=== PATIENT | female | born 1945 | race African-American/Black ===

== ENCOUNTER 2017-08-10 16:39 | Inpatient (IN) | payer MEDICARE, MEDICAID ==
[~2017-08-10] VITALS: Ht 172.7 cm; Wt 90.7 kg
--- NOTE | 2017-08-10 16:56 | Emergency Room Report ---
History of Present Illness General Chief Complaint: Abdominal Pain Source: Patient, EMS Present Illness HPI Patient presents emergency department today complaining of abdominal pain. 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 This was operated on at [place]. Patient has a colostomy. Patient has bib in place in her abdomen. But she is complaining of pain at the incision site. There is evidence of discharge and drainage from incision site consistent with an abscess. Patient denies any fever chest pain shortness of breath. Denies any nausea or vomiting. Symptoms noted to be moderate to severe.No other modifying factors. No other associated signs and symptoms. No other complaints were noted. Allergies: Coded Allergies: PROCHLORPERAZINE (Verified Allergy, Unknown, 08/10/17) Patient History Past Medical History: HTN Past Surgical History: other - Bowel resection, colostomy, bowel obstruction Pertinent Family History: none Social History: Denies: smoking, alcohol use, drug use Reviewed Nursing Documentation: PMH: Agreed; PSxH: Agreed Nursing Documentation-PMH Past Medical History: No History, Except For Hx Hypertension: Yes Review of Systems All Other Systems: negative except mentioned in HPI Physical Exam Vital Signs Date Time Temp Pulse Resp B/P (MAP) Pulse Ox O2 Delivery O2 Flow Rate FiO2 08/10/17 16:31 88 18 150/70 Sp02 EP Interpretation: reviewed, normal General Appearance: alert, moderate distress Head: atraumatic Eyes: bilateral eye normal inspection ENT: normal ENT inspection, hearing grossly normal, normal voice Neck: normal inspection, full range of motion, supple, no bony tend Respiratory: normal inspection, lungs clear, normal breath sounds, no respiratory distress, no retraction, no wheezing Cardiovascular #1: regular rate, rhythm, no edema Gastrointestinal: soft, other - surgical scar healing, with abscess, and drainage, bib in tact Genitourinary: no CVA tenderness Musculoskeletal: normal inspection, back normal, normal range of motion Neurologic: normal inspection, alert, responsive, speech normal Psychiatric: normal inspection, judgement/insight normal, mood/affect normal Skin: other - abdominal wall surgical wound, draining, abscess, erythemia, induration, 4cm lenght Medical Decision Making Diagnostic Impression: Primary Impression: Wound infection Additional Impressions: Ileus Abdominal pain ER Course Patient presents to the emergency department today complaining of abdominal pain. Differential considerations include acute pancreatitis, cholecystitis, gastritis, hepatitis, appendicitis, bowel obstruction, wound infection just to name a few. There is evidence of discharge from the surgical wound. This was cultured. This is concerning for infection. Patient had a CT scan and pelvis which did not show any evidence abscess but does show evidence ileus. Given patient's presentation I felt the patient require admission. Case was discussed with Dr. Mateus Posada and Dr. Maza. Patient will be admitted to [facility] further treatment. Labs Test 08/10/17 17:00 08/10/17 19:30 White Blood Count 8.3 K/UL (4.8-10.8) Red Blood Count 3.76 M/UL (4.20-5.40) Hemoglobin 10.9 G/DL (12.0-16.0) Hematocrit 32.8 % (37.0-47.0) Mean Corpuscular Volume 87 FL (80-99) Mean Corpuscular Hemoglobin 28.9 PG (27.0-31.0) Mean Corpuscular Hemoglobin Concent 33.2 G/DL (32.0-36.0) Red Cell Distribution Width 11.9 % (11.6-14.8) Platelet Count 443 K/UL (150-450) Mean Platelet Volume 5.8 FL (6.5-10.1) Neutrophils (%) (Auto) 67.4 % (45.0-75.0) Lymphocytes (%) (Auto) 19.4 % (20.0-45.0) Monocytes (%) (Auto) 10.0 % (1.0-10.0) Eosinophils (%) (Auto) 1.9 % (0.0-3.0) Basophils (%) (Auto) 1.3 % (0.0-2.0) Prothrombin Time 10.6 SEC (9.30-11.50) Prothromb Time International Ratio 1.0 (0.9-1.1) Activated Partial Thromboplast Time 30 SEC (23-33) Sodium Level 138 MMOL/L (136-145) Potassium Level 4.0 MMOL/L (3.5-5.1) Chloride Level 100 MMOL/L (98-107) Carbon Dioxide Level 32 MMOL/L (21-32) Anion Gap 6 mmol/L (5-15) Blood Urea Nitrogen 9 mg/dL (7-18) Creatinine 0.8 MG/DL (0.55-1.30) Estimat Glomerular Filtration Rate mL/min (>60) Glucose Level 105 MG/DL (74-106) Calcium Level 8.8 MG/DL (8.5-10.1) Total Bilirubin 0.4 MG/DL (0.2-1.0) Aspartate Amino Transf (AST/SGOT) 34 U/L (15-37) Alanine Aminotransferase (ALT/SGPT) 14 U/L (12-78) Alkaline Phosphatase 77 U/L (46-116) Total Protein 7.3 G/DL (6.4-8.2) Albumin 2.3 G/DL (3.4-5.0) Globulin 5.0 g/dL Albumin/Globulin Ratio 0.5 (1.0-2.7) Lipase 233 U/L (73-393) CT/MRI/US Diagnostic Results CT/MRI/US Diagnostic Results : Imaging Test Ordered: CT abdomen and pelvis: Ileus Last Vital Signs Date Time Temp Pulse Resp B/P (MAP) Pulse Ox O2 Delivery O2 Flow Rate FiO2 08/10/17 16:31 88 18 150/70 Status: improved Disposition: ADMITTED INPATIENT Condition: Serious JOSTIN LAI M.D. Aug 10, 2017 16:56
[2017-08-10] MEDS ORDERED: Piperacillin/Tazobactam 3.375 GM in NS 110 ML IVPB ONE (17:00)
[2017-08-10] MEDS ORDERED: Morphine Sulfate 4mg/ml Inj IVP ONE (17:00)
[2017-08-10] MEDS ORDERED: Vancomycin 1.5gm/D5W 250ml 250 ML IVPB ONE (17:00)
[2017-08-10 17:25] VITALS: BP 111/78
[2017-08-10 17:26] LABS: BASOPHILS % (AUTO) 1.3 % (0.0-2.0); EOSINOPHILS % (AUTO) 1.9 % (0.0-3.0); HEMATOCRIT 32.8 % (37.0-47.0); HEMOGLOBIN 10.9 G/DL (12.0-16.0); LYMPHOCYTES % (AUTO) 19.4 % (20.0-45.0); MEAN CORPUSCULAR VOLUME 87 FL (80-99); NEUTROPHILS % (AUTO) 67.4 % (45.0-75.0); PLATELET COUNT 443 K/UL (150-450); RED BLOOD COUNT 3.76 M/UL (4.20-5.40); RED CELL DISTRIBUTION WIDTH 11.9 % (11.6-14.8); WHITE BLOOD COUNT 8.3 K/UL (4.8-10.8)
[2017-08-10 17:28] LABS: ANION GAP 6 mmol/L (5-15); BLOOD UREA NITROGEN 9 mg/dL (7-18); CALCIUM 8.8 MG/DL (8.5-10.1); CARBON DIOXIDE 32 MMOL/L (21-32); CHLORIDE 100 MMOL/L (98-107); CREATININE 0.8 MG/DL (0.55-1.30); SODIUM 138 MMOL/L (136-145)
[2017-08-10 17:32] LABS: ALANINE AMINOTRANSFERASE 14 U/L (12-78); ALBUMIN 2.3 G/DL (3.4-5.0); ALBUMIN/GLOBULIN RATIO 0.5 (1.0-2.7); ALKALINE PHOSPHATASE 77 U/L (46-116); ASPARTATE AMINO TRANSFERASE 34 U/L (15-37); BILIRUBIN,TOTAL 0.4 MG/DL (0.2-1.0)
[2017-08-10] MEDS ORDERED: IPRAT-ALBUT 0.5-3 ML IH (17:34)
[2017-08-10] MEDS ORDERED: NORCO 10/3251 EA ORAL (17:34)
[2017-08-10] MEDS ORDERED: MILK OF MA400 MG/51 ORAL (17:34)
[2017-08-10] MEDS ORDERED: CEPHALEXIN500 MG ORAL (17:34)
[2017-08-10] MEDS ORDERED: AMLODIPINE BESYL5 MG ORAL (17:34)
[2017-08-10] MEDS ORDERED: ZOFRAN ODT4 MG ORAL (17:34)
[2017-08-10] MEDS ORDERED: COLACE100 MG ORAL (17:34)
[2017-08-10 18:22] VITALS: BP 115/89
[2017-08-10] MEDS ORDERED: LORazepam Inj 2mg/ml 1ml IV ONE (18:45)
[2017-08-10 19:30] VITALS: BP 118/85
[2017-08-10] MEDS ORDERED: DiphenhydrAMINE 50mg/ml Inj IVP ONE (19:30)
[2017-08-10] MEDS ORDERED: Zosyn 3.375gm inj ONE (19:36)
[2017-08-10 20:23] LABS: APPEARANCE,URINE CLEAR; BILIRUBIN, URINE NEGATIVE (NEGATIVE); COLOR,URINE PALE YELLOW; GLUCOSE, URINE (UA) NEGATIVE (NEGATIVE); KETONES,URINE NEGATIVE (NEGATIVE); LEUKOCYTE ESTERASE ,URINE NEGATIVE (NEGATIVE); NITRITE,URINE NEGATIVE (NEGATIVE); PH,URINE 8 (4.5-8.0); PROTEIN,URINE NEGATIVE (NEGATIVE); UROBILINOGEN,URINE NORMAL MG/DL (0.0-1.0)
[2017-08-10 20:50] VITALS: BP 147/97
[2017-08-10] MEDS ORDERED: Milk of Magnesia 30ml Ud ORAL PRN (22:00)
[2017-08-10] MEDS ORDERED: DiphenhydrAMINE 50mg/ml Inj IVP PRN (22:00)
[2017-08-10] MEDS ORDERED: Albuterol/Ipratropium 3ml neb INH PRN (22:00)
[2017-08-10] MEDS: Heparin 5000 units/ml inj SUBQ SCH (22:36)
[2017-08-10 23:59] VITALS: BP 125/88
[2017-08-11] MEDS: Morphine Sulfate 4mg/ml Inj IVP PRN ×4 (02:00→13:16)
[2017-08-11] MEDS ORDERED: Zosyn 3.375gm inj ONE (03:44)
[2017-08-11 04:00] VITALS: BP 134/91
[2017-08-11] MEDS: Piperacillin/Tazobactam 3.375 GM in NS 110 ML IVPB SCH ×3 (04:00→20:28)
[2017-08-11] MEDS: Heparin 5000 units/ml inj SUBQ SCH ×3 (05:56→20:29)
[2017-08-11 08:00] VITALS: BP 126/76
[2017-08-11] MEDS: Docusate 100mg cap ORAL SCH ×2 (08:36→17:03)
--- NOTE | 2017-08-11 09:10 | Diagnostic Imaging Report ---
Indication: Abdominal pain Technique: CT of the abdomen and pelvis utilizing automated exposure control with intravenous contrast. Venous scanning performed. CT dose: Total DLP 1095 mGycm; CTDI vol 18.6 mGy Comparison: None Findings: There is atelectasis in the lung bases. A small area of consolidation is noted in the right lower lobe. The heart is enlarged. Liver, adrenal glands, spleen and pancreas are grossly unremarkable. No calcified gallstones are identified. There is mild cortical thinning of the bilateral kidneys. There is no hydronephrosis. There is a left lower quadrant colostomy. Colonic diverticulosis is noted. The appendix is normal. There are mildly dilated loops of small bowel within the right-sided abdomen and the central/left-sided pelvis. Abdominal aorta is tortuous. There is no gross free intraperitoneal air. Midline skin bib are seen. There is subcutaneous stranding. The uterus is slightly heterogeneous. Degenerative changes of the spine are noted. There is grade 1 anterolisthesis of L4 and L5. There is a tiny fat-containing right inguinal hernia. Impression: Evaluation limited without oral contrast. Postsurgical changes with left lower quadrant colostomy. Mild segmental dilated small bowel within the right abdomen and the left-sided pelvis without obvious transition point. Partial obstruction cannot be excluded. Clinical correlation recommended. Further evaluation/follow-up recommended as indicated. Colonic diverticulosis but no obvious diverticulitis. Bilateral lower lobe atelectasis. Consolidation in the right lower lobe and aspiration or pneumonia cannot be excluded. Clinical correlation recommended. Slightly heterogeneous appearance of the central uterus. Endometrial pathology not excluded and correlation with ultrasound recommended as indicated. Normal appendix. Other findings as above. The CT scanner at [facility] is accredited by the [employer] and the scans are performed using protocols designed to limit radiation exposure to as low as reasonably achievable to attain images of sufficient resolution adequate for diagnostic evaluation.
--- NOTE | 2017-08-11 09:28 | Diagnostic Imaging Report ---
Indication: Cough Technique: XRAY Chest 1v Comparison: None Findings: Cardiac silhouette is prominent. There is mild central pulmonary vascular congestion. Mild opacities are seen in the lung bases. Degenerative changes of the spine are seen. Impression: Cardiomegaly with pulmonary vascular congestion. Mild lung base opacities could represent atelectasis. Infiltrate in the right base not excluded. Clinical correlation/follow-up recommended.
--- NOTE | 2017-08-11 10:42 | Consultation ---
History of Present Illness General Date patient seen: Aug 11, 2017 Chief Complaint: Abdominal Pain Reason for Consultation: abdominal pain, midline wound infection Present Illness HPI 72F with multiple medical problems presented to ED complaining of worsening abdominal pain. As per patient, she had obstructive colon mass requiring exploratory laparotomy with bowel resection and ostomy creation (González's procedure?) a few weeks ago at [facility]. She was discharged after a week in good condition tolerating diet and with ostomy functional. She was doing well until recently when she began to note drainage from midline wound, wound tenderness, and abdominal tenderness. pain cramping generalized pain that is focal around wound on exam. drainage purulent. no n/v/f/c. labs okay. CT reviewed. patient seen and examined. Allergies: Coded Allergies: PROCHLORPERAZINE (Verified Allergy, Unknown, 08/10/17) Medication History Scheduled Amlodipine Besylate* (Amlodipine Besylate*), 5 MG ORAL DAILY, (Reported) Cephalexin* (Keflex*), 500 MG ORAL EVERY 6 HOURS, (Reported) Docusate Sodium* (Colace*), 100 MG ORAL TWICE A DAY, (Reported) Scheduled PRN Hydrocodone/Acetaminophen (Hydrocodon-Acetaminophn 10-325), 1 TAB ORAL Q4H PRN for For Pain, (Reported) Ipratropium/Albuterol Sulfate (Iprat-Albut 0.5-3(2.5) Mg/3 Ml), 3 ML IH EVERY 2 HOURS PRN for Shortness of Breath, (Reported) Magnesium Hydroxide* (Milk Of Magnesia*), 30 ML ORAL DAILY PRN for Constipation, (Reported) Ondansetron Odt* (Zofran Odt*), 4 MG ORAL Q4HR PRN for Nausea & Vomiting, ( Reported) Patient History History Provided By: Patient, Medical Record, PMD Healthcare decision maker BRITNEY OWEN, Resuscitation status Advanced Directive on File Past Medical/Surgical History Past Medical/Surgical History: (1) Ileus (2) Abdominal pain (3) Wound infection Review of Systems Constitutional: Denies: no symptoms, see HPI, chills, sweats, fever, malaise, weakness, other Eye: Denies: no symptoms, see HPI, eye pain, blurred vision, tearing, double vision, nose pain, nose congestion, acuity changes, discharge, other ENT: Denies: no symptoms, see HPI, ear pain, ear discharge, nose pain, nose congestion, throat pain, throat swelling, mouth pain, hearing loss, nasal discharge, other Respiratory: Denies: no symptoms, see HPI, cough, orthopnea, shortness of breath, stridor, wheezing, MONTANEZ, sputum, other Cardiovascular: Denies: no symptoms, see HPI, chest pain, edema, palpitations, syncope, PND, other Gastrointestinal: Reports: abdominal pain Genitourinary: Denies: no symptoms, see HPI, discharge, dysuria, frequency, hematuria, pain, retention, incontinence, urgency, vag bleed/dc, other Musculoskeletal: Denies: no symptoms, see HPI, back pain, gout, joint pain, joint swelling, muscle pain, muscle stiffness, other Skin: Denies: no symptoms, see HPI, rash, change in color, change in hair/nails , dryness, lesions, other Psychiatric: Denies: no symptoms, see HPI, prior hx, anxiety, depressed feelings, emotional problems, SI, HI, hallucinations, other Neurological: Denies: no symptoms, see HPI, headache, numbness, paresthesia, seizure, tingling, tremors, focal weakness, syncope, dizziness, other Endocrine: Denies: no symptoms, see HPI, excessive sweating, flushing, intolerance to temperature, increased thirst, increased urine, unexplained weight loss, other Hematologic/Lymphatic: Denies: no symptoms, see HPI, anemia, blood clots, easy bleeding, easy bruising, swollen glands, diathesis, other Physical Exam General Appearance: no apparent distress, alert Lines, tubes and drains: peripheral HEENT: normocephalic, mucous membranes moist Neck: normal inspection Respiratory/Chest: chest wall non-tender, lungs clear, normal breath sounds, no respiratory distress, no accessory muscle use Cardiovascular/Chest: normal peripheral pulses, normal rate, regular rhythm Abdomen: normal bowel sounds, soft, no organomegaly, no mass, other - tender wound midline wound that has erythema, edema, and purulent drainage from inbetween bib. ostomy viable and functional Extremities: normal range of motion, non-tender Skin Exam: normal pigmentation Neurologic: alert, oriented x 3 Last 24 Hour Vital Signs Date Time Temp Pulse Resp B/P (MAP) Pulse Ox O2 Delivery O2 Flow Rate FiO2 08/11/17 08:41 72 126/76 08/11/17 08:00 96.3 72 18 126/76 94 Room Air 96.3 08/11/17 07:50 85 16 Room Air 21 08/11/17 07:02 97.9 08/11/17 06:32 97.9 08/11/17 04:00 98.1 86 18 134/91 95 98.1 08/11/17 04:00 Room Air 08/11/17 02:00 97.9 08/11/17 00:45 Room Air 08/10/17 23:59 97.9 85 18 125/88 96 97.9 08/10/17 20:50 98.2 88 18 147/97 93 Room Air 98.2 08/10/17 20:00 98.9 92 16 118/85 96 Room Air 98.9 08/10/17 19:30 98.9 92 16 118/85 96 Room Air 98.9 08/10/17 18:22 94 17 115/89 94 Room Air 08/10/17 17:25 99 20 111/78 99 Room Air 08/10/17 16:31 88 18 150/70 Intake and Output 08/10/17 08/11/17 19:00 07:00 Intake Total 0 ml 382.5 ml Balance 0 ml 382.5 ml Intake Oral 0 ml IV Total 382.5 ml # Voids 3 Laboratory Tests Test 08/10/17 17:00 08/10/17 19:30 White Blood Count 8.3 K/UL (4.8-10.8) Red Blood Count 3.76 M/UL (4.20-5.40) L Hemoglobin 10.9 G/DL (12.0-16.0) L Hematocrit 32.8 % (37.0-47.0) L Mean Corpuscular Volume 87 FL (80-99) Mean Corpuscular Hemoglobin 28.9 PG (27.0-31.0) Mean Corpuscular Hemoglobin Concent 33.2 G/DL (32.0-36.0) Red Cell Distribution Width 11.9 % (11.6-14.8) Platelet Count 443 K/UL (150-450) Mean Platelet Volume 5.8 FL (6.5-10.1) L Neutrophils (%) (Auto) 67.4 % (45.0-75.0) Lymphocytes (%) (Auto) 19.4 % (20.0-45.0) L Monocytes (%) (Auto) 10.0 % (1.0-10.0) Eosinophils (%) (Auto) 1.9 % (0.0-3.0) Basophils (%) (Auto) 1.3 % (0.0-2.0) Prothrombin Time 10.6 SEC (9.30-11.50) Prothromb Time International Ratio 1.0 (0.9-1.1) Activated Partial Thromboplast Time 30 SEC (23-33) Sodium Level 138 MMOL/L (136-145) Potassium Level 4.0 MMOL/L (3.5-5.1) Chloride Level 100 MMOL/L (98-107) Carbon Dioxide Level 32 MMOL/L (21-32) Anion Gap 6 mmol/L (5-15) Blood Urea Nitrogen 9 mg/dL (7-18) Creatinine 0.8 MG/DL (0.55-1.30) Estimat Glomerular Filtration Rate mL/min (>60) Glucose Level 105 MG/DL (74-106) Calcium Level 8.8 MG/DL (8.5-10.1) Total Bilirubin 0.4 MG/DL (0.2-1.0) Aspartate Amino Transf (AST/SGOT) 34 U/L (15-37) Alanine Aminotransferase (ALT/SGPT) 14 U/L (12-78) Alkaline Phosphatase 77 U/L (46-116) Total Protein 7.3 G/DL (6.4-8.2) Albumin 2.3 G/DL (3.4-5.0) L Globulin 5.0 g/dL Albumin/Globulin Ratio 0.5 (1.0-2.7) L Lipase 233 U/L (73-393) Urine Color Pale yellow Urine Appearance Clear Urine pH 8 (4.5-8.0) Urine Specific [place] 1.010 (1.005-1.035) Urine Protein Negative (NEGATIVE) Urine Glucose (UA) Negative (NEGATIVE) Urine Ketones Negative (NEGATIVE) Urine Occult Blood Negative (NEGATIVE) Urine Nitrite Negative (NEGATIVE) Urine Bilirubin Negative (NEGATIVE) Urine Urobilinogen Normal MG/DL (0.0-1.0) Urine Leukocyte Esterase Negative (NEGATIVE) Height (Feet): 5 Height (Inches): 8.00 Weight (Pounds): 200 Medications Current Medications Medications (Trade) Dose Ordered Sig/Radha Route PRN Reason Start Time Stop Time Status Last Admin Dose Admin Albuterol/ Ipratropium (Albuterol/ Ipratropium) 3 ml EVERY 2 HOURS PRN INH Shortness of Breath 08/10/17 22:00 08/15/17 21:59 Amlodipine Besylate (Norvasc) 5 mg DAILY ORAL 08/11/17 09:00 09/10/17 08:59 08/11/17 08:41 Dextrose/ Electrolytes 1,000 ml @ 100 mls/hr Q10H IV 08/10/17 22:15 09/09/17 22:14 08/11/17 08:42 Diphenhydramine HCl (Benadryl) 25 mg Q6H PRN IVP Itching 08/10/17 22:00 09/09/17 21:59 Docusate Sodium (Colace) 100 mg TWICE A DAY ORAL 08/11/17 09:00 09/10/17 08:59 Heparin Sodium (Porcine) (Heparin 5000 units/ml) 5,000 units EVERY 8 HOURS SUBQ 08/10/17 22:00 09/09/17 21:59 08/11/17 05:56 Magnesium Hydroxide (Mom) 30 ml DAILY PRN ORAL Constipation 08/10/17 22:00 09/09/17 21:59 Morphine Sulfate (Morphine Sulfate) 2 mg Q4H PRN IVP pain 08/10/17 22:15 08/17/17 22:14 08/11/17 06:32 Ondansetron HCl (Zofran) 4 mg Q6H PRN IVP Nausea & Vomiting 08/10/17 22:00 09/09/17 21:59 Piperacillin Sod/ Tazobactam Sod 3.375 gm/Sodium Chloride 110 ml @ 27.5 mls/hr 0400,1200,2000 IVPB 08/11/17 04:00 08/18/17 03:59 08/11/17 04:00 Assessment/Plan Problem List: (1) Wound infection Assessment & Plan: midline wound infection after recent surgery. seems that she had a González's procedure for large bowel obstruction from exam and history. her ostomy is viable and functional. her abdominal exam is stable but midline wound does have purulent drainage/erythema/edema. labs okay. otherwise stable. midline wound bib removed and wound opened at bedside. drained 20+cc of purulent bloody fluid. -packing and dressing TID -okay for diet -ambulate and oob -abx will follow with recs. thank you for this consult. ICD Codes: T14.8XXA - Other injury of unspecified body region, initial encounter; L08.9 - Local infection of the skin and subcutaneous tissue, unspecified SNOMED: 32156846 Status: stable RoqueRoberto Carlos romero Aug 11, 2017 10:42
[2017-08-11 12:14] VITALS: BP 121/97
[2017-08-11 12:38] LABS: ANION GAP 6 mmol/L (5-15); BLOOD UREA NITROGEN 5 mg/dL (7-18); CALCIUM 9.1 MG/DL (8.5-10.1); CARBON DIOXIDE 31 MMOL/L (21-32); CHLORIDE 102 MMOL/L (98-107); CREATININE 0.8 MG/DL (0.55-1.30); POTASSIUM 4.2 MMOL/L (3.5-5.1); SODIUM 139 MMOL/L (136-145)
[2017-08-11 13:03] LABS: BASOPHILS % (AUTO) 0.8 % (0.0-2.0); EOSINOPHILS % (AUTO) 4.1 % (0.0-3.0); HEMATOCRIT 34.5 % (37.0-47.0); HEMOGLOBIN 11.2 G/DL (12.0-16.0); LYMPHOCYTES % (AUTO) 28.2 % (20.0-45.0); MEAN CORPUSCULAR VOLUME 88 FL (80-99); MONOCYTES % (AUTO) 9.2 % (1.0-10.0); NEUTROPHILS % (AUTO) 57.6 % (45.0-75.0); PLATELET COUNT 454 K/UL (150-450); RED BLOOD COUNT 3.91 M/UL (4.20-5.40); WHITE BLOOD COUNT 7.4 K/UL (4.8-10.8)
--- NOTE | 2017-08-11 14:20 | General Progress Note ---
Assessment/Plan Assessment/Plan GI CONSULT Dictated D/w surgery Thank you Alvarado Boone MD Subjective Allergies: Coded Allergies: PROCHLORPERAZINE (Verified Allergy, Unknown, 08/10/17) Objective Last 24 Hour Vital Signs Date Time Temp Pulse Resp B/P (MAP) Pulse Ox O2 Delivery O2 Flow Rate FiO2 08/11/17 13:46 97.9 08/11/17 13:16 97.9 08/11/17 12:14 97.9 87 18 121/97 93 Room Air 97.9 08/11/17 11:29 96.3 08/11/17 10:59 96.3 08/11/17 08:41 72 126/76 08/11/17 08:00 96.3 72 18 126/76 94 Room Air 96.3 08/11/17 07:50 85 16 Room Air 21 08/11/17 06:32 97.9 08/11/17 04:00 98.1 86 18 134/91 95 98.1 08/11/17 04:00 Room Air 08/11/17 02:00 97.9 08/11/17 00:45 Room Air 08/10/17 23:59 97.9 85 18 125/88 96 97.9 08/10/17 20:50 98.2 88 18 147/97 93 Room Air 98.2 08/10/17 20:00 98.9 92 16 118/85 96 Room Air 98.9 08/10/17 19:30 98.9 92 16 118/85 96 Room Air 98.9 08/10/17 18:22 94 17 115/89 94 Room Air 08/10/17 17:25 99 20 111/78 99 Room Air 08/10/17 16:31 88 18 150/70 Intake and Output 08/10/17 08/11/17 19:00 07:00 Intake Total 0 ml 382.5 ml Balance 0 ml 382.5 ml Intake Oral 0 ml IV Total 382.5 ml # Voids 3 Laboratory Tests 08/10/17 17:00: White Blood Count 8.3, Red Blood Count 3.76L, Hemoglobin 10.9L, Hematocrit 32.8L , Mean Corpuscular Volume 87, Mean Corpuscular Hemoglobin 28.9, Mean Corpuscular Hemoglobin Concent 33.2, Red Cell Distribution Width 11.9, Platelet Count 443, Mean Platelet Volume 5.8L, Neutrophils (%) (Auto) 67.4, Lymphocytes ( %) (Auto) 19.4L, Monocytes (%) (Auto) 10.0, Eosinophils (%) (Auto) 1.9, Basophils (%) (Auto) 1.3, Prothrombin Time 10.6, Prothromb Time International Ratio 1.0, Activated Partial Thromboplast Time 30, Sodium Level 138, Potassium Level 4.0, Chloride Level 100, Carbon Dioxide Level 32, Anion Gap 6, Blood Urea Nitrogen 9, Creatinine 0.8, Estimat Glomerular Filtration Rate , Glucose Level 105, Calcium Level 8.8, Total Bilirubin 0.4, Aspartate Amino Transf (AST/SGOT) 34, Alanine Aminotransferase (ALT/SGPT) 14, Alkaline Phosphatase 77, Total Protein 7.3, Albumin 2.3L, Globulin 5.0, Albumin/Globulin Ratio 0.5L, Lipase 233 08/10/17 19:30: Urine Color Pale yellow, Urine Appearance Clear, Urine pH 8, Urine Specific [place] 1.010, Urine Protein Negative, Urine Glucose (UA) Negative, Urine Ketones Negative, Urine Occult Blood Negative, Urine Nitrite Negative, Urine Bilirubin Negative, Urine Urobilinogen Normal, Urine Leukocyte Esterase Negative 08/11/17 11:50: White Blood Count 7.4, Red Blood Count 3.91L, Hemoglobin 11.2L, Hematocrit 34.5L , Mean Corpuscular Volume 88, Mean Corpuscular Hemoglobin 28.7, Mean Corpuscular Hemoglobin Concent 32.4, Red Cell Distribution Width 12.0, Platelet Count 454H, Mean Platelet Volume 5.9L, Neutrophils (%) (Auto) 57.6, Lymphocytes (%) (Auto) 28.2, Monocytes (%) (Auto) 9.2, Eosinophils (%) (Auto) 4.1H, Basophils (%) (Auto) 0.8, Sodium Level 139, Potassium Level 4.2, Chloride Level 102, Carbon Dioxide Level 31, Anion Gap 6, Blood Urea Nitrogen 5L, Creatinine 0.8, Estimat Glomerular Filtration Rate , Glucose Level 95, Calcium Level 9.1 Height (Feet): 5 Height (Inches): 8.00 Weight (Pounds): 200 IHSANMANISHASUZE Aug 11, 2017 14:20
[2017-08-11] MEDS ORDERED: Tubing IV Secondary IV ONE (14:28)
--- NOTE | 2017-08-11 14:30 | History and Physical Report ---
DATE OF ADMISSION: 08/10/2017 TIME: 8 a.m. ATTENDING PHYSICIAN: Mateus Posada D.O. CONSULTANTS: 1. Ember Boone M.D. 2. Roberto Carlos Maza M.D. 3. Jose Luis Vieyra M.D. CHIEF COMPLAINT: Abdominal pain, status post surgery, possible abdominal abscess, history of SBO. BRIEF HISTORY: This is a 72-year-old female from [facility] with history of recent SBO, status post colostomy, was complaining of two-day of increased abdominal pain, four bowel movements, in to [facility], diagnosed with possible abdominal abscess, admitted to medical floor for further treatment. Currently, calm in bed, NPO, slight general abdominal pain, 6/10. No complaint. REVIEW OF SYSTEMS: No chest pain. No shortness of breath. Slight nausea. No vomiting or diarrhea. PAST MEDICAL HISTORY: Includes hypertension and history SBO. PAST SURGICAL HISTORY: Colostomy. MEDICATIONS: Include Norvasc, Colace, Zosyn, morphine, albuterol, , Zofran, and heparin. ALLERGIES: Prochlorperazine. SOCIAL HISTORY: No smoking. No alcohol. No intravenous drug abuse. FAMILY HISTORY: Noncontributory. PHYSICAL EXAMINATION: GENERAL: Slightly anxious in bed, oriented x3, no acute distress. VITAL SIGNS: Temperature is 98, pulse 85, respirations 16, and blood pressure 131/91. CARDIOVASCULAR: No murmurs. LUNGS: Distant and clear. ABDOMEN: Bowel sounds distention, soft. No guarding. Slightly tender. No rebound. EXTREMITIES: No cyanosis, clubbing, or edema. NEUROLOGIC: The patient moves all extremities slightly weak. LABORATORY DATA: Hemoglobin 10.9, otherwise CBC is normal. BMP shows albumin 2.3, otherwise BMP is normal. INR is 1.0 and PTT is 30. Urinalysis is negative. ASSESSMENT: 1. Abdominal pain, status post surgery, possible abdominal abscess. 2. Anemia. 3. History SBO. 4. Hypertension. PLAN: 1. OT, PT, dietary evaluation. 2. CBC and BMP in the morning. 3. NPO. 4. IV fluids. 5. Blood pressure and pain control. 6. We will continue to follow the patient. Mateus Posada D.O. DR: HODAN JOB#: [id number] CC:
[2017-08-11 16:30] VITALS: BP 109/64
[2017-08-11 20:00] VITALS: BP 131/78
--- NOTE | 2017-08-11 22:00 | Consultation ---
DATE OF CONSULTATION: 08/11/2017 GASTROENTEROLOGY CONSULTATION CONSULTING PHYSICIAN: Ember Boone M.D. CHIEF COMPLAINT: I was asked to see this patient by Dr. Mateus Posada for evaluation of abdominal pain and wound drainage. HISTORY OF PRESENT ILLNESS: The patient is a pleasant 72-year-old woman, who was brought in from a alf due to above symptoms. The patient recently had presented to [facility] with acute obstruction for colon and underwent emergency surgery with colostomy. Her surgical findings were notable for cancer, which was removed. The patient states that she was sent to alf thereafter for rehabilitation. However, over the last day or two, the patient noted increasing abdominal pain, wound drainage, and chills. The patient, therefore, admitted through the emergency room to [facility]. PAST MEDICAL HISTORY: Remarkable for, 1. History of hypertension. 2. History of colon cancer. MEDICATIONS: See chart list for details. ALLERGIES: Compazine. SOCIAL HISTORY: The patient does not smoke or drink. FAMILY HISTORY: Noncontributory. REVIEW OF SYSTEMS: Otherwise negative. PHYSICAL EXAMINATION: GENERAL: The patient is an obese woman, who is seen in her room with family at bedside. HEENT: Normocephalic and atraumatic. Sclerae anicteric. Oropharynx is clear. NECK: Supple. CHEST: Clear to auscultation. CARDIOVASCULAR: Regular rate. ABDOMEN: Soft with left lower quadrant colostomy. There was also a midline wound with significant degree of induration in the bottom portion of it. Manipulation of this area revealed oozing of purulent material. EXTREMITIES: No edema. LABORATORY AND DIAGNOSTIC DATA: Laboratory data and imaging studies were noted. CT scan showed postsurgical changes with colostomy and some colonic diverticulosis. ASSESSMENT: This patient presents with midline abdominal pain, which appears to be due complication of her wound. The staple line showed some purulent material and there is induration around it. It is possible that this can be treated locally with opening at the wound with packing and this will defer to the surgical consult. In the meantime, I would give the patient broad-spectrum antibiotics to treat the infection initially including antibiotics that would cover for atypical in this area. The patient's laboratory parameters and exam should be followed closely. With respect to her cancer, the patient's staging should be followed up by her physicians at the outside hospital and the Oncology should be involved with respect to postoperative cancer staging and possible chemotherapy. RECOMMENDATIONS: Per above discussion and per orders written in the chart. Thank you for asking me to participate in the care of this patient. Ember Boone M.D. DR: Wilber JOB#: [id number] CC:
[2017-08-12] VITALS: BP 147/102
[2017-08-12] MEDS: Piperacillin/Tazobactam 3.375 GM in NS 110 ML IVPB SCH ×3 (03:07→20:02)
[2017-08-12 04:00] VITALS: BP 138/94
[2017-08-12] MEDS: Heparin 5000 units/ml inj SUBQ SCH ×3 (05:18→20:05)
[2017-08-12] MEDS: Morphine Sulfate 4mg/ml Inj IVP PRN ×4 (05:53→20:07)
[2017-08-12 08:00] VITALS: BP 105/72
[2017-08-12 08:37] LABS: EOSINOPHILS % (AUTO) 3.7 % (0.0-3.0); HEMATOCRIT 31.9 % (37.0-47.0); HEMOGLOBIN 10.7 G/DL (12.0-16.0); MEAN CORPUSCULAR VOLUME 89 FL (80-99); MONOCYTES % (AUTO) 9.9 % (1.0-10.0); NEUTROPHILS % (AUTO) 58.3 % (45.0-75.0); PLATELET COUNT 460 K/UL (150-450); RED BLOOD COUNT 3.61 M/UL (4.20-5.40); WHITE BLOOD COUNT 6.9 K/UL (4.8-10.8)
[2017-08-12] MEDS: Docusate 100mg cap ORAL SCH ×2 (09:08→17:22)
[2017-08-12 09:32] LABS: ANION GAP 5 mmol/L (5-15); BLOOD UREA NITROGEN 4 mg/dL (7-18); CALCIUM 8.8 MG/DL (8.5-10.1); CARBON DIOXIDE 31 MMOL/L (21-32); CHLORIDE 103 MMOL/L (98-107); CREATININE 0.9 MG/DL (0.55-1.30); POTASSIUM 3.9 MMOL/L (3.5-5.1); SODIUM 139 MMOL/L (136-145)
--- NOTE | 2017-08-12 11:00 | GI Progress Note ---
Assessment/Plan Problems: (1) Colostomy complication ICD Codes: K94.00 - Colostomy complication, unspecified SNOMED: 82135275 (2) Wound infection ICD Codes: T14.8XXA - Other injury of unspecified body region, initial encounter; L08.9 - Local infection of the skin and subcutaneous tissue, unspecified SNOMED: 45699753 (3) Abdominal pain ICD Codes: R10.9 - Unspecified abdominal pain SNOMED: 67606546 (4) Ileus ICD Codes: K56.7 - Ileus, unspecified SNOMED: 066543754 Status: stable Status Narrative Discussed with Dr. Peter. Assessment/Plan abdominal pain most likely complication with colostomy surgery follows pain mgmt tolerating diet abx ppi fu labs fu oncology recs The patient was seen and examined at bedside and all new and available data was reviewed in the patients chart. I agree with the above findings, impression and plan. (Patient seen earlier today. Signature stamp does not reflect patient encounter time.). - Constance Peter MD Subjective Subjective abdominal pain tolerating diet Objective Last 24 Hour Vital Signs Date Time Temp Pulse Resp B/P (MAP) Pulse Ox O2 Delivery O2 Flow Rate FiO2 08/12/17 10:20 98.4 08/12/17 09:09 94 105/72 08/12/17 08:00 97.8 94 20 105/72 96 97.8 08/12/17 07:51 76 18 Room Air 21 08/12/17 06:28 98.4 08/12/17 05:53 98.4 08/12/17 04:00 98.4 89 17 138/94 95 98.4 08/12/17 00:00 98.1 95 18 147/102 96 Room Air 98.1 08/11/17 20:00 100.6 94 20 131/78 93 Room Air 100.6 08/11/17 19:50 80 18 Room Air 21 08/11/17 16:30 97.8 79 18 109/64 96 Room Air 97.8 08/11/17 13:16 97.9 08/11/17 12:14 97.9 87 18 121/97 93 Room Air 97.9 08/11/17 11:29 96.3 08/11/17 10:59 96.3 Intake and Output 08/11/17 08/12/17 19:00 07:00 Intake Total 977.5 ml 592.5 ml Output Total 0 ml Balance 977.5 ml 592.5 ml Intake Oral 240 ml IV Total 737.5 ml 592.5 ml Output Stool Total 0 ml # Voids 4 Laboratory Tests Test 08/11/17 11:50 08/12/17 07:40 White Blood Count 7.4 K/UL (4.8-10.8) 6.9 K/UL (4.8-10.8) Red Blood Count 3.91 M/UL (4.20-5.40) L 3.61 M/UL (4.20-5.40) L Hemoglobin 11.2 G/DL (12.0-16.0) L 10.7 G/DL (12.0-16.0) L Hematocrit 34.5 % (37.0-47.0) L 31.9 % (37.0-47.0) L Mean Corpuscular Volume 88 FL (80-99) 89 FL (80-99) Mean Corpuscular Hemoglobin 28.7 PG (27.0-31.0) 29.7 PG (27.0-31.0) Mean Corpuscular Hemoglobin Concent 32.4 G/DL (32.0-36.0) 33.6 G/DL (32.0-36.0) Red Cell Distribution Width 12.0 % (11.6-14.8) 12.0 % (11.6-14.8) Platelet Count 454 K/UL (150-450) H 460 K/UL (150-450) H Mean Platelet Volume 5.9 FL (6.5-10.1) L 5.8 FL (6.5-10.1) L Neutrophils (%) (Auto) 57.6 % (45.0-75.0) 58.3 % (45.0-75.0) Lymphocytes (%) (Auto) 28.2 % (20.0-45.0) 27.0 % (20.0-45.0) Monocytes (%) (Auto) 9.2 % (1.0-10.0) 9.9 % (1.0-10.0) Eosinophils (%) (Auto) 4.1 % (0.0-3.0) H 3.7 % (0.0-3.0) H Basophils (%) (Auto) 0.8 % (0.0-2.0) 1.0 % (0.0-2.0) Sodium Level 139 MMOL/L (136-145) 139 MMOL/L (136-145) Potassium Level 4.2 MMOL/L (3.5-5.1) 3.9 MMOL/L (3.5-5.1) Chloride Level 102 MMOL/L (98-107) 103 MMOL/L (98-107) Carbon Dioxide Level 31 MMOL/L (21-32) 31 MMOL/L (21-32) Anion Gap 6 mmol/L (5-15) 5 mmol/L (5-15) Blood Urea Nitrogen 5 mg/dL (7-18) L 4 mg/dL (7-18) L Creatinine 0.8 MG/DL (0.55-1.30) 0.9 MG/DL (0.55-1.30) Estimat Glomerular Filtration Rate mL/min (>60) mL/min (>60) Glucose Level 95 MG/DL (74-106) 95 MG/DL (74-106) Calcium Level 9.1 MG/DL (8.5-10.1) 8.8 MG/DL (8.5-10.1) Height (Feet): 5 Height (Inches): 8.00 Weight (Pounds): 200 General Appearance: WD/WN, no apparent distress, alert Cardiovascular: normal rate Respiratory/Chest: normal breath sounds, no respiratory distress Abdominal Exam: normal bowel sounds, non tender, soft, other - colostomy Extremities: normal range of motion, non-tender Cristina Gaines N.P. Aug 12, 2017 11:00 BRENDON PETER Aug 12, 2017 13:03
[2017-08-12 12:00] VITALS: BP 140/77
--- NOTE | 2017-08-12 12:37 | General Progress Note ---
Assessment/Plan Problem List: (1) HTN (hypertension) ICD Codes: I10 - Essential (primary) hypertension SNOMED: 12304231 (2) Anemia ICD Codes: D64.9 - Anemia, unspecified SNOMED: 678464202 (3) Ileus ICD Codes: K56.7 - Ileus, unspecified SNOMED: 091728554 (4) Abdominal pain ICD Codes: R10.9 - Unspecified abdominal pain SNOMED: 01706974 Status: unchanged Assessment/Plan ot pt diet gi sx f/u pain control cbc bmp am Subjective Constitutional: Reports: weakness Gastrointestinal/Abdominal: Reports: abdominal pain, nausea Allergies: Coded Allergies: PROCHLORPERAZINE (Verified Allergy, Unknown, 08/10/17) All Systems: reviewed and negative except above Subjective sl gen pain Objective Last 24 Hour Vital Signs Date Time Temp Pulse Resp B/P (MAP) Pulse Ox O2 Delivery O2 Flow Rate FiO2 08/12/17 10:50 98.4 08/12/17 10:20 98.4 08/12/17 09:09 94 105/72 08/12/17 08:00 97.8 94 20 105/72 96 97.8 08/12/17 07:51 76 18 Room Air 21 08/12/17 05:53 98.4 08/12/17 04:00 98.4 89 17 138/94 95 98.4 08/12/17 00:00 98.1 95 18 147/102 96 Room Air 98.1 08/11/17 20:00 100.6 94 20 131/78 93 Room Air 100.6 08/11/17 19:50 80 18 Room Air 21 08/11/17 16:30 97.8 79 18 109/64 96 Room Air 97.8 08/11/17 13:16 97.9 Intake and Output 08/11/17 08/12/17 19:00 07:00 Intake Total 977.5 ml 592.5 ml Output Total 0 ml Balance 977.5 ml 592.5 ml Intake Oral 240 ml IV Total 737.5 ml 592.5 ml Output Stool Total 0 ml # Voids 4 Laboratory Tests 08/12/17 07:40: White Blood Count 6.9, Red Blood Count 3.61L, Hemoglobin 10.7L, Hematocrit 31.9L , Mean Corpuscular Volume 89, Mean Corpuscular Hemoglobin 29.7, Mean Corpuscular Hemoglobin Concent 33.6, Red Cell Distribution Width 12.0, Platelet Count 460H, Mean Platelet Volume 5.8L, Neutrophils (%) (Auto) 58.3, Lymphocytes (%) (Auto) 27.0, Monocytes (%) (Auto) 9.9, Eosinophils (%) (Auto) 3.7H, Basophils (%) (Auto) 1.0, Sodium Level 139, Potassium Level 3.9, Chloride Level 103, Carbon Dioxide Level 31, Anion Gap 5, Blood Urea Nitrogen 4L, Creatinine 0.9, Estimat Glomerular Filtration Rate , Glucose Level 95, Calcium Level 8.8 Height (Feet): 5 Height (Inches): 8.00 Weight (Pounds): 200 General Appearance: alert EENT: normal ENT inspection Neck: normal alignment Cardiovascular: normal peripheral pulses, normal rate, regular rhythm Respiratory/Chest: chest wall non-tender, lungs clear, normal breath sounds Abdomen: soft, hypoactive bowel sounds Extremities: normal inspection Edema: no edema noted Arm (L), no edema noted Arm (R), no edema noted Leg (L), no edema noted Leg (R), no edema noted Pedal (L), no edema noted Pedal (R), no edema noted Generalized Neurologic: responsive, motor weakness Skin: normal pigmentation, warm/dry YSABEL LUCERO Aug 12, 2017 12:37
--- NOTE | 2017-08-12 13:55 | General Surgery Progress Note ---
General Surgery-Progress Note Subjective Symptoms: improved Additional Comments pain improved. some nausea. no emesis. tolerating diet but not eating much. no fever or chills. Objective Last 24 Hour Vital Signs Date Time Temp Pulse Resp B/P (MAP) Pulse Ox O2 Delivery O2 Flow Rate FiO2 08/12/17 10:50 98.4 08/12/17 10:20 98.4 08/12/17 09:09 94 105/72 08/12/17 08:00 97.8 94 20 105/72 96 97.8 08/12/17 07:51 76 18 Room Air 21 08/12/17 05:53 98.4 08/12/17 04:00 98.4 89 17 138/94 95 98.4 08/12/17 00:00 98.1 95 18 147/102 96 Room Air 98.1 08/11/17 20:00 100.6 94 20 131/78 93 Room Air 100.6 08/11/17 19:50 80 18 Room Air 21 08/11/17 16:30 97.8 79 18 109/64 96 Room Air 97.8 I&O Intake and Output 08/11/17 08/12/17 19:00 07:00 Intake Total 977.5 ml 592.5 ml Output Total 0 ml Balance 977.5 ml 592.5 ml Intake Oral 240 ml IV Total 737.5 ml 592.5 ml Output Stool Total 0 ml # Voids 4 Dressing: saturated Wound: clean Drains: none Cardiovascular: RSR Respiratory: clear Abdomen: soft, flat, tenderness, present bowel sounds, other - ostomy with stool Extremities: no edema, no tenderness, no cyanosis Laboratory Tests Test 08/12/17 07:40 White Blood Count 6.9 K/UL (4.8-10.8) Red Blood Count 3.61 M/UL (4.20-5.40) L Hemoglobin 10.7 G/DL (12.0-16.0) L Hematocrit 31.9 % (37.0-47.0) L Mean Corpuscular Volume 89 FL (80-99) Mean Corpuscular Hemoglobin 29.7 PG (27.0-31.0) Mean Corpuscular Hemoglobin Concent 33.6 G/DL (32.0-36.0) Red Cell Distribution Width 12.0 % (11.6-14.8) Platelet Count 460 K/UL (150-450) H Mean Platelet Volume 5.8 FL (6.5-10.1) L Neutrophils (%) (Auto) 58.3 % (45.0-75.0) Lymphocytes (%) (Auto) 27.0 % (20.0-45.0) Monocytes (%) (Auto) 9.9 % (1.0-10.0) Eosinophils (%) (Auto) 3.7 % (0.0-3.0) H Basophils (%) (Auto) 1.0 % (0.0-2.0) Sodium Level 139 MMOL/L (136-145) Potassium Level 3.9 MMOL/L (3.5-5.1) Chloride Level 103 MMOL/L (98-107) Carbon Dioxide Level 31 MMOL/L (21-32) Anion Gap 5 mmol/L (5-15) Blood Urea Nitrogen 4 mg/dL (7-18) L Creatinine 0.9 MG/DL (0.55-1.30) Estimat Glomerular Filtration Rate mL/min (>60) Glucose Level 95 MG/DL (74-106) Calcium Level 8.8 MG/DL (8.5-10.1) Plan Problems: (1) Wound infection Assessment & Plan: midline wound infection after recent surgery. seems that she had a González's procedure for large bowel obstruction from exam and history. her ostomy is viable and functional. her abdominal exam is stable but midline wound does have purulent drainage/erythema/edema. labs okay. otherwise stable. midline wound bib removed and wound opened at bedside. drained 20+cc of purulent bloody fluid. improving. -packing and dressing TID -ambulate and oob -abx -can consider transitioning to oral abx and discharge soon will follow with recs. thank you for this consult. Roberto Carlos Maza Aug 12, 2017 13:55
[2017-08-12 16:00] VITALS: BP 127/62
[2017-08-12 19:30] VITALS: BP 143/94
[2017-08-13] VITALS (7 sets, daily range): BP systolic 115–139; BP diastolic 74–92
[2017-08-13] MEDS: Morphine Sulfate 4mg/ml Inj IVP PRN ×5 (00:03→21:35)
[2017-08-13] MEDS: Piperacillin/Tazobactam 3.375 GM in NS 110 ML IVPB SCH ×3 (04:30→21:14)
[2017-08-13 05:11] LABS: BASOPHILS % (AUTO) 0.8 % (0.0-2.0); EOSINOPHILS % (AUTO) 4.6 % (0.0-3.0); HEMATOCRIT 30.3 % (37.0-47.0); LYMPHOCYTES % (AUTO) 33.6 % (20.0-45.0); MEAN CORPUSCULAR VOLUME 89 FL (80-99); PLATELET COUNT 435 K/UL (150-450); RED BLOOD COUNT 3.42 M/UL (4.20-5.40); RED CELL DISTRIBUTION WIDTH 12.2 % (11.6-14.8); WHITE BLOOD COUNT 6.6 K/UL (4.8-10.8)
[2017-08-13 05:49] LABS: ANION GAP 5 mmol/L (5-15); BLOOD UREA NITROGEN 8 mg/dL (7-18); CALCIUM 8.7 MG/DL (8.5-10.1); CARBON DIOXIDE 29 MMOL/L (21-32); CHLORIDE 103 MMOL/L (98-107); CREATININE 0.9 MG/DL (0.55-1.30); POTASSIUM 4.1 MMOL/L (3.5-5.1); SODIUM 137 MMOL/L (136-145)
[2017-08-13] MEDS: Heparin 5000 units/ml inj SUBQ SCH ×3 (06:09→21:18)
[2017-08-13] MEDS: Docusate 100mg cap ORAL SCH ×2 (08:40→18:00)
--- NOTE | 2017-08-13 13:47 | General Progress Note ---
Assessment/Plan Problem List: (1) HTN (hypertension) ICD Codes: I10 - Essential (primary) hypertension SNOMED: 43131415 (2) Anemia ICD Codes: D64.9 - Anemia, unspecified SNOMED: 807371484 (3) Ileus ICD Codes: K56.7 - Ileus, unspecified SNOMED: 573811729 (4) Abdominal pain ICD Codes: R10.9 - Unspecified abdominal pain SNOMED: 26885608 Status: unchanged Assessment/Plan ot pt diet gi sx f/u pain control cbc bmp am ltach eval Subjective Constitutional: Reports: weakness Gastrointestinal/Abdominal: Reports: nausea Allergies: Coded Allergies: PROCHLORPERAZINE (Verified Allergy, Unknown, 08/10/17) All Systems: reviewed and negative except above Subjective sl gen pain Objective Last 24 Hour Vital Signs Date Time Temp Pulse Resp B/P (MAP) Pulse Ox O2 Delivery O2 Flow Rate FiO2 08/13/17 12:00 99.7 88 16 129/76 96 99.7 08/13/17 08:40 85 135/84 08/13/17 08:00 97.9 85 16 135/84 97.9 08/13/17 08:00 97.9 85 16 135/84 98 97.9 08/13/17 07:55 88 20 Room Air 21 08/13/17 04:00 98.2 79 16 122/84 98.2 08/13/17 00:33 98.4 08/13/17 00:03 98.4 08/13/17 00:00 98.4 88 15 115/74 94 98.4 08/12/17 21:29 78 18 Room Air 21 08/12/17 20:07 98.4 08/12/17 19:30 98.4 96 20 143/94 97 Room Air 98.4 08/12/17 16:00 98.0 96 20 127/62 96 98.0 08/12/17 14:24 98.4 Intake and Output 08/12/17 08/13/17 19:00 07:00 Intake Total 327.5 ml 100 ml Output Total 1 ml Balance 326.5 ml 100 ml Intake Oral 300 ml IV Total 27.5 ml 100 ml Output Stool Total 1 ml # Voids 3 2 Laboratory Tests 08/13/17 04:50: White Blood Count 6.6, Red Blood Count 3.42L, Hemoglobin 10.0L, Hematocrit 30.3L , Mean Corpuscular Volume 89, Mean Corpuscular Hemoglobin 29.2, Mean Corpuscular Hemoglobin Concent 33.0, Red Cell Distribution Width 12.2, Platelet Count 435, Mean Platelet Volume 5.7L, Neutrophils (%) (Auto) 49.0, Lymphocytes ( %) (Auto) 33.6, Monocytes (%) (Auto) 12.0H, Eosinophils (%) (Auto) 4.6H, Basophils (%) (Auto) 0.8, Sodium Level 137, Potassium Level 4.1, Chloride Level 103, Carbon Dioxide Level 29, Anion Gap 5, Blood Urea Nitrogen 8, Creatinine 0.9 , Estimat Glomerular Filtration Rate , Glucose Level 100, Calcium Level 8.7 Height (Feet): 5 Height (Inches): 8.00 Weight (Pounds): 200 General Appearance: lethargic EENT: normal ENT inspection Neck: normal alignment Cardiovascular: normal peripheral pulses, normal rate, regular rhythm Respiratory/Chest: chest wall non-tender, lungs clear, normal breath sounds Abdomen: soft, hypoactive bowel sounds Extremities: normal inspection Edema: no edema noted Arm (L), no edema noted Arm (R), no edema noted Leg (L), no edema noted Leg (R), no edema noted Pedal (L), no edema noted Pedal (R), no edema noted Generalized Neurologic: responsive, motor weakness Skin: normal pigmentation, warm/dry YSABEL LUCERO Aug 13, 2017 13:47
--- NOTE | 2017-08-13 14:51 | General Surgery Progress Note ---
General Surgery-Progress Note Subjective Additional Comments doing well. no acute events. tolerating diet. no ambulation with lack of initiative from her. Objective Last 24 Hour Vital Signs Date Time Temp Pulse Resp B/P (MAP) Pulse Ox O2 Delivery O2 Flow Rate FiO2 08/13/17 12:00 99.7 88 16 129/76 96 99.7 08/13/17 08:40 85 135/84 08/13/17 08:00 97.9 85 16 135/84 97.9 08/13/17 08:00 97.9 85 16 135/84 98 97.9 08/13/17 07:55 88 20 Room Air 21 08/13/17 04:00 98.2 79 16 122/84 98.2 08/13/17 00:33 98.4 08/13/17 00:03 98.4 08/13/17 00:00 98.4 88 15 115/74 94 98.4 08/12/17 21:29 78 18 Room Air 21 08/12/17 20:07 98.4 08/12/17 19:30 98.4 96 20 143/94 97 Room Air 98.4 08/12/17 16:00 98.0 96 20 127/62 96 98.0 I&O Intake and Output 08/12/17 08/13/17 19:00 07:00 Intake Total 327.5 ml 100 ml Output Total 1 ml Balance 326.5 ml 100 ml Intake Oral 300 ml IV Total 27.5 ml 100 ml Output Stool Total 1 ml # Voids 3 2 Dressing: saturated Wound: clean Drains: none Cardiovascular: RSR Respiratory: clear Abdomen: soft, non-tender, present bowel sounds Extremities: no tenderness, no cyanosis Laboratory Tests Test 08/13/17 04:50 White Blood Count 6.6 K/UL (4.8-10.8) Red Blood Count 3.42 M/UL (4.20-5.40) L Hemoglobin 10.0 G/DL (12.0-16.0) L Hematocrit 30.3 % (37.0-47.0) L Mean Corpuscular Volume 89 FL (80-99) Mean Corpuscular Hemoglobin 29.2 PG (27.0-31.0) Mean Corpuscular Hemoglobin Concent 33.0 G/DL (32.0-36.0) Red Cell Distribution Width 12.2 % (11.6-14.8) Platelet Count 435 K/UL (150-450) Mean Platelet Volume 5.7 FL (6.5-10.1) L Neutrophils (%) (Auto) 49.0 % (45.0-75.0) Lymphocytes (%) (Auto) 33.6 % (20.0-45.0) Monocytes (%) (Auto) 12.0 % (1.0-10.0) H Eosinophils (%) (Auto) 4.6 % (0.0-3.0) H Basophils (%) (Auto) 0.8 % (0.0-2.0) Sodium Level 137 MMOL/L (136-145) Potassium Level 4.1 MMOL/L (3.5-5.1) Chloride Level 103 MMOL/L (98-107) Carbon Dioxide Level 29 MMOL/L (21-32) Anion Gap 5 mmol/L (5-15) Blood Urea Nitrogen 8 mg/dL (7-18) Creatinine 0.9 MG/DL (0.55-1.30) Estimat Glomerular Filtration Rate mL/min (>60) Glucose Level 100 MG/DL (74-106) Calcium Level 8.7 MG/DL (8.5-10.1) Plan Problems: (1) Wound infection Assessment & Plan: midline wound infection after recent surgery. seems that she had a González's procedure for large bowel obstruction from exam and history. her ostomy is viable and functional. her abdominal exam is stable but midline wound does have purulent drainage/erythema/edema. labs okay. otherwise stable. midline wound bib removed and wound opened at bedside. drained 20+cc of purulent bloody fluid. improving. labs okay. exam benign. wound clean -packing and dressing TID -ambulate and oob -abx -transition to oral abx and discharge will follow with recs. thank you for this consult. Roberto Carlos Maza Aug 13, 2017 14:51
--- NOTE | 2017-08-13 15:52 | Consultation ---
History of Present Illness General Date patient seen: Aug 13, 2017 Time patient seen: 15:22 Chief Complaint: Abdominal Pain Reason for Consultation: abdominal pain, midline wound infection Present Illness HPI 72 y/o F with hx of HTN, Colon CA presents to ED on 08/10 with abd pain and wound drainage. Patient recently admitted in [facility] where she presented with acute colon obstruction and underwent emergent exploratory laparotomy w/ bowel resection and colostomy. She was found to have a colonic mass which was removed. [facility]hab. In the last 1- 2 days patient had increasing abd pain, midline wound purulent drainage and tenderness , and chills. Denies fever, n/v. SOB Allergies: Coded Allergies: PROCHLORPERAZINE (Verified Allergy, Unknown, 08/10/17) Medication History Scheduled Amlodipine Besylate* (Amlodipine Besylate*), 5 MG ORAL DAILY, (Reported) Cephalexin* (Keflex*), 500 MG ORAL EVERY 6 HOURS, (Reported) Docusate Sodium* (Colace*), 100 MG ORAL TWICE A DAY, (Reported) Scheduled PRN Hydrocodone/Acetaminophen (Hydrocodon-Acetaminophn 10-325), 1 TAB ORAL Q4H PRN for For Pain, (Reported) Ipratropium/Albuterol Sulfate (Iprat-Albut 0.5-3(2.5) Mg/3 Ml), 3 ML IH EVERY 2 HOURS PRN for Shortness of Breath, (Reported) Magnesium Hydroxide* (Milk Of Magnesia*), 30 ML ORAL DAILY PRN for Constipation, (Reported) Ondansetron Odt* (Zofran Odt*), 4 MG ORAL Q4HR PRN for Nausea & Vomiting, ( Reported) Patient History Healthcare decision maker BRITNEY OWEN, Resuscitation status Advanced Directive on File Patient History Narrative Pmhx; as above Shx: The patient does not smoke or drink. Fhx: non contributory Review of Systems All Other Systems: negative except mentioned in HPI Physical Exam Physical Exam Narrative GENERAL: The patient is an obese woman, who is seen in her room with family at bedside. HEENT: Normocephalic and atraumatic. Sclerae anicteric. Oropharynx is clear. NECK: Supple. CHEST: Clear to auscultation. CARDIOVASCULAR: Regular rate. ABDOMEN: Soft with left lower quadrant colostomy. midline wound which is open and packed; minimal surrounding erythema. EXTREMITIES: No edema. Last 24 Hour Vital Signs Date Time Temp Pulse Resp B/P (MAP) Pulse Ox O2 Delivery O2 Flow Rate FiO2 08/13/17 12:00 99.7 88 16 129/76 96 99.7 08/13/17 08:40 85 135/84 08/13/17 08:00 97.9 85 16 135/84 97.9 08/13/17 08:00 97.9 85 16 135/84 98 97.9 08/13/17 07:55 88 20 Room Air 21 08/13/17 04:00 98.2 79 16 122/84 98.2 08/13/17 00:33 98.4 08/13/17 00:03 98.4 08/13/17 00:00 98.4 88 15 115/74 94 98.4 08/12/17 21:29 78 18 Room Air 21 08/12/17 20:07 98.4 08/12/17 19:30 98.4 96 20 143/94 97 Room Air 98.4 08/12/17 16:00 98.0 96 20 127/62 96 98.0 Intake and Output 08/12/17 08/13/17 19:00 07:00 Intake Total 327.5 ml 100 ml Output Total 1 ml Balance 326.5 ml 100 ml Intake Oral 300 ml IV Total 27.5 ml 100 ml Output Stool Total 1 ml # Voids 3 2 Laboratory Tests Test 08/13/17 04:50 White Blood Count 6.6 K/UL (4.8-10.8) Red Blood Count 3.42 M/UL (4.20-5.40) L Hemoglobin 10.0 G/DL (12.0-16.0) L Hematocrit 30.3 % (37.0-47.0) L Mean Corpuscular Volume 89 FL (80-99) Mean Corpuscular Hemoglobin 29.2 PG (27.0-31.0) Mean Corpuscular Hemoglobin Concent 33.0 G/DL (32.0-36.0) Red Cell Distribution Width 12.2 % (11.6-14.8) Platelet Count 435 K/UL (150-450) Mean Platelet Volume 5.7 FL (6.5-10.1) L Neutrophils (%) (Auto) 49.0 % (45.0-75.0) Lymphocytes (%) (Auto) 33.6 % (20.0-45.0) Monocytes (%) (Auto) 12.0 % (1.0-10.0) H Eosinophils (%) (Auto) 4.6 % (0.0-3.0) H Basophils (%) (Auto) 0.8 % (0.0-2.0) Sodium Level 137 MMOL/L (136-145) Potassium Level 4.1 MMOL/L (3.5-5.1) Chloride Level 103 MMOL/L (98-107) Carbon Dioxide Level 29 MMOL/L (21-32) Anion Gap 5 mmol/L (5-15) Blood Urea Nitrogen 8 mg/dL (7-18) Creatinine 0.9 MG/DL (0.55-1.30) Estimat Glomerular Filtration Rate mL/min (>60) Glucose Level 100 MG/DL (74-106) Calcium Level 8.7 MG/DL (8.5-10.1) Height (Feet): 5 Height (Inches): 8.00 Weight (Pounds): 200 Medications Current Medications Medications (Trade) Dose Ordered Sig/Radha Route PRN Reason Start Time Stop Time Status Last Admin Dose Admin Albuterol/ Ipratropium (Albuterol/ Ipratropium) 3 ml EVERY 2 HOURS PRN INH Shortness of Breath 08/10/17 22:00 08/15/17 21:59 Amlodipine Besylate (Norvasc) 5 mg DAILY ORAL 08/11/17 09:00 09/10/17 08:59 08/13/17 08:40 Dextrose/ Electrolytes 1,000 ml @ 100 mls/hr Q10H IV 08/10/17 22:15 09/09/17 22:14 08/12/17 13:42 Diphenhydramine HCl (Benadryl) 25 mg Q6H PRN IVP Itching 08/10/17 22:00 09/09/17 21:59 Docusate Sodium (Colace) 100 mg TWICE A DAY ORAL 08/11/17 09:00 09/10/17 08:59 08/13/17 08:40 Heparin Sodium (Porcine) (Heparin 5000 units/ml) 5,000 units EVERY 8 HOURS SUBQ 08/10/17 22:00 09/09/17 21:59 08/13/17 13:43 Magnesium Hydroxide (Mom) 30 ml DAILY PRN ORAL Constipation 08/10/17 22:00 09/09/17 21:59 Morphine Sulfate (Morphine Sulfate) 4 mg Q4H PRN IVP For Pain 08/11/17 13:00 08/18/17 12:59 08/13/17 11:36 Ondansetron HCl (Zofran) 4 mg Q6H PRN IVP Nausea & Vomiting 08/10/17 22:00 09/09/17 21:59 08/13/17 13:42 Piperacillin Sod/ Tazobactam Sod 3.375 gm/Sodium Chloride 110 ml @ 27.5 mls/hr 0400,1200,2000 IVPB 08/11/17 04:00 08/18/17 03:59 08/13/17 11:35 Assessment/Plan Assessment/Plan Abx: Zosyn 08/10- IV Vanco x1 08/10 Assessment: Superficial Surgical site infection w/ small abscess (mid abdomen); improving -s/p removal of bib w/ drainage of 20cc purulent bloody fluid -drain cx 08/10 GNR #1, #2, #3 -CT abd/p: Evaluation limited without oral contrast. Postsurgical changes with left lower quadrant colostomy. Mild segmental dilated small bowel within the right abdomen and the left-sided pelvis without obvious transition point. Partial obstruction cannot be excluded. Colonic diverticulosis but no obvious diverticulitis. Bilateral lower lobe atelectasis. Consolidation in the right lower lobe and aspiration or pneumonia cannot be excluded. Slightly heterogeneous appearance of the central uterus. Endometrial pathology not excluded and correlation with ultrasound recommended as indicated. Normal appendix. Low grade fever, 2ry to above- improving -no leukocytosis -CXR: Cardiomegaly with pulmonary vascular congestion. Mild lung base opacities could represent atelectasis. Infiltrate in the right base not excluded. -u/a neg Urinary incontinence- >?2ry to surgery- r/o UTI (however has been on broad spectrum gram negative coverage) HTN Colon CA VRE colonized Plan: -Continue Zosyn #4/ pending wound cx; will switch to PO based on sensitivities -f/u cx -Monitor CBC/BMP, temperatures -woudn cx -repeat u/a Thank you for this consultation. Will continue to follow along with you. Discussed with CARLEY. Kimberly Millan M.D. Aug 13, 2017 15:52
--- NOTE | 2017-08-13 16:16 | GI Progress Note ---
Assessment/Plan Problems: (1) Colostomy complication ICD Codes: K94.00 - Colostomy complication, unspecified SNOMED: 92055153 (2) Wound infection ICD Codes: T14.8XXA - Other injury of unspecified body region, initial encounter; L08.9 - Local infection of the skin and subcutaneous tissue, unspecified SNOMED: 69210398 (3) Abdominal pain ICD Codes: R10.9 - Unspecified abdominal pain SNOMED: 12429877 (4) Ileus ICD Codes: K56.7 - Ileus, unspecified SNOMED: 343129519 Status: stable Status Narrative Discussed with Dr. Peter. Assessment/Plan abdominal pain most likely complication with colostomy surgery follows pain mgmt tolerating diet abx ppi fu labs fu oncology recs dc planning Subjective Subjective abdominal pain tolerating diet Objective Last 24 Hour Vital Signs Date Time Temp Pulse Resp B/P (MAP) Pulse Ox O2 Delivery O2 Flow Rate FiO2 08/13/17 12:00 99.7 88 16 129/76 96 99.7 08/13/17 08:40 85 135/84 08/13/17 08:00 97.9 85 16 135/84 97.9 08/13/17 08:00 97.9 85 16 135/84 98 97.9 08/13/17 07:55 88 20 Room Air 21 08/13/17 04:00 98.2 79 16 122/84 98.2 08/13/17 00:33 98.4 08/13/17 00:03 98.4 08/13/17 00:00 98.4 88 15 115/74 94 98.4 08/12/17 21:29 78 18 Room Air 21 08/12/17 20:07 98.4 08/12/17 19:30 98.4 96 20 143/94 97 Room Air 98.4 Intake and Output 08/12/17 08/13/17 19:00 07:00 Intake Total 327.5 ml 100 ml Output Total 1 ml Balance 326.5 ml 100 ml Intake Oral 300 ml IV Total 27.5 ml 100 ml Output Stool Total 1 ml # Voids 3 2 Laboratory Tests Test 08/13/17 04:50 White Blood Count 6.6 K/UL (4.8-10.8) Red Blood Count 3.42 M/UL (4.20-5.40) L Hemoglobin 10.0 G/DL (12.0-16.0) L Hematocrit 30.3 % (37.0-47.0) L Mean Corpuscular Volume 89 FL (80-99) Mean Corpuscular Hemoglobin 29.2 PG (27.0-31.0) Mean Corpuscular Hemoglobin Concent 33.0 G/DL (32.0-36.0) Red Cell Distribution Width 12.2 % (11.6-14.8) Platelet Count 435 K/UL (150-450) Mean Platelet Volume 5.7 FL (6.5-10.1) L Neutrophils (%) (Auto) 49.0 % (45.0-75.0) Lymphocytes (%) (Auto) 33.6 % (20.0-45.0) Monocytes (%) (Auto) 12.0 % (1.0-10.0) H Eosinophils (%) (Auto) 4.6 % (0.0-3.0) H Basophils (%) (Auto) 0.8 % (0.0-2.0) Sodium Level 137 MMOL/L (136-145) Potassium Level 4.1 MMOL/L (3.5-5.1) Chloride Level 103 MMOL/L (98-107) Carbon Dioxide Level 29 MMOL/L (21-32) Anion Gap 5 mmol/L (5-15) Blood Urea Nitrogen 8 mg/dL (7-18) Creatinine 0.9 MG/DL (0.55-1.30) Estimat Glomerular Filtration Rate mL/min (>60) Glucose Level 100 MG/DL (74-106) Calcium Level 8.7 MG/DL (8.5-10.1) Height (Feet): 5 Height (Inches): 8.00 Weight (Pounds): 200 General Appearance: alert Cardiovascular: normal rate Respiratory/Chest: normal breath sounds Abdominal Exam: other - colostomy Cristina Gaiens N.P. Aug 13, 2017 16:16
--- NOTE | 2017-08-13 17:10 | Diagnostic Imaging Report ---
Indication: Chest pain Technique: One view of the chest Comparison: 08/10/2017 Findings: The heart is mildly enlarged. Equivocal minimal interstitial congestion is stable. Lungs and pleural spaces are otherwise clear. Findings are unchanged Impression: Equivocal minimal interstitial congestion, unchanged over 3 days Cardiomegaly
[2017-08-13 22:21] LABS: APPEARANCE,URINE CLEAR; BILIRUBIN, URINE NEGATIVE (NEGATIVE); COLOR,URINE PALE YELLOW; GLUCOSE, URINE (UA) NEGATIVE (NEGATIVE); KETONES,URINE NEGATIVE (NEGATIVE); LEUKOCYTE ESTERASE ,URINE 2+ (NEGATIVE); NITRITE,URINE NEGATIVE (NEGATIVE); PH,URINE 8 (4.5-8.0); PROTEIN,URINE 2+ (NEGATIVE); UROBILINOGEN,URINE NORMAL MG/DL (0.0-1.0)
[2017-08-14 04:00] VITALS: BP 134/89
[2017-08-14] MEDS: Morphine Sulfate 4mg/ml Inj IVP PRN ×4 (05:46→23:04)
[2017-08-14] MEDS: Piperacillin/Tazobactam 3.375 GM in NS 110 ML IVPB SCH (05:47)
[2017-08-14] MEDS: Heparin 5000 units/ml inj SUBQ SCH ×3 (05:50→23:21)
[2017-08-14 08:00] VITALS: BP 113/77
[2017-08-14] MEDS: Docusate 100mg cap ORAL SCH ×2 (08:27→17:52)
[2017-08-14] MEDS ORDERED: Milk of Magnesia 30ml Ud ORAL PRN (10:45)
[2017-08-14] MEDS ORDERED: Milk of Magnesia 30ml Ud ORAL ONE (10:45)
--- NOTE | 2017-08-14 11:44 | Infectious Diseases Prog Note ---
Assessment/Plan Assessment/Plan Abx: Zosyn 08/10- IV Vanco x1 08/10 Assessment: Superficial Surgical site infection w/ small abscess (mid abdomen); improving -s/p removal of bib w/ drainage of 20cc purulent bloody fluid -drainage cx 08/10 PsA (R Ceftazidime, otherwise S), E.coli (de anda S) -CT abd/p: Evaluation limited without oral contrast. Postsurgical changes with left lower quadrant colostomy. Mild segmental dilated small bowel within the right abdomen and the left-sided pelvis without obvious transition point. Partial obstruction cannot be excluded. Colonic diverticulosis but no obvious diverticulitis. Bilateral lower lobe atelectasis. Consolidation in the right lower lobe and aspiration or pneumonia cannot be excluded. Slightly heterogeneous appearance of the central uterus. Endometrial pathology not excluded and correlation with ultrasound recommended as indicated. Normal appendix. Low grade fever, 2ry to above- improving -no leukocytosis -CXR: Cardiomegaly with pulmonary vascular congestion. Mild lung base opacities could represent atelectasis. Infiltrate in the right base not excluded. -u/a neg Urinary incontinence- >?2ry to surgery -u/a no pyuria HTN Colon CA VRE colonized Plan: -Switch Zosyn #5/ to PO levaquin 500mg daily; ok to discharge on this regimen -f/u cx -Monitor CBC/BMP, temperatures -wound care -Surgery f/u Thank you for this consultation. Will continue to follow along with you. Discussed with RN. Subjective Allergies: Coded Allergies: PROCHLORPERAZINE (Verified Allergy, Unknown, 08/10/17) Subjective afebrile >48hrs no leukocytosis u/a no pyuria Objective Vital Signs Last 24 Hour Vital Signs Date Time Temp Pulse Resp B/P (MAP) Pulse Ox O2 Delivery O2 Flow Rate FiO2 08/14/17 10:39 87 18 Room Air 21 08/14/17 09:49 98.1 08/14/17 08:27 95 115/77 08/14/17 08:00 98.1 90 18 113/77 94 98.1 08/14/17 06:16 98.2 08/14/17 05:46 98.2 08/14/17 04:00 97.7 89 18 134/89 94 97.7 08/13/17 23:55 98.2 95 18 130/81 93 98.2 08/13/17 21:35 99.7 08/13/17 19:55 99.7 88 20 126/85 97 99.7 08/13/17 19:05 82 20 Room Air 21 08/13/17 16:00 97.9 87 18 139/92 95 97.9 08/13/17 12:00 99.7 88 16 129/76 96 99.7 Height (Feet): 5 Height (Inches): 8.00 Weight (Pounds): 200 Objective GENERAL: The patient is an obese woman, who is seen in her room with family at bedside. HEENT: Normocephalic and atraumatic. Sclerae anicteric. Oropharynx is clear. NECK: Supple. CHEST: Clear to auscultation. CARDIOVASCULAR: Regular rate. ABDOMEN: Soft with left lower quadrant colostomy. midline wound which is open and packed; minimal surrounding erythema. EXTREMITIES: No edema. Laboratory Tests Test 08/13/17 17:50 08/13/17 22:00 Troponin I 0.006 ng/mL (0.000-0.056) Urine Color Pale yellow Urine Appearance Clear Urine pH 8 (4.5-8.0) Urine Specific [place] 1.010 (1.005-1.035) Urine Protein 2+ (NEGATIVE) H Urine Glucose (UA) Negative (NEGATIVE) Urine Ketones Negative (NEGATIVE) Urine Occult Blood 3+ (NEGATIVE) H Urine Nitrite Negative (NEGATIVE) Urine Bilirubin Negative (NEGATIVE) Urine Urobilinogen Normal MG/DL (0.0-1.0) Urine Leukocyte Esterase 2+ (NEGATIVE) H Urine RBC 5-10 /HPF (0 - 2) H Urine WBC 0-2 /HPF (0 - 2) Urine Squamous Epithelial Cells Few /LPF (NONE/OCC) Urine Bacteria Occasional /HPF (NONE) Current Medications Medications (Trade) Dose Ordered Sig/Radha Route PRN Reason Start Time Stop Time Status Last Admin Dose Admin Albuterol/ Ipratropium (Albuterol/ Ipratropium) 3 ml EVERY 2 HOURS PRN INH Shortness of Breath 08/10/17 22:00 08/15/17 21:59 Amlodipine Besylate (Norvasc) 5 mg DAILY ORAL 08/11/17 09:00 09/10/17 08:59 08/13/17 08:40 Diphenhydramine HCl (Benadryl) 25 mg Q6H PRN IVP Itching 08/10/17 22:00 09/09/17 21:59 Docusate Sodium (Colace) 100 mg TWICE A DAY ORAL 08/11/17 09:00 09/10/17 08:59 08/14/17 08:27 Heparin Sodium (Porcine) (Heparin 5000 units/ml) 5,000 units EVERY 8 HOURS SUBQ 08/10/17 22:00 09/09/17 21:59 08/14/17 05:50 Magnesium Hydroxide (Mom) 30 ml DAILY PRN ORAL Constipation 08/10/17 22:00 09/09/17 21:59 08/13/17 18:00 Magnesium Hydroxide (Mom) 30 ml ONCE PRN ORAL . 08/14/17 10:45 08/14/17 11:45 Morphine Sulfate (Morphine Sulfate) 4 mg Q4H PRN IVP For Pain 08/11/17 13:00 08/18/17 12:59 08/14/17 09:49 Ondansetron HCl (Zofran) 4 mg Q6H PRN IVP Nausea & Vomiting 08/10/17 22:00 09/09/17 21:59 08/14/17 05:46 Piperacillin Sod/ Tazobactam Sod 3.375 gm/Dextrose 110 ml @ 27.5 mls/hr 0400,1200,2000 IVPB 08/14/17 12:00 08/21/17 11:59 Kimberly Millan M.D. Aug 14, 2017 11:43
[2017-08-14 12:00] VITALS: BP 120/73
[2017-08-14] MEDS ORDERED: Piperacillin/Tazobactam 3.375 GM in D5W 110 ML IVPB SCH (12:00)
--- NOTE | 2017-08-14 12:06 | General Surgery Progress Note ---
General Surgery-Progress Note Subjective Symptoms: improved Additional Comments doing better. no acute events. Objective Last 24 Hour Vital Signs Date Time Temp Pulse Resp B/P (MAP) Pulse Ox O2 Delivery O2 Flow Rate FiO2 08/14/17 10:39 87 18 Room Air 21 08/14/17 09:49 98.1 08/14/17 08:27 95 115/77 08/14/17 08:00 98.1 90 18 113/77 94 98.1 08/14/17 06:16 98.2 08/14/17 05:46 98.2 08/14/17 04:00 97.7 89 18 134/89 94 97.7 08/13/17 23:55 98.2 95 18 130/81 93 98.2 08/13/17 21:35 99.7 08/13/17 19:55 99.7 88 20 126/85 97 99.7 08/13/17 19:05 82 20 Room Air 21 08/13/17 16:00 97.9 87 18 139/92 95 97.9 I&O Intake and Output 08/13/17 08/14/17 19:00 07:00 Intake Total 1170.0 ml 475 ml Balance 1170.0 ml 475 ml Intake Oral 360 ml 475 ml IV Total 810.0 ml # Voids 3 3 Dressing: saturated Wound: clean Cardiovascular: RSR Respiratory: clear Abdomen: soft, non-tender, present bowel sounds, other - wound improving Extremities: no edema, no tenderness, no cyanosis Laboratory Tests Test 08/13/17 17:50 08/13/17 22:00 Troponin I 0.006 ng/mL (0.000-0.056) Urine Color Pale yellow Urine Appearance Clear Urine pH 8 (4.5-8.0) Urine Specific [place] 1.010 (1.005-1.035) Urine Protein 2+ (NEGATIVE) H Urine Glucose (UA) Negative (NEGATIVE) Urine Ketones Negative (NEGATIVE) Urine Occult Blood 3+ (NEGATIVE) H Urine Nitrite Negative (NEGATIVE) Urine Bilirubin Negative (NEGATIVE) Urine Urobilinogen Normal MG/DL (0.0-1.0) Urine Leukocyte Esterase 2+ (NEGATIVE) H Urine RBC 5-10 /HPF (0 - 2) H Urine WBC 0-2 /HPF (0 - 2) Urine Squamous Epithelial Cells Few /LPF (NONE/OCC) Urine Bacteria Occasional /HPF (NONE) Plan Problems: (1) Wound infection Assessment & Plan: midline wound infection after recent surgery. seems that she had a González's procedure for large bowel obstruction from exam and history. her ostomy is viable and functional. her abdominal exam is stable but midline wound does have purulent drainage/erythema/edema. labs okay. otherwise stable. midline wound bib removed and wound opened at bedside. drained 20+cc of purulent bloody fluid. improving. labs okay. exam benign. wound clean. needs to be more active and participate in care more she is capable of moving yet lays in bed and is incontinent which she was not prior to her surgery she seems to be giving up and I gave her clear instructions as to improvement yesterday and somewhat better today -packing and dressing TID -ambulate and oob -abx -transition to oral abx and discharge will follow with recs. thank you for this consult. Roberto Carlos Maza Aug 14, 2017 12:06
--- NOTE | 2017-08-14 13:02 | General Progress Note ---
Assessment/Plan Problem List: (1) HTN (hypertension) ICD Codes: I10 - Essential (primary) hypertension SNOMED: 27386456 (2) Anemia ICD Codes: D64.9 - Anemia, unspecified SNOMED: 517854193 (3) Ileus ICD Codes: K56.7 - Ileus, unspecified SNOMED: 326077041 (4) Abdominal pain ICD Codes: R10.9 - Unspecified abdominal pain SNOMED: 31442786 Status: unchanged Assessment/Plan ot pt diet gi sx f/u pain control cbc bmp am ltach eval Subjective Constitutional: Reports: weakness Gastrointestinal/Abdominal: Reports: nausea Allergies: Coded Allergies: PROCHLORPERAZINE (Verified Allergy, Unknown, 08/10/17) All Systems: reviewed and negative except above Subjective sl gen pain not eating Objective Last 24 Hour Vital Signs Date Time Temp Pulse Resp B/P (MAP) Pulse Ox O2 Delivery O2 Flow Rate FiO2 08/14/17 12:00 98.1 87 18 120/73 95 98.1 08/14/17 10:39 87 18 Room Air 21 08/14/17 09:49 98.1 08/14/17 08:27 95 115/77 08/14/17 08:00 98.1 90 18 113/77 94 98.1 08/14/17 06:16 98.2 08/14/17 05:46 98.2 08/14/17 04:00 97.7 89 18 134/89 94 97.7 08/13/17 23:55 98.2 95 18 130/81 93 98.2 08/13/17 21:35 99.7 08/13/17 19:55 99.7 88 20 126/85 97 99.7 08/13/17 19:05 82 20 Room Air 21 08/13/17 16:00 97.9 87 18 139/92 95 97.9 Intake and Output 08/13/17 08/14/17 19:00 07:00 Intake Total 1170.0 ml 475 ml Balance 1170.0 ml 475 ml Intake Oral 360 ml 475 ml IV Total 810.0 ml # Voids 3 3 Laboratory Tests 08/13/17 17:50: Troponin I 0.006 08/13/17 22:00: Urine Color Pale yellow, Urine Appearance Clear, Urine pH 8, Urine Specific [place] 1.010, Urine Protein 2+H, Urine Glucose (UA) Negative, Urine Ketones Negative, Urine Occult Blood 3+H, Urine Nitrite Negative, Urine Bilirubin Negative, Urine Urobilinogen Normal, Urine Leukocyte Esterase 2+H, Urine RBC 5- 10H, Urine WBC 0-2, Urine Squamous Epithelial Cells Few, Urine Bacteria Occasional Height (Feet): 5 Height (Inches): 8.00 Weight (Pounds): 200 General Appearance: lethargic EENT: normal ENT inspection Neck: normal alignment Cardiovascular: normal peripheral pulses, normal rate, regular rhythm Respiratory/Chest: chest wall non-tender, lungs clear, normal breath sounds Abdomen: non tender, hypoactive bowel sounds Extremities: normal inspection Edema: no edema noted Arm (L), no edema noted Arm (R), no edema noted Leg (L), no edema noted Leg (R), no edema noted Pedal (L), no edema noted Pedal (R), no edema noted Generalized Neurologic: responsive, motor weakness Skin: normal pigmentation, warm/dry SYABEL LUCERO Aug 14, 2017 13:02
--- NOTE | 2017-08-14 13:09 | Cardiac Electrophysiology PN ---
Subjective Subjective [id number] Objective Last 24 Hour Vital Signs Date Time Temp Pulse Resp B/P (MAP) Pulse Ox O2 Delivery O2 Flow Rate FiO2 08/14/17 12:00 98.1 87 18 120/73 95 98.1 08/14/17 10:39 87 18 Room Air 21 08/14/17 09:49 98.1 08/14/17 08:27 95 115/77 08/14/17 08:00 98.1 90 18 113/77 94 98.1 08/14/17 06:16 98.2 08/14/17 05:46 98.2 08/14/17 04:00 97.7 89 18 134/89 94 97.7 08/13/17 23:55 98.2 95 18 130/81 93 98.2 08/13/17 21:35 99.7 08/13/17 19:55 99.7 88 20 126/85 97 99.7 08/13/17 19:05 82 20 Room Air 21 08/13/17 16:00 97.9 87 18 139/92 95 97.9 Intake and Output 08/13/17 08/14/17 19:00 07:00 Intake Total 1170.0 ml 475 ml Balance 1170.0 ml 475 ml Intake Oral 360 ml 475 ml IV Total 810.0 ml # Voids 3 3 Laboratory Tests Test 08/13/17 17:50 08/13/17 22:00 Troponin I 0.006 ng/mL (0.000-0.056) Urine Color Pale yellow Urine Appearance Clear Urine pH 8 (4.5-8.0) Urine Specific [place] 1.010 (1.005-1.035) Urine Protein 2+ (NEGATIVE) H Urine Glucose (UA) Negative (NEGATIVE) Urine Ketones Negative (NEGATIVE) Urine Occult Blood 3+ (NEGATIVE) H Urine Nitrite Negative (NEGATIVE) Urine Bilirubin Negative (NEGATIVE) Urine Urobilinogen Normal MG/DL (0.0-1.0) Urine Leukocyte Esterase 2+ (NEGATIVE) H Urine RBC 5-10 /HPF (0 - 2) H Urine WBC 0-2 /HPF (0 - 2) Urine Squamous Epithelial Cells Few /LPF (NONE/OCC) Urine Bacteria Occasional /HPF (NONE) Homar Capps MD Aug 14, 2017 13:09
[2017-08-14] MEDS ORDERED: Levofloxacin 500mg tab ORAL SCH (13:30)
--- NOTE | 2017-08-14 14:34 | GI Progress Note ---
Assessment/Plan Problems: (1) Colostomy complication ICD Codes: K94.00 - Colostomy complication, unspecified SNOMED: 57874640 (2) Wound infection ICD Codes: T14.8XXA - Other injury of unspecified body region, initial encounter; L08.9 - Local infection of the skin and subcutaneous tissue, unspecified SNOMED: 76633750 (3) Abdominal pain ICD Codes: R10.9 - Unspecified abdominal pain SNOMED: 32897663 (4) Ileus ICD Codes: K56.7 - Ileus, unspecified SNOMED: 063653678 Status: unchanged Status Narrative Discussed with Dr. Peter. Assessment/Plan patient still continues to have abdominal pain, will order SBFT to r/o SBO surgery follows pain mgmt tolerating diet abx ppi fu labs dc planning Subjective Subjective abdominal pain tolerating diet Objective Last 24 Hour Vital Signs Date Time Temp Pulse Resp B/P (MAP) Pulse Ox O2 Delivery O2 Flow Rate FiO2 08/14/17 12:00 98.1 87 18 120/73 95 98.1 08/14/17 10:39 87 18 Room Air 21 08/14/17 09:49 98.1 08/14/17 08:27 95 115/77 08/14/17 08:00 98.1 90 18 113/77 94 98.1 08/14/17 06:16 98.2 08/14/17 05:46 98.2 08/14/17 04:00 97.7 89 18 134/89 94 97.7 08/13/17 23:55 98.2 95 18 130/81 93 98.2 08/13/17 21:35 99.7 08/13/17 19:55 99.7 88 20 126/85 97 99.7 08/13/17 19:05 82 20 Room Air 21 08/13/17 16:00 97.9 87 18 139/92 95 97.9 Intake and Output 08/13/17 08/14/17 19:00 07:00 Intake Total 1170.0 ml 475 ml Balance 1170.0 ml 475 ml Intake Oral 360 ml 475 ml IV Total 810.0 ml # Voids 3 3 Laboratory Tests Test 08/13/17 17:50 08/13/17 22:00 Troponin I 0.006 ng/mL (0.000-0.056) Urine Color Pale yellow Urine Appearance Clear Urine pH 8 (4.5-8.0) Urine Specific [place] 1.010 (1.005-1.035) Urine Protein 2+ (NEGATIVE) H Urine Glucose (UA) Negative (NEGATIVE) Urine Ketones Negative (NEGATIVE) Urine Occult Blood 3+ (NEGATIVE) H Urine Nitrite Negative (NEGATIVE) Urine Bilirubin Negative (NEGATIVE) Urine Urobilinogen Normal MG/DL (0.0-1.0) Urine Leukocyte Esterase 2+ (NEGATIVE) H Urine RBC 5-10 /HPF (0 - 2) H Urine WBC 0-2 /HPF (0 - 2) Urine Squamous Epithelial Cells Few /LPF (NONE/OCC) Urine Bacteria Occasional /HPF (NONE) Height (Feet): 5 Height (Inches): 8.00 Weight (Pounds): 200 General Appearance: WD/WN, no apparent distress, alert Cardiovascular: normal rate Respiratory/Chest: normal breath sounds, no respiratory distress Abdominal Exam: normal bowel sounds, non tender, soft, other - colostomy Extremities: non-tender Cristina Gaines N.P. Aug 14, 2017 14:34
--- NOTE | 2017-08-14 14:40 | Cardiology Report ---
APPROVED REPORT EXAM: Two-dimensional and M-mode echocardiogram with Doppler and color Doppler. INDICATION Chest Pain M-Mode DIMENSIONS IVSd1.5 (0.7-1.1cm)Left Atrium (MM)3.7 (1.6-4.0cm) LVDd4.4 (3.5-5.6cm)Aortic Root2.9 (2.0-3.7cm) PWd1.6 (0.7-1.1cm)Aortic Cusp Exc.1.8 (1.5-2.0cm) LVDs3.1 (2.5-4.0cm) PWs1.8 cm Technically difficult study due to poor acoustical windows. Normal left ventricular chamber size, systolic function and wall motion to extent visualized. Left ventricular ejection fraction grossly estimated to be 65 %. Study quality precludes accurate assessment of regional wall motion. Moderate left ventricular hypertrophy by 2-D. No evidence of pericardial effusion. Mild left atrial enlargement. Right cardiac chamber sizes are within normal limits. Focal aortic valve sclerosis with adequate cusp excursion. Thickened mitral valve leaflets with normal excursion. Mitral annulus and aortic root calcification. Pulmonic valve not well visualized. Normal tricuspid valve structure. IVC at normal size with physiologic collapse. A color flow and spectral Doppler study was performed and revealed: Moderate aortic regurgitation. Mild mitral regurgitation. Mitral diastolic velocities suggest reduced left ventricular relaxation c/w mild LV diastolic dysfunction (Grade I). Mild tricuspid regurgitation. Tricuspid systolic velocities suggests peak right ventricular systolic pressure of 45 mmHg, consistent with borderline moderate pulmonary hypertension. Pulmonic regurgitation present.
--- NOTE | 2017-08-14 15:00 | Cardiology Report ---
APPROVED REPORT EKG Measurement Heart [id number] Sinus rhythm with premature atrial complexes Left anterior fascicular block T wave abnormality, consider anterior ischemia Abnormal ECG
--- NOTE | 2017-08-14 15:45 | Consultation ---
DATE OF CONSULTATION: 08/14/2017 CARDIOLOGY CONSULTATION CONSULTING PHYSICIAN: Homar Capps M.D. REFERRING PHYSICIAN: Mateus Posada M.D. REASON FOR CONSULTATION: Chest pain. HISTORY OF PRESENT ILLNESS: The patient is a 72-year-old lady with history of hypertension and colon cancer who presents to the emergency room on August 10, 2017 with abdominal pain and wound drainage. The patient was recently at [facility] when she had a colon obstruction, underwent emergency exploratory laparotomy with bowel resection and colostomy placement. The patient was found to have a colonic mass which was removed. The patient was admitted and was evaluated by GI and surgery and Infectious Disease. Last night, the patient developed sudden onset of severe left-sided chest pain. Cardiology consultation was obtained for further evaluation and management. At the time of my evaluation, the patient denies any chest pain, palpitation, or shortness of breath. REVIEW OF SYSTEMS: Review of systems was performed and was negative other than what was mentioned in the history of present illness. PAST MEDICAL HISTORY: As mentioned above. FAMILY HISTORY: Noncontributory. SOCIAL HISTORY: She currently lives in a [facility]. Does not smoke or drink alcohol. PHYSICAL EXAMINATION: VITAL SIGNS: Blood pressure is 120/73, pulse 87, respirations 18, and she is afebrile. HEAD AND NECK: Showed no JVD or carotid bruits. LUNGS: Clear. CARDIOVASCULAR: Regular S1 and S2 with no gallop or murmur. ABDOMEN: Soft. Status post surgery as well as colostomy. EXTREMITIES: A 1+ pitting edema. LABORATORY DATA: White count 6.6, hemoglobin of 10, hematocrit of 30, and platelet count is 435. Sodium is 137, potassium 4.1, BUN of 8, creatinine 0.9. Troponin is negative. ASSESSMENT AND PLAN: 1. Atypical chest pain. The first troponin is negative. EKG shows sinus rhythm with PACs and bifascicular block and nonspecific ST-T wave abnormalities. The patient also underwent an echocardiogram that showed ejection fraction of 65% with no wall motion abnormality. I would just get another set of cardiac enzymes, but otherwise the patient is pretty stable at this time. 2. Hypertension, on Norvasc 5 mg daily. 3. Midline wound infection after recent surgery for large bowel obstruction. Further evaluation by Dr. Maza. 4. Colostomy, I am switching IV antibiotics to p.o. antibiotic. Thank you very much, Dr. Posada, for allowing me to participate in the care of this patient. Please do not hesitate to contact me for any questions regarding my evaluation. Homar Capps M.D. DR: Gilmar JOB#: [id number] CC:
[2017-08-14 16:00] VITALS: BP 127/73
[2017-08-14] MEDS ORDERED: LEVAQUIN500 MG ORAL (17:05)
[2017-08-14] MEDS ORDERED: DIPHENHYDRAMINE25 M1 ORAL (17:31)
[2017-08-14] MEDS ORDERED: HEPARIN SO5000 UNIT2 SUBQ (17:31)
[2017-08-14] MEDS ORDERED: MORPHINE 22 MG/1 ML IV ×2 (17:31→17:33)
[2017-08-14 20:00] VITALS: BP 141/87
--- NOTE | 2017-08-15 16:08 | Discharge Summary ---
Discharge Summary Discharge Summary Discharge Summary DATE OF ADMISSION: 08/10/2017 DATE OF DISCHARGE: 08/14/2017 CONSULTANTS: Dr. Homar Millan BRIEF HOSPITAL COURSE: Patient is a 72-year-old female from [facility] with history of recent SBO, status post colostomy, was complaining of 2 day increased abdominal pain and 4 bowel movements per day. She had bib in the abdomen and was complaining of pain on the incision site. There was evidence of discharge and drainage from the incision site consistent with abscess. Denied fever, chest pain, shortness of breath, no nausea or vomiting. She has medical history significant for hypertension and bowel resection. On evaluation at ED, blood work did not show any leukocytosis. CT of the abdomen and pelvis showed post surgical changes with left lower quadrant colostomy. There was mild segmental dilated small bowel well within the right abdomen and left sided pelvis without obvious transition point. Partial obstruction cannot be excluded. She underwent surgical evaluation. Midline wound bib were removed and wound was opened at bedside. Drained 20 mL of purulent fluid. Packing and dressings were applied. She was given wound care. She was given IV Zosyn. She had low-grade fever. Wound culture with Pseudomonas, Escherichia coli, and gram-positive cocci. She had urinary incontinence however urine with no pyuria. She was encouraged ambulation and out of bed. She was counseled need to be more active and participate in care. She was seen by cardroom attendant. First troponin negative. EKG with sinus rhythm and PACs and bifascicular block with nonspecific ST-T wave abnormalities. She had an echocardiogram done that showed EF of 65% with no wall motion abnormality. She was continued on Norvasc for high blood pressure. She was tolerating diet, she was eventually transferred to [facility]. FINAL DIAGNOSES: Superficial surgical site infection with abscess Status post removal of bib with drainage of purulent bloody fluid Low-grade fever Urinary incontinence Hypertension Colon CA Atypical chest pain Colostomy status Anemia Ileus DISPOSITION: Patient was transferred to [facility]. DISCHARGE MEDICATIONS: Refer to Discharge Medication List. I have been assigned to dictate discharge summary on this account, and I was not involved in the patient's management. Wilda Collins NP Aug 15, 2017 16:08
== END 2017-08-14 23:50 | DRG 863 ==
LOC: EDBD 16:39 → EMR 16:45 → 4W 17:13 → EDBEDREQ 17:35
DX: T81.4XXA Infection following a procedure, initial encounter (principal); L02.211 Cutaneous abscess of abdominal wall; K56.7 Ileus, unspecified; D64.9 Anemia, unspecified; I10 Essential (primary) hypertension; R10.9 Unspecified abdominal pain; Z43.3 Encounter for attention to colostomy; R32 Unspecified urinary incontinence; B96.5 Pseudomonas (aeruginosa) (mallei) (pseudomallei) as the cause of diseases classified elsewhere; B96.20 Unspecified Escherichia coli [E. coli] as the cause of diseases classified elsewhere; Z88.8 Allergy status to other drugs, medicaments and biological substances; Y83.8 Other surgical procedures as the cause of abnormal reaction of the patient, or of later complication, without mention of misadventure at the time of the procedure; Z85.038 Personal history of other malignant neoplasm of large intestine; R07.89 Other chest pain
CPT/HCPCS: 36415; 71045; 74177; 80048; 80053; 81003; 83690; 84484; 85025; 85610; 85730; 87070; 87081; 87181; 87205; 93005; 93306; 94664; 97803; 99285; J2405

== ENCOUNTER 2019-09-22 11:17 | Inpatient (IN) | payer MEDICAID, MEDICARE ==
[2019-09-22] VITALS (16 sets, daily range): BP systolic 83–132; BP diastolic 47–87
[~2019-09-22] VITALS: Ht 172.7 cm; Wt 104.3 kg
[~2019-09-22 11:17] MED LIST: AMLODIPINE BESYL5 MG ORAL; CEPHALEXIN500 MG ORAL; COLACE100 MG ORAL; DIPHENHYDRAMINE25 M1 ORAL; HEPARIN SO5000 UNIT2 SUBQ; IPRAT-ALBUT 0.5-3 ML IH; LEVAQUIN500 MG ORAL; MILK OF MA400 MG/51 ORAL; MORPHINE 22 MG/1 ML IV; NORCO 10/3251 EA ORAL; ZOFRAN ODT4 MG ORAL
[2019-09-22] MEDS ORDERED: Sodium Chloride 3,100 ML IVLG ONE (11:45)
[2019-09-22 12:26] LABS: HEMATOCRIT 36.6 % (37.0-47.0); HEMOGLOBIN 11.6 G/DL (12.0-16.0); MEAN CORPUSCULAR VOLUME 82 FL (80-99); PLATELET COUNT 287 K/UL (150-450); RED BLOOD COUNT 4.46 M/UL (4.20-5.40); RED CELL DISTRIBUTION WIDTH 14.1 % (11.6-14.8); WHITE BLOOD COUNT 18.8 K/UL (4.8-10.8)
[2019-09-22 12:41] LABS: ANION GAP 13 mmol/L (5-15); BLOOD UREA NITROGEN 39 mg/dL (7-18); CALCIUM 9.8 MG/DL (8.5-10.1); CARBON DIOXIDE 25 MMOL/L (21-32); CHLORIDE 103 MMOL/L (98-107); CREATININE 1.6 MG/DL (0.55-1.30); INR 1.4 (0.9-1.1); POTASSIUM 4.4 MMOL/L (3.5-5.1); SODIUM 141 MMOL/L (136-145)
[2019-09-22 12:54] LABS: ALANINE AMINOTRANSFERASE 14 U/L (12-78); ALBUMIN 2.1 G/DL (3.4-5.0); ALBUMIN/GLOBULIN RATIO 0.3 (1.0-2.7); ALKALINE PHOSPHATASE 114 U/L (46-116); ASPARTATE AMINO TRANSFERASE 29 U/L (15-37); BILIRUBIN,TOTAL 0.8 MG/DL (0.2-1.0); CKMB 1.7 NG/ML (0.0-3.6); CREATINE KINASE 156 U/L (26-308)
[2019-09-22] MEDS ORDERED: cefTRIAXone 1 GM in NS 55 ML IVPB ONE (13:00)
[2019-09-22 13:12] LABS: APPEARANCE,URINE SLIGHTLY CLOUDY; BILIRUBIN, URINE 2+ (NEGATIVE); COLOR,URINE BROWN; GLUCOSE, URINE (UA) NEGATIVE (NEGATIVE); KETONES,URINE 2+ (NEGATIVE); LEUKOCYTE ESTERASE ,URINE 3+ (NEGATIVE); NITRITE,URINE POSITIVE (NEGATIVE); PH,URINE 5 (4.5-8.0); PROTEIN,URINE 2+ (NEGATIVE); UROBILINOGEN,URINE 4 MG/DL (0.0-1.0)
[2019-09-22] MEDS ORDERED: PROTONIX20 MG ORAL (13:15)
[2019-09-22] MEDS ORDERED: ATIVAN0.5 MG ORAL (13:15)
[2019-09-22] MEDS ORDERED: ZOLPIDEM TART6.25 MG ORAL (13:15)
[2019-09-22] MEDS ORDERED: VENTOLIN HFA18 GM INH (13:15)
[2019-09-22] MEDS ORDERED: NORCO 5-325 TA1 EAC1 ORAL (13:15)
[2019-09-22] MEDS ORDERED: VITAMIN B12-FO1 EAC1 PO (13:15)
[2019-09-22] MEDS ORDERED: TRAMADOL HCL100 M2 ORAL (13:15)
[2019-09-22] MEDS ORDERED: MS CONTIN100 MG ORAL (13:15)
[2019-09-22] MEDS ORDERED: MILK OF MA400 MG/51 ORAL (13:15)
[2019-09-22] MEDS ORDERED: MULTIVITAMINS1 EAC2 ORAL (13:15)
[2019-09-22] MEDS ORDERED: CELEBREX50 M1 ORAL (13:15)
--- NOTE | 2019-09-22 13:58 | Diagnostic Imaging Report ---
Indication: Shortness of breath Technique: One view of the chest Comparison: For 09/08/2017 Findings: Heart size is upper limits normal. Inspiration is suboptimal, resulting in some crowding of the bronchovascular markings at the lung bases. Pleural spaces are otherwise clear. There is evidence of prior right shoulder surgery Impression: Hypoventilatory exam. No definite acute process
--- NOTE | 2019-09-22 14:22 | Emergency Room Report ---
History of Present Illness General Chief Complaint: Altered Level of Consciousness Present Illness HPI 74-year-old female history of colon cancer presented for sinus. Per the son patient has been living at home, on hospice, was diagnosed with a UTI recently, started on oral antibiotics however she was unable to swallow. She was then switched to morphine only for comfort care however family and primary physician felt patient could recover from this UTI so primary care physician took patient off hospice and advised patient to be transferred to ER. On arrival patient was altered, unable to provide any history. Allergies: Coded Allergies: PROCHLORPERAZINE (Verified Allergy, Unknown, 08/10/17) COVID-19 Screening Contact w/high risk pt: No Recent Travel to affected area: No Experienced COVID-19 symptoms?: No COVID-19 Testing performed MEETING FACILITATOR: No Patient History Reviewed Nursing Documentation: PMH: Agreed; PSxH: Agreed Nursing Documentation-PMH Hx Cardiac Problems: Yes Hx Hypertension: Yes Hx Asthma: Yes Hx Cancer: No Hx Gastrointestinal Problems: No - S/P COLECTOMY/COLOSTOMY Hx Neurological Problems: No Review of Systems All Other Systems: negative except mentioned in HPI Physical Exam Vital Signs Date Time Temp Pulse Resp B/P (MAP) Pulse Ox O2 Delivery O2 Flow Rate FiO2 09/22/19 11:18 98.8 106 18 96 Room Air Sp02 EP Interpretation: reviewed, normal General Appearance: no apparent distress, Chronically Ill Head: normocephalic, atraumatic Eyes: bilateral eye PERRL, bilateral eye EOMI ENT: hearing grossly normal, moist mucus membranes Neck: full range of motion, supple Respiratory: lungs clear, normal breath sounds, no rhonchi, no respiratory distress, no retraction, no wheezing Cardiovascular #1: normal peripheral pulses, no murmur, tachycardia Gastrointestinal: non tender, soft, non-distended, no guarding Neurologic: alert, other - Patient drowsy but arousable, opens eyes to voice, localizes to pain, Skin: Decubitus/Ulcer, other - Chronic skin changes noted lower extremities Medical Decision Making Diagnostic Impression: Primary Impression: Altered level of consciousness Additional Impressions: UTI (urinary tract infection) Failure to thrive ER Course MDM: Differential included but not limited to UTI, dehydration, failure to thrive, to name a few Clinical course-IV inserted, laboratory studies sent urinalysis and chest x-ray ordered, blood culture sent. Urinalysis consistent with UTI, IV antibiotics given, she did appear dehydrated as well so fluid boluses given. I did speak with the son who wished patient to be admitted for further treatment. Patient will be admitted under her primary care doctor, Labs - Laboratory Tests Test 09/22/19 12:10 09/22/19 12:50 White Blood Count 18.8 K/UL (4.8-10.8) H Red Blood Count 4.46 M/UL (4.20-5.40) Hemoglobin 11.6 G/DL (12.0-16.0) L Hematocrit 36.6 % (37.0-47.0) L Mean Corpuscular Volume 82 FL (80-99) Mean Corpuscular Hemoglobin 26.1 PG (27.0-31.0) L Mean Corpuscular Hemoglobin Concent 31.8 G/DL (32.0-36.0) L Red Cell Distribution Width 14.1 % (11.6-14.8) Platelet Count 287 K/UL (150-450) Mean Platelet Volume 4.3 FL (6.5-10.1) L Neutrophils (%) (Auto) % (45.0-75.0) Lymphocytes (%) (Auto) % (20.0-45.0) Monocytes (%) (Auto) % (1.0-10.0) Eosinophils (%) (Auto) % (0.0-3.0) Basophils (%) (Auto) % (0.0-2.0) Differential Total Cells Counted 100 Neutrophils % (Manual) 88 % (45-75) H Lymphocytes % (Manual) 9 % (20-45) L Monocytes % (Manual) 3 % (1-10) Eosinophils % (Manual) 0 % (0-3) Basophils % (Manual) 0 % (0-2) Band Neutrophils 0 % (0-8) Platelet Estimate Adequate Platelet Morphology Normal Hypochromasia 1+ Anisocytosis 1+ Prothrombin Time 14.8 SEC (9.30-11.50) H Prothrombin Time INR 1.4 (0.9-1.1) H Activated Partial Thromboplast Time 26 SEC (23-33) Sodium Level 141 MMOL/L (136-145) Potassium Level 4.4 MMOL/L (3.5-5.1) Chloride Level 103 MMOL/L (98-107) Carbon Dioxide Level 25 MMOL/L (21-32) Anion Gap 13 mmol/L (5-15) Blood Urea Nitrogen 39 mg/dL (7-18) H Creatinine 1.6 MG/DL (0.55-1.30) H Estimated Glomerular Filtration Rate 38.3 mL/min (>60) Glucose Level 104 MG/DL (74-106) Lactic Acid Level 1.60 mmol/L (0.4-2.0) Calcium Level 9.8 MG/DL (8.5-10.1) Magnesium Level 2.2 MG/DL (1.8-2.4) Total Bilirubin 0.8 MG/DL (0.2-1.0) Aspartate Amino Transferase (AST) 29 U/L (15-37) Alanine Aminotransferase (ALT) 14 U/L (12-78) Alkaline Phosphatase 114 U/L (46-116) Total Creatine Kinase 156 U/L (26-308) Creatine Kinase MB 1.7 NG/ML (0.0-3.6) Creatine Kinase MB Relative Index 1.0 Troponin I 0.000 ng/mL (0.000-0.056) Total Protein 8.1 G/DL (6.4-8.2) Albumin 2.1 G/DL (3.4-5.0) L Globulin 6.0 g/dL Albumin/Globulin Ratio 0.3 (1.0-2.7) L Urine Color Brown Urine Appearance Slightly cloudy Urine pH 5 (4.5-8.0) Urine Specific [place] 1.025 (1.005-1.035) Urine Protein 2+ (NEGATIVE) H Urine Glucose (UA) Negative (NEGATIVE) Urine Ketones 2+ (NEGATIVE) H Urine Blood 5+ (NEGATIVE) H Urine Nitrite Positive (NEGATIVE) H Urine Bilirubin 2+ (NEGATIVE) H Urine Ictotest Negative (NEGATIVE) Urine Urobilinogen 4 MG/DL (0.0-1.0) H Urine Leukocyte Esterase 3+ (NEGATIVE) H Urine RBC 5-10 /HPF (0 - 2) H Urine WBC 60-80 /HPF (0 - 2) H Urine Squamous Epithelial Cells Few /LPF (NONE/OCC) Urine Bacteria Moderate /HPF (NONE) H Plan-patient will be admitted to the telemetry floor. EKG Diagnostic Results Rate: tachycardiac Rhythm: other - Sinus tachycardia ST Segments: no acute changes Other Impression Left axis deviation, incomplete right bundle branch block, abnormal EKG left axis deviation, incomplete right bundle branch block Rhythm Strip Diag. Results EP Interpretation: yes Rate: 108 Rhythm: no ectopy, other - Sinus tachycardia Last Vital Signs Date Time Temp Pulse Resp B/P (MAP) Pulse Ox O2 Delivery O2 Flow Rate FiO2 09/22/19 11:18 98.8 106 18 96 Room Air Status: improved Disposition: ADMITTED INPATIENT Condition: Serious Referrals: NOT CHOSEN IPA/,REFERRING (PCP) Rahul Garber M.D. Sep 22, 2019 14:22
[2019-09-22] MEDS ORDERED: NORCO 7.5-3251 EACH ORAL (18:53)
[2019-09-22] MEDS ORDERED: TRAMADOL HCL50 MG ORAL (18:53)
[2019-09-22] MEDS ORDERED: MORPHINE S10 MG/5 ML ORAL (18:53)
[2019-09-22] MEDS ORDERED: Zolpidem 5mg tab ORAL PRN (19:15)
[2019-09-22] MEDS ORDERED: Morphine Sulfate 10mg/5ml Oral Soln ud ORAL PRN (19:15)
[2019-09-22] MEDS ORDERED: Morphine Sulfate 2mg/ml Inj(IV/IM USE ONLY) IVP PRN (19:15)
[2019-09-22] MEDS ORDERED: traMADol 50mg tab ORAL PRN (19:15)
[2019-09-22] MEDS ORDERED: HYDROcodone/Acetamin 7.5/325 tab ORAL PRN ×2 (19:15→19:30)
[2019-09-22] MEDS: dilTIAZem Premix 125mg/125ml 125 ML IVPB SCH (20:47)
[2019-09-22] MEDS ORDERED: dilTIAZem HCl 25mg/5ml Inj IV SCH (21:00)
[2019-09-23] VITALS (51 sets, daily range): BP systolic 53–105; BP diastolic 20–71
[2019-09-23] MEDS ORDERED: Albuterol 90mcg Inhaler 8gm INH SCH
[2019-09-23] MEDS: Albuterol ud Inhalation HHN SCH ×5 (01:00→21:13)
[2019-09-23 05:29] LABS: ANION GAP 14 mmol/L (5-15); BLOOD UREA NITROGEN 32 mg/dL (7-18); CALCIUM 8.6 MG/DL (8.5-10.1); CARBON DIOXIDE 21 MMOL/L (21-32); CHLORIDE 111 MMOL/L (98-107); POTASSIUM 3.3 MMOL/L (3.5-5.1); SODIUM 146 MMOL/L (136-145)
[2019-09-23] MEDS: dilTIAZem Premix 125mg/125ml 125 ML IVPB SCH ×2 (08:40→21:06)
[2019-09-23] MEDS: Milk of Magnesia 30ml Ud ORAL SCH (08:41)
[2019-09-23] MEDS: Enoxaparin 40mg Inj SUBQ SCH (08:42)
[2019-09-23] MEDS ORDERED: Vitamin B-12 100mcg tab ORAL SCH (09:00)
[2019-09-23] MEDS: LORazepam 0.5mg tab ORAL SCH ×3 (09:00→17:38)
[2019-09-23] MEDS ORDERED: celeBREX 200mg Cap **SURGERY PATIENTS ONLY ORAL SCH (09:00)
--- NOTE | 2019-09-23 12:32 | Consultation ---
Consult Note Consult Note I am asked to evaluate the patient at the request of Dr. Mateus Posada for fluid and electrolyte management. Patient was seen in intensive care unit. Discussed with RN. Patient evaluated, examined, data reviewed. Patient appears dysphasic and cannot give any history. Patient was on hospice prior to this hospitalization but currently her status is full code. Emergency room note: 74-year-old female history of colon cancer presented for ALOC. Per the son patient has been living at home, on hospice, was diagnosed with a UTI recently, started on oral antibiotics however she was unable to swallow. She was then switched to morphine only for comfort care however family and primary physician felt patient could recover from this UTI so primary care physician took patient off hospice and advised patient to be transferred to ER. On arrival patient was altered, unable to provide any history. Allergies: PROCHLORPERAZINE (Verified Allergy, Unknown, 08/10/17) COVID-19 Screening Contact w/high risk pt: No Recent Travel to affected area: No Experienced COVID-19 symptoms?: No COVID-19 Testing performed ETIQUETTE TEACHER: No Hx Cardiac Problems: Yes Hx Hypertension: Yes Hx Asthma: Yes Hx Gastrointestinal Problems: No - S/P COLECTOMY/COLOSTOMY Assessment/Plan Dehydration, azotemia Electrolyte imbalance, hypokalemia, Hypotension, tachycardia Mild anemia Colon cancer, was taken off hospice prior to transfer to the hospital Toxic metabolic encephalopathy UTI Failure to thrive Status post colectomy and colostomy Keep n.p.o. as patient's ability to swallow is in question. Waiting for speech therapy evaluation. IV fluid D5 and half-normal saline with potassium chloride Monitor electrolytes Anemia work-up Patient currently on Cardizem drip for SVT by [employer] Fluid challenge with albumin 5% 500 cc 1 time Antibiotics for UTI Continue per consultants Discussed with RN I spent an additional 36 minutes on review of medical records including prior hospital records,consult notes, progress notes, procedures ,imaging labs, hemodynamics, and other clinical documentation. Over 35 min Chaparro Pemberton MD Sep 23, 2019 12:32
[2019-09-23 12:58] LABS: HEMATOCRIT 29.6 % (37.0-47.0); HEMOGLOBIN 9.5 G/DL (12.0-16.0); MEAN CORPUSCULAR VOLUME 82 FL (80-99); PLATELET COUNT 390 K/UL (150-450); RED BLOOD COUNT 3.62 M/UL (4.20-5.40); WHITE BLOOD COUNT 20.4 K/UL (4.8-10.8)
[2019-09-23] MEDS: Piperacillin/Tazobactam 3.375 GM in NS 110 ML IVPB SCH ×2 (13:16→21:39)
--- NOTE | 2019-09-23 13:20 | Consultation ---
History of Present Illness General Chief Complaint: Altered Level of Consciousness Present Illness Allergies: Coded Allergies: PROCHLORPERAZINE (Verified Allergy, Unknown, 08/10/17) Medication History Scheduled Albuterol Sulfate (Ventolin Hfa), 2 PUFFS INH EVERY 6 HOURS, (Reported) Celecoxib (Celebrex), 20 MG ORAL TWICE A DAY, (Reported) Lorazepam* (Ativan*), 0.5 MG ORAL THREE TIMES A DAY, (Reported) Magnesium Hydroxide* (Milk Of Magnesia*), 30 ML ORAL DAILY, (Reported) Multivitamins* (Multivitamins*), 1 TAB ORAL DAILY, (Reported) Pantoprazole Sodium (Protonix), 40 MG ORAL DAILY, (Reported) Scheduled PRN Hydrocodone Bit/Acetaminophen 7.5-325* ([place] 7.5-325*), 1 TAB ORAL Q6H PRN for For Pain, (Reported) Morphine 10mg/5ml Oral Soln* (Morphine 10mg/5ml Oral Soln*), 0.5 ML ORAL EVERY 2 HOURS PRN for For Pain, (Reported) Tramadol Hcl* (Ultram*), 50 MG ORAL Q6H PRN for For Pain, (Reported) Zolpidem Tartrate (Zolpidem Tartrate Er), 10 MG ORAL BEDTIME PRN for Insomnia, ( Reported) Miscellaneous Medications Cyanocobalamin/Folic Acid (Vitamin O23-Vlyja Acid Tablet), 1 EACH PO, (Reported) Discontinued Medications Amlodipine Besylate* (Amlodipine Besylate*), 5 MG ORAL DAILY, (Reported) Discontinued Reason: Therapy completed Cephalexin* (Keflex*), 500 MG ORAL EVERY 6 HOURS, (Reported) Discontinued Reason: Therapy completed Diphenhydramine Hcl* (Diphenhydramine Hcl*), 25 MG ORAL Q6H PRN for Itching, ( Reported) Discontinued Reason: Therapy completed Docusate Sodium* (Colace*), 100 MG ORAL TWICE A DAY, (Reported) Discontinued Reason: Therapy completed Heparin Sod (Porcine) (Heparin Sodium*), 5,000 UNITS SUBQ EVERY 8 HOURS, ( Reported) Discontinued Reason: Therapy completed Hydrocodone Bit/Acetaminophen 5-325* ([place] 5-325 Tablet*), 1 TAB ORAL Q6H PRN for FOR PAIN, (Reported) Discontinued Reason: Medication dose changed Hydrocodone/Acetaminophen (Hydrocodon-Acetaminophn 10-325), 1 TAB ORAL Q4H PRN for For Pain, (Reported) Discontinued Reason: Therapy completed Ipratropium/Albuterol Sulfate (Iprat-Albut 0.5-3(2.5) Mg/3 Ml), 3 ML IH EVERY 2 HOURS PRN for Shortness of Breath, (Reported) Discontinued Reason: Therapy completed Levofloxacin* (Levaquin*), 500 MG ORAL DAILY, (Reported) Discontinued Reason: Therapy completed Magnesium Hydroxide* (Milk Of Magnesia*), 30 ML ORAL DAILY PRN for Constipation, (Reported) Discontinued Reason: Therapy completed Morphine Sulfate (Morphine Sulfate ER), Unknown Dose ORAL EVERY 12 HOURS, ( Reported) Discontinued Reason: Medication dose changed Morphine Sulfate* (Morphine Sulfate*), 2 MG IV, (Reported) Discontinued Reason: Therapy completed Morphine Sulfate* (Morphine Sulfate*), 4 MG IV EVERY 6 HOURS, (Reported) Discontinued Reason: Therapy completed Ondansetron Odt* (Zofran Odt*), 4 MG ORAL Q4HR PRN for Nausea & Vomiting, ( Reported) Discontinued Reason: Therapy completed Tramadol Hcl (Tramadol Hcl), 50 MG ORAL DAILY, (Reported) Discontinued Reason: Therapy completed Patient History Healthcare decision maker N Resuscitation status Advanced Directive on File Physical Exam Last 24 Hour Vital Signs Date Time Temp Pulse Resp B/P (MAP) Pulse Ox O2 Delivery O2 Flow Rate FiO2 09/23/19 13:03 120 25 100 Nasal Cannula 3.0 32 100 23 100 09/23/19 12:00 114 14 91/56 (68) 100 09/23/19 12:00 Nasal Cannula 1.0 09/23/19 11:30 107 26 89/56 (67) 99 09/23/19 11:00 114 18 92/49 (63) 100 09/23/19 10:30 111 18 96/48 (64) 100 09/23/19 10:00 127 18 88/56 (67) 100 09/23/19 09:30 110 17 98/54 (69) 100 09/23/19 09:30 111 19 105/56 (72) 100 09/23/19 09:00 110 17 98/54 (69) 100 09/23/19 08:30 112 17 82/54 (63) 100 6/3/20 08:00 98.9 112 19 90/50 (63) 100 09/23/19 08:00 Nasal Cannula 1.0 09/23/19 07:52 106 09/23/19 07:30 111 22 91/58 (69) 99 09/23/19 07:00 106 15 86/58 (67) 99 09/23/19 07:00 89 19 99 Nasal Cannula 2.0 28 09/23/19 06:30 111 17 92/61 (71) 99 09/23/19 06:00 114 14 92/55 (67) 100 09/23/19 05:30 111 13 89/55 (66) 100 09/23/19 05:00 115 14 96/61 (73) 100 09/23/19 04:30 112 12 91/54 (66) 100 09/23/19 04:00 Nasal Cannula 1.0 09/23/19 04:00 98.0 105 14 85/65 (72) 100 09/23/19 03:30 104 17 94/57 (69) 100 09/23/19 03:00 101 23 101/65 (77) 100 09/23/19 02:30 104 22 85/47 (60) 100 09/23/19 02:00 100 19 87/51 (63) 100 09/23/19 01:30 105 16 91/59 (70) 100 09/23/19 01:00 100 18 93/54 (67) 100 09/23/19 00:30 99 22 97/71 (80) 100 09/23/19 00:00 Nasal Cannula 1.0 09/23/19 00:00 98.0 101 19 84/46 (59) 99 09/22/19 23:30 102 18 83/47 (59) 100 09/22/19 23:15 103 16 86/51 (63) 100 09/22/19 23:00 104 17 89/50 (63) 100 09/22/19 22:45 103 18 91/49 (63) 100 09/22/19 22:30 107 17 85/54 (64) 100 09/22/19 22:00 107 16 95/60 (72) 100 09/22/19 21:45 111 15 92/56 (68) 100 09/22/19 21:30 111 16 87/57 (67) 100 09/22/19 21:15 112 17 96/58 (71) 100 09/22/19 21:00 115 15 98/65 (76) 100 09/22/19 20:59 114 14 99/63 (75) 100 09/22/19 20:30 128 15 110/74 (86) 99 09/22/19 20:23 98.8 124 19 106/71 (83) 100 09/22/19 20:00 Nasal Cannula 1.0 09/22/19 18:06 Nasal Cannula 2.0 09/22/19 16:32 98.8 100 19 129/74 97 Room Air 4.0 09/22/19 16:31 98.8 103 19 120/72 95 Room Air 4.0 09/22/19 14:30 98.8 105 20 122/76 96 Room Air 4.0 Intake and Output 09/22/19 09/23/19 19:00 07:00 Intake Total 660 ml Output Total 600 ml 410 ml Balance -600 ml 250 ml Intake Oral 0 ml IV Total 660 ml Output Urine Total 600 ml 410 ml Laboratory Tests Test 09/22/19 20:00 09/23/19 04:00 09/23/19 11:55 Troponin I 0.000 ng/mL (0.000-0.056) 0.000 ng/mL (0.000-0.056) 0.000 ng/mL (0.000-0.056) Sodium Level 146 MMOL/L (136-145) H Potassium Level 3.3 MMOL/L (3.5-5.1) L Chloride Level 111 MMOL/L (98-107) H Carbon Dioxide Level 21 MMOL/L (21-32) Anion Gap 14 mmol/L (5-15) Blood Urea Nitrogen 32 mg/dL (7-18) H Creatinine 1.0 MG/DL (0.55-1.30) Estimat Glomerular Filtration Rate > 60 mL/min (>60) Glucose Level 112 MG/DL (74-106) H Calcium Level 8.6 MG/DL (8.5-10.1) White Blood Count 20.4 K/UL (4.8-10.8) H Red Blood Count 3.62 M/UL (4.20-5.40) L Hemoglobin 9.5 G/DL (12.0-16.0) L Hematocrit 29.6 % (37.0-47.0) L Mean Corpuscular Volume 82 FL (80-99) Mean Corpuscular Hemoglobin 26.3 PG (27.0-31.0) L Mean Corpuscular Hemoglobin Concent 32.2 G/DL (32.0-36.0) Red Cell Distribution Width 14.0 % (11.6-14.8) Platelet Count 390 K/UL (150-450) Mean Platelet Volume 5.1 FL (6.5-10.1) L Neutrophils (%) (Auto) % (45.0-75.0) Lymphocytes (%) (Auto) % (20.0-45.0) Monocytes (%) (Auto) % (1.0-10.0) Eosinophils (%) (Auto) % (0.0-3.0) Basophils (%) (Auto) % (0.0-2.0) Neutrophils % (Manual) Pending Lymphocytes % (Manual) Pending Platelet Estimate Pending Platelet Morphology Pending Microbiology Date/Time Source Procedure Growth Status 09/22/19 15:18 Rectum Received Height (Feet): 5 Height (Inches): 8.00 Weight (Pounds): 218 Medications Current Medications Medications (Trade) Dose Ordered Sig/Radha Route PRN Reason Start Time Stop Time Status Last Admin Dose Admin Acetaminophen/ Hydrocodone Bitart ([place] 7.5/325) 1 tab Q6H PRN ORAL severe pain 09/22/19 19:30 09/29/19 19:14 Albumin Human 500 ml @ 0 mls/hr Q0M ONCE IV 09/23/19 14:00 09/23/19 14:01 Albuterol Sulfate (Proventil) 2.5 mg Q6HRT HHN 09/23/19 01:00 09/28/19 00:59 09/23/19 13:03 Dextrose/ Electrolytes 1,000 ml @ 75 mls/hr [id number] IV 09/23/19 14:00 10/23/19 13:59 Diltiazem HCl 125 ml @ 10 mls/hr Q12H IVPB 09/22/19 20:36 09/23/19 20:36 09/23/19 08:40 Enoxaparin Sodium (Lovenox) 40 mg DAILY SUBQ 09/23/19 09:00 12/22/19 08:59 09/23/19 08:42 Lorazepam (Ativan) 0.5 mg THREE TIMES A DAY ORAL 09/23/19 09:00 09/30/19 08:59 Magnesium Hydroxide (Mom) 30 ml DAILY ORAL 09/23/19 09:00 10/23/19 08:59 09/23/19 08:41 Morphine Sulfate (Morphine Sulfate) 2 mg Q4H PRN IVP For Pain 09/22/19 19:15 09/29/19 19:14 Multivitamins (Multivitamins) 1 tab DAILY ORAL 09/23/19 09:00 10/23/19 08:59 09/23/19 08:41 Pantoprazole (Protonix) 40 mg DAILY ORAL 09/23/19 09:00 10/23/19 08:59 09/23/19 08:41 Piperacillin Sod/ Tazobactam Sod 3.375 gm/Sodium Chloride 110 ml @ 27.5 mls/hr EVERY 8 HOURS IVPB 09/23/19 14:00 09/28/19 13:59 Tramadol HCl (Ultram) 50 mg Q6H PRN ORAL moderate pain 09/22/19 19:15 09/29/19 19:14 Zolpidem Tartrate (Ambien) 5 mg HSPRN PRN ORAL Insomnia 09/22/19 19:15 09/29/19 19:14 Assessment/Plan Assessment/Plan: Hematology Consultation RFC: Anemia evaluation, colon cancer REQ MD: Mateus Posada DOS 09/23/[address] Posada to eval 74-year-old female history of colon cancer presented for sinus. Per the son patient has been living at home, on hospice, was diagnosed with a UTI recently, started on oral antibiotics however she was unable to swallow. She was then switched to morphine only for comfort care however family and primary physician felt patient could recover from this UTI so primary care physician took patient off hospice and advised patient to be transferred to ER. On arrival patient was altered, unable to provide any history. Currently is in the icu, crticailly ill, elev wbc and anemic as well, has been seen by Dr. Pemberton Allergies: PROCHLORPERAZINE (Verified Allergy, Unknown, 08/10/17) COVID-19 Screening Contact w/high risk pt: No Recent Travel to affected area: No Experienced COVID-19 symptoms?: No COVID-19 Testing performed HR BUSINESS PARTNER CONSULTANT: No Patient History Reviewed Nursing Documentation: PMH: Agreed; PSxH: Agreed Nursing Documentation-PMH Hx Cardiac Problems: Yes Hx Hypertension: Yes Hx Asthma: Yes Hx Cancer: No Hx Gastrointestinal Problems: No - S/P COLECTOMY/COLOSTOMY Hx Neurological Problems: No ROS (review of systems): altered at this time Physical Exam: Vitals: reviewed General: NAD HEENT: nc, at Neck: supple Chest: clear breath sounds bilaterally Cardiovascular: RRR, no s3, s4 Abdomen: soft, nontender, nd ++colostomy Extremities: no cce, normal range of motion Neuro: alert and oriented Wounds: ++ on exam as per Rn Labs noted Imaging reviewed Assessment and Recs # Colon cancer s/p colectomy with colostomy++ --> on hospice before dc --> hold off on further treatment # Anemia of chronic disease due to underlying chronic medical issues, multifactorial v Gi bleed --> Anemia workup has been ordered, rule out gi bleed --> No evidence of hemolysis is noted, peripheral smear has been reviewed. --> Hgb goal >7. Transfuse prn. --> Epogen or iron at this time is not particularly indicated --> Medications have been reviewed --> low threshold for gi evaluation in case has occult + # Leukocytosis/elevated white blood cell count, unspecified likely related to underlying stress reaction, smoking v more likely infection --> have reviewed peripheral smear and bandemia/neutrophilia noted --> continue antibiotics if they have been started by ID team --> monitor for resolution --> wbc 18-->20 --> absa needed # Altered level of consciousness --> r/o underlying infection, ?metabolic # UTI (urinary tract infection) -> abx # Failure to thrive --> on fluids # Hypotension, tachycardia # Toxic metabolic encephalopathy The timing of this note does not necessarily reflect the time of the patient was seen. Greatly appreciate consultation. Sandor Hobson MD Sep 23, 2019 13:19
--- NOTE | 2019-09-23 14:10 | Cardiac Electrophysiology PN ---
Subjective Subjective [id number] Objective Last 24 Hour Vital Signs Date Time Temp Pulse Resp B/P (MAP) Pulse Ox O2 Delivery O2 Flow Rate FiO2 09/23/19 13:30 105 27 82/51 (61) 100 09/23/19 13:03 120 25 100 Nasal Cannula 3.0 32 100 23 100 09/23/19 13:00 111 13 97/59 (72) 100 09/23/19 12:30 108 18 99/52 (68) 100 09/23/19 12:00 114 14 91/56 (68) 100 09/23/19 12:00 Nasal Cannula 1.0 09/23/19 11:30 107 26 89/56 (67) 99 09/23/19 11:00 114 18 92/49 (63) 100 09/23/19 10:30 111 18 96/48 (64) 100 09/23/19 10:00 127 18 88/56 (67) 100 09/23/19 09:30 110 17 98/54 (69) 100 09/23/19 09:30 111 19 105/56 (72) 100 09/23/19 09:00 110 17 98/54 (69) 100 09/23/19 08:30 112 17 82/54 (63) 100 09/23/19 08:00 98.9 112 19 90/50 (63) 100 09/23/19 08:00 Nasal Cannula 1.0 09/23/19 07:52 106 09/23/19 07:30 111 22 91/58 (69) 99 09/23/19 07:00 106 15 86/58 (67) 99 09/23/19 07:00 89 19 99 Nasal Cannula 2.0 28 09/23/19 06:30 111 17 92/61 (71) 99 09/23/19 06:00 114 14 92/55 (67) 100 09/23/19 05:30 111 13 89/55 (66) 100 09/23/19 05:00 115 14 96/61 (73) 100 09/23/19 04:30 112 12 91/54 (66) 100 09/23/19 04:00 Nasal Cannula 1.0 09/23/19 04:00 98.0 105 14 85/65 (72) 100 09/23/19 03:30 104 17 94/57 (69) 100 09/23/19 03:00 101 23 101/65 (77) 100 09/23/19 02:30 104 22 85/47 (60) 100 09/23/19 02:00 100 19 87/51 (63) 100 09/23/19 01:30 105 16 91/59 (70) 100 09/23/19 01:00 100 18 93/54 (67) 100 09/23/19 00:30 99 22 97/71 (80) 100 09/23/19 00:00 Nasal Cannula 1.0 09/23/19 00:00 98.0 101 19 84/46 (59) 99 09/22/19 23:30 102 18 83/47 (59) 100 09/22/19 23:15 103 16 86/51 (63) 100 09/22/19 23:00 104 17 89/50 (63) 100 09/22/19 22:45 103 18 91/49 (63) 100 09/22/19 22:30 107 17 85/54 (64) 100 09/22/19 22:00 107 16 95/60 (72) 100 09/22/19 21:45 111 15 92/56 (68) 100 09/22/19 21:30 111 16 87/57 (67) 100 09/22/19 21:15 112 17 96/58 (71) 100 09/22/19 21:00 115 15 98/65 (76) 100 09/22/19 20:59 114 14 99/63 (75) 100 09/22/19 20:30 128 15 110/74 (86) 99 09/22/19 20:23 98.8 124 19 106/71 (83) 100 09/22/19 20:00 Nasal Cannula 1.0 09/22/19 18:06 Nasal Cannula 2.0 09/22/19 16:32 98.8 100 19 129/74 97 Room Air 4.0 09/22/19 16:31 98.8 103 19 120/72 95 Room Air 4.0 09/22/19 14:30 98.8 105 20 122/76 96 Room Air 4.0 Intake and Output 09/22/19 09/23/19 19:00 07:00 Intake Total 660 ml Output Total 600 ml 410 ml Balance -600 ml 250 ml Intake Oral 0 ml IV Total 660 ml Output Urine Total 600 ml 410 ml Laboratory Tests Test 09/22/19 20:00 6/3/20 04:00 09/23/19 11:55 Troponin I 0.000 ng/mL (0.000-0.056) 0.000 ng/mL (0.000-0.056) 0.000 ng/mL (0.000-0.056) Sodium Level 146 MMOL/L (136-145) H Potassium Level 3.3 MMOL/L (3.5-5.1) L Chloride Level 111 MMOL/L (98-107) H Carbon Dioxide Level 21 MMOL/L (21-32) Anion Gap 14 mmol/L (5-15) Blood Urea Nitrogen 32 mg/dL (7-18) H Creatinine 1.0 MG/DL (0.55-1.30) Estimat Glomerular Filtration Rate > 60 mL/min (>60) Glucose Level 112 MG/DL (74-106) H Calcium Level 8.6 MG/DL (8.5-10.1) White Blood Count 20.4 K/UL (4.8-10.8) H Red Blood Count 3.62 M/UL (4.20-5.40) L Hemoglobin 9.5 G/DL (12.0-16.0) L Hematocrit 29.6 % (37.0-47.0) L Mean Corpuscular Volume 82 FL (80-99) Mean Corpuscular Hemoglobin 26.3 PG (27.0-31.0) L Mean Corpuscular Hemoglobin Concent 32.2 G/DL (32.0-36.0) Red Cell Distribution Width 14.0 % (11.6-14.8) Platelet Count 390 K/UL (150-450) Mean Platelet Volume 5.1 FL (6.5-10.1) L Neutrophils (%) (Auto) % (45.0-75.0) Lymphocytes (%) (Auto) % (20.0-45.0) Monocytes (%) (Auto) % (1.0-10.0) Eosinophils (%) (Auto) % (0.0-3.0) Basophils (%) (Auto) % (0.0-2.0) Differential Total Cells Counted 100 Neutrophils % (Manual) 88 % (45-75) H Lymphocytes % (Manual) 9 % (20-45) L Monocytes % (Manual) 3 % (1-10) Eosinophils % (Manual) 0 % (0-3) Basophils % (Manual) 0 % (0-2) Band Neutrophils 0 % (0-8) Platelet Estimate Adequate Platelet Morphology Normal Anisocytosis 1+ Reticulocyte Count Pending Microbiology Date/Time Source Procedure Growth Status 09/22/19 12:50 Urine,Clean Catch Urine Culture - Preliminary NO GROWTH Resulted 09/22/19 15:18 Rectum Received Homar Capps MD Sep 23, 2019 14:10
[2019-09-23] MEDS: D5 1/2NS w/KCl 40meq 1000ml 1,000 ML IV SCH (14:17)
--- NOTE | 2019-09-23 18:30 | Consultation ---
DATE OF CONSULTATION: 09/23/2019 INFECTIOUS DISEASES CONSULTATION CONSULTING PHYSICIAN: Concepcion Muro MD. REFERRING PHYSICIAN: Mateus Posada DO. REASON FOR CONSULTATION: Urinary tract infection. HISTORY OF PRESENTING ILLNESS: This is a 74-year-old lady with history of hypertension asthma, colon cancer, status post colectomy and colostomy, who was recently found to have urinary tract infection and an Infectious Diseases consultation has been obtained for antibiotics. PAST MEDICAL HISTORY: 1. History of colon cancer. 2. Hypertension. 3. Asthma. 4. History of colectomy. SOCIAL HISTORY: Unknown. FAMILY HISTORY: Unknown. REVIEW OF SYSTEMS: Unable to obtain currently. MEDICATIONS: As an inpatient, she is on lorazepam, milk of magnesia, multivitamin, Protonix, folic acid, cyanocobalamin, Lovenox, albuterol, diltiazem, hydrocodone, tramadol, Ambien, and morphine. She has received ceftriaxone. ALLERGIES: To prochlorperazine noted. PHYSICAL EXAMINATION: VITAL SIGNS: Temperature of 98.9, T-max of 98.9, pulse of 111, respiratory rate of 17, blood pressure 98/54, O2 saturation of 100% on 1 L of oxygen. HEENT: Pupils equally reactive to light and accommodation. Mouth appears clean without thrush. NECK: Supple. No adenopathy. No JVD. CARDIOVASCULAR: Regular rate and rhythm. No murmurs. LUNGS: Clear to auscultation bilaterally. No crackles. No wheezes. ABDOMEN: Soft, nontender. No organomegaly. EXTREMITIES: No cyanosis. No clubbing. No edema. LABORATORY AND DIAGNOSTIC DATA: White count 18.8, hemoglobin 11.6, hematocrit 36.6, MCV 82, platelet count 287,000, with neutrophils of 88%. Sodium 146, potassium 3.3, chloride 111, bicarb 21, BUN 32, creatinine 1, glucose 112, calcium 8.6. Troponin of zero. Total bilirubin 0.8, AST 29, ALT 14, alkaline phosphatase 114. CK 156, CK-MB 1.7. Total protein 8.1, albumin 2.1. UA is showing 60-80 white cells. Urine cultures are negative so far. Chest x-ray is showing no acute process. ASSESSMENT: This is a 74-year-old lady with history of hypertension, asthma, colon cancer, status post colectomy, who comes in with: 1. Urinary tract infection. Cultures are negative so far. 2. Hypertension. 3. Asthma. PLAN: 1. We will start the patient on Zosyn. 2. We will follow up cultures and adjust antibiotics accordingly. I would like to thank, Dr. Mateus Posada, for this consultation. Concepcion Muro M.D. DR: Angelica JOB#: [id number] CC: Mateus Posada DO
--- NOTE | 2019-09-23 20:00 | History and Physical Report ---
DATE OF ADMISSION: 09/22/2019 DATE AND TIME SEEN: 09/23/2019, approximate time is 10 a.m. CONSULTANTS: 1. Rg Montero MD. 2. Homar Capps MD. 3. Concepcion Muro MD. 4. Roberto Carlos Maza MD. 5. Alex Hobson MD. 6. Jose Peter MD. CHIEF COMPLAINT: Altered mental status, decubitus ulcer, colon cancer, tachycardia. BRIEF HISTORY: This is a 74-year-old female who lives at home, was previous under hospice care. Son unhappy with the wounds patient developing, requests to send to hospital. Sent to [facility], diagnosed as above. Admitted to ICU. Currently O2 NC, sleeping in bed, not responding to questions. REVIEW OF SYSTEMS: Unavailable. PAST MEDICAL HISTORY: Failure to thrive, colon cancer, hypertension, wound infection, decubitus ulcer. PAST SURGICAL HISTORY: Colostomy. MEDICATIONS: Include Zosyn, lorazepam, magnesium, pantoprazole, enoxaparin, IV fluids, hydrocodone, tramadol. ALLERGIES: Prochlorperazine. SOCIAL HISTORY: Unable to obtain lethargy. PHYSICAL EXAMINATION: GENERAL: O2 NC, lethargic in bed, sleepy. VITAL SIGNS: Temperature is 98 degrees, pulse 111, respirations 19, blood pressure 105/56. HEENT: Normocephalic, atraumatic. NECK: Trachea midline. CARDIOVASCULAR: No peripheral edema. LUNGS: Slight short of breath. On O2 NC. ABDOMEN: No apparent wound. EXTREMITIES: Show no cyanosis or clubbing. LABORATORY AND DIAGNOSTIC DATA: Labs at this time show white count 18, hemoglobin and hematocrit 11/36, platelets 287. BMP shows sodium 146, potassium 3.3, chloride 111, creatinine 32, glucose 112. INR is 1.4. Urinalysis is 3+ leukocyte esterase. ASSESSMENT: 1. Altered mental status. 2. Tachycardia. 3. Colon cancer. 4. UTI. 5. Decubitus ulcer. 6. Anemia. 7. Renal failure. 8. Failure to thrive. 9. Hypertension. PLAN: 1. O2, pulmonary treatment. 2. Antibiotics per Infectious Disease. 3. Wound care. 4. Blood pressure, pain control. 5. Dietary followup. 6. Cardiology evaluation. 7. Nephrology evaluation. 8. CBC, BMP in the morning. Mateus Posada D.O. DR: NAJMA JOB#: [id number] CC:
--- NOTE | 2019-09-23 21:00 | Consultation ---
DATE OF CONSULTATION: 09/23/2019 PULMONARY CONSULTATION CONSULTING PHYSICIAN: Rg Montero MD. HISTORY OF PRESENT ILLNESS: This is a 74-year-old female with a history of colon carcinoma. Patient has been on hospice, but then was diagnosed as having a UTI and was started on antibiotics. She has been on comfort care; however, her family felt patient would benefit from treatment of UTI, an order from hospice, and advised hospital admission. Currently patient is unable to provide any further history. PAST HISTORY: Colon carcinoma, previous DNR status now Full Code, recent UTI. She also history of asthma/COPD as well as hypertension. SURGERIES: Include previous colectomy and colostomy. REVIEW OF SYSTEMS: Not obtainable. PHYSICAL EXAMINATION: GENERAL: Reveals elderly female. HEENT: Unremarkable. CHEST: Clear breath sounds bilaterally. ABDOMEN: Soft. Colostomy is noted. EXTREMITIES: There is no edema. VITAL SIGNS: Blood pressure is 90/60, heart rate is 110, respirations are 20, she is afebrile, O2 saturation 100% on 2 L of oxygen. LABORATORY DATA: Lab testing shows white count 8000, hemoglobin 11.6, platelet count is low. Urinalysis shows multiple pus cells. Coags are normal except for INR 1.4. Chemistries notable for potassium 3.3, sodium 146, glucose 112, BUN 32, creatinine 1. Troponin negative. IMAGING STUDIES: X-ray chest obtained, which shows atelectasis. IMPRESSION: 1. UTI 2. Colon CA. 3. Previous DNR status, now Full Code. 4. Previous hospice patient, now off hospice. 5. Altered mental status. 6. Hypokalemia. 7. Hypernatremia. 8. Marked leukocytosis. 9. UTI. DISCUSSION: Admit to the hospital. Patient needs broad-spectrum antibiotics and fluids. We will follow carefully. Patient is seen and discussed with nursing staff. Rg Montero M.D. DR: ROGERIO JOB#: [id number] CC:
--- NOTE | 2019-09-23 21:29 | Consultation ---
History of Present Illness General Date patient seen: Sep 23, 2019 Reason for Hospitalization: Altered Level of Consciousness Present Illness HPI This is a very pleasant 74-year-old female with multiple medical comorbidities history of colon cancer left lower quadrant colostomy diversion who presents [facility] with pain discomfort abnormal labs and noted to have arrhythmia tachycardic transfer to intensive care unit and surgery called to evaluate and assist with care. Patient seen, patient evaluated, chart reviewed. Imaging reviewed. Patient is awake alert responsive but somewhat altered and unable to provide full history.Per report patient has been living at home, on hospice, was diagnosed with a UTI recently, started on oral antibiotics however she was unable to swallow. She was then switched to morphine only for comfort care however family and primary physician felt patient could recover from this UTI so primary care physician took patient off hospice and advised patient to be transferred to ER. Allergies: Coded Allergies: PROCHLORPERAZINE (Verified Allergy, Unknown, 08/10/17) COVID-19 Screening Contact w/high risk pt: No Recent Travel to affected area: No Experienced COVID-19 symptoms?: No Medication History Scheduled Albuterol Sulfate (Ventolin Hfa), 2 PUFFS INH EVERY 6 HOURS, (Reported) Celecoxib (Celebrex), 20 MG ORAL TWICE A DAY, (Reported) Lorazepam* (Ativan*), 0.5 MG ORAL THREE TIMES A DAY, (Reported) Magnesium Hydroxide* (Milk Of Magnesia*), 30 ML ORAL DAILY, (Reported) Multivitamins* (Multivitamins*), 1 TAB ORAL DAILY, (Reported) Pantoprazole Sodium (Protonix), 40 MG ORAL DAILY, (Reported) Scheduled PRN Hydrocodone Bit/Acetaminophen 7.5-325* (Knox 7.5-325*), 1 TAB ORAL Q6H PRN for For Pain, (Reported) Morphine 10mg/5ml Oral Soln* (Morphine 10mg/5ml Oral Soln*), 0.5 ML ORAL EVERY 2 HOURS PRN for For Pain, (Reported) Tramadol Hcl* (Ultram*), 50 MG ORAL Q6H PRN for For Pain, (Reported) Zolpidem Tartrate (Zolpidem Tartrate Er), 10 MG ORAL BEDTIME PRN for Insomnia, ( Reported) Miscellaneous Medications Cyanocobalamin/Folic Acid (Vitamin T34-Jrhbh Acid Tablet), 1 EACH PO, (Reported) Discontinued Medications Amlodipine Besylate* (Amlodipine Besylate*), 5 MG ORAL DAILY, (Reported) Discontinued Reason: Therapy completed Cephalexin* (Keflex*), 500 MG ORAL EVERY 6 HOURS, (Reported) Discontinued Reason: Therapy completed Diphenhydramine Hcl* (Diphenhydramine Hcl*), 25 MG ORAL Q6H PRN for Itching, ( Reported) Discontinued Reason: Therapy completed Docusate Sodium* (Colace*), 100 MG ORAL TWICE A DAY, (Reported) Discontinued Reason: Therapy completed Heparin Sod (Porcine) (Heparin Sodium*), 5,000 UNITS SUBQ EVERY 8 HOURS, ( Reported) Discontinued Reason: Therapy completed Hydrocodone Bit/Acetaminophen 5-325* (Knox 5-325 Tablet*), 1 TAB ORAL Q6H PRN for FOR PAIN, (Reported) Discontinued Reason: Medication dose changed Hydrocodone/Acetaminophen (Hydrocodon-Acetaminophn 10-325), 1 TAB ORAL Q4H PRN for For Pain, (Reported) Discontinued Reason: Therapy completed Ipratropium/Albuterol Sulfate (Iprat-Albut 0.5-3(2.5) Mg/3 Ml), 3 ML IH EVERY 2 HOURS PRN for Shortness of Breath, (Reported) Discontinued Reason: Therapy completed Levofloxacin* (Levaquin*), 500 MG ORAL DAILY, (Reported) Discontinued Reason: Therapy completed Magnesium Hydroxide* (Milk Of Magnesia*), 30 ML ORAL DAILY PRN for Constipation, (Reported) Discontinued Reason: Therapy completed Morphine Sulfate (Morphine Sulfate ER), Unknown Dose ORAL EVERY 12 HOURS, ( Reported) Discontinued Reason: Medication dose changed Morphine Sulfate* (Morphine Sulfate*), 2 MG IV, (Reported) Discontinued Reason: Therapy completed Morphine Sulfate* (Morphine Sulfate*), 4 MG IV EVERY 6 HOURS, (Reported) Discontinued Reason: Therapy completed Ondansetron Odt* (Zofran Odt*), 4 MG ORAL Q4HR PRN for Nausea & Vomiting, ( Reported) Discontinued Reason: Therapy completed Tramadol Hcl (Tramadol Hcl), 50 MG ORAL DAILY, (Reported) Discontinued Reason: Therapy completed Patient History Limited by: medical condition History Provided By: Medical Record, PMD Healthcare decision maker N Resuscitation status Advanced Directive on File Past Medical/Surgical History Past Medical/Surgical History: (1) Wound infection (2) Colostomy complication (3) Anemia (4) HTN (hypertension) (5) Failure to thrive (6) UTI (urinary tract infection) (7) Altered level of consciousness Review of Systems Review of Symptoms General ROS: no weight loss or fever Psychological ROS: no depression or mood changes, no memory loss Ophthalmic ROS: no visual changes or eye irritation ENT ROS: no nasal congestion, hearing loss, dizziness Allergy and Immunology ROS: no allergic symptoms or urticaria Hematological and Lymphatic ROS: no swollen glands, unusual bleeding or bruising Endocrine ROS: no polyuria, polydipsia, weight changes, temperature intolerance Respiratory ROS: no cough, shortness of breath, or wheezing Cardiovascular ROS: no chest pain or dyspnea on exertion Gastrointestinal ROS: denies abdominal pain, bright red blood in stool. Musculoskeletal ROS: no myalgias or arthralgias Neurological ROS: no TIA or stroke symptoms Dermatological ROS: no new or changing skin lesions, rashes or pruritis Physical Exam Physical Exam General appearance: alert, cooperative, no distress, appears stated age Head: Normocephalic, without obvious abnormality, atraumatic Eyes: conjunctivae/corneas clear. PERRL, EOM's intact. Fundi benign Throat: Lips, mucosa, and tongue normal. Teeth and gums normal Neck: supple, symmetrical, trachea midline, no adenopathy, thyroid: not enlarged, symmetric, no tenderness/mass/nodules, no carotid bruit and no JVD Lungs: clear to auscultation bilaterally Heart: regular rate and rhythm, S1, S2 normal, no murmur, click, rub or gallop Abdomen: soft, discomfort-tender left lower quadrant left lower quadrant ostomy identified no prolapse stable stool in bag. Bowel sounds normal. No masses, no organomegaly Extremities: extremities normal, atraumatic, no cyanosis or edema Pulses: 2+ and symmetric Skin: Skin color, texture, turgor normal. No rashes or lesions Neurologic: Grossly normal Last 24 Hour Vital Signs Date Time Temp Pulse Resp B/P (MAP) Pulse Ox O2 Delivery O2 Flow Rate FiO2 09/23/19 20:00 100 Nasal Cannula 2.0 28 09/23/19 19:30 102 20 100 Nasal Cannula 2.0 28 100 20 98 09/23/19 18:30 99 15 87/48 (61) 100 09/23/19 18:00 97 16 92/48 (63) 100 09/23/19 17:30 100 19 90/47 (61) 100 09/23/19 17:00 96 18 90/47 (61) 100 09/23/19 16:30 99 17 88/51 (63) 100 09/23/19 16:00 Nasal Cannula 1.0 09/23/19 16:00 98.8 102 16 90/55 (67) 100 09/23/19 15:30 114 17 90/20 (43) 100 09/23/19 15:00 97 19 84/56 (65) 100 09/23/19 14:30 104 17 89/56 (67) 100 09/23/19 14:00 103 25 87/49 (62) 99 09/23/19 13:30 105 27 82/51 (61) 100 09/23/19 13:03 120 25 100 Nasal Cannula 3.0 32 100 23 100 09/23/19 13:00 111 13 97/59 (72) 100 09/23/19 12:30 108 18 99/52 (68) 100 09/23/19 12:00 114 14 91/56 (68) 100 09/23/19 12:00 Nasal Cannula 1.0 09/23/19 11:30 107 26 89/56 (67) 99 09/23/19 11:00 114 18 92/49 (63) 100 09/23/19 10:30 111 18 96/48 (64) 100 09/23/19 10:00 127 18 88/56 (67) 100 09/23/19 09:30 110 17 98/54 (69) 100 09/23/19 09:30 111 19 105/56 (72) 100 09/23/19 09:00 110 17 98/54 (69) 100 09/23/19 08:30 112 17 82/54 (63) 100 09/23/19 08:00 98.9 112 19 90/50 (63) 100 09/23/19 08:00 Nasal Cannula 1.0 09/23/19 07:52 106 09/23/19 07:30 111 22 91/58 (69) 99 09/23/19 07:00 106 15 86/58 (67) 99 09/23/19 07:00 89 19 99 Nasal Cannula 2.0 28 09/23/19 06:30 111 17 92/61 (71) 99 09/23/19 06:00 114 14 92/55 (67) 100 09/23/19 05:30 111 13 89/55 (66) 100 09/23/19 05:00 115 14 96/61 (73) 100 09/23/19 04:30 112 12 91/54 (66) 100 09/23/19 04:00 Nasal Cannula 1.0 09/23/19 04:00 98.0 105 14 85/65 (72) 100 09/23/19 03:30 104 17 94/57 (69) 100 09/23/19 03:00 101 23 101/65 (77) 100 09/23/19 02:30 104 22 85/47 (60) 100 09/23/19 02:00 100 19 87/51 (63) 100 09/23/19 01:30 105 16 91/59 (70) 100 09/23/19 01:00 100 18 93/54 (67) 100 09/23/19 00:30 99 22 97/71 (80) 100 09/23/19 00:00 Nasal Cannula 1.0 09/23/19 00:00 98.0 101 19 84/46 (59) 99 09/22/19 23:30 102 18 83/47 (59) 100 09/22/19 23:15 103 16 86/51 (63) 100 09/22/19 23:00 104 17 89/50 (63) 100 09/22/19 22:45 103 18 91/49 (63) 100 09/22/19 22:30 107 17 85/54 (64) 100 09/22/19 22:00 107 16 95/60 (72) 100 09/22/19 21:45 111 15 92/56 (68) 100 09/22/19 21:30 111 16 87/57 (67) 100 Intake and Output 09/22/19 09/23/19 19:00 07:00 Intake Total 660 ml Output Total 600 ml 410 ml Balance -600 ml 250 ml Intake Oral 0 ml IV Total 660 ml Output Urine Total 600 ml 410 ml Laboratory Tests Test 09/23/19 04:00 09/23/19 11:55 Sodium Level 146 MMOL/L (136-145) H Potassium Level 3.3 MMOL/L (3.5-5.1) L Chloride Level 111 MMOL/L (98-107) H Carbon Dioxide Level 21 MMOL/L (21-32) Anion Gap 14 mmol/L (5-15) Blood Urea Nitrogen 32 mg/dL (7-18) H Creatinine 1.0 MG/DL (0.55-1.30) Estimat Glomerular Filtration Rate > 60 mL/min (>60) Glucose Level 112 MG/DL (74-106) H Calcium Level 8.6 MG/DL (8.5-10.1) Troponin I 0.000 ng/mL (0.000-0.056) 0.000 ng/mL (0.000-0.056) White Blood Count 20.4 K/UL (4.8-10.8) H Red Blood Count 3.62 M/UL (4.20-5.40) L Hemoglobin 9.5 G/DL (12.0-16.0) L Hematocrit 29.6 % (37.0-47.0) L Mean Corpuscular Volume 82 FL (80-99) Mean Corpuscular Hemoglobin 26.3 PG (27.0-31.0) L Mean Corpuscular Hemoglobin Concent 32.2 G/DL (32.0-36.0) Red Cell Distribution Width 14.0 % (11.6-14.8) Platelet Count 390 K/UL (150-450) Mean Platelet Volume 5.1 FL (6.5-10.1) L Neutrophils (%) (Auto) % (45.0-75.0) Lymphocytes (%) (Auto) % (20.0-45.0) Monocytes (%) (Auto) % (1.0-10.0) Eosinophils (%) (Auto) % (0.0-3.0) Basophils (%) (Auto) % (0.0-2.0) Differential Total Cells Counted 100 Neutrophils % (Manual) 88 % (45-75) H Lymphocytes % (Manual) 9 % (20-45) L Monocytes % (Manual) 3 % (1-10) Eosinophils % (Manual) 0 % (0-3) Basophils % (Manual) 0 % (0-2) Band Neutrophils 0 % (0-8) Platelet Estimate Adequate Platelet Morphology Normal Anisocytosis 1+ Reticulocyte Count 0.9 % (0.5-2.0) Height (Feet): 5 Height (Inches): 8.00 Weight (Pounds): 218 Medications Current Medications Medications (Trade) Dose Ordered Sig/Radha Route PRN Reason Start Time Stop Time Status Last Admin Dose Admin Acetaminophen/ Hydrocodone Bitart (Knox 7.5/325) 1 tab Q6H PRN ORAL severe pain 09/22/19 19:30 09/29/19 19:14 Albuterol Sulfate (Proventil) 2.5 mg Q6HRT HHN 09/23/19 01:00 09/28/19 00:59 09/23/19 21:13 Dextrose/ Electrolytes 1,000 ml @ 75 mls/hr [id number] IV 09/23/19 14:00 10/23/19 13:59 09/23/19 14:17 Diltiazem HCl 125 ml @ 0 mls/hr Q24H IVPB 09/23/19 19:45 09/24/19 19:44 09/23/19 21:06 Enoxaparin Sodium (Lovenox) 40 mg DAILY SUBQ 09/23/19 09:00 12/22/19 08:59 09/23/19 08:42 Lorazepam (Ativan) 0.5 mg THREE TIMES A DAY ORAL 09/23/19 09:00 09/30/19 08:59 Magnesium Hydroxide (Mom) 30 ml DAILY ORAL 09/23/19 09:00 10/23/19 08:59 09/23/19 08:41 Morphine Sulfate (Morphine Sulfate) 2 mg Q4H PRN IVP For Pain 09/22/19 19:15 09/29/19 19:14 Multivitamins (Multivitamins) 1 tab DAILY ORAL 09/23/19 09:00 10/23/19 08:59 09/23/19 08:41 Pantoprazole (Protonix) 40 mg DAILY ORAL 09/23/19 09:00 10/23/19 08:59 09/23/19 08:41 Piperacillin Sod/ Tazobactam Sod 3.375 gm/Sodium Chloride 110 ml @ 27.5 mls/hr EVERY 8 HOURS IVPB 09/23/19 14:00 09/28/19 13:59 09/23/19 13:16 Tramadol HCl (Ultram) 50 mg Q6H PRN ORAL moderate pain 09/22/19 19:15 09/29/19 19:14 Zolpidem Tartrate (Ambien) 5 mg HSPRN PRN ORAL Insomnia 09/22/19 19:15 09/29/19 19:14 Assessment/Plan Problem List: (1) Failure to thrive Assessment & Plan: DAILY ESTIMATED NEEDS: Needs based on wound, obese 73.8kg abw 25-30 kcals/kg 5754-2924 total kcals 1.25-1.5 g protein/kg 92-111 g total protein 25-30 mL/kg 4469-2263 total fluid mLs NUTRITION DIAGNOSIS: Increased kcal/pro intake needs R/T wound healing as evidenced by pt admitted sacral unstageable and L foot DTI wounds. PO DIET RECOMMENDATIONS: SOFT diet/ texture per LEGISLATIVE DIRECTOR ENTERAL NUTRITION RECOMMENDATIONS: CONSULT RD IF NON ORAL FEEDS ARE PART OF POC ----- ADDITIONAL RECOMMENDATIONS: * Maintain calibrated bed scale weights * Wound care: with diet order add Berry 1pkt BID Add Vit C 250mg BID + MVI w/ min qdaily F/up w/ WC eval * Colostomy status, rec IVF for hydration, monitor BG for hypoglycemia SNOMED: 72064019 (2) UTI (urinary tract infection) ICD Codes: N39.0 - Urinary tract infection, site not specified SNOMED: 76798800 (3) Anemia ICD Codes: D64.9 - Anemia, unspecified SNOMED: 584471378 (4) HTN (hypertension) ICD Codes: I10 - Essential (primary) hypertension SNOMED: 73736171 (5) Altered level of consciousness ICD Codes: R40.4 - Transient alteration of awareness SNOMED: 7735110 (6) Wound infection Assessment & Plan: Patient presents [facility] for medical care management and on admission identified to have significant leukocytosis, abnormal labs, with wound infection. She is identified to have a large unstageable sacral decubitus ulcer as well as left heel deep tissue injury and blood blister. Complete physical examination performed and likely infectious etiology is her UTI and not the wounds. The sacral decubitus ulcer is unstageable but no purulent drainage no active drainage with periwound stable. The left heel is a deep tissue injury with a blood blister no active drainage. On the left ankle there is a small superficial decubitus skin ulcer identified stage II. Her ostomy is intact and functional. No acute surgical intervention at this time will provide local care for above findings. Wash sacral wound daily with normal saline. Apply Thera honey and foam dressing. Offload pressure from heels with pillow. Foam dressing to heels. Turn every 2 hours Air soft mattress We will follow with recommendations thank you for let me participate in patient' s care ICD Codes: T14.8XXA - Other injury of unspecified body region, initial encounter; L08.9 - Local infection of the skin and subcutaneous tissue, unspecified SNOMED: 18375312 (7) Colostomy complication Assessment & Plan: Colostomy evaluated functional history of colon cancer ostomy site with some discomfort currently stable No prolapse no incarcerated hernia identified We will monitor with local examination and serial exams thank you ICD Codes: K94.00 - Colostomy complication, unspecified SNOMED: 26162212 Roberto Carlos Maza Sep 23, 2019 21:29
--- NOTE | 2019-09-23 23:15 | Consultation ---
DATE OF CONSULTATION: 09/23/2019 CARDIOLOGY CONSULTATION CONSULTING PHYSICIAN: Homar Capps MD. REFERRING PHYSICIAN: Mateus Posada DO. REASON FOR CONSULTATION: Atrial fibrillation with rapid ventricular response. HISTORY OF PRESENT ILLNESS: Patient is a 74-year-old lady with history of colon cancer, status post colectomy and colostomy, was brought in for altered level of consciousness. Patient apparently was living at home on hospice. She was recently diagnosed with UTI. Started on oral antibiotics, but she is not able to swallow. Patient has been switched to morphine for comfort care. However, family and her primary physician decided to recover the patient from UTI and took the patient off the hospice patient transferred to ER. When the patient was hospitalized, patient had atrial fibrillation with rapid ventricular response with heart rate of 170s and patient was then transferred to intensive care unit and started on Cardizem drip. At the time of my evaluation, patient is not able to provide any information, but heart rate is better controlled. REVIEW OF SYSTEMS: Cannot be obtained. PAST MEDICAL HISTORY: As mentioned above. FAMILY HISTORY: Noncontributory. SOCIAL HISTORY: Does not smoke or drink alcohol. PHYSICAL EXAMINATION: VITAL SIGNS: Show blood pressure of 82/51, pulse is 105, respirations 20. HEAD AND NECK: Shows no JVD. LUNGS: Coarse rhonchi. CARDIOVASCULAR: Shows regular. Tachycardic. S1 and S2 with no gallop or murmur. ABDOMEN: Soft, obese. Has colostomy. EXTREMITIES: 1+ pitting edema. LABORATORY AND DIAGNOSTIC DATA: Her labs show white count of 20,000, hemoglobin 9.5, hematocrit of 29, and platelet count of 390. Sodium 142, potassium 3.3, BUN of 32, creatinine of 1, and glucose of 112. Troponin negative x3. ASSESSMENT AND PLAN: 1. Recurrent SVT/atrial fibrillation with rapid ventricular response. The patient already ruled out for myocardial infarction by serial cardiac enzymes. Patient already on Cardizem drip at 10 mg/hour. We switched Cardizem to p.o., but she is not able to swallow. If patient gets an NG tube, we will switch Cardizem to NG tube. 2. Sepsis. White count of 20,000. Patient is already on IV antibiotic. 3. Stage IV colon cancer. Further evaluation by Dr. Hobson. Patient is status post colectomy and colostomy, was on hospice care before, and currently hold off any further chemo per Dr. Hobson. 4. Failure to thrive. 5. Hypotension. May need to switch the Cardizem to digoxin for regimen. 6. Urine tract infection, on ceftriaxone. Thank you very much for allowing me to participate in the care of this patient. Please do not hesitate to contact me for any questions regarding my evaluation. Homar Capps M.D. DR: KESHA JOB#: [id number] CC:
--- NOTE | 2019-09-23 23:15 | Consultation ---
DATE OF CONSULTATION: 09/23/2019 CONSULTING PHYSICIAN: Jose Peter MD. CHIEF COMPLAINT: Colon cancer, colostomy, dysphagia. HISTORY OF PRESENT ILLNESS: Most of history per chart. The patient is currently in the ICU with altered mental status. The patient was found to be in rapid AFib. As a result, the patient was transferred to ICU, now on Cardizem drip. GI consultation was requested for further evaluation of dysphagia and history of colon cancer. PAST MEDICAL HISTORY: 1. History of colon cancer, status post surgery and with colostomy in place. 2. Hypertension. 3. Asthma. ALLERGIES: To prochlorperazine. MEDICATIONS: Please see medication reconciliation list. SOCIAL HISTORY: There is no recent history of tobacco, alcohol, or IV drug abuse. FAMILY HISTORY: Noncontributory. PAST SURGICAL HISTORY: Partial colectomy and colostomy placement. REVIEW OF SYSTEMS: Limited. PHYSICAL EXAMINATION: VITAL SIGNS: Temperature is 98.9, pulse is irregularly irregular at 120, respirations 23, blood pressure 91/56. HEENT: Normocephalic and atraumatic. Sclerae anicteric. NECK: Supple. No evidence of obvious lymphadenopathy. CARDIOVASCULAR: Irregularly irregular. Tachycardic. Plus S1, S2. LUNGS: Decreased breath sounds bilaterally diffusely based on supine exam. ABDOMEN: Soft, nontender. No rebound. No guarding. No peritoneal sign. EXTREMITIES: No cyanosis. No clubbing. No edema. LABORATORY DATA: White count is 20,000, hemoglobin 9.5, hematocrit 29, platelets are 390,000. ASSESSMENT AND PLAN: This is a 74-year-old female with numerous medical problems, currently in ICU with AFib and heart rate of 120. The patient also has dysphagia. Plan will be to get speech evaluation on this patient. If this fails, we will plan to put an NG tube for now. We are going to also discuss with the family regarding the code status. The patient was hospice, but now readmitted to the hospital and apparently family changed the hospice status. We will follow. Jose Peter M.D. DR: An JOB#: [id number] CC:
[2019-09-24] VITALS (46 sets, daily range): BP systolic 80–109; BP diastolic 43–70
[2019-09-24] MEDS: Albuterol ud Inhalation HHN SCH ×4 (01:00→19:00)
[2019-09-24 05:19] LABS: BASOPHILS % (AUTO) 0.2 % (0.0-2.0); HEMATOCRIT 27.3 % (37.0-47.0); HEMOGLOBIN 9.1 G/DL (12.0-16.0); LYMPHOCYTES % (AUTO) 9.9 % (20.0-45.0); MEAN CORPUSCULAR VOLUME 81 FL (80-99); MONOCYTES % (AUTO) 7.7 % (1.0-10.0); NEUTROPHILS % (AUTO) 81.2 % (45.0-75.0); PLATELET COUNT 274 K/UL (150-450); RED BLOOD COUNT 3.36 M/UL (4.20-5.40); RED CELL DISTRIBUTION WIDTH 14.1 % (11.6-14.8); WHITE BLOOD COUNT 15.6 K/UL (4.8-10.8)
[2019-09-24] MEDS: D5 1/2NS w/KCl 40meq 1000ml 1,000 ML IV SCH ×2 (06:06→17:34)
[2019-09-24] MEDS: Piperacillin/Tazobactam 3.375 GM in NS 110 ML IVPB SCH ×3 (06:07→21:44)
[2019-09-24 06:10] LABS: ALANINE AMINOTRANSFERASE 6 U/L (12-78); ALBUMIN 2.1 G/DL (3.4-5.0); ALBUMIN/GLOBULIN RATIO 0.5 (1.0-2.7); ALKALINE PHOSPHATASE 84 U/L (46-116); ANION GAP 12 mmol/L (5-15); ASPARTATE AMINO TRANSFERASE 19 U/L (15-37); BILIRUBIN,TOTAL 0.6 MG/DL (0.2-1.0); BLOOD UREA NITROGEN 23 mg/dL (7-18); CALCIUM 8.8 MG/DL (8.5-10.1); CARBON DIOXIDE 23 MMOL/L (21-32); CHLORIDE 112 MMOL/L (98-107); CHOLESTEROL 87 MG/DL (< 200); CREATININE 0.9 MG/DL (0.55-1.30); FERRITIN 787 NG/ML (8-388); GAMMA GLUTAMYL TRANSPEPTIDASE 24 U/L (5-85); HDL CHOLESTEROL 26 MG/DL (40-60); PHOSPHORUS 2.2 MG/DL (2.5-4.9); POTASSIUM 3.3 MMOL/L (3.5-5.1); SODIUM 147 MMOL/L (136-145); TRIGLYCERIDES 69 MG/DL (30-150)
[2019-09-24 07:17] LABS: % IRON SATURATION 56 % (15-50); IRON 28 ug/dL (50-175); TOTAL IRON BINDING CAPACITY 50 ug/dL (250-450)
[2019-09-24] MEDS: Milk of Magnesia 30ml Ud ORAL SCH (08:23)
[2019-09-24] MEDS: Enoxaparin 40mg Inj SUBQ SCH (08:24)
[2019-09-24] MEDS ORDERED: Potassium Phosphate 20 MM in NS 275 ML IV ONE (09:00)
[2019-09-24] MEDS: LORazepam 0.5mg tab ORAL SCH ×3 (09:00→17:27)
[2019-09-24] MEDS: dilTIAZem Premix 125mg/125ml 125 ML IVPB SCH (09:41)
--- NOTE | 2019-09-24 09:41 | Nephrology Progress Note ---
Assessment/Plan Problem List: (1) Dehydration (2) Electrolyte imbalance (3) UTI (urinary tract infection) (4) Anemia (5) Colostomy in place (6) Atrial fibrillation with RVR Assessment Dehydration, azotemia Electrolyte imbalance, hypokalemia, Hypotension, tachycardia Mild anemia Colon cancer, was taken off hospice prior to transfer to the hospital Toxic metabolic encephalopathy UTI Failure to thrive Status post colectomy and colostomy Plan September 23: Patient remains in ICU on Cardizem drip. Magnesium, phosphorus, potassium chloride, given a supplement. Continue hydration. Continue to monitor renal parameters and electrolytes. Continue per consultants. Keep n.p.o. as patient's ability to swallow is in question. Waiting for speech therapy evaluation. IV fluid D5 and half-normal saline with potassium chloride Monitor electrolytes Anemia work-up Patient currently on Cardizem drip for SVT by financial representative Fluid challenge with albumin 5% 500 cc 1 time Antibiotics for UTI Continue per consultants Discussed with RN Subjective ROS Limited/Unobtainable: No Constitutional: Reports: malaise Objective Objective Last 24 Hour Vital Signs Date Time Temp Pulse Resp B/P (MAP) Pulse Ox O2 Delivery O2 Flow Rate FiO2 09/24/19 08:01 100 Nasal Cannula 2.0 28 09/24/19 08:00 100 20 100 Nasal Cannula 2.0 28 94 20 100 09/24/19 07:30 97 28 94/66 (75) 100 09/24/19 07:00 91 23 94/66 (75) 100 09/24/19 06:30 91 20 96/54 (68) 100 09/24/19 06:00 96 20 99/52 (68) 100 09/24/19 05:30 95 18 89/53 (65) 100 09/24/19 05:00 98 19 91/50 (64) 09/24/19 04:30 99 22 94/53 (67) 100 09/24/19 04:00 Nasal Cannula 1.0 09/24/19 04:00 98.4 97 8 87/53 (64) 100 09/24/19 03:30 94 20 84/48 (60) 100 09/24/19 03:00 88 23 86/46 (59) 100 09/24/19 02:30 103 7 85/57 (66) 100 09/24/19 02:00 98 17 86/54 (65) 100 09/24/19 01:30 92 23 82/55 (64) 100 09/24/19 01:00 94 14 84/47 (59) 100 09/24/19 00:30 99 16 81/47 (58) 100 09/24/19 00:00 98.8 98 19 80/43 (55) 100 09/24/19 00:00 Nasal Cannula 1.0 09/23/19 23:30 102 18 90/48 (62) 100 09/23/19 23:00 102 23 81/46 (58) 100 09/23/19 22:30 104 16 89/46 (60) 100 09/23/19 22:00 101 18 89/49 (62) 100 09/23/19 21:31 103 18 87/45 (59) 100 09/23/19 21:30 101 15 94/60 (71) 100 09/23/19 21:00 96 16 86/50 (62) 100 09/23/19 20:30 95 19 90/50 (63) 100 09/23/19 20:00 Nasal Cannula 1.0 09/23/19 20:00 98.6 94 19 88/45 (59) 100 09/23/19 20:00 100 Nasal Cannula 2.0 28 09/23/19 19:30 95 19 82/44 (57) 100 09/23/19 19:30 102 20 100 Nasal Cannula 2.0 28 100 20 98 09/23/19 19:22 97 16 89/48 (62) 100 09/23/19 19:06 99 19 84/47 (59) 100 09/23/19 19:00 99 15 86/49 (61) 100 09/23/19 18:30 99 15 87/48 (61) 100 09/23/19 18:00 97 16 92/48 (63) 100 09/23/19 17:30 100 19 90/47 (61) 100 09/23/19 17:00 96 18 90/47 (61) 100 09/23/19 16:30 99 17 88/51 (63) 100 09/23/19 16:00 Nasal Cannula 1.0 09/23/19 16:00 98.8 102 16 90/55 (67) 100 09/23/19 15:30 114 17 90/20 (43) 100 09/23/19 15:00 97 19 84/56 (65) 100 09/23/19 14:30 104 17 89/56 (67) 100 09/23/19 14:00 103 25 87/49 (62) 99 09/23/19 13:30 105 27 82/51 (61) 100 09/23/19 13:03 120 25 100 Nasal Cannula 3.0 32 100 23 100 09/23/19 13:00 111 13 97/59 (72) 100 09/23/19 12:30 108 18 99/52 (68) 100 09/23/19 12:00 114 14 91/56 (68) 100 09/23/19 12:00 Nasal Cannula 1.0 09/23/19 11:30 107 26 89/56 (67) 99 09/23/19 11:00 114 18 92/49 (63) 100 09/23/19 10:30 111 18 96/48 (64) 100 09/23/19 10:00 127 18 88/56 (67) 100 Intake and Output 09/23/19 09/24/19 19:00 07:00 Intake Total 1475.666 ml 1020 ml Output Total 370 ml 590 ml Balance 1105.666 ml 430 ml IV Total 1475.666 ml 1020 ml Output Urine Total 370 ml 590 ml Other 0 ml 0 ml # Bowel Movements 4 Laboratory Tests 09/23/19 11:55: White Blood Count 20.4H, Red Blood Count 3.62L, Hemoglobin 9.5L, Hematocrit 29.6L, Mean Corpuscular Volume 82, Mean Corpuscular Hemoglobin 26.3L, Mean Corpuscular Hemoglobin Concent 32.2, Red Cell Distribution Width 14.0, Platelet Count 390, Mean Platelet Volume 5.1L, Neutrophils (%) (Auto) , Lymphocytes (%) ( Auto) , Monocytes (%) (Auto) , Eosinophils (%) (Auto) , Basophils (%) (Auto) , Differential Total Cells Counted 100, Neutrophils % (Manual) 88H, Lymphocytes % (Manual) 9L, Monocytes % (Manual) 3, Eosinophils % (Manual) 0, Basophils % ( Manual) 0, Band Neutrophils 0, Platelet Estimate Adequate, Platelet Morphology Normal, Anisocytosis 1+, Reticulocyte Count 0.9, Troponin I 0.000 09/24/19 04:20: White Blood Count 15.6H, Red Blood Count 3.36L, Hemoglobin 9.1L, Hematocrit 27.3L, Mean Corpuscular Volume 81, Mean Corpuscular Hemoglobin 27.0, Mean Corpuscular Hemoglobin Concent 33.2, Red Cell Distribution Width 14.1, Platelet Count 274, Mean Platelet Volume 4.9L, Neutrophils (%) (Auto) 81.2H, Lymphocytes (%) (Auto) 9.9L, Monocytes (%) (Auto) 7.7, Eosinophils (%) (Auto) 1.0, Basophils (%) (Auto) 0.2, Troponin I 0.000, Sodium Level 147H, Potassium Level 3.3L, Chloride Level 112H, Carbon Dioxide Level 23, Anion Gap 12, Blood Urea Nitrogen 23H, Creatinine 0.9, Estimat Glomerular Filtration Rate > 60, Glucose Level 125H, Hemoglobin A1c 6.3H, Uric Acid 8.3H, Calcium Level 8.8, Phosphorus Level 2.2L, Magnesium Level 1.7L, Iron Level 28L, Total Iron Binding Capacity 50L, Percent Iron Saturation 56H, Unsaturated Iron Binding 22L, Ferritin 787H, Total Bilirubin 0.6, Gamma Glutamyl Transpeptidase 24, Aspartate Amino Transf ( AST/SGOT) 19, Alanine Aminotransferase (ALT/SGPT) 6L, Alkaline Phosphatase 84, C -Reactive Protein, Quantitative 40.1H, Pro-B-Type Natriuretic Peptide 852H, Total Protein 6.6, Albumin 2.1L, Globulin 4.5, Albumin/Globulin Ratio 0.5L, Triglycerides Level 69, Cholesterol Level 87, LDL Cholesterol 52, HDL Cholesterol 26L, Cholesterol/HDL Ratio 3.3, Vitamin B12 Level > 2000H, Folate 19.8, Thyroid Stimulating Hormone (TSH) 1.797, Cortisol AM Sample [Pending] Height (Feet): 5 Height (Inches): 8.00 Weight (Pounds): 223 General Appearance: no apparent distress, lethargic EENT: other - On nasal cannula Cardiovascular: tachycardia, arrhythmia Respiratory/Chest: decreased breath sounds Abdomen: soft, other - Colostomy in place hCaparro Pemberton MD Sep 24, 2019 09:41
--- NOTE | 2019-09-24 10:29 | Infectious Diseases Prog Note ---
Assessment/Plan Assessment/Plan A: 1. Urinary tract infection. 2. Hypertension. 3. Asthma. 4. Anemia 5. Atrial fibrillation 6. Hypokalemia PLAN: 1. Continue Zosyn. 2. We will follow up cultures and adjust antibiotics accordingly. Subjective ROS Limited/Unobtainable: Yes Constitutional: Reports: no symptoms Respiratory: Reports: no symptoms Cardiovascular: Reports: no symptoms Gastrointestinal/Abdominal: Reports: no symptoms Musculoskeletal: Reports: pain Allergies: Coded Allergies: PROCHLORPERAZINE (Verified Allergy, Unknown, 08/10/17) Objective Vital Signs Last 24 Hour Vital Signs Date Time Temp Pulse Resp B/P (MAP) Pulse Ox O2 Delivery O2 Flow Rate FiO2 09/24/19 10:00 94 27 93/51 (65) 100 09/24/19 09:30 96 21 93/58 (70) 100 09/24/19 09:00 106 14 94/64 (74) 99 09/24/19 08:30 92 22 92/55 (67) 100 09/24/19 08:09 98 09/24/19 08:01 100 Nasal Cannula 2.0 28 09/24/19 08:00 94 25 94/66 (75) 100 09/24/19 08:00 100 20 100 Nasal Cannula 2.0 28 94 20 100 09/24/19 07:30 97 28 94/66 (75) 100 09/24/19 07:00 91 23 94/66 (75) 100 09/24/19 06:30 91 20 96/54 (68) 100 09/24/19 06:00 96 20 99/52 (68) 100 09/24/19 05:30 95 18 89/53 (65) 100 09/24/19 05:00 98 19 91/50 (64) 09/24/19 04:30 99 22 94/53 (67) 100 09/24/19 04:00 Nasal Cannula 1.0 09/24/19 04:00 98.4 97 8 87/53 (64) 100 09/24/19 03:30 94 20 84/48 (60) 100 09/24/19 03:00 88 23 86/46 (59) 100 09/24/19 02:30 103 7 85/57 (66) 100 09/24/19 02:00 98 17 86/54 (65) 100 09/24/19 01:30 92 23 82/55 (64) 100 09/24/19 01:00 94 14 84/47 (59) 100 09/24/19 00:30 99 16 81/47 (58) 100 09/24/19 00:00 98.8 98 19 80/43 (55) 100 09/24/19 00:00 Nasal Cannula 1.0 09/23/19 23:30 102 18 90/48 (62) 100 09/23/19 23:00 102 23 81/46 (58) 100 09/23/19 22:30 104 16 89/46 (60) 100 09/23/19 22:00 101 18 89/49 (62) 100 09/23/19 21:31 103 18 87/45 (59) 100 09/23/19 21:30 101 15 94/60 (71) 100 09/23/19 21:00 96 16 86/50 (62) 100 09/23/19 20:30 95 19 90/50 (63) 100 09/23/19 20:00 Nasal Cannula 1.0 09/23/19 20:00 98.6 94 19 88/45 (59) 100 09/23/19 20:00 100 Nasal Cannula 2.0 28 09/23/19 19:30 95 19 82/44 (57) 100 09/23/19 19:30 102 20 100 Nasal Cannula 2.0 28 100 20 98 09/23/19 19:22 97 16 89/48 (62) 100 09/23/19 19:06 99 19 84/47 (59) 100 09/23/19 19:00 99 15 86/49 (61) 100 09/23/19 18:30 99 15 87/48 (61) 100 09/23/19 18:00 97 16 92/48 (63) 100 09/23/19 17:30 100 19 90/47 (61) 100 09/23/19 17:00 96 18 90/47 (61) 100 09/23/19 16:30 99 17 88/51 (63) 100 09/23/19 16:00 Nasal Cannula 1.0 09/23/19 16:00 98.8 102 16 90/55 (67) 100 09/23/19 15:30 114 17 90/20 (43) 100 09/23/19 15:18 92 09/23/19 15:00 97 19 84/56 (65) 100 09/23/19 14:30 104 17 89/56 (67) 100 09/23/19 14:00 103 25 87/49 (62) 99 09/23/19 13:30 105 27 82/51 (61) 100 09/23/19 13:03 120 25 100 Nasal Cannula 3.0 32 100 23 100 09/23/19 13:00 111 13 97/59 (72) 100 09/23/19 12:30 108 18 99/52 (68) 100 09/23/19 12:00 114 14 91/56 (68) 100 09/23/19 12:00 Nasal Cannula 1.0 09/23/19 11:51 110 09/23/19 11:30 107 26 89/56 (67) 99 09/23/19 11:00 114 18 92/49 (63) 100 09/23/19 10:30 111 18 96/48 (64) 100 Height (Feet): 5 Height (Inches): 8.00 Weight (Pounds): 223 General Appearance: no acute distress HEENT: mucous membranes moist Respiratory/Chest: crackles/rales Cardiovascular: normal rate Abdomen: soft, non tender, other - LLQ colostomy Extremities: other - edema Skin: ulcers Neurologic/Psychiatric: alert, responsive Microbiology Date/Time Source Procedure Growth Status 09/22/19 12:10 Blood Blood Culture - Preliminary NO GROWTH AFTER 24 HOURS Resulted 09/22/19 12:10 Blood Blood Culture - Preliminary NO GROWTH AFTER 24 HOURS Resulted 09/22/19 12:50 Urine,Clean Catch Urine Culture - Preliminary Mixed Urogenital Contaminants Resulted 09/22/19 15:18 Rectum VRE Culture - Final NO VANCOMYCIN RESISTANT ENTEROCOCCUS ... Complete Laboratory Tests Test 09/23/19 11:55 09/24/19 04:20 White Blood Count 20.4 K/UL (4.8-10.8) H 15.6 K/UL (4.8-10.8) H Red Blood Count 3.62 M/UL (4.20-5.40) L 3.36 M/UL (4.20-5.40) L Hemoglobin 9.5 G/DL (12.0-16.0) L 9.1 G/DL (12.0-16.0) L Hematocrit 29.6 % (37.0-47.0) L 27.3 % (37.0-47.0) L Mean Corpuscular Volume 82 FL (80-99) 81 FL (80-99) Mean Corpuscular Hemoglobin 26.3 PG (27.0-31.0) L 27.0 PG (27.0-31.0) Mean Corpuscular Hemoglobin Concent 32.2 G/DL (32.0-36.0) 33.2 G/DL (32.0-36.0) Red Cell Distribution Width 14.0 % (11.6-14.8) 14.1 % (11.6-14.8) Platelet Count 390 K/UL (150-450) 274 K/UL (150-450) Mean Platelet Volume 5.1 FL (6.5-10.1) L 4.9 FL (6.5-10.1) L Neutrophils (%) (Auto) % (45.0-75.0) 81.2 % (45.0-75.0) H Lymphocytes (%) (Auto) % (20.0-45.0) 9.9 % (20.0-45.0) L Monocytes (%) (Auto) % (1.0-10.0) 7.7 % (1.0-10.0) Eosinophils (%) (Auto) % (0.0-3.0) 1.0 % (0.0-3.0) Basophils (%) (Auto) % (0.0-2.0) 0.2 % (0.0-2.0) Differential Total Cells Counted 100 Neutrophils % (Manual) 88 % (45-75) H Lymphocytes % (Manual) 9 % (20-45) L Monocytes % (Manual) 3 % (1-10) Eosinophils % (Manual) 0 % (0-3) Basophils % (Manual) 0 % (0-2) Band Neutrophils 0 % (0-8) Platelet Estimate Adequate Platelet Morphology Normal Anisocytosis 1+ Reticulocyte Count 0.9 % (0.5-2.0) Troponin I 0.000 ng/mL (0.000-0.056) 0.000 ng/mL (0.000-0.056) Sodium Level 147 MMOL/L (136-145) H Potassium Level 3.3 MMOL/L (3.5-5.1) L Chloride Level 112 MMOL/L (98-107) H Carbon Dioxide Level 23 MMOL/L (21-32) Anion Gap 12 mmol/L (5-15) Blood Urea Nitrogen 23 mg/dL (7-18) H Creatinine 0.9 MG/DL (0.55-1.30) Estimat Glomerular Filtration Rate > 60 mL/min (>60) Glucose Level 125 MG/DL (74-106) H Hemoglobin A1c 6.3 % (4.3-6.0) H Uric Acid 8.3 MG/DL (2.6-7.2) H Calcium Level 8.8 MG/DL (8.5-10.1) Phosphorus Level 2.2 MG/DL (2.5-4.9) L Magnesium Level 1.7 MG/DL (1.8-2.4) L Iron Level 28 ug/dL (50-175) L Total Iron Binding Capacity 50 ug/dL (250-450) L Percent Iron Saturation 56 % (15-50) H Unsaturated Iron Binding 22 ug/dL (112-346) L Ferritin 787 NG/ML (8-388) H Total Bilirubin 0.6 MG/DL (0.2-1.0) Gamma Glutamyl Transpeptidase 24 U/L (5-85) Aspartate Amino Transf (AST/SGOT) 19 U/L (15-37) Alanine Aminotransferase (ALT/SGPT) 6 U/L (12-78) L Alkaline Phosphatase 84 U/L (46-116) C-Reactive Protein, Quantitative 40.1 mg/dL (0.00-0.90) H Pro-B-Type Natriuretic Peptide 852 pg/mL (0-125) H Total Protein 6.6 G/DL (6.4-8.2) Albumin 2.1 G/DL (3.4-5.0) L Globulin 4.5 g/dL Albumin/Globulin Ratio 0.5 (1.0-2.7) L Triglycerides Level 69 MG/DL (30-150) Cholesterol Level 87 MG/DL (< 200) LDL Cholesterol 52 mg/dL (<100) HDL Cholesterol 26 MG/DL (40-60) L Cholesterol/HDL Ratio 3.3 (3.3-4.4) Vitamin B12 Level > 2000 PG/ML (193-986) H Folate 19.8 NG/ML (8.6-58.9) Thyroid Stimulating Hormone (TSH) 1.797 uiU/mL (0.358-3.740) Cortisol AM Sample Pending Current Medications Medications (Trade) Dose Ordered Sig/Radha Route PRN Reason Start Time Stop Time Status Last Admin Dose Admin Acetaminophen/ Hydrocodone Bitart ([place] 7.5/325) 1 tab Q6H PRN ORAL severe pain 09/22/19 19:30 09/29/19 19:14 Albumin Human 100 ml @ 100 mls/hr ONCE ONCE IV 09/24/19 09:45 09/24/19 10:44 09/24/19 10:19 Albuterol Sulfate (Proventil) 2.5 mg Q6HRT HHN 09/23/19 01:00 09/28/19 00:59 09/24/19 08:00 Dextrose/ Electrolytes 1,000 ml @ 75 mls/hr [id number] IV 09/23/19 14:00 10/23/19 13:59 09/24/19 06:06 Diltiazem HCl 125 ml @ 0 mls/hr Q24H IVPB 09/23/19 19:45 09/24/19 19:44 09/24/19 09:41 Enoxaparin Sodium (Lovenox) 40 mg DAILY SUBQ 09/23/19 09:00 12/22/19 08:59 09/24/19 08:24 Lorazepam (Ativan) 0.5 mg THREE TIMES A DAY ORAL 09/23/19 09:00 09/30/19 08:59 Magnesium Hydroxide (Mom) 30 ml DAILY ORAL 09/25/19 09:00 10/23/19 08:59 Morphine Sulfate (Morphine Sulfate) 2 mg Q4H PRN IVP For Pain 09/22/19 19:15 09/29/19 19:14 Multivitamins (Multivitamins) 1 tab DAILY ORAL 09/23/19 09:00 10/23/19 08:59 09/24/19 08:23 Pantoprazole (Protonix) 40 mg EVERY 12 HOURS ORAL 09/24/19 21:00 10/24/19 20:59 Piperacillin Sod/ Tazobactam Sod 3.375 gm/Sodium Chloride 110 ml @ 27.5 mls/hr EVERY 8 HOURS IVPB 09/23/19 14:00 09/28/19 13:59 09/24/19 06:07 Potassium Phosphate 20 mm/ Sodium Chloride 281.6667 ml @ 46.944 m... ONCE ONCE IV 09/24/19 09:00 09/24/19 14:59 09/24/19 09:40 Tramadol HCl (Ultram) 50 mg Q6H PRN ORAL moderate pain 09/22/19 19:15 09/29/19 19:14 Zolpidem Tartrate (Ambien) 5 mg HSPRN PRN ORAL Insomnia 09/22/19 19:15 09/29/19 19:14 Reji Bonds MD Sep 24, 2019 10:29
--- NOTE | 2019-09-24 10:58 | Pulmonology Progress Note ---
Subjective ROS Limited/Unobtainable: Yes Interval Events: None new; on Cardizem ghkristian Constitutional: Reports: no symptoms HEENT: Repors: no symptoms Respiratory: Reports: no symptoms Cardiovascular: Reports: no symptoms Gastrointestinal/Abdominal: Reports: no symptoms Musculoskeletal: Reports: pain Allergies: Coded Allergies: PROCHLORPERAZINE (Verified Allergy, Unknown, 08/10/17) Objective Last 24 Hour Vital Signs Date Time Temp Pulse Resp B/P (MAP) Pulse Ox O2 Delivery O2 Flow Rate FiO2 09/24/19 10:30 94 20 90/55 (67) 100 09/24/19 10:00 94 27 93/51 (65) 100 09/24/19 09:30 96 21 93/58 (70) 100 09/24/19 09:00 106 14 94/64 (74) 99 09/24/19 08:30 92 22 92/55 (67) 100 09/24/19 08:09 98 09/24/19 08:01 100 Nasal Cannula 2.0 28 09/24/19 08:00 Nasal Cannula 1.0 09/24/19 08:00 98.8 94 25 94/66 (75) 100 09/24/19 08:00 100 20 100 Nasal Cannula 2.0 28 94 20 100 09/24/19 07:30 97 28 94/66 (75) 100 09/24/19 07:00 91 23 94/66 (75) 100 09/24/19 06:30 91 20 96/54 (68) 100 09/24/19 06:00 96 20 99/52 (68) 100 09/24/19 05:30 95 18 89/53 (65) 100 09/24/19 05:00 98 19 91/50 (64) 09/24/19 04:30 99 22 94/53 (67) 100 09/24/19 04:00 Nasal Cannula 1.0 09/24/19 04:00 98.4 97 8 87/53 (64) 100 09/24/19 03:30 94 20 84/48 (60) 100 09/24/19 03:00 88 23 86/46 (59) 100 09/24/19 02:30 103 7 85/57 (66) 100 09/24/19 02:00 98 17 86/54 (65) 100 09/24/19 01:30 92 23 82/55 (64) 100 09/24/19 01:00 94 14 84/47 (59) 100 09/24/19 00:30 99 16 81/47 (58) 100 09/24/19 00:00 98.8 98 19 80/43 (55) 100 09/24/19 00:00 Nasal Cannula 1.0 09/23/19 23:30 102 18 90/48 (62) 100 09/23/19 23:00 102 23 81/46 (58) 100 09/23/19 22:30 104 16 89/46 (60) 100 09/23/19 22:00 101 18 89/49 (62) 100 09/23/19 21:31 103 18 87/45 (59) 100 09/23/19 21:30 101 15 94/60 (71) 100 09/23/19 21:00 96 16 86/50 (62) 100 09/23/19 20:30 95 19 90/50 (63) 100 09/23/19 20:00 Nasal Cannula 1.0 09/23/19 20:00 98.6 94 19 88/45 (59) 100 09/23/19 20:00 100 Nasal Cannula 2.0 28 09/23/19 19:30 95 19 82/44 (57) 100 09/23/19 19:30 102 20 100 Nasal Cannula 2.0 28 100 20 98 09/23/19 19:22 97 16 89/48 (62) 100 09/23/19 19:06 99 19 84/47 (59) 100 09/23/19 19:00 99 15 86/49 (61) 100 09/23/19 18:30 99 15 87/48 (61) 100 09/23/19 18:00 97 16 92/48 (63) 100 09/23/19 17:30 100 19 90/47 (61) 100 09/23/19 17:00 96 18 90/47 (61) 100 09/23/19 16:30 99 17 88/51 (63) 100 09/23/19 16:00 Nasal Cannula 1.0 09/23/19 16:00 98.8 102 16 90/55 (67) 100 09/23/19 15:30 114 17 90/20 (43) 100 09/23/19 15:18 92 09/23/19 15:00 97 19 84/56 (65) 100 09/23/19 14:30 104 17 89/56 (67) 100 09/23/19 14:00 103 25 87/49 (62) 99 09/23/19 13:30 105 27 82/51 (61) 100 09/23/19 13:03 120 25 100 Nasal Cannula 3.0 32 100 23 100 09/23/19 13:00 111 13 97/59 (72) 100 09/23/19 12:30 108 18 99/52 (68) 100 09/23/19 12:00 114 14 91/56 (68) 100 09/23/19 12:00 Nasal Cannula 1.0 09/23/19 11:51 110 09/23/19 11:30 107 26 89/56 (67) 99 09/23/19 11:00 114 18 92/49 (63) 100 Intake and Output 09/23/19 09/24/19 18:59 06:59 Intake Total 1470.666 ml 1020 ml Output Total 420 ml 550 ml Balance 1050.666 ml 470 ml IV Total 1470.666 ml 1020 ml Output Urine Total 420 ml 550 ml Other 0 ml # Bowel Movements 4 General Appearance: no acute distress HEENT: normocephalic Respiratory: chest wall non-tender, lungs clear Cardiovascular: normal peripheral pulses, normal rate Abdomen: normal bowel sounds Microbiology Date/Time Source Procedure Growth Status 09/22/19 12:10 Blood Blood Culture - Preliminary NO GROWTH AFTER 24 HOURS Resulted 09/22/19 12:10 Blood Blood Culture - Preliminary NO GROWTH AFTER 24 HOURS Resulted 09/22/19 12:50 Urine,Clean Catch Urine Culture - Preliminary Mixed Urogenital Contaminants Resulted 09/22/19 15:18 Rectum VRE Culture - Final NO VANCOMYCIN RESISTANT ENTEROCOCCUS ... Complete Laboratory Tests 09/23/19 11:55: White Blood Count 20.4H, Red Blood Count 3.62L, Hemoglobin 9.5L, Hematocrit 29.6L, Mean Corpuscular Volume 82, Mean Corpuscular Hemoglobin 26.3L, Mean Corpuscular Hemoglobin Concent 32.2, Red Cell Distribution Width 14.0, Platelet Count 390, Mean Platelet Volume 5.1L, Neutrophils (%) (Auto) , Lymphocytes (%) ( Auto) , Monocytes (%) (Auto) , Eosinophils (%) (Auto) , Basophils (%) (Auto) , Differential Total Cells Counted 100, Neutrophils % (Manual) 88H, Lymphocytes % (Manual) 9L, Monocytes % (Manual) 3, Eosinophils % (Manual) 0, Basophils % ( Manual) 0, Band Neutrophils 0, Platelet Estimate Adequate, Platelet Morphology Normal, Anisocytosis 1+, Reticulocyte Count 0.9, Troponin I 0.000 09/24/19 04:20: White Blood Count 15.6H, Red Blood Count 3.36L, Hemoglobin 9.1L, Hematocrit 27.3L, Mean Corpuscular Volume 81, Mean Corpuscular Hemoglobin 27.0, Mean Corpuscular Hemoglobin Concent 33.2, Red Cell Distribution Width 14.1, Platelet Count 274, Mean Platelet Volume 4.9L, Neutrophils (%) (Auto) 81.2H, Lymphocytes (%) (Auto) 9.9L, Monocytes (%) (Auto) 7.7, Eosinophils (%) (Auto) 1.0, Basophils (%) (Auto) 0.2, Troponin I 0.000, Sodium Level 147H, Potassium Level 3.3L, Chloride Level 112H, Carbon Dioxide Level 23, Anion Gap 12, Blood Urea Nitrogen 23H, Creatinine 0.9, Estimat Glomerular Filtration Rate > 60, Glucose Level 125H, Hemoglobin A1c 6.3H, Uric Acid 8.3H, Calcium Level 8.8, Phosphorus Level 2.2L, Magnesium Level 1.7L, Iron Level 28L, Total Iron Binding Capacity 50L, Percent Iron Saturation 56H, Unsaturated Iron Binding 22L, Ferritin 787H, Total Bilirubin 0.6, Gamma Glutamyl Transpeptidase 24, Aspartate Amino Transf ( AST/SGOT) 19, Alanine Aminotransferase (ALT/SGPT) 6L, Alkaline Phosphatase 84, C -Reactive Protein, Quantitative 40.1H, Pro-B-Type Natriuretic Peptide 852H, Total Protein 6.6, Albumin 2.1L, Globulin 4.5, Albumin/Globulin Ratio 0.5L, Triglycerides Level 69, Cholesterol Level 87, LDL Cholesterol 52, HDL Cholesterol 26L, Cholesterol/HDL Ratio 3.3, Vitamin B12 Level > 2000H, Folate 19.8, Thyroid Stimulating Hormone (TSH) 1.797, Cortisol AM Sample [Pending] Current Medications Medications (Trade) Dose Ordered Sig/Radha Route PRN Reason Start Time Stop Time Status Last Admin Dose Admin Acetaminophen/ Hydrocodone Bitart ([place] 7.5/325) 1 tab Q6H PRN ORAL severe pain 09/22/19 19:30 09/29/19 19:14 Albuterol Sulfate (Proventil) 2.5 mg Q6HRT HHN 09/23/19 01:00 09/28/19 00:59 09/24/19 08:00 Dextrose/ Electrolytes 1,000 ml @ 75 mls/hr [id number] IV 09/23/19 14:00 10/23/19 13:59 09/24/19 06:06 Diltiazem HCl 125 ml @ 0 mls/hr Q24H IVPB 09/23/19 19:45 09/24/19 19:44 09/24/19 09:41 Enoxaparin Sodium (Lovenox) 40 mg DAILY SUBQ 09/23/19 09:00 12/22/19 08:59 09/24/19 08:24 Lorazepam (Ativan) 0.5 mg THREE TIMES A DAY ORAL 09/23/19 09:00 09/30/19 08:59 Magnesium Hydroxide (Mom) 30 ml DAILY ORAL 09/25/19 09:00 10/23/19 08:59 Morphine Sulfate (Morphine Sulfate) 2 mg Q4H PRN IVP For Pain 09/22/19 19:15 09/29/19 19:14 Multivitamins (Multivitamins) 1 tab DAILY ORAL 09/23/19 09:00 10/23/19 08:59 09/24/19 08:23 Pantoprazole (Protonix) 40 mg EVERY 12 HOURS ORAL 09/24/19 21:00 10/24/19 20:59 Piperacillin Sod/ Tazobactam Sod 3.375 gm/Sodium Chloride 110 ml @ 27.5 mls/hr EVERY 8 HOURS IVPB 09/23/19 14:00 09/28/19 13:59 09/24/19 06:07 Potassium Phosphate 20 mm/ Sodium Chloride 281.6667 ml @ 46.944 m... ONCE ONCE IV 09/24/19 09:00 09/24/19 14:59 09/24/19 09:40 Tramadol HCl (Ultram) 50 mg Q6H PRN ORAL moderate pain 09/22/19 19:15 09/29/19 19:14 Zolpidem Tartrate (Ambien) 5 mg HSPRN PRN ORAL Insomnia 09/22/19 19:15 09/29/19 19:14 Assessment/Plan Assessment/Plan IMPRESSION: 1. UTI 2. Colon CA. 3. Previous DNR status, now Full Code. 4. Previous hospice patient, now off hospice. 5. Altered mental status. 6. Hypokalemia. 7. Hypernatremia. 8. Marked leukocytosis. 9. UTI. 10. cardiac arrhythmias DISCUSSION: Continue needs broad-spectrum antibiotics and fluids. I will follow carefully. Cardiac rate control. Patient is seen and discussed with nursing staff. Rg Montero M.D. Rg Montero MD Sep 24, 2019 10:58
--- NOTE | 2019-09-24 12:34 | General Progress Note ---
Assessment/Plan Problem List: (1) Anemia ICD Codes: D64.9 - Anemia, unspecified SNOMED: 853295918 (2) Colon cancer ICD Codes: C18.9 - Malignant neoplasm of colon, unspecified SNOMED: 783438977 (3) Decubital ulcer ICD Codes: L89.90 - Pressure ulcer of unspecified site, unspecified stage SNOMED: 597528465 (4) Failure to thrive SNOMED: 78411583 (5) UTI (urinary tract infection) ICD Codes: N39.0 - Urinary tract infection, site not specified SNOMED: 53770692 (6) Anemia ICD Codes: D64.9 - Anemia, unspecified SNOMED: 904385736 (7) HTN (hypertension) ICD Codes: I10 - Essential (primary) hypertension SNOMED: 16847930 (8) Altered level of consciousness ICD Codes: R40.4 - Transient alteration of awareness SNOMED: 7387823 (9) Wound infection ICD Codes: T14.8XXA - Other injury of unspecified body region, initial encounter; L08.9 - Local infection of the skin and subcutaneous tissue, unspecified SNOMED: 67155318 (10) Colostomy complication ICD Codes: K94.00 - Colostomy complication, unspecified SNOMED: 20742177 (11) Dehydration ICD Codes: E86.0 - Dehydration SNOMED: 18010512 Status: unchanged Assessment/Plan: pt wound care abx ltach eval cbc bmp am Subjective Allergies: Coded Allergies: PROCHLORPERAZINE (Verified Allergy, Unknown, 08/10/17) All Systems: reviewed and negative except above Subjective o2nc in icu Objective Last 24 Hour Vital Signs Date Time Temp Pulse Resp B/P (MAP) Pulse Ox O2 Delivery O2 Flow Rate FiO2 09/24/19 12:00 Nasal Cannula 1.0 09/24/19 12:00 96 21 98/57 (71) 100 09/24/19 11:30 95 24 99/61 (74) 100 09/24/19 11:00 103 18 101/58 (72) 100 09/24/19 10:30 94 20 90/55 (67) 100 09/24/19 10:00 94 27 93/51 (65) 100 09/24/19 09:30 96 21 93/58 (70) 100 09/24/19 09:00 106 14 94/64 (74) 99 09/24/19 08:30 92 22 92/55 (67) 100 09/24/19 08:09 98 09/24/19 08:01 100 Nasal Cannula 2.0 28 09/24/19 08:00 Nasal Cannula 1.0 09/24/19 08:00 98.8 94 25 94/66 (75) 100 09/24/19 08:00 100 20 100 Nasal Cannula 2.0 28 94 20 100 09/24/19 07:30 97 28 94/66 (75) 100 09/24/19 07:00 91 23 94/66 (75) 100 09/24/19 06:30 91 20 96/54 (68) 100 09/24/19 06:00 96 20 99/52 (68) 100 09/24/19 05:30 95 18 89/53 (65) 100 09/24/19 05:00 98 19 91/50 (64) 09/24/19 04:30 99 22 94/53 (67) 100 09/24/19 04:00 Nasal Cannula 1.0 09/24/19 04:00 98.4 97 8 87/53 (64) 100 09/24/19 03:30 94 20 84/48 (60) 100 09/24/19 03:00 88 23 86/46 (59) 100 09/24/19 02:30 103 7 85/57 (66) 100 09/24/19 02:00 98 17 86/54 (65) 100 09/24/19 01:30 92 23 82/55 (64) 100 09/24/19 01:00 94 14 84/47 (59) 100 09/24/19 00:30 99 16 81/47 (58) 100 09/24/19 00:00 98.8 98 19 80/43 (55) 100 09/24/19 00:00 Nasal Cannula 1.0 09/23/19 23:30 102 18 90/48 (62) 100 09/23/19 23:00 102 23 81/46 (58) 100 09/23/19 22:30 104 16 89/46 (60) 100 09/23/19 22:00 101 18 89/49 (62) 100 09/23/19 21:31 103 18 87/45 (59) 100 09/23/19 21:30 101 15 94/60 (71) 100 09/23/19 21:00 96 16 86/50 (62) 100 09/23/19 20:30 95 19 90/50 (63) 100 09/23/19 20:00 Nasal Cannula 1.0 09/23/19 20:00 98.6 94 19 88/45 (59) 100 09/23/19 20:00 100 Nasal Cannula 2.0 28 09/23/19 19:30 95 19 82/44 (57) 100 09/23/19 19:30 102 20 100 Nasal Cannula 2.0 28 100 20 98 09/23/19 19:22 97 16 89/48 (62) 100 09/23/19 19:06 99 19 84/47 (59) 100 09/23/19 19:00 99 15 86/49 (61) 100 09/23/19 18:30 99 15 87/48 (61) 100 09/23/19 18:00 97 16 92/48 (63) 100 09/23/19 17:30 100 19 90/47 (61) 100 09/23/19 17:00 96 18 90/47 (61) 100 09/23/19 16:30 99 17 88/51 (63) 100 09/23/19 16:00 Nasal Cannula 1.0 09/23/19 16:00 98.8 102 16 90/55 (67) 100 09/23/19 15:30 114 17 90/20 (43) 100 09/23/19 15:18 92 09/23/19 15:00 97 19 84/56 (65) 100 09/23/19 14:30 104 17 89/56 (67) 100 09/23/19 14:00 103 25 87/49 (62) 99 09/23/19 13:30 105 27 82/51 (61) 100 09/23/19 13:03 120 25 100 Nasal Cannula 3.0 32 100 23 100 09/23/19 13:00 111 13 97/59 (72) 100 Intake and Output 09/23/19 09/24/19 19:00 07:00 Intake Total 1475.666 ml 1020 ml Output Total 370 ml 590 ml Balance 1105.666 ml 430 ml IV Total 1475.666 ml 1020 ml Output Urine Total 370 ml 590 ml Other 0 ml 0 ml # Bowel Movements 4 Laboratory Tests 09/24/19 04:20: White Blood Count 15.6H, Red Blood Count 3.36L, Hemoglobin 9.1L, Hematocrit 27.3L, Mean Corpuscular Volume 81, Mean Corpuscular Hemoglobin 27.0, Mean Corpuscular Hemoglobin Concent 33.2, Red Cell Distribution Width 14.1, Platelet Count 274, Mean Platelet Volume 4.9L, Neutrophils (%) (Auto) 81.2H, Lymphocytes (%) (Auto) 9.9L, Monocytes (%) (Auto) 7.7, Eosinophils (%) (Auto) 1.0, Basophils (%) (Auto) 0.2, Sodium Level 147H, Potassium Level 3.3L, Chloride Level 112H, Carbon Dioxide Level 23, Anion Gap 12, Blood Urea Nitrogen 23H, Creatinine 0.9, Estimat Glomerular Filtration Rate > 60, Glucose Level 125H, Hemoglobin A1c 6.3H, Uric Acid 8.3H, Calcium Level 8.8, Phosphorus Level 2.2L, Magnesium Level 1.7L, Iron Level 28L, Total Iron Binding Capacity 50L, Percent Iron Saturation 56H, Unsaturated Iron Binding 22L, Ferritin 787H, Total Bilirubin 0.6, Gamma Glutamyl Transpeptidase 24, Aspartate Amino Transf (AST/ SGOT) 19, Alanine Aminotransferase (ALT/SGPT) 6L, Alkaline Phosphatase 84, Troponin I 0.000, C-Reactive Protein, Quantitative 40.1H, Pro-B-Type Natriuretic Peptide 852H, Total Protein 6.6, Albumin 2.1L, Globulin 4.5, Albumin /Globulin Ratio 0.5L, Triglycerides Level 69, Cholesterol Level 87, LDL Cholesterol 52, HDL Cholesterol 26L, Cholesterol/HDL Ratio 3.3, Vitamin B12 Level > 2000H, Folate 19.8, Thyroid Stimulating Hormone (TSH) 1.797, Cortisol AM Sample [Pending] Height (Feet): 5 Height (Inches): 8.00 Weight (Pounds): 223 General Appearance: lethargic EENT: PERRL/EOMI Neck: normal alignment Cardiovascular: normal peripheral pulses, normal rate, regular rhythm Respiratory/Chest: chest wall non-tender, lungs clear, normal breath sounds Abdomen: normal bowel sounds, non tender, soft Extremities: normal inspection Edema: no edema noted Arm (L), no edema noted Arm (R), no edema noted Leg (L), no edema noted Leg (R), no edema noted Pedal (L), no edema noted Pedal (R), no edema noted Generalized Neurologic: motor weakness Skin: normal pigmentation Mateus Posada DO Sep 24, 2019 12:34
[2019-09-24] MEDS ORDERED: NS 275ml ONE (14:27)
--- NOTE | 2019-09-24 14:49 | General Progress Note ---
Assessment/Plan Problem List: (1) Decubital ulcer ICD Codes: L89.90 - Pressure ulcer of unspecified site, unspecified stage SNOMED: 729270839 (2) Atrial fibrillation with RVR ICD Codes: I48.91 - Unspecified atrial fibrillation SNOMED: 012471311621273 (3) Colostomy in place ICD Codes: Z93.3 - Colostomy status SNOMED: 106569334, 797806339 (4) Electrolyte imbalance ICD Codes: E87.8 - Other disorders of electrolyte and fluid balance, not elsewhere classified SNOMED: 904991363 (5) Dehydration ICD Codes: E86.0 - Dehydration SNOMED: 87821250 (6) HTN (hypertension) ICD Codes: I10 - Essential (primary) hypertension SNOMED: 28031478 (7) Anemia ICD Codes: D64.9 - Anemia, unspecified SNOMED: 858375190 Status: unchanged Assessment/Plan: passed swallow eval start diet fu labs will monitor Subjective ROS Limited/Unobtainable: No Allergies: Coded Allergies: PROCHLORPERAZINE (Verified Allergy, Unknown, 08/10/17) Objective Last 24 Hour Vital Signs Date Time Temp Pulse Resp B/P (MAP) Pulse Ox O2 Delivery O2 Flow Rate FiO2 09/24/19 14:00 105 21 102/69 (80) 99 09/24/19 13:30 102 20 102/62 (75) 100 09/24/19 13:00 95 20 101/60 (74) 100 09/24/19 12:53 102 20 100 Nasal Cannula 2.0 28 96 20 100 09/24/19 12:30 99.0 97 21 96/68 (77) 100 09/24/19 12:00 Nasal Cannula 1.0 09/24/19 12:00 96 21 98/57 (71) 100 09/24/19 11:30 95 24 99/61 (74) 100 09/24/19 11:00 103 18 101/58 (72) 100 09/24/19 10:30 94 20 90/55 (67) 100 09/24/19 10:00 94 27 93/51 (65) 100 09/24/19 09:30 96 21 93/58 (70) 100 09/24/19 09:00 106 14 94/64 (74) 99 09/24/19 08:30 92 22 92/55 (67) 100 09/24/19 08:09 98 09/24/19 08:01 100 Nasal Cannula 2.0 28 09/24/19 08:00 Nasal Cannula 1.0 09/24/19 08:00 98.8 94 25 94/66 (75) 100 09/24/19 08:00 100 20 100 Nasal Cannula 2.0 28 94 20 100 09/24/19 07:30 97 28 94/66 (75) 100 09/24/19 07:00 91 23 94/66 (75) 100 09/24/19 06:30 91 20 96/54 (68) 100 09/24/19 06:00 96 20 99/52 (68) 100 09/24/19 05:30 95 18 89/53 (65) 100 09/24/19 05:00 98 19 91/50 (64) 09/24/19 04:30 99 22 94/53 (67) 100 09/24/19 04:00 Nasal Cannula 1.0 09/24/19 04:00 98.4 97 8 87/53 (64) 100 09/24/19 03:30 94 20 84/48 (60) 100 09/24/19 03:00 88 23 86/46 (59) 100 09/24/19 02:30 103 7 85/57 (66) 100 09/24/19 02:00 98 17 86/54 (65) 100 09/24/19 01:30 92 23 82/55 (64) 100 09/24/19 01:00 94 14 84/47 (59) 100 09/24/19 00:30 99 16 81/47 (58) 100 09/24/19 00:00 98.8 98 19 80/43 (55) 100 09/24/19 00:00 Nasal Cannula 1.0 09/23/19 23:30 102 18 90/48 (62) 100 09/23/19 23:00 102 23 81/46 (58) 100 09/23/19 22:30 104 16 89/46 (60) 100 09/23/19 22:00 101 18 89/49 (62) 100 09/23/19 21:31 103 18 87/45 (59) 100 09/23/19 21:30 101 15 94/60 (71) 100 09/23/19 21:00 96 16 86/50 (62) 100 09/23/19 20:30 95 19 90/50 (63) 100 09/23/19 20:00 Nasal Cannula 1.0 09/23/19 20:00 98.6 94 19 88/45 (59) 100 09/23/19 20:00 100 Nasal Cannula 2.0 28 09/23/19 19:30 95 19 82/44 (57) 100 09/23/19 19:30 102 20 100 Nasal Cannula 2.0 28 100 20 98 09/23/19 19:22 97 16 89/48 (62) 100 09/23/19 19:06 99 19 84/47 (59) 100 09/23/19 19:00 99 15 86/49 (61) 100 09/23/19 18:30 99 15 87/48 (61) 100 09/23/19 18:00 97 16 92/48 (63) 100 09/23/19 17:30 100 19 90/47 (61) 100 09/23/19 17:00 96 18 90/47 (61) 100 09/23/19 16:30 99 17 88/51 (63) 100 09/23/19 16:00 Nasal Cannula 1.0 09/23/19 16:00 98.8 102 16 90/55 (67) 100 09/23/19 15:30 114 17 90/20 (43) 100 09/23/19 15:18 92 09/23/19 15:00 97 19 84/56 (65) 100 Intake and Output 09/23/19 09/24/19 18:59 06:59 Intake Total 1470.666 ml 1020 ml Output Total 420 ml 550 ml Balance 1050.666 ml 470 ml IV Total 1470.666 ml 1020 ml Output Urine Total 420 ml 550 ml Other 0 ml # Bowel Movements 4 Laboratory Tests 09/24/19 04:20: White Blood Count 15.6H, Red Blood Count 3.36L, Hemoglobin 9.1L, Hematocrit 27.3L, Mean Corpuscular Volume 81, Mean Corpuscular Hemoglobin 27.0, Mean Corpuscular Hemoglobin Concent 33.2, Red Cell Distribution Width 14.1, Platelet Count 274, Mean Platelet Volume 4.9L, Neutrophils (%) (Auto) 81.2H, Lymphocytes (%) (Auto) 9.9L, Monocytes (%) (Auto) 7.7, Eosinophils (%) (Auto) 1.0, Basophils (%) (Auto) 0.2, Sodium Level 147H, Potassium Level 3.3L, Chloride Level 112H, Carbon Dioxide Level 23, Anion Gap 12, Blood Urea Nitrogen 23H, Creatinine 0.9, Estimat Glomerular Filtration Rate > 60, Glucose Level 125H, Hemoglobin A1c 6.3H, Uric Acid 8.3H, Calcium Level 8.8, Phosphorus Level 2.2L, Magnesium Level 1.7L, Iron Level 28L, Total Iron Binding Capacity 50L, Percent Iron Saturation 56H, Unsaturated Iron Binding 22L, Ferritin 787H, Total Bilirubin 0.6, Gamma Glutamyl Transpeptidase 24, Aspartate Amino Transf (AST/ SGOT) 19, Alanine Aminotransferase (ALT/SGPT) 6L, Alkaline Phosphatase 84, Troponin I 0.000, C-Reactive Protein, Quantitative 40.1H, Pro-B-Type Natriuretic Peptide 852H, Total Protein 6.6, Albumin 2.1L, Globulin 4.5, Albumin /Globulin Ratio 0.5L, Triglycerides Level 69, Cholesterol Level 87, LDL Cholesterol 52, HDL Cholesterol 26L, Cholesterol/HDL Ratio 3.3, Vitamin B12 Level > 2000H, Folate 19.8, Thyroid Stimulating Hormone (TSH) 1.797, Cortisol AM Sample [Pending] Height (Feet): 5 Height (Inches): 8.00 Weight (Pounds): 223 General Appearance: no apparent distress EENT: normal ENT inspection Neck: normal alignment Cardiovascular: normal rate Respiratory/Chest: decreased breath sounds Abdomen: normal bowel sounds, non tender, soft Extremities: non-tender Jose Peter MD Sep 24, 2019 14:49
--- NOTE | 2019-09-24 15:11 | Hematology/Onc Progress Note ---
Assessment/Plan Assessment/Plan Assessment and Recs # Colon cancer s/p colectomy with colostomy++ --> on hospice before dc --> hold off on further treatment # Anemia of chronic disease due to underlying chronic medical issues, multifactorial v Gi bleed --> Anemia workup has been ordered, rule out gi bleed --> No evidence of hemolysis is noted, peripheral smear has been reviewed. --> Hgb goal >7. Transfuse prn. --> Epogen or iron at this time is not particularly indicated --> Medications have been reviewed --> low threshold for gi evaluation in case has occult + --> hgb trend 9.1 # Leukocytosis/elevated white blood cell count, unspecified likely related to underlying stress reaction, smoking v more likely infection --> have reviewed peripheral smear and bandemia/neutrophilia noted --> continue antibiotics if they have been started by ID team --> monitor for resolution --> wbc 18-->20->16 --> absa needed # Altered level of consciousness --> r/o underlying infection, ?metabolic # UTI (urinary tract infection) -> abx # Failure to thrive --> on fluids # Hypotension, tachycardia # Toxic metabolic encephalopathy The timing of this note does not necessarily reflect the time of the patient was seen. Greatly appreciate consultation. Subjective Allergies: Coded Allergies: PROCHLORPERAZINE (Verified Allergy, Unknown, 08/10/17) All Systems: reviewed and negative except above Subjective 09/23 remains confused, hgb 9.1, no hemolysis is seen, no bleeding, meds noted Objective Objective Current Medications Medications (Trade) Dose Ordered Sig/Radha Route PRN Reason Start Time Stop Time Status Last Admin Dose Admin Acetaminophen/ Hydrocodone Bitart ([place] 7.5/325) 1 tab Q6H PRN ORAL severe pain 09/22/19 19:30 09/29/19 19:14 Albuterol Sulfate (Proventil) 2.5 mg Q6HRT HHN 09/23/19 01:00 09/28/19 00:59 09/24/19 12:52 Dextrose/ Electrolytes 1,000 ml @ 75 mls/hr [id number] IV 09/23/19 14:00 10/23/19 13:59 09/24/19 06:06 Diltiazem HCl 125 ml @ 0 mls/hr Q24H IVPB 09/23/19 19:45 09/24/19 19:44 09/24/19 09:41 Diltiazem HCl (Cardizem) 60 mg EVERY 6 HOURS ORAL 09/24/19 18:00 10/24/19 17:59 Enoxaparin Sodium (Lovenox) 40 mg DAILY SUBQ 09/23/19 09:00 12/22/19 08:59 09/24/19 08:24 Lorazepam (Ativan) 0.5 mg THREE TIMES A DAY ORAL 09/23/19 09:00 09/30/19 08:59 Magnesium Hydroxide (Mom) 30 ml DAILY ORAL 09/25/19 09:00 10/23/19 08:59 Morphine Sulfate (Morphine Sulfate) 2 mg Q4H PRN IVP For Pain 09/22/19 19:15 09/29/19 19:14 Multivitamins (Multivitamins) 1 tab DAILY ORAL 09/23/19 09:00 10/23/19 08:59 09/24/19 08:23 Pantoprazole (Protonix) 40 mg EVERY 12 HOURS ORAL 09/24/19 21:00 10/24/19 20:59 Piperacillin Sod/ Tazobactam Sod 3.375 gm/Sodium Chloride 110 ml @ 27.5 mls/hr EVERY 8 HOURS IVPB 09/23/19 14:00 09/28/19 13:59 09/24/19 13:38 Tramadol HCl (Ultram) 50 mg Q6H PRN ORAL moderate pain 09/22/19 19:15 09/29/19 19:14 Zolpidem Tartrate (Ambien) 5 mg HSPRN PRN ORAL Insomnia 09/22/19 19:15 09/29/19 19:14 Last 24 Hour Vital Signs Date Time Temp Pulse Resp B/P (MAP) Pulse Ox O2 Delivery O2 Flow Rate FiO2 09/24/19 14:00 105 21 102/69 (80) 99 09/24/19 13:30 102 20 102/62 (75) 100 09/24/19 13:00 95 20 101/60 (74) 100 09/24/19 12:53 102 20 100 Nasal Cannula 2.0 28 96 20 100 09/24/19 12:30 99.0 97 21 96/68 (77) 100 09/24/19 12:00 Nasal Cannula 1.0 09/24/19 12:00 96 21 98/57 (71) 100 09/24/19 11:30 95 24 99/61 (74) 100 09/24/19 11:00 103 18 101/58 (72) 100 09/24/19 10:30 94 20 90/55 (67) 100 09/24/19 10:00 94 27 93/51 (65) 100 09/24/19 09:30 96 21 93/58 (70) 100 09/24/19 09:00 106 14 94/64 (74) 99 09/24/19 08:30 92 22 92/55 (67) 100 09/24/19 08:09 98 09/24/19 08:01 100 Nasal Cannula 2.0 28 09/24/19 08:00 Nasal Cannula 1.0 09/24/19 08:00 98.8 94 25 94/66 (75) 100 09/24/19 08:00 100 20 100 Nasal Cannula 2.0 28 94 20 100 09/24/19 07:30 97 28 94/66 (75) 100 09/24/19 07:00 91 23 94/66 (75) 100 09/24/19 06:30 91 20 96/54 (68) 100 09/24/19 06:00 96 20 99/52 (68) 100 09/24/19 05:30 95 18 89/53 (65) 100 09/24/19 05:00 98 19 91/50 (64) 09/24/19 04:30 99 22 94/53 (67) 100 09/24/19 04:00 Nasal Cannula 1.0 09/24/19 04:00 98.4 97 8 87/53 (64) 100 09/24/19 03:30 94 20 84/48 (60) 100 09/24/19 03:00 88 23 86/46 (59) 100 09/24/19 02:30 103 7 85/57 (66) 100 09/24/19 02:00 98 17 86/54 (65) 100 09/24/19 01:30 92 23 82/55 (64) 100 09/24/19 01:00 94 14 84/47 (59) 100 09/24/19 00:30 99 16 81/47 (58) 100 09/24/19 00:00 98.8 98 19 80/43 (55) 100 09/24/19 00:00 Nasal Cannula 1.0 09/23/19 23:30 102 18 90/48 (62) 100 09/23/19 23:00 102 23 81/46 (58) 100 09/23/19 22:30 104 16 89/46 (60) 100 09/23/19 22:00 101 18 89/49 (62) 100 09/23/19 21:31 103 18 87/45 (59) 100 09/23/19 21:30 101 15 94/60 (71) 100 09/23/19 21:00 96 16 86/50 (62) 100 09/23/19 20:30 95 19 90/50 (63) 100 09/23/19 20:00 Nasal Cannula 1.0 09/23/19 20:00 98.6 94 19 88/45 (59) 100 09/23/19 20:00 100 Nasal Cannula 2.0 28 09/23/19 19:30 95 19 82/44 (57) 100 09/23/19 19:30 102 20 100 Nasal Cannula 2.0 28 100 20 98 09/23/19 19:22 97 16 89/48 (62) 100 09/23/19 19:06 99 19 84/47 (59) 100 09/23/19 19:00 99 15 86/49 (61) 100 09/23/19 18:30 99 15 87/48 (61) 100 09/23/19 18:00 97 16 92/48 (63) 100 09/23/19 17:30 100 19 90/47 (61) 100 09/23/19 17:00 96 18 90/47 (61) 100 09/23/19 16:30 99 17 88/51 (63) 100 09/23/19 16:00 Nasal Cannula 1.0 09/23/19 16:00 98.8 102 16 90/55 (67) 100 09/23/19 15:30 114 17 90/20 (43) 100 09/23/19 15:18 92 09/23/19 15:00 97 19 84/56 (65) 100 09/23/19 14:30 104 17 89/56 (67) 100 09/23/19 14:00 103 25 87/49 (62) 99 09/23/19 13:30 105 27 82/51 (61) 100 09/23/19 13:03 120 25 100 Nasal Cannula 3.0 32 100 23 100 09/23/19 13:00 111 13 97/59 (72) 100 09/23/19 12:30 108 18 99/52 (68) 100 09/23/19 12:00 114 14 91/56 (68) 100 09/23/19 12:00 Nasal Cannula 1.0 09/23/19 11:51 110 09/23/19 11:30 107 26 89/56 (67) 99 09/23/19 11:00 114 18 92/49 (63) 100 09/23/19 10:30 111 18 96/48 (64) 100 09/23/19 10:00 127 18 88/56 (67) 100 09/23/19 09:30 110 17 98/54 (69) 100 09/23/19 09:30 111 19 105/56 (72) 100 09/23/19 09:00 110 17 98/54 (69) 100 09/23/19 08:30 112 17 82/54 (63) 100 09/23/19 08:00 98.9 112 19 90/50 (63) 100 09/23/19 08:00 Nasal Cannula 1.0 09/23/19 07:52 106 09/23/19 07:30 111 22 91/58 (69) 99 09/23/19 07:00 106 15 86/58 (67) 99 09/23/19 07:00 89 19 99 Nasal Cannula 2.0 28 09/23/19 06:30 111 17 92/61 (71) 99 09/23/19 06:00 114 14 92/55 (67) 100 09/23/19 05:30 111 13 89/55 (66) 100 09/23/19 05:00 115 14 96/61 (73) 100 09/23/19 04:30 112 12 91/54 (66) 100 09/23/19 04:00 Nasal Cannula 1.0 09/23/19 04:00 98.0 105 14 85/65 (72) 100 09/23/19 03:30 104 17 94/57 (69) 100 09/23/19 03:00 101 23 101/65 (77) 100 09/23/19 02:30 104 22 85/47 (60) 100 09/23/19 02:00 100 19 87/51 (63) 100 09/23/19 01:30 105 16 91/59 (70) 100 09/23/19 01:00 100 18 93/54 (67) 100 09/23/19 00:30 99 22 97/71 (80) 100 09/23/19 00:00 Nasal Cannula 1.0 09/23/19 00:00 98.0 101 19 84/46 (59) 99 09/22/19 23:30 102 18 83/47 (59) 100 09/22/19 23:15 103 16 86/51 (63) 100 09/22/19 23:00 104 17 89/50 (63) 100 09/22/19 22:45 103 18 91/49 (63) 100 09/22/19 22:30 107 17 85/54 (64) 100 09/22/19 22:00 107 16 95/60 (72) 100 09/22/19 21:45 111 15 92/56 (68) 100 09/22/19 21:30 111 16 87/57 (67) 100 09/22/19 21:15 112 17 96/58 (71) 100 09/22/19 21:00 115 15 98/65 (76) 100 09/22/19 20:59 114 14 99/63 (75) 100 09/22/19 20:30 128 15 110/74 (86) 99 09/22/19 20:23 98.8 124 19 106/71 (83) 100 09/22/19 20:00 Nasal Cannula 1.0 09/22/19 18:06 Nasal Cannula 2.0 09/22/19 16:32 98.8 100 19 129/74 97 Room Air 4.0 09/22/19 16:31 98.8 103 19 120/72 95 Room Air 4.0 Intake and Output 09/23/19 09/24/19 18:59 06:59 Intake Total 1470.666 ml 1020 ml Output Total 420 ml 550 ml Balance 1050.666 ml 470 ml IV Total 1470.666 ml 1020 ml Output Urine Total 420 ml 550 ml Other 0 ml # Bowel Movements 4 Labs Test 09/22/19 12:10 09/22/19 12:50 09/22/19 20:00 09/23/19 04:00 White Blood Count 18.8 K/UL (4.8-10.8) Red Blood Count 4.46 M/UL (4.20-5.40) Hemoglobin 11.6 G/DL (12.0-16.0) Hematocrit 36.6 % (37.0-47.0) Mean Corpuscular Volume 82 FL (80-99) Mean Corpuscular Hemoglobin 26.1 PG (27.0-31.0) Mean Corpuscular Hemoglobin Concent 31.8 G/DL (32.0-36.0) Red Cell Distribution Width 14.1 % (11.6-14.8) Platelet Count 287 K/UL (150-450) Mean Platelet Volume 4.3 FL (6.5-10.1) Neutrophils (%) (Auto) % (45.0-75.0) Lymphocytes (%) (Auto) % (20.0-45.0) Monocytes (%) (Auto) % (1.0-10.0) Eosinophils (%) (Auto) % (0.0-3.0) Basophils (%) (Auto) % (0.0-2.0) Differential Total Cells Counted 100 Neutrophils % (Manual) 88 % (45-75) Lymphocytes % (Manual) 9 % (20-45) Monocytes % (Manual) 3 % (1-10) Eosinophils % (Manual) 0 % (0-3) Basophils % (Manual) 0 % (0-2) Band Neutrophils 0 % (0-8) Platelet Estimate Adequate Platelet Morphology Normal Hypochromasia 1+ Anisocytosis 1+ Prothrombin Time 14.8 SEC (9.30-11.50) Prothromb Time International Ratio 1.4 (0.9-1.1) Activated Partial Thromboplast Time 26 SEC (23-33) Sodium Level 141 MMOL/L (136-145) 146 MMOL/L (136-145) Potassium Level 4.4 MMOL/L (3.5-5.1) 3.3 MMOL/L (3.5-5.1) Chloride Level 103 MMOL/L (98-107) 111 MMOL/L (98-107) Carbon Dioxide Level 25 MMOL/L (21-32) 21 MMOL/L (21-32) Anion Gap 13 mmol/L (5-15) 14 mmol/L (5-15) Blood Urea Nitrogen 39 mg/dL (7-18) 32 mg/dL (7-18) Creatinine 1.6 MG/DL (0.55-1.30) 1.0 MG/DL (0.55-1.30) Estimat Glomerular Filtration Rate 38.3 mL/min (>60) > 60 mL/min (>60) Glucose Level 104 MG/DL (74-106) 112 MG/DL (74-106) Lactic Acid Level 1.60 mmol/L (0.4-2.0) Calcium Level 9.8 MG/DL (8.5-10.1) 8.6 MG/DL (8.5-10.1) Magnesium Level 2.2 MG/DL (1.8-2.4) Total Bilirubin 0.8 MG/DL (0.2-1.0) Aspartate Amino Transf (AST/SGOT) 29 U/L (15-37) Alanine Aminotransferase (ALT/SGPT) 14 U/L (12-78) Alkaline Phosphatase 114 U/L (46-116) Total Creatine Kinase 156 U/L (26-308) Creatine Kinase MB 1.7 NG/ML (0.0-3.6) Creatine Kinase MB Relative Index 1.0 Troponin I 0.000 ng/mL (0.000-0.056) 0.000 ng/mL (0.000-0.056) 0.000 ng/mL (0.000-0.056) Total Protein 8.1 G/DL (6.4-8.2) Albumin 2.1 G/DL (3.4-5.0) Globulin 6.0 g/dL Albumin/Globulin Ratio 0.3 (1.0-2.7) Urine Color Brown Urine Appearance Slightly cloudy Urine pH 5 (4.5-8.0) Urine Specific [place] 1.025 (1.005-1.035) Urine Protein 2+ (NEGATIVE) Urine Glucose (UA) Negative (NEGATIVE) Urine Ketones 2+ (NEGATIVE) Urine Blood 5+ (NEGATIVE) Urine Nitrite Positive (NEGATIVE) Urine Bilirubin 2+ (NEGATIVE) Urine Ictotest Negative (NEGATIVE) Urine Urobilinogen 4 MG/DL (0.0-1.0) Urine Leukocyte Esterase 3+ (NEGATIVE) Urine RBC 5-10 /HPF (0 - 2) Urine WBC 60-80 /HPF (0 - 2) Urine Squamous Epithelial Cells Few /LPF (NONE/OCC) Urine Bacteria Moderate /HPF (NONE) Test 09/23/19 11:55 09/24/19 04:20 White Blood Count 20.4 K/UL (4.8-10.8) 15.6 K/UL (4.8-10.8) Red Blood Count 3.62 M/UL (4.20-5.40) 3.36 M/UL (4.20-5.40) Hemoglobin 9.5 G/DL (12.0-16.0) 9.1 G/DL (12.0-16.0) Hematocrit 29.6 % (37.0-47.0) 27.3 % (37.0-47.0) Mean Corpuscular Volume 82 FL (80-99) 81 FL (80-99) Mean Corpuscular Hemoglobin 26.3 PG (27.0-31.0) 27.0 PG (27.0-31.0) Mean Corpuscular Hemoglobin Concent 32.2 G/DL (32.0-36.0) 33.2 G/DL (32.0-36.0) Red Cell Distribution Width 14.0 % (11.6-14.8) 14.1 % (11.6-14.8) Platelet Count 390 K/UL (150-450) 274 K/UL (150-450) Mean Platelet Volume 5.1 FL (6.5-10.1) 4.9 FL (6.5-10.1) Neutrophils (%) (Auto) % (45.0-75.0) 81.2 % (45.0-75.0) Lymphocytes (%) (Auto) % (20.0-45.0) 9.9 % (20.0-45.0) Monocytes (%) (Auto) % (1.0-10.0) 7.7 % (1.0-10.0) Eosinophils (%) (Auto) % (0.0-3.0) 1.0 % (0.0-3.0) Basophils (%) (Auto) % (0.0-2.0) 0.2 % (0.0-2.0) Differential Total Cells Counted 100 Neutrophils % (Manual) 88 % (45-75) Lymphocytes % (Manual) 9 % (20-45) Monocytes % (Manual) 3 % (1-10) Eosinophils % (Manual) 0 % (0-3) Basophils % (Manual) 0 % (0-2) Band Neutrophils 0 % (0-8) Platelet Estimate Adequate Platelet Morphology Normal Anisocytosis 1+ Reticulocyte Count 0.9 % (0.5-2.0) Troponin I 0.000 ng/mL (0.000-0.056) 0.000 ng/mL (0.000-0.056) Sodium Level 147 MMOL/L (136-145) Potassium Level 3.3 MMOL/L (3.5-5.1) Chloride Level 112 MMOL/L (98-107) Carbon Dioxide Level 23 MMOL/L (21-32) Anion Gap 12 mmol/L (5-15) Blood Urea Nitrogen 23 mg/dL (7-18) Creatinine 0.9 MG/DL (0.55-1.30) Estimat Glomerular Filtration Rate > 60 mL/min (>60) Glucose Level 125 MG/DL (74-106) Hemoglobin A1c 6.3 % (4.3-6.0) Uric Acid 8.3 MG/DL (2.6-7.2) Calcium Level 8.8 MG/DL (8.5-10.1) Phosphorus Level 2.2 MG/DL (2.5-4.9) Magnesium Level 1.7 MG/DL (1.8-2.4) Iron Level 28 ug/dL (50-175) Total Iron Binding Capacity 50 ug/dL (250-450) Percent Iron Saturation 56 % (15-50) Unsaturated Iron Binding 22 ug/dL (112-346) Ferritin 787 NG/ML (8-388) Total Bilirubin 0.6 MG/DL (0.2-1.0) Gamma Glutamyl Transpeptidase 24 U/L (5-85) Aspartate Amino Transf (AST/SGOT) 19 U/L (15-37) Alanine Aminotransferase (ALT/SGPT) 6 U/L (12-78) Alkaline Phosphatase 84 U/L (46-116) C-Reactive Protein, Quantitative 40.1 mg/dL (0.00-0.90) Pro-B-Type Natriuretic Peptide 852 pg/mL (0-125) Total Protein 6.6 G/DL (6.4-8.2) Albumin 2.1 G/DL (3.4-5.0) Globulin 4.5 g/dL Albumin/Globulin Ratio 0.5 (1.0-2.7) Triglycerides Level 69 MG/DL (30-150) Cholesterol Level 87 MG/DL (< 200) LDL Cholesterol 52 mg/dL (<100) HDL Cholesterol 26 MG/DL (40-60) Cholesterol/HDL Ratio 3.3 (3.3-4.4) Vitamin B12 Level > 2000 PG/ML (193-986) Folate 19.8 NG/ML (8.6-58.9) Thyroid Stimulating Hormone (TSH) 1.797 uiU/mL (0.358-3.740) Height (Feet): 5 Height (Inches): 8.00 Weight (Pounds): 223 Objective Vitals: reviewed General: NAD HEENT: nc, at Neck: supple Chest: clear breath sounds bilaterally Cardiovascular: RRR, no s3, s4 Abdomen: soft, nontender, nd ++colostomy Extremities: no cce, normal range of motion Neuro: alert and oriented Wounds: ++ on exam as per Rn Sandor Hobson MD Sep 24, 2019 15:11
--- NOTE | 2019-09-24 15:33 | Cardiac Electrophysiology PN ---
Assessment/Plan Assessment/Plan 1. Recurrent SVT/atrial fibrillation with rapid ventricular response. Already ruled out for myocardial infarction. Change Cardizem drip to Cardizem 60 po q 6hr 2. Sepsis. White count of 20,000. on IV antibiotic. 3. Stage IV colon cancer. Further evaluation by Dr. Hobson. Patient is status post colectomy and colostomy, was on hospice care before, and currently hold off any further chemo per Dr. Hobson. 4. Failure to thrive. 5. Hypotension. Resolved 6. Urine tract infection, on ceftriaxone. Subjective Subjective Passed swallow eval on Cardizem drip in SR Objective Last 24 Hour Vital Signs Date Time Temp Pulse Resp B/P (MAP) Pulse Ox O2 Delivery O2 Flow Rate FiO2 09/24/19 15:00 96 23 98/64 (75) 100 09/24/19 14:30 98 21 104/61 (75) 100 09/24/19 14:00 105 21 102/69 (80) 99 09/24/19 13:30 102 20 102/62 (75) 100 09/24/19 13:00 95 20 101/60 (74) 100 09/24/19 12:53 102 20 100 Nasal Cannula 2.0 28 96 20 100 09/24/19 12:30 99.0 97 21 96/68 (77) 100 09/24/19 12:00 Nasal Cannula 1.0 09/24/19 12:00 96 21 98/57 (71) 100 09/24/19 11:30 95 24 99/61 (74) 100 09/24/19 11:00 103 18 101/58 (72) 100 09/24/19 10:30 94 20 90/55 (67) 100 09/24/19 10:00 94 27 93/51 (65) 100 09/24/19 09:30 96 21 93/58 (70) 100 09/24/19 09:00 106 14 94/64 (74) 99 09/24/19 08:30 92 22 92/55 (67) 100 09/24/19 08:09 98 09/24/19 08:01 100 Nasal Cannula 2.0 28 09/24/19 08:00 Nasal Cannula 1.0 09/24/19 08:00 98.8 94 25 94/66 (75) 100 09/24/19 08:00 100 20 100 Nasal Cannula 2.0 28 94 20 100 09/24/19 07:30 97 28 94/66 (75) 100 09/24/19 07:00 91 23 94/66 (75) 100 09/24/19 06:30 91 20 96/54 (68) 100 09/24/19 06:00 96 20 99/52 (68) 100 09/24/19 05:30 95 18 89/53 (65) 100 09/24/19 05:00 98 19 91/50 (64) 09/24/19 04:30 99 22 94/53 (67) 100 09/24/19 04:00 Nasal Cannula 1.0 09/24/19 04:00 98.4 97 8 87/53 (64) 100 09/24/19 03:30 94 20 84/48 (60) 100 09/24/19 03:00 88 23 86/46 (59) 100 09/24/19 02:30 103 7 85/57 (66) 100 09/24/19 02:00 98 17 86/54 (65) 100 09/24/19 01:30 92 23 82/55 (64) 100 09/24/19 01:00 94 14 84/47 (59) 100 09/24/19 00:30 99 16 81/47 (58) 100 09/24/19 00:00 98.8 98 19 80/43 (55) 100 09/24/19 00:00 Nasal Cannula 1.0 09/23/19 23:30 102 18 90/48 (62) 100 09/23/19 23:00 102 23 81/46 (58) 100 09/23/19 22:30 104 16 89/46 (60) 100 09/23/19 22:00 101 18 89/49 (62) 100 09/23/19 21:31 103 18 87/45 (59) 100 09/23/19 21:30 101 15 94/60 (71) 100 09/23/19 21:00 96 16 86/50 (62) 100 09/23/19 20:30 95 19 90/50 (63) 100 09/23/19 20:00 Nasal Cannula 1.0 09/23/19 20:00 98.6 94 19 88/45 (59) 100 09/23/19 20:00 100 Nasal Cannula 2.0 28 09/23/19 19:30 95 19 82/44 (57) 100 09/23/19 19:30 102 20 100 Nasal Cannula 2.0 28 100 20 98 09/23/19 19:22 97 16 89/48 (62) 100 09/23/19 19:06 99 19 84/47 (59) 100 09/23/19 19:00 99 15 86/49 (61) 100 09/23/19 18:30 99 15 87/48 (61) 100 09/23/19 18:00 97 16 92/48 (63) 100 09/23/19 17:30 100 19 90/47 (61) 100 09/23/19 17:00 96 18 90/47 (61) 100 09/23/19 16:30 99 17 88/51 (63) 100 09/23/19 16:00 Nasal Cannula 1.0 09/23/19 16:00 98.8 102 16 90/55 (67) 100 Intake and Output 09/23/19 09/24/19 19:00 07:00 Intake Total 1475.666 ml 1020 ml Output Total 370 ml 590 ml Balance 1105.666 ml 430 ml IV Total 1475.666 ml 1020 ml Output Urine Total 370 ml 590 ml Other 0 ml 0 ml # Bowel Movements 4 Laboratory Tests Test 09/24/19 04:20 White Blood Count 15.6 K/UL (4.8-10.8) H Red Blood Count 3.36 M/UL (4.20-5.40) L Hemoglobin 9.1 G/DL (12.0-16.0) L Hematocrit 27.3 % (37.0-47.0) L Mean Corpuscular Volume 81 FL (80-99) Mean Corpuscular Hemoglobin 27.0 PG (27.0-31.0) Mean Corpuscular Hemoglobin Concent 33.2 G/DL (32.0-36.0) Red Cell Distribution Width 14.1 % (11.6-14.8) Platelet Count 274 K/UL (150-450) Mean Platelet Volume 4.9 FL (6.5-10.1) L Neutrophils (%) (Auto) 81.2 % (45.0-75.0) H Lymphocytes (%) (Auto) 9.9 % (20.0-45.0) L Monocytes (%) (Auto) 7.7 % (1.0-10.0) Eosinophils (%) (Auto) 1.0 % (0.0-3.0) Basophils (%) (Auto) 0.2 % (0.0-2.0) Sodium Level 147 MMOL/L (136-145) H Potassium Level 3.3 MMOL/L (3.5-5.1) L Chloride Level 112 MMOL/L (98-107) H Carbon Dioxide Level 23 MMOL/L (21-32) Anion Gap 12 mmol/L (5-15) Blood Urea Nitrogen 23 mg/dL (7-18) H Creatinine 0.9 MG/DL (0.55-1.30) Estimat Glomerular Filtration Rate > 60 mL/min (>60) Glucose Level 125 MG/DL (74-106) H Hemoglobin A1c 6.3 % (4.3-6.0) H Uric Acid 8.3 MG/DL (2.6-7.2) H Calcium Level 8.8 MG/DL (8.5-10.1) Phosphorus Level 2.2 MG/DL (2.5-4.9) L Magnesium Level 1.7 MG/DL (1.8-2.4) L Iron Level 28 ug/dL (50-175) L Total Iron Binding Capacity 50 ug/dL (250-450) L Percent Iron Saturation 56 % (15-50) H Unsaturated Iron Binding 22 ug/dL (112-346) L Ferritin 787 NG/ML (8-388) H Total Bilirubin 0.6 MG/DL (0.2-1.0) Gamma Glutamyl Transpeptidase 24 U/L (5-85) Aspartate Amino Transf (AST/SGOT) 19 U/L (15-37) Alanine Aminotransferase (ALT/SGPT) 6 U/L (12-78) L Alkaline Phosphatase 84 U/L (46-116) Troponin I 0.000 ng/mL (0.000-0.056) C-Reactive Protein, Quantitative 40.1 mg/dL (0.00-0.90) H Pro-B-Type Natriuretic Peptide 852 pg/mL (0-125) H Total Protein 6.6 G/DL (6.4-8.2) Albumin 2.1 G/DL (3.4-5.0) L Globulin 4.5 g/dL Albumin/Globulin Ratio 0.5 (1.0-2.7) L Triglycerides Level 69 MG/DL (30-150) Cholesterol Level 87 MG/DL (< 200) LDL Cholesterol 52 mg/dL (<100) HDL Cholesterol 26 MG/DL (40-60) L Cholesterol/HDL Ratio 3.3 (3.3-4.4) Vitamin B12 Level > 2000 PG/ML (193-986) H Folate 19.8 NG/ML (8.6-58.9) Thyroid Stimulating Hormone (TSH) 1.797 uiU/mL (0.358-3.740) Cortisol AM Sample Pending Microbiology Date/Time Source Procedure Growth Status 09/22/19 12:10 Blood Blood Culture - Preliminary NO GROWTH AFTER 24 HOURS Resulted 09/22/19 12:10 Blood Blood Culture - Preliminary NO GROWTH AFTER 24 HOURS Resulted 09/22/19 15:18 Nasal Nares MRSA Culture - Final NO METHICILLIN RESISTANT STAPH AUREUS... Complete 09/22/19 12:50 Urine,Clean Catch Urine Culture - Preliminary Mixed Urogenital Contaminants Resulted 09/22/19 15:18 Rectum VRE Culture - Final NO VANCOMYCIN RESISTANT ENTEROCOCCUS ... Complete Objective HEAD AND NECK: Shows no JVD. LUNGS: Coarse rhonchi. CARDIOVASCULAR: Shows regular. Tachycardic. S1 and S2 with no gallop or murmur. ABDOMEN: Soft, obese. Has colostomy. EXTREMITIES: 1+ pitting edema. Homar Capps MD Sep 24, 2019 15:33
--- NOTE | 2019-09-24 17:11 | Surgery Progress Note ---
Surgery Progress Note Subjective Additional Comments confused anemia exam poor ill appearing Objective Last 24 Hour Vital Signs Date Time Temp Pulse Resp B/P (MAP) Pulse Ox O2 Delivery O2 Flow Rate FiO2 09/24/19 17:00 99 16 95/58 (70) 100 09/24/19 16:30 107 19 94/58 (70) 100 09/24/19 16:00 99 17 104/68 (80) 100 09/24/19 15:30 96 21 104/64 (77) 100 09/24/19 15:00 96 23 98/64 (75) 100 09/24/19 14:30 98 21 104/61 (75) 100 09/24/19 14:00 105 21 102/69 (80) 99 09/24/19 13:30 102 20 102/62 (75) 100 09/24/19 13:00 95 20 101/60 (74) 100 09/24/19 12:53 102 20 100 Nasal Cannula 2.0 28 96 20 100 09/24/19 12:30 99.0 97 21 96/68 (77) 100 09/24/19 12:00 Nasal Cannula 1.0 09/24/19 12:00 96 21 98/57 (71) 100 09/24/19 11:30 95 24 99/61 (74) 100 09/24/19 11:00 103 18 101/58 (72) 100 09/24/19 10:30 94 20 90/55 (67) 100 09/24/19 10:00 94 27 93/51 (65) 100 09/24/19 09:30 96 21 93/58 (70) 100 09/24/19 09:00 106 14 94/64 (74) 99 09/24/19 08:30 92 22 92/55 (67) 100 09/24/19 08:09 98 09/24/19 08:01 100 Nasal Cannula 2.0 28 09/24/19 08:00 Nasal Cannula 1.0 09/24/19 08:00 98.8 94 25 94/66 (75) 100 09/24/19 08:00 100 20 100 Nasal Cannula 2.0 28 94 20 100 09/24/19 07:30 97 28 94/66 (75) 100 09/24/19 07:00 91 23 94/66 (75) 100 09/24/19 06:30 91 20 96/54 (68) 100 09/24/19 06:00 96 20 99/52 (68) 100 09/24/19 05:30 95 18 89/53 (65) 100 09/24/19 05:00 98 19 91/50 (64) 09/24/19 04:30 99 22 94/53 (67) 100 09/24/19 04:00 Nasal Cannula 1.0 09/24/19 04:00 98.4 97 8 87/53 (64) 100 09/24/19 03:30 94 20 84/48 (60) 100 09/24/19 03:00 88 23 86/46 (59) 100 09/24/19 02:30 103 7 85/57 (66) 100 09/24/19 02:00 98 17 86/54 (65) 100 09/24/19 01:30 92 23 82/55 (64) 100 09/24/19 01:00 94 14 84/47 (59) 100 09/24/19 00:30 99 16 81/47 (58) 100 09/24/19 00:00 98.8 98 19 80/43 (55) 100 09/24/19 00:00 Nasal Cannula 1.0 09/23/19 23:30 102 18 90/48 (62) 100 09/23/19 23:00 102 23 81/46 (58) 100 09/23/19 22:30 104 16 89/46 (60) 100 09/23/19 22:00 101 18 89/49 (62) 100 09/23/19 21:31 103 18 87/45 (59) 100 09/23/19 21:30 101 15 94/60 (71) 100 09/23/19 21:00 96 16 86/50 (62) 100 09/23/19 20:30 95 19 90/50 (63) 100 09/23/19 20:00 Nasal Cannula 1.0 09/23/19 20:00 98.6 94 19 88/45 (59) 100 09/23/19 20:00 100 Nasal Cannula 2.0 28 09/23/19 19:30 95 19 82/44 (57) 100 09/23/19 19:30 102 20 100 Nasal Cannula 2.0 28 100 20 98 09/23/19 19:22 97 16 89/48 (62) 100 09/23/19 19:06 99 19 84/47 (59) 100 09/23/19 19:00 99 15 86/49 (61) 100 09/23/19 18:30 99 15 87/48 (61) 100 09/23/19 18:00 97 16 92/48 (63) 100 09/23/19 17:30 100 19 90/47 (61) 100 I&O Intake and Output 09/23/19 09/24/19 19:00 07:00 Intake Total 1475.666 ml 1020 ml Output Total 370 ml 590 ml Balance 1105.666 ml 430 ml IV Total 1475.666 ml 1020 ml Output Urine Total 370 ml 590 ml Other 0 ml 0 ml # Bowel Movements 4 Dressing: other Wound: other Drains: other Cardiovascular: RSR Respiratory: decreased breath sounds Abdomen: soft, non-tender, present bowel sounds Extremities: no cyanosis Laboratory Tests Test 09/24/19 04:20 White Blood Count 15.6 K/UL (4.8-10.8) H Red Blood Count 3.36 M/UL (4.20-5.40) L Hemoglobin 9.1 G/DL (12.0-16.0) L Hematocrit 27.3 % (37.0-47.0) L Mean Corpuscular Volume 81 FL (80-99) Mean Corpuscular Hemoglobin 27.0 PG (27.0-31.0) Mean Corpuscular Hemoglobin Concent 33.2 G/DL (32.0-36.0) Red Cell Distribution Width 14.1 % (11.6-14.8) Platelet Count 274 K/UL (150-450) Mean Platelet Volume 4.9 FL (6.5-10.1) L Neutrophils (%) (Auto) 81.2 % (45.0-75.0) H Lymphocytes (%) (Auto) 9.9 % (20.0-45.0) L Monocytes (%) (Auto) 7.7 % (1.0-10.0) Eosinophils (%) (Auto) 1.0 % (0.0-3.0) Basophils (%) (Auto) 0.2 % (0.0-2.0) Sodium Level 147 MMOL/L (136-145) H Potassium Level 3.3 MMOL/L (3.5-5.1) L Chloride Level 112 MMOL/L (98-107) H Carbon Dioxide Level 23 MMOL/L (21-32) Anion Gap 12 mmol/L (5-15) Blood Urea Nitrogen 23 mg/dL (7-18) H Creatinine 0.9 MG/DL (0.55-1.30) Estimat Glomerular Filtration Rate > 60 mL/min (>60) Glucose Level 125 MG/DL (74-106) H Hemoglobin A1c 6.3 % (4.3-6.0) H Uric Acid 8.3 MG/DL (2.6-7.2) H Calcium Level 8.8 MG/DL (8.5-10.1) Phosphorus Level 2.2 MG/DL (2.5-4.9) L Magnesium Level 1.7 MG/DL (1.8-2.4) L Iron Level 28 ug/dL (50-175) L Total Iron Binding Capacity 50 ug/dL (250-450) L Percent Iron Saturation 56 % (15-50) H Unsaturated Iron Binding 22 ug/dL (112-346) L Ferritin 787 NG/ML (8-388) H Total Bilirubin 0.6 MG/DL (0.2-1.0) Gamma Glutamyl Transpeptidase 24 U/L (5-85) Aspartate Amino Transf (AST/SGOT) 19 U/L (15-37) Alanine Aminotransferase (ALT/SGPT) 6 U/L (12-78) L Alkaline Phosphatase 84 U/L (46-116) Troponin I 0.000 ng/mL (0.000-0.056) C-Reactive Protein, Quantitative 40.1 mg/dL (0.00-0.90) H Pro-B-Type Natriuretic Peptide 852 pg/mL (0-125) H Total Protein 6.6 G/DL (6.4-8.2) Albumin 2.1 G/DL (3.4-5.0) L Globulin 4.5 g/dL Albumin/Globulin Ratio 0.5 (1.0-2.7) L Triglycerides Level 69 MG/DL (30-150) Cholesterol Level 87 MG/DL (< 200) LDL Cholesterol 52 mg/dL (<100) HDL Cholesterol 26 MG/DL (40-60) L Cholesterol/HDL Ratio 3.3 (3.3-4.4) Vitamin B12 Level > 2000 PG/ML (193-986) H Folate 19.8 NG/ML (8.6-58.9) Thyroid Stimulating Hormone (TSH) 1.797 uiU/mL (0.358-3.740) Cortisol AM Sample 17.8 UG/DL Plan Problems: (1) Failure to thrive Assessment & Plan: DAILY ESTIMATED NEEDS: Needs based on wound, obese 73.8kg abw 25-30 kcals/kg 8462-3298 total kcals 1.25-1.5 g protein/kg 92-111 g total protein 25-30 mL/kg 5077-1478 total fluid mLs NUTRITION DIAGNOSIS: Increased kcal/pro intake needs R/T wound healing as evidenced by pt admitted sacral unstageable and L foot DTI wounds. PO DIET RECOMMENDATIONS: SOFT diet/ texture per [employer] ENTERAL NUTRITION RECOMMENDATIONS: CONSULT RD IF NON ORAL FEEDS ARE PART OF POC ----- ADDITIONAL RECOMMENDATIONS: * Maintain calibrated bed scale weights * Wound care: with diet order add Berry 1pkt BID Add Vit C 250mg BID + MVI w/ min qdaily F/up w/ WC eval * Colostomy status, rec IVF for hydration, monitor BG for hypoglycemia (2) UTI (urinary tract infection) (3) Anemia (4) HTN (hypertension) (5) Altered level of consciousness (6) Wound infection Assessment & Plan: Patient presents [facility] for medical care management and on admission identified to have significant leukocytosis, abnormal labs, with wound infection. She is identified to have a large unstageable sacral decubitus ulcer as well as left heel deep tissue injury and blood blister. Complete physical examination performed and likely infectious etiology is her UTI and not the wounds. The sacral decubitus ulcer is unstageable but no purulent drainage no active drainage with periwound stable. The left heel is a deep tissue injury with a blood blister no active drainage. On the left ankle there is a small superficial decubitus skin ulcer identified stage II. Her ostomy is intact and functional. No acute surgical intervention at this time will provide local care for above findings. Wash sacral wound daily with normal saline. Apply Thera honey and foam dressing. Offload pressure from heels with pillow. Foam dressing to heels. Turn every 2 hours Air soft mattress We will follow with recommendations thank you for let me participate in patient' s care (7) Colostomy complication Assessment & Plan: Colostomy evaluated functional history of colon cancer ostomy site with some discomfort currently stable No prolapse no incarcerated hernia identified We will monitor with local examination and serial exams thank you Roberto Carlos Maza Sep 24, 2019 17:11
[2019-09-24] MEDS: dilTIAZem HCl 60mg tab ORAL SCH ×2 (18:08→23:49)
[2019-09-25] VITALS (25 sets, daily range): BP systolic 93–127; BP diastolic 55–73
[2019-09-25] MEDS: Piperacillin/Tazobactam 3.375 GM in NS 110 ML IVPB SCH ×4 (00:21→13:35)
[2019-09-25] MEDS: Albuterol ud Inhalation HHN SCH ×2 (01:00→07:40)
[2019-09-25] MEDS: D5 1/2NS w/KCl 40meq 1000ml 1,000 ML IV SCH ×2 (05:28→11:29)
[2019-09-25] MEDS: dilTIAZem HCl 60mg tab ORAL SCH (05:29)
[2019-09-25 07:08] LABS: HEMATOCRIT 28.9 % (37.0-47.0); HEMOGLOBIN 9.5 G/DL (12.0-16.0); MEAN CORPUSCULAR VOLUME 81 FL (80-99); PLATELET COUNT 287 K/UL (150-450); RED BLOOD COUNT 3.57 M/UL (4.20-5.40); WHITE BLOOD COUNT 18.6 K/UL (4.8-10.8)
[2019-09-25] MEDS ORDERED: LORazepam 0.5mg tab ORAL PRN (07:45)
--- NOTE | 2019-09-25 08:00 | General Progress Note ---
Assessment/Plan Problem List: (1) Anemia ICD Codes: D64.9 - Anemia, unspecified SNOMED: 156372349 (2) Colon cancer ICD Codes: C18.9 - Malignant neoplasm of colon, unspecified SNOMED: 665376986 (3) Decubital ulcer ICD Codes: L89.90 - Pressure ulcer of unspecified site, unspecified stage SNOMED: 074453056 (4) Failure to thrive SNOMED: 67164272 (5) UTI (urinary tract infection) ICD Codes: N39.0 - Urinary tract infection, site not specified SNOMED: 21725873 (6) Anemia ICD Codes: D64.9 - Anemia, unspecified SNOMED: 526037712 (7) HTN (hypertension) ICD Codes: I10 - Essential (primary) hypertension SNOMED: 96377655 (8) Altered level of consciousness ICD Codes: R40.4 - Transient alteration of awareness SNOMED: 4155229 (9) Wound infection ICD Codes: T14.8XXA - Other injury of unspecified body region, initial encounter; L08.9 - Local infection of the skin and subcutaneous tissue, unspecified SNOMED: 96805334 (10) Colostomy complication ICD Codes: K94.00 - Colostomy complication, unspecified SNOMED: 61402230 (11) Dehydration ICD Codes: E86.0 - Dehydration SNOMED: 40436009 Status: stable, progressing Assessment/Plan: pt wound care abx cbc bmp am dc to [facility]ach if ok w family Subjective Constitutional: Reports: weakness Allergies: Coded Allergies: PROCHLORPERAZINE (Verified Allergy, Unknown, 08/10/17) All Systems: reviewed and negative except above Subjective o2nc calm Objective Last 24 Hour Vital Signs Date Time Temp Pulse Resp B/P (MAP) Pulse Ox O2 Delivery O2 Flow Rate FiO2 09/25/19 07:45 Nasal Cannula 2.0 28 09/25/19 07:45 100 Nasal Cannula 2.0 28 09/25/19 07:00 104 19 107/66 (80) 100 09/25/19 06:30 104 18 103/68 (80) 100 09/25/19 06:00 98 26 104/67 (79) 98 09/25/19 05:30 98 26 105/69 (81) 98 09/25/19 05:29 99 104/67 09/25/19 05:00 98 26 104/69 (81) 98 09/25/19 04:30 98.6 98 26 109/69 (82) 98 09/25/19 04:00 98 26 104/67 (79) 98 09/25/19 04:00 100 09/25/19 04:00 Nasal Cannula 1.0 09/25/19 03:30 101 26 104/65 (78) 98 09/25/19 03:00 103 28 106/66 (79) 98 09/25/19 02:30 105 26 103/64 (77) 98 09/25/19 02:00 97 26 99/58 (72) 100 09/25/19 01:30 98 26 93/58 (70) 100 09/25/19 01:00 95 27 97/56 (70) 100 09/25/19 00:30 97 25 94/64 (74) 100 09/25/19 00:15 97 27 94/56 (69) 100 09/25/19 00:00 98.4 99 26 95/58 (70) 99 09/25/19 00:00 Nasal Cannula 1.0 09/24/19 23:49 94 100/64 09/24/19 23:30 99 24 98/59 (72) 100 09/24/19 22:00 104 16 104/70 (81) 99 09/24/19 21:30 103 15 106/67 (80) 99 09/24/19 21:00 109 15 107/69 (82) 99 09/24/19 20:35 100 Nasal Cannula 2.0 28 09/24/19 20:30 103 19 105/65 (78) 99 09/24/19 20:00 Nasal Cannula 1.0 09/24/19 20:00 98.6 103 18 106/60 (75) 99 09/24/19 19:30 98 23 105/64 (78) 100 09/24/19 19:00 94 24 102/64 (77) 100 09/24/19 19:00 97 16 98/67 (77) 100 09/24/19 18:30 98.8 99 21 109/58 (75) 99 09/24/19 18:08 94 98/67 09/24/19 18:00 97 16 98/67 (77) 100 09/24/19 17:30 93 20 99/62 (74) 100 09/24/19 17:00 99 16 95/58 (70) 100 09/24/19 16:30 107 19 94/58 (70) 100 09/24/19 16:00 99 17 104/68 (80) 100 09/24/19 16:00 Nasal Cannula 1.0 09/24/19 15:30 96 21 104/64 (77) 100 09/24/19 15:00 96 23 98/64 (75) 100 09/24/19 14:30 98 21 104/61 (75) 100 09/24/19 14:00 105 21 102/69 (80) 99 09/24/19 13:30 102 20 102/62 (75) 100 09/24/19 13:00 95 20 101/60 (74) 100 09/24/19 12:53 102 20 100 Nasal Cannula 2.0 28 96 20 100 09/24/19 12:30 99.0 97 21 96/68 (77) 100 09/24/19 12:00 Nasal Cannula 1.0 09/24/19 12:00 96 21 98/57 (71) 100 09/24/19 11:30 95 24 99/61 (74) 100 09/24/19 11:00 103 18 101/58 (72) 100 09/24/19 10:30 94 20 90/55 (67) 100 09/24/19 10:00 94 27 93/51 (65) 100 09/24/19 09:30 96 21 93/58 (70) 100 09/24/19 09:00 106 14 94/64 (74) 99 09/24/19 08:30 92 22 92/55 (67) 100 09/24/19 08:09 98 09/24/19 08:01 100 Nasal Cannula 2.0 28 09/24/19 08:00 Nasal Cannula 1.0 09/24/19 08:00 98.8 94 25 94/66 (75) 100 09/24/19 08:00 100 20 100 Nasal Cannula 2.0 28 94 20 100 Intake and Output 09/24/19 09/25/19 19:00 07:00 Intake Total 1694.720 ml 1152.5 ml Output Total 445 ml 430 ml Balance 1249.720 ml 722.5 ml Intake Oral 20 ml 190 ml IV Total 1674.720 ml 962.5 ml Output Urine Total 445 ml 430 ml Other 0 ml 0 ml Laboratory Tests 09/25/19 03:55: White Blood Count 18.6H, Red Blood Count 3.57L, Hemoglobin 9.5L, Hematocrit 28.9L, Mean Corpuscular Volume 81, Mean Corpuscular Hemoglobin 26.7L, Mean Corpuscular Hemoglobin Concent 32.9, Red Cell Distribution Width 14.0, Platelet Count 287, Mean Platelet Volume 4.9L, Neutrophils (%) (Auto) , Lymphocytes (%) ( Auto) , Monocytes (%) (Auto) , Eosinophils (%) (Auto) , Basophils (%) (Auto) , Neutrophils % (Manual) [Pending], Lymphocytes % (Manual) [Pending], Platelet Estimate [Pending], Platelet Morphology [Pending], Sodium Level [Pending], Potassium Level [Pending], Chloride Level [Pending], Carbon Dioxide Level [ Pending], Blood Urea Nitrogen [Pending], Creatinine [Pending], Estimat Glomerular Filtration Rate [Pending], Glucose Level [Pending], Calcium Level [ Pending], Phosphorus Level [Pending], Magnesium Level [Pending], Total Bilirubin [Pending], Aspartate Amino Transf (AST/SGOT) [Pending], Alanine Aminotransferase (ALT/SGPT) [Pending], Alkaline Phosphatase [Pending], C- Reactive Protein, Quantitative [Pending], Pro-B-Type Natriuretic Peptide [ Pending], Total Protein [Pending], Albumin [Pending], Globulin [Pending] Height (Feet): 5 Height (Inches): 8.00 Weight (Pounds): 220 General Appearance: lethargic EENT: normal ENT inspection Neck: normal alignment Cardiovascular: normal peripheral pulses, normal rate, regular rhythm Respiratory/Chest: chest wall non-tender, lungs clear, normal breath sounds Abdomen: soft, hypoactive bowel sounds Extremities: normal inspection Edema: no edema noted Arm (L), no edema noted Arm (R), no edema noted Leg (L), no edema noted Leg (R), no edema noted Pedal (L), no edema noted Pedal (R), no edema noted Generalized Neurologic: motor weakness Skin: normal pigmentation, warm/dry Mateus Posada DO Sep 25, 2019 08:00
[2019-09-25] MEDS: Enoxaparin 40mg Inj SUBQ SCH (08:11)
[2019-09-25 08:22] LABS: ALANINE AMINOTRANSFERASE 14 U/L (12-78); ALBUMIN 2.4 G/DL (3.4-5.0); ALBUMIN/GLOBULIN RATIO 0.5 (1.0-2.7); ALKALINE PHOSPHATASE 87 U/L (46-116); ANION GAP 10 mmol/L (5-15); ASPARTATE AMINO TRANSFERASE 16 U/L (15-37); BILIRUBIN,TOTAL 0.7 MG/DL (0.2-1.0); BLOOD UREA NITROGEN 12 mg/dL (7-18); CALCIUM 9.2 MG/DL (8.5-10.1); CARBON DIOXIDE 22 MMOL/L (21-32); CHLORIDE 113 MMOL/L (98-107); CREATININE 0.9 MG/DL (0.55-1.30); PHOSPHORUS 2.2 MG/DL (2.5-4.9); POTASSIUM 3.8 MMOL/L (3.5-5.1); SODIUM 145 MMOL/L (136-145)
[2019-09-25] MEDS ORDERED: Milk of Magnesia 30ml Ud ORAL SCH (09:00)
--- NOTE | 2019-09-25 10:06 | General Progress Note ---
Assessment/Plan Problem List: (1) Decubital ulcer ICD Codes: L89.90 - Pressure ulcer of unspecified site, unspecified stage SNOMED: 762102523 (2) Atrial fibrillation with RVR ICD Codes: I48.91 - Unspecified atrial fibrillation SNOMED: 251330572042931 (3) Colostomy in place ICD Codes: Z93.3 - Colostomy status SNOMED: 262454895, 882749053 (4) Electrolyte imbalance ICD Codes: E87.8 - Other disorders of electrolyte and fluid balance, not elsewhere classified SNOMED: 885194886 (5) Dehydration ICD Codes: E86.0 - Dehydration SNOMED: 08646562 (6) HTN (hypertension) ICD Codes: I10 - Essential (primary) hypertension SNOMED: 16354977 (7) Anemia ICD Codes: D64.9 - Anemia, unspecified SNOMED: 157173480 Status: stable, progressing Assessment/Plan: passed swallow eval on diet, but poor po intake fu labs will monitor Subjective ROS Limited/Unobtainable: No Allergies: Coded Allergies: PROCHLORPERAZINE (Verified Allergy, Unknown, 08/10/17) Objective Last 24 Hour Vital Signs Date Time Temp Pulse Resp B/P (MAP) Pulse Ox O2 Delivery O2 Flow Rate FiO2 09/25/19 09:30 98 18 108/67 (81) 98 09/25/19 09:00 105 18 109/70 (83) 97 09/25/19 08:30 98 20 106/68 (81) 99 09/25/19 08:00 98.5 99 20 109/68 (82) 98 09/25/19 08:00 106 09/25/19 08:00 Nasal Cannula 1.0 09/25/19 07:45 Nasal Cannula 2.0 28 09/25/19 07:45 100 Nasal Cannula 2.0 28 09/25/19 07:30 99 18 102/65 (77) 99 09/25/19 07:00 104 19 107/66 (80) 100 09/25/19 06:30 104 18 103/68 (80) 100 09/25/19 06:00 98 26 104/67 (79) 98 09/25/19 05:30 98 26 105/69 (81) 98 09/25/19 05:29 99 104/67 09/25/19 05:00 98 26 104/69 (81) 98 620 04:30 98.6 98 26 109/69 (82) 98 6 04:00 98 26 104/67 (79) 98 620 04:00 100 09/25/19 04:00 Nasal Cannula 1.0 09/25/19 03:30 101 26 104/65 (78) 98 620 03:00 103 28 106/66 (79) 98 09/25/19 02:30 105 26 103/64 (77) 98 09/25/19 02:00 97 26 99/58 (72) 100 09/25/19 01:30 98 26 93/58 (70) 100 09/25/19 01:00 95 27 97/56 (70) 100 09/25/19 00:30 97 25 94/64 (74) 100 09/25/19 00:15 97 27 94/56 (69) 100 09/25/19 00:00 98.4 99 26 95/58 (70) 99 09/25/19 00:00 Nasal Cannula 1.0 09/24/19 23:49 94 100/64 09/24/19 23:30 99 24 98/59 (72) 100 09/24/19 22:00 104 16 104/70 (81) 99 09/24/19 21:30 103 15 106/67 (80) 99 09/24/19 21:00 109 15 107/69 (82) 99 09/24/19 20:35 100 Nasal Cannula 2.0 28 09/24/19 20:30 103 19 105/65 (78) 99 20 20:00 Nasal Cannula 1.0 09/24/19 20:00 98.6 103 18 106/60 (75) 99 20 19:30 98 23 105/64 (78) 100 20 19:00 94 24 102/64 (77) 100 20 19:00 97 16 98/67 (77) 100 09/24/19 18:30 98.8 99 21 109/58 (75) 99 09/24/19 18:08 94 98/67 620 18:00 97 16 98/67 (77) 100 20 17:30 93 20 99/62 (74) 100 09/24/19 17:00 99 16 95/58 (70) 100 09/24/19 16:30 107 19 94/58 (70) 100 09/24/19 16:00 99 17 104/68 (80) 100 09/24/19 16:00 Nasal Cannula 1.0 09/24/19 15:30 96 21 104/64 (77) 100 09/24/19 15:00 96 23 98/64 (75) 100 09/24/19 14:30 98 21 104/61 (75) 100 09/24/19 14:00 105 21 102/69 (80) 99 09/24/19 13:30 102 20 102/62 (75) 100 09/24/19 13:00 95 20 101/60 (74) 100 09/24/19 12:53 102 20 100 Nasal Cannula 2.0 28 96 20 100 09/24/19 12:30 99.0 97 21 96/68 (77) 100 09/24/19 12:00 Nasal Cannula 1.0 09/24/19 12:00 96 21 98/57 (71) 100 09/24/19 11:30 95 24 99/61 (74) 100 09/24/19 11:00 103 18 101/58 (72) 100 09/24/19 10:30 94 20 90/55 (67) 100 Intake and Output 09/24/19 09/25/19 19:00 07:00 Intake Total 1694.720 ml 1172.5 ml Output Total 445 ml 490 ml Balance 1249.720 ml 682.5 ml Intake Oral 20 ml 210 ml IV Total 1674.720 ml 962.5 ml Output Urine Total 445 ml 490 ml Other 0 ml 0 ml Laboratory Tests 09/25/19 03:55: White Blood Count 18.6H, Red Blood Count 3.57L, Hemoglobin 9.5L, Hematocrit 28.9L, Mean Corpuscular Volume 81, Mean Corpuscular Hemoglobin 26.7L, Mean Corpuscular Hemoglobin Concent 32.9, Red Cell Distribution Width 14.0, Platelet Count 287, Mean Platelet Volume 4.9L, Neutrophils (%) (Auto) , Lymphocytes (%) ( Auto) , Monocytes (%) (Auto) , Eosinophils (%) (Auto) , Basophils (%) (Auto) , Differential Total Cells Counted 100, Neutrophils % (Manual) 83H, Lymphocytes % (Manual) 14L, Monocytes % (Manual) 2, Eosinophils % (Manual) 1, Basophils % ( Manual) 0, Band Neutrophils 0, Platelet Estimate Adequate, Platelet Morphology Normal, Hypochromasia 1+, Anisocytosis 1+, Michelle Cells Occasional, Sodium Level 145, Potassium Level 3.8, Chloride Level 113H, Carbon Dioxide Level 22, Anion Gap 10, Blood Urea Nitrogen 12, Creatinine 0.9, Estimat Glomerular Filtration Rate > 60, Glucose Level 127H, Calcium Level 9.2, Phosphorus Level 2.2L, Magnesium Level 2.0, Total Bilirubin 0.7, Aspartate Amino Transf (AST/SGOT) 16, Alanine Aminotransferase (ALT/SGPT) 14, Alkaline Phosphatase 87, C-Reactive Protein, Quantitative 17.6H, Pro-B-Type Natriuretic Peptide 1921H, Total Protein 6.9, Albumin 2.4L, Globulin 4.5, Albumin/Globulin Ratio 0.5L Height (Feet): 5 Height (Inches): 8.00 Weight (Pounds): 220 General Appearance: no apparent distress EENT: PERRL/EOMI Neck: normal alignment Cardiovascular: normal rate Respiratory/Chest: decreased breath sounds Abdomen: normal bowel sounds, non tender, soft Extremities: non-tender Jose Peter MD Sep 25, 2019 10:06
--- NOTE | 2019-09-25 10:59 | Cardiac Electrophysiology PN ---
Assessment/Plan Assessment/Plan 1. Recurrent SVT/atrial fibrillation with rapid ventricular response. Already ruled out for myocardial infarction. On Cardizem 60 po q 6hr Change to 90 q 8 2. Sepsis. White count of 20,000. on IV antibiotic. 3. Stage IV colon cancer. Further evaluation by Dr. Hobson. Patient is status post colectomy and colostomy, was on hospice care before, and currently hold off any further chemo per Dr. Hobson. 4. Failure to thrive. 5. Hypotension. Resolved 6. Urine tract infection, on ceftriaxone. Subjective Subjective Passed swallow eval on Cardizem po in SR in SDU Objective Last 24 Hour Vital Signs Date Time Temp Pulse Resp B/P (MAP) Pulse Ox O2 Delivery O2 Flow Rate FiO2 09/25/19 09:30 98 18 108/67 (81) 98 09/25/19 09:00 105 18 109/70 (83) 97 09/25/19 08:30 98 20 106/68 (81) 99 09/25/19 08:00 98.5 99 20 109/68 (82) 98 09/25/19 08:00 106 09/25/19 08:00 Nasal Cannula 1.0 09/25/19 07:45 Nasal Cannula 2.0 28 09/25/19 07:45 100 Nasal Cannula 2.0 28 09/25/19 07:30 99 18 102/65 (77) 99 09/25/19 07:00 104 19 107/66 (80) 100 09/25/19 06:30 104 18 103/68 (80) 100 09/25/19 06:00 98 26 104/67 (79) 98 09/25/19 05:30 98 26 105/69 (81) 98 09/25/19 05:29 99 104/67 09/25/19 05:00 98 26 104/69 (81) 98 09/25/19 04:30 98.6 98 26 109/69 (82) 98 09/25/19 04:00 98 26 104/67 (79) 98 09/25/19 04:00 100 09/25/19 04:00 Nasal Cannula 1.0 09/25/19 03:30 101 26 104/65 (78) 98 09/25/19 03:00 103 28 106/66 (79) 98 09/25/19 02:30 105 26 103/64 (77) 98 09/25/19 02:00 97 26 99/58 (72) 100 09/25/19 01:30 98 26 93/58 (70) 100 09/25/19 01:00 95 27 97/56 (70) 100 09/25/19 00:30 97 25 94/64 (74) 100 09/25/19 00:15 97 27 94/56 (69) 100 09/25/19 00:00 98.4 99 26 95/58 (70) 99 09/25/19 00:00 Nasal Cannula 1.0 09/24/19 23:49 94 100/64 09/24/19 23:30 99 24 98/59 (72) 100 09/24/19 22:00 104 16 104/70 (81) 99 09/24/19 21:30 103 15 106/67 (80) 99 09/24/19 21:00 109 15 107/69 (82) 99 09/24/19 20:35 100 Nasal Cannula 2.0 28 09/24/19 20:30 103 19 105/65 (78) 99 09/24/19 20:00 Nasal Cannula 1.0 09/24/19 20:00 98.6 103 18 106/60 (75) 99 09/24/19 19:30 98 23 105/64 (78) 100 09/24/19 19:00 94 24 102/64 (77) 100 09/24/19 19:00 97 16 98/67 (77) 100 09/24/19 18:30 98.8 99 21 109/58 (75) 99 09/24/19 18:08 94 98/67 09/24/19 18:00 97 16 98/67 (77) 100 09/24/19 17:30 93 20 99/62 (74) 100 09/24/19 17:00 99 16 95/58 (70) 100 09/24/19 16:30 107 19 94/58 (70) 100 09/24/19 16:00 99 17 104/68 (80) 100 09/24/19 16:00 Nasal Cannula 1.0 09/24/19 15:30 96 21 104/64 (77) 100 09/24/19 15:00 96 23 98/64 (75) 100 09/24/19 14:30 98 21 104/61 (75) 100 09/24/19 14:00 105 21 102/69 (80) 99 09/24/19 13:30 102 20 102/62 (75) 100 09/24/19 13:00 95 20 101/60 (74) 100 09/24/19 12:53 102 20 100 Nasal Cannula 2.0 28 96 20 100 09/24/19 12:30 99.0 97 21 96/68 (77) 100 09/24/19 12:00 Nasal Cannula 1.0 09/24/19 12:00 96 21 98/57 (71) 100 09/24/19 11:30 95 24 99/61 (74) 100 09/24/19 11:00 103 18 101/58 (72) 100 Intake and Output 09/24/19 09/25/19 19:00 07:00 Intake Total 1694.720 ml 1172.5 ml Output Total 445 ml 490 ml Balance 1249.720 ml 682.5 ml Intake Oral 20 ml 210 ml IV Total 1674.720 ml 962.5 ml Output Urine Total 445 ml 490 ml Other 0 ml 0 ml Laboratory Tests Test 09/25/19 03:55 White Blood Count 18.6 K/UL (4.8-10.8) H Red Blood Count 3.57 M/UL (4.20-5.40) L Hemoglobin 9.5 G/DL (12.0-16.0) L Hematocrit 28.9 % (37.0-47.0) L Mean Corpuscular Volume 81 FL (80-99) Mean Corpuscular Hemoglobin 26.7 PG (27.0-31.0) L Mean Corpuscular Hemoglobin Concent 32.9 G/DL (32.0-36.0) Red Cell Distribution Width 14.0 % (11.6-14.8) Platelet Count 287 K/UL (150-450) Mean Platelet Volume 4.9 FL (6.5-10.1) L Neutrophils (%) (Auto) % (45.0-75.0) Lymphocytes (%) (Auto) % (20.0-45.0) Monocytes (%) (Auto) % (1.0-10.0) Eosinophils (%) (Auto) % (0.0-3.0) Basophils (%) (Auto) % (0.0-2.0) Differential Total Cells Counted 100 Neutrophils % (Manual) 83 % (45-75) H Lymphocytes % (Manual) 14 % (20-45) L Monocytes % (Manual) 2 % (1-10) Eosinophils % (Manual) 1 % (0-3) Basophils % (Manual) 0 % (0-2) Band Neutrophils 0 % (0-8) Platelet Estimate Adequate Platelet Morphology Normal Hypochromasia 1+ Anisocytosis 1+ [place] Cells Occasional Sodium Level 145 MMOL/L (136-145) Potassium Level 3.8 MMOL/L (3.5-5.1) Chloride Level 113 MMOL/L (98-107) H Carbon Dioxide Level 22 MMOL/L (21-32) Anion Gap 10 mmol/L (5-15) Blood Urea Nitrogen 12 mg/dL (7-18) Creatinine 0.9 MG/DL (0.55-1.30) Estimat Glomerular Filtration Rate > 60 mL/min (>60) Glucose Level 127 MG/DL (74-106) H Calcium Level 9.2 MG/DL (8.5-10.1) Phosphorus Level 2.2 MG/DL (2.5-4.9) L Magnesium Level 2.0 MG/DL (1.8-2.4) Total Bilirubin 0.7 MG/DL (0.2-1.0) Aspartate Amino Transf (AST/SGOT) 16 U/L (15-37) Alanine Aminotransferase (ALT/SGPT) 14 U/L (12-78) Alkaline Phosphatase 87 U/L (46-116) C-Reactive Protein, Quantitative 17.6 mg/dL (0.00-0.90) H Pro-B-Type Natriuretic Peptide 1921 pg/mL (0-125) H Total Protein 6.9 G/DL (6.4-8.2) Albumin 2.4 G/DL (3.4-5.0) L Globulin 4.5 g/dL Albumin/Globulin Ratio 0.5 (1.0-2.7) L Microbiology Date/Time Source Procedure Growth Status 09/22/19 12:10 Blood Blood Culture - Preliminary NO GROWTH AFTER 48 HOURS Resulted 09/22/19 12:10 Blood Blood Culture - Preliminary NO GROWTH AFTER 48 HOURS Resulted 09/24/19 14:15 Nasopharynx Coronavirus COVID-19 PCR ([facility]) - Final Complete 09/22/19 15:18 Nasal Nares MRSA Culture - Final NO METHICILLIN RESISTANT STAPH AUREUS... Complete 09/22/19 12:50 Urine,Clean Catch Urine Culture - Final Mixed Urogenital Contaminants Complete 09/22/19 15:18 Rectum VRE Culture - Final NO VANCOMYCIN RESISTANT ENTEROCOCCUS ... Complete Objective HEAD AND NECK: Shows no JVD. LUNGS: Coarse rhonchi. CARDIOVASCULAR: Shows regular. Tachycardic. S1 and S2 with no gallop or murmur. ABDOMEN: Soft, obese. Has colostomy. EXTREMITIES: 1+ pitting edema. Hmoar Capps MD Sep 25, 2019 10:59
--- NOTE | 2019-09-25 11:08 | Infectious Diseases Prog Note ---
Assessment/Plan Assessment/Plan antibiotics : zosyn A 1. UTI 2. r/o COVID 19 pneumonia test negative x 1 3. hypertension 4. asthma P 1. continue zosyn 2. will follow up cultures 3. continue isolation 4. repeat COVID 19 test Subjective ROS Limited/Unobtainable: Yes Allergies: Coded Allergies: PROCHLORPERAZINE (Verified Allergy, Unknown, 08/10/17) Objective Vital Signs Last 24 Hour Vital Signs Date Time Temp Pulse Resp B/P (MAP) Pulse Ox O2 Delivery O2 Flow Rate FiO2 09/25/19 10:56 97.9 89 20 103/73 (83) 100 09/25/19 09:30 98 18 108/67 (81) 98 09/25/19 09:00 105 18 109/70 (83) 97 09/25/19 08:30 98 20 106/68 (81) 99 09/25/19 08:00 98.5 99 20 109/68 (82) 98 09/25/19 08:00 106 09/25/19 08:00 Nasal Cannula 1.0 09/25/19 07:45 Nasal Cannula 2.0 28 09/25/19 07:45 100 Nasal Cannula 2.0 28 09/25/19 07:30 99 18 102/65 (77) 99 09/25/19 07:00 104 19 107/66 (80) 100 09/25/19 06:30 104 18 103/68 (80) 100 09/25/19 06:00 98 26 104/67 (79) 98 09/25/19 05:30 98 26 105/69 (81) 98 09/25/19 05:29 99 104/67 09/25/19 05:00 98 26 104/69 (81) 98 09/25/19 04:30 98.6 98 26 109/69 (82) 98 09/25/19 04:00 98 26 104/67 (79) 98 09/25/19 04:00 100 09/25/19 04:00 Nasal Cannula 1.0 09/25/19 03:30 101 26 104/65 (78) 98 09/25/19 03:00 103 28 106/66 (79) 98 09/25/19 02:30 105 26 103/64 (77) 98 09/25/19 02:00 97 26 99/58 (72) 100 09/25/19 01:30 98 26 93/58 (70) 100 09/25/19 01:00 95 27 97/56 (70) 100 09/25/19 00:30 97 25 94/64 (74) 100 09/25/19 00:15 97 27 94/56 (69) 100 09/25/19 00:00 98.4 99 26 95/58 (70) 99 09/25/19 00:00 Nasal Cannula 1.0 09/24/19 23:49 94 100/64 09/24/19 23:30 99 24 98/59 (72) 100 09/24/19 22:00 104 16 104/70 (81) 99 09/24/19 21:30 103 15 106/67 (80) 99 09/24/19 21:00 109 15 107/69 (82) 99 09/24/19 20:35 100 Nasal Cannula 2.0 28 09/24/19 20:30 103 19 105/65 (78) 99 09/24/19 20:00 Nasal Cannula 1.0 09/24/19 20:00 98.6 103 18 106/60 (75) 99 09/24/19 19:30 98 23 105/64 (78) 100 09/24/19 19:00 94 24 102/64 (77) 100 09/24/19 19:00 97 16 98/67 (77) 100 09/24/19 18:30 98.8 99 21 109/58 (75) 99 09/24/19 18:08 94 98/67 09/24/19 18:00 97 16 98/67 (77) 100 09/24/19 17:30 93 20 99/62 (74) 100 09/24/19 17:00 99 16 95/58 (70) 100 09/24/19 16:30 107 19 94/58 (70) 100 09/24/19 16:00 99 17 104/68 (80) 100 09/24/19 16:00 Nasal Cannula 1.0 09/24/19 15:30 96 21 104/64 (77) 100 09/24/19 15:00 96 23 98/64 (75) 100 09/24/19 14:30 98 21 104/61 (75) 100 09/24/19 14:00 105 21 102/69 (80) 99 09/24/19 13:30 102 20 102/62 (75) 100 09/24/19 13:00 95 20 101/60 (74) 100 09/24/19 12:53 102 20 100 Nasal Cannula 2.0 28 96 20 100 09/24/19 12:30 99.0 97 21 96/68 (77) 100 09/24/19 12:00 Nasal Cannula 1.0 09/24/19 12:00 96 21 98/57 (71) 100 09/24/19 11:30 95 24 99/61 (74) 100 Height (Feet): 5 Height (Inches): 8.00 Weight (Pounds): 220 Microbiology Date/Time Source Procedure Growth Status 09/22/19 12:10 Blood Blood Culture - Preliminary NO GROWTH AFTER 48 HOURS Resulted 09/22/19 12:10 Blood Blood Culture - Preliminary NO GROWTH AFTER 48 HOURS Resulted 09/24/19 14:15 Nasopharynx Coronavirus COVID-19 PCR ([facility]) - Final Complete 09/22/19 15:18 Nasal Nares MRSA Culture - Final NO METHICILLIN RESISTANT STAPH AUREUS... Complete 09/22/19 12:50 Urine,Clean Catch Urine Culture - Final Mixed Urogenital Contaminants Complete 09/22/19 15:18 Rectum VRE Culture - Final NO VANCOMYCIN RESISTANT ENTEROCOCCUS ... Complete Laboratory Tests Test 09/25/19 03:55 White Blood Count 18.6 K/UL (4.8-10.8) H Red Blood Count 3.57 M/UL (4.20-5.40) L Hemoglobin 9.5 G/DL (12.0-16.0) L Hematocrit 28.9 % (37.0-47.0) L Mean Corpuscular Volume 81 FL (80-99) Mean Corpuscular Hemoglobin 26.7 PG (27.0-31.0) L Mean Corpuscular Hemoglobin Concent 32.9 G/DL (32.0-36.0) Red Cell Distribution Width 14.0 % (11.6-14.8) Platelet Count 287 K/UL (150-450) Mean Platelet Volume 4.9 FL (6.5-10.1) L Neutrophils (%) (Auto) % (45.0-75.0) Lymphocytes (%) (Auto) % (20.0-45.0) Monocytes (%) (Auto) % (1.0-10.0) Eosinophils (%) (Auto) % (0.0-3.0) Basophils (%) (Auto) % (0.0-2.0) Differential Total Cells Counted 100 Neutrophils % (Manual) 83 % (45-75) H Lymphocytes % (Manual) 14 % (20-45) L Monocytes % (Manual) 2 % (1-10) Eosinophils % (Manual) 1 % (0-3) Basophils % (Manual) 0 % (0-2) Band Neutrophils 0 % (0-8) Platelet Estimate Adequate Platelet Morphology Normal Hypochromasia 1+ Anisocytosis 1+ [place] Cells Occasional Sodium Level 145 MMOL/L (136-145) Potassium Level 3.8 MMOL/L (3.5-5.1) Chloride Level 113 MMOL/L (98-107) H Carbon Dioxide Level 22 MMOL/L (21-32) Anion Gap 10 mmol/L (5-15) Blood Urea Nitrogen 12 mg/dL (7-18) Creatinine 0.9 MG/DL (0.55-1.30) Estimat Glomerular Filtration Rate > 60 mL/min (>60) Glucose Level 127 MG/DL (74-106) H Calcium Level 9.2 MG/DL (8.5-10.1) Phosphorus Level 2.2 MG/DL (2.5-4.9) L Magnesium Level 2.0 MG/DL (1.8-2.4) Total Bilirubin 0.7 MG/DL (0.2-1.0) Aspartate Amino Transf (AST/SGOT) 16 U/L (15-37) Alanine Aminotransferase (ALT/SGPT) 14 U/L (12-78) Alkaline Phosphatase 87 U/L (46-116) C-Reactive Protein, Quantitative 17.6 mg/dL (0.00-0.90) H Pro-B-Type Natriuretic Peptide 1921 pg/mL (0-125) H Total Protein 6.9 G/DL (6.4-8.2) Albumin 2.4 G/DL (3.4-5.0) L Globulin 4.5 g/dL Albumin/Globulin Ratio 0.5 (1.0-2.7) L Current Medications Medications (Trade) Dose Ordered Sig/Radha Route PRN Reason Start Time Stop Time Status Last Admin Dose Admin Acetaminophen/ Hydrocodone Bitart ([place] 7.5/325) 1 tab Q6H PRN ORAL severe pain 09/22/19 19:30 09/29/19 19:14 Dextrose/ Electrolytes 1,000 ml @ 75 mls/hr [id number] IV 09/23/19 14:00 10/23/19 13:59 09/25/19 05:28 Diltiazem HCl (Cardizem) 90 mg EVERY 8 HOURS ORAL 09/25/19 14:00 10/24/19 17:59 Enoxaparin Sodium (Lovenox) 40 mg DAILY SUBQ 09/23/19 09:00 12/22/19 08:59 09/25/19 08:11 Lorazepam (Ativan) 0.5 mg TIDPRN PRN ORAL For Anxiety 09/25/19 07:45 10/02/19 07:44 Magnesium Hydroxide (Mom) 30 ml DAILY ORAL 09/25/19 09:00 10/23/19 08:59 09/25/19 08:10 Morphine Sulfate (Morphine Sulfate) 2 mg Q4H PRN IVP For Pain 09/22/19 19:15 09/29/19 19:14 Multivitamins (Multivitamins) 1 tab DAILY ORAL 09/23/19 09:00 10/23/19 08:59 09/25/19 08:10 Pantoprazole (Protonix) 40 mg EVERY 12 HOURS ORAL 09/24/19 21:00 10/24/19 20:59 09/25/19 08:10 Piperacillin Sod/ Tazobactam Sod 3.375 gm/Sodium Chloride 110 ml @ 27.5 mls/hr EVERY 8 HOURS IVPB 09/23/19 14:00 09/28/19 13:59 09/25/19 05:28 Tramadol HCl (Ultram) 50 mg Q6H PRN ORAL moderate pain 09/22/19 19:15 09/29/19 19:14 Zolpidem Tartrate (Ambien) 5 mg HSPRN PRN ORAL Insomnia 09/22/19 19:15 09/29/19 19:14 Concepcion Muro MD Sep 25, 2019 11:08
[2019-09-25] MEDS ORDERED: traMADol 50mg tab ORAL PRN (11:15)
--- NOTE | 2019-09-25 11:23 | Hematology/Onc Progress Note ---
Assessment/Plan Assessment/Plan Assessment and Recs # Colon cancer s/p colectomy with colostomy++ --> on hospice before dc --> hold off on further treatment # Anemia of chronic disease due to underlying chronic medical issues, multifactorial v Gi bleed --> Anemia workup has been ordered, rule out gi bleed --> No evidence of hemolysis is noted, peripheral smear has been reviewed. --> Hgb goal >7. Transfuse prn. --> Epogen or iron at this time is not particularly indicated --> Medications have been reviewed --> low threshold for gi evaluation in case has occult + --> hgb trend 9.1-->9.5 # Leukocytosis/elevated white blood cell count, unspecified likely related to underlying stress reaction, smoking v more likely infection --> have reviewed peripheral smear and bandemia/neutrophilia noted --> continue antibiotics if they have been started by ID team --> monitor for resolution --> wbc 18-->20->16-->17 --> abx sa needed # Altered level of consciousness --> r/o underlying infection, ?metabolic # UTI (urinary tract infection) -> abx # Failure to thrive --> on fluids # Hypotension, tachycardia # Toxic metabolic encephalopathy The timing of this note does not necessarily reflect the time of the patient was seen. Greatly appreciate consultation. Subjective HEENT: Denies: no symptoms, eye pain, blurred vision, tearing, double vision, ear pain, ear discharge, nose pain, nose congestion, throat pain, throat swelling, mouth pain, mouth swelling, other Cardiovascular: Denies: no symptoms, chest pain, edema, irregular heart rate, lightheadedness, palpitations, syncope, other Respiratory: Denies: no symptoms, cough, shortness of breath, SOB with excertion, SOB at rest, sputum, wheezing, other Gastrointestinal/Abdominal: Denies: no symptoms, abdomen distended, abdominal pain, black stools, tarry stools, blood in stool, constipated, diarrhea, difficulty swallowing, nausea, poor appetite, poor fluid intake, rectal bleeding , vomiting, other Neurologic/Psychiatric: Denies: no symptoms, anxiety, depressed, emotional problems, headache, numbness, paresthesia, pre-existing deficit, seizure, tingling, tremors, weakness, other Endocrine: Denies: no symptoms, excessive sweating, flushing, intolerance to cold, intolerance to heat, increased hunger, increased thirst, increased urine, unexplained weight gain, unexplained weight loss, other Hematologic/Lymphatic: Denies: no symptoms, anemia, easy bleeding, easy bruising, adenopathy, other Allergies: Coded Allergies: PROCHLORPERAZINE (Verified Allergy, Unknown, 08/10/17) Subjective 09/23 remains confused, hgb 9.1, no hemolysis is seen, no bleeding, meds noted 09/24 labre noted, no bleeding, meds reviewed, no night sweats Objective Objective Current Medications Medications (Trade) Dose Ordered Sig/Radha Route PRN Reason Start Time Stop Time Status Last Admin Dose Admin Acetaminophen/ Hydrocodone Bitart (Adrian 7.5/325) 1 tab Q6H PRN ORAL severe pain 09/25/19 13:30 09/29/19 19:14 Dextrose/ Electrolytes 1,000 ml @ 75 mls/hr [id number] IV 09/25/19 11:15 10/23/19 13:59 Diltiazem HCl (Cardizem) 90 mg EVERY 8 HOURS ORAL 09/25/19 14:00 10/24/19 17:59 Enoxaparin Sodium (Lovenox) 40 mg DAILY SUBQ 09/26/19 09:00 12/22/19 08:59 Lorazepam (Ativan) 0.5 mg TIDPRN PRN ORAL For Anxiety 09/26/19 07:45 10/02/19 07:44 Magnesium Hydroxide (Mom) 30 ml DAILY ORAL 09/26/19 09:00 10/23/19 08:59 Morphine Sulfate (Morphine Sulfate) 2 mg Q4H PRN IVP For Pain 09/25/19 11:15 09/29/19 19:14 Multivitamins (Multivitamins) 1 tab DAILY ORAL 09/26/19 09:00 10/23/19 08:59 Pantoprazole (Protonix) 40 mg EVERY 12 HOURS ORAL 09/25/19 21:00 10/24/19 20:59 Piperacillin Sod/ Tazobactam Sod 3.375 gm/Sodium Chloride 110 ml @ 27.5 mls/hr EVERY 8 HOURS IVPB 09/25/19 14:00 09/28/19 13:59 Tramadol HCl (Ultram) 50 mg Q6H PRN ORAL moderate pain 09/25/19 11:15 09/29/19 11:14 Zolpidem Tartrate (Ambien) 5 mg HSPRN PRN ORAL Insomnia 09/25/19 19:15 09/29/19 19:14 Last 24 Hour Vital Signs Date Time Temp Pulse Resp B/P (MAP) Pulse Ox O2 Delivery O2 Flow Rate FiO2 09/25/19 10:56 97.9 89 20 103/73 (83) 100 09/25/19 09:30 98 18 108/67 (81) 98 09/25/19 09:00 105 18 109/70 (83) 97 09/25/19 08:30 98 20 106/68 (81) 99 09/25/19 08:00 98.5 99 20 109/68 (82) 98 09/25/19 08:00 106 09/25/19 08:00 Nasal Cannula 1.0 09/25/19 07:45 Nasal Cannula 2.0 28 09/25/19 07:45 100 Nasal Cannula 2.0 28 09/25/19 07:30 99 18 102/65 (77) 99 09/25/19 07:00 104 19 107/66 (80) 100 09/25/19 06:30 104 18 103/68 (80) 100 09/25/19 06:00 98 26 104/67 (79) 98 09/25/19 05:30 98 26 105/69 (81) 98 09/25/19 05:29 99 104/67 09/25/19 05:00 98 26 104/69 (81) 98 09/25/19 04:30 98.6 98 26 109/69 (82) 98 09/25/19 04:00 98 26 104/67 (79) 98 09/25/19 04:00 100 09/25/19 04:00 Nasal Cannula 1.0 09/25/19 03:30 101 26 104/65 (78) 98 09/25/19 03:00 103 28 106/66 (79) 98 09/25/19 02:30 105 26 103/64 (77) 98 09/25/19 02:00 97 26 99/58 (72) 100 09/25/19 01:30 98 26 93/58 (70) 100 09/25/19 01:00 95 27 97/56 (70) 100 09/25/19 00:30 97 25 94/64 (74) 100 09/25/19 00:15 97 27 94/56 (69) 100 09/25/19 00:00 98.4 99 26 95/58 (70) 99 09/25/19 00:00 Nasal Cannula 1.0 09/24/19 23:49 94 100/64 09/24/19 23:30 99 24 98/59 (72) 100 09/24/19 22:00 104 16 104/70 (81) 99 09/24/19 21:30 103 15 106/67 (80) 99 09/24/19 21:00 109 15 107/69 (82) 99 09/24/19 20:35 100 Nasal Cannula 2.0 28 09/24/19 20:30 103 19 105/65 (78) 99 09/24/19 20:00 Nasal Cannula 1.0 09/24/19 20:00 98.6 103 18 106/60 (75) 99 09/24/19 19:30 98 23 105/64 (78) 100 09/24/19 19:00 94 24 102/64 (77) 100 09/24/19 19:00 97 16 98/67 (77) 100 09/24/19 18:30 98.8 99 21 109/58 (75) 99 09/24/19 18:08 94 98/67 09/24/19 18:00 97 16 98/67 (77) 100 09/24/19 17:30 93 20 99/62 (74) 100 09/24/19 17:00 99 16 95/58 (70) 100 09/24/19 16:30 107 19 94/58 (70) 100 09/24/19 16:00 99 17 104/68 (80) 100 09/24/19 16:00 Nasal Cannula 1.0 09/24/19 15:30 96 21 104/64 (77) 100 09/24/19 15:00 96 23 98/64 (75) 100 09/24/19 14:30 98 21 104/61 (75) 100 09/24/19 14:00 105 21 102/69 (80) 99 09/24/19 13:30 102 20 102/62 (75) 100 09/24/19 13:00 95 20 101/60 (74) 100 09/24/19 12:53 102 20 100 Nasal Cannula 2.0 28 96 20 100 09/24/19 12:30 99.0 97 21 96/68 (77) 100 09/24/19 12:00 Nasal Cannula 1.0 09/24/19 12:00 96 21 98/57 (71) 100 09/24/19 11:30 95 24 99/61 (74) 100 09/24/19 11:00 103 18 101/58 (72) 100 09/24/19 10:30 94 20 90/55 (67) 100 09/24/19 10:00 94 27 93/51 (65) 100 09/24/19 09:30 96 21 93/58 (70) 100 09/24/19 09:00 106 14 94/64 (74) 99 09/24/19 08:30 92 22 92/55 (67) 100 09/24/19 08:09 98 09/24/19 08:01 100 Nasal Cannula 2.0 28 09/24/19 08:00 Nasal Cannula 1.0 09/24/19 08:00 98.8 94 25 94/66 (75) 100 09/24/19 08:00 100 20 100 Nasal Cannula 2.0 28 94 20 100 09/24/19 07:30 97 28 94/66 (75) 100 09/24/19 07:00 91 23 94/66 (75) 100 09/24/19 06:30 91 20 96/54 (68) 100 09/24/19 06:00 96 20 99/52 (68) 100 09/24/19 05:30 95 18 89/53 (65) 100 09/24/19 05:00 98 19 91/50 (64) 09/24/19 04:30 99 22 94/53 (67) 100 09/24/19 04:00 Nasal Cannula 1.0 09/24/19 04:00 98.4 97 8 87/53 (64) 100 09/24/19 03:30 94 20 84/48 (60) 100 09/24/19 03:00 88 23 86/46 (59) 100 09/24/19 02:30 103 7 85/57 (66) 100 09/24/19 02:00 98 17 86/54 (65) 100 09/24/19 01:30 92 23 82/55 (64) 100 09/24/19 01:00 94 14 84/47 (59) 100 09/24/19 00:30 99 16 81/47 (58) 100 09/24/19 00:00 98.8 98 19 80/43 (55) 100 09/24/19 00:00 Nasal Cannula 1.0 09/23/19 23:30 102 18 90/48 (62) 100 09/23/19 23:00 102 23 81/46 (58) 100 09/23/19 22:30 104 16 89/46 (60) 100 09/23/19 22:00 101 18 89/49 (62) 100 09/23/19 21:31 103 18 87/45 (59) 100 09/23/19 21:30 101 15 94/60 (71) 100 09/23/19 21:00 96 16 86/50 (62) 100 09/23/19 20:30 95 19 90/50 (63) 100 09/23/19 20:00 Nasal Cannula 1.0 09/23/19 20:00 98.6 94 19 88/45 (59) 100 09/23/19 20:00 100 Nasal Cannula 2.0 28 09/23/19 19:30 95 19 82/44 (57) 100 09/23/19 19:30 102 20 100 Nasal Cannula 2.0 28 100 20 98 09/23/19 19:22 97 16 89/48 (62) 100 09/23/19 19:06 99 19 84/47 (59) 100 09/23/19 19:00 99 15 86/49 (61) 100 09/23/19 18:30 99 15 87/48 (61) 100 09/23/19 18:00 97 16 92/48 (63) 100 09/23/19 17:30 100 19 90/47 (61) 100 09/23/19 17:00 96 18 90/47 (61) 100 09/23/19 16:30 99 17 88/51 (63) 100 09/23/19 16:00 Nasal Cannula 1.0 09/23/19 16:00 98.8 102 16 90/55 (67) 100 09/23/19 15:30 114 17 90/20 (43) 100 09/23/19 15:18 92 09/23/19 15:00 97 19 84/56 (65) 100 09/23/19 14:30 104 17 89/56 (67) 100 09/23/19 14:00 103 25 87/49 (62) 99 09/23/19 13:30 105 27 82/51 (61) 100 09/23/19 13:03 120 25 100 Nasal Cannula 3.0 32 100 23 100 09/23/19 13:00 111 13 97/59 (72) 100 09/23/19 12:30 108 18 99/52 (68) 100 09/23/19 12:00 114 14 91/56 (68) 100 09/23/19 12:00 Nasal Cannula 1.0 09/23/19 11:51 110 09/23/19 11:30 107 26 89/56 (67) 99 Intake and Output 09/24/19 09/25/19 19:00 07:00 Intake Total 1694.720 ml 1172.5 ml Output Total 445 ml 490 ml Balance 1249.720 ml 682.5 ml Intake Oral 20 ml 210 ml IV Total 1674.720 ml 962.5 ml Output Urine Total 445 ml 490 ml Other 0 ml 0 ml Labs Test 09/22/19 12:10 09/22/19 12:50 09/22/19 20:00 09/23/19 04:00 White Blood Count 18.8 K/UL (4.8-10.8) Red Blood Count 4.46 M/UL (4.20-5.40) Hemoglobin 11.6 G/DL (12.0-16.0) Hematocrit 36.6 % (37.0-47.0) Mean Corpuscular Volume 82 FL (80-99) Mean Corpuscular Hemoglobin 26.1 PG (27.0-31.0) Mean Corpuscular Hemoglobin Concent 31.8 G/DL (32.0-36.0) Red Cell Distribution Width 14.1 % (11.6-14.8) Platelet Count 287 K/UL (150-450) Mean Platelet Volume 4.3 FL (6.5-10.1) Neutrophils (%) (Auto) % (45.0-75.0) Lymphocytes (%) (Auto) % (20.0-45.0) Monocytes (%) (Auto) % (1.0-10.0) Eosinophils (%) (Auto) % (0.0-3.0) Basophils (%) (Auto) % (0.0-2.0) Differential Total Cells Counted 100 Neutrophils % (Manual) 88 % (45-75) Lymphocytes % (Manual) 9 % (20-45) Monocytes % (Manual) 3 % (1-10) Eosinophils % (Manual) 0 % (0-3) Basophils % (Manual) 0 % (0-2) Band Neutrophils 0 % (0-8) Platelet Estimate Adequate Platelet Morphology Normal Hypochromasia 1+ Anisocytosis 1+ Prothrombin Time 14.8 SEC (9.30-11.50) Prothromb Time International Ratio 1.4 (0.9-1.1) Activated Partial Thromboplast Time 26 SEC (23-33) Sodium Level 141 MMOL/L (136-145) 146 MMOL/L (136-145) Potassium Level 4.4 MMOL/L (3.5-5.1) 3.3 MMOL/L (3.5-5.1) Chloride Level 103 MMOL/L (98-107) 111 MMOL/L (98-107) Carbon Dioxide Level 25 MMOL/L (21-32) 21 MMOL/L (21-32) Anion Gap 13 mmol/L (5-15) 14 mmol/L (5-15) Blood Urea Nitrogen 39 mg/dL (7-18) 32 mg/dL (7-18) Creatinine 1.6 MG/DL (0.55-1.30) 1.0 MG/DL (0.55-1.30) Estimat Glomerular Filtration Rate 38.3 mL/min (>60) > 60 mL/min (>60) Glucose Level 104 MG/DL (74-106) 112 MG/DL (74-106) Lactic Acid Level 1.60 mmol/L (0.4-2.0) Calcium Level 9.8 MG/DL (8.5-10.1) 8.6 MG/DL (8.5-10.1) Magnesium Level 2.2 MG/DL (1.8-2.4) Total Bilirubin 0.8 MG/DL (0.2-1.0) Aspartate Amino Transf (AST/SGOT) 29 U/L (15-37) Alanine Aminotransferase (ALT/SGPT) 14 U/L (12-78) Alkaline Phosphatase 114 U/L (46-116) Total Creatine Kinase 156 U/L (26-308) Creatine Kinase MB 1.7 NG/ML (0.0-3.6) Creatine Kinase MB Relative Index 1.0 Troponin I 0.000 ng/mL (0.000-0.056) 0.000 ng/mL (0.000-0.056) 0.000 ng/mL (0.000-0.056) Total Protein 8.1 G/DL (6.4-8.2) Albumin 2.1 G/DL (3.4-5.0) Globulin 6.0 g/dL Albumin/Globulin Ratio 0.3 (1.0-2.7) Urine Color Brown Urine Appearance Slightly cloudy Urine pH 5 (4.5-8.0) Urine Specific [place] 1.025 (1.005-1.035) Urine Protein 2+ (NEGATIVE) Urine Glucose (UA) Negative (NEGATIVE) Urine Ketones 2+ (NEGATIVE) Urine Blood 5+ (NEGATIVE) Urine Nitrite Positive (NEGATIVE) Urine Bilirubin 2+ (NEGATIVE) Urine Ictotest Negative (NEGATIVE) Urine Urobilinogen 4 MG/DL (0.0-1.0) Urine Leukocyte Esterase 3+ (NEGATIVE) Urine RBC 5-10 /HPF (0 - 2) Urine WBC 60-80 /HPF (0 - 2) Urine Squamous Epithelial Cells Few /LPF (NONE/OCC) Urine Bacteria Moderate /HPF (NONE) Test 09/23/19 11:55 09/24/19 04:20 09/25/19 03:55 White Blood Count 20.4 K/UL (4.8-10.8) 15.6 K/UL (4.8-10.8) 18.6 K/UL (4.8-10.8) Red Blood Count 3.62 M/UL (4.20-5.40) 3.36 M/UL (4.20-5.40) 3.57 M/UL (4.20-5.40) Hemoglobin 9.5 G/DL (12.0-16.0) 9.1 G/DL (12.0-16.0) 9.5 G/DL (12.0-16.0) Hematocrit 29.6 % (37.0-47.0) 27.3 % (37.0-47.0) 28.9 % (37.0-47.0) Mean Corpuscular Volume 82 FL (80-99) 81 FL (80-99) 81 FL (80-99) Mean Corpuscular Hemoglobin 26.3 PG (27.0-31.0) 27.0 PG (27.0-31.0) 26.7 PG (27.0-31.0) Mean Corpuscular Hemoglobin Concent 32.2 G/DL (32.0-36.0) 33.2 G/DL (32.0-36.0) 32.9 G/DL (32.0-36.0) Red Cell Distribution Width 14.0 % (11.6-14.8) 14.1 % (11.6-14.8) 14.0 % (11.6-14.8) Platelet Count 390 K/UL (150-450) 274 K/UL (150-450) 287 K/UL (150-450) Mean Platelet Volume 5.1 FL (6.5-10.1) 4.9 FL (6.5-10.1) 4.9 FL (6.5-10.1) Neutrophils (%) (Auto) % (45.0-75.0) 81.2 % (45.0-75.0) % (45.0-75.0) Lymphocytes (%) (Auto) % (20.0-45.0) 9.9 % (20.0-45.0) % (20.0-45.0) Monocytes (%) (Auto) % (1.0-10.0) 7.7 % (1.0-10.0) % (1.0-10.0) Eosinophils (%) (Auto) % (0.0-3.0) 1.0 % (0.0-3.0) % (0.0-3.0) Basophils (%) (Auto) % (0.0-2.0) 0.2 % (0.0-2.0) % (0.0-2.0) Differential Total Cells Counted 100 100 Neutrophils % (Manual) 88 % (45-75) 83 % (45-75) Lymphocytes % (Manual) 9 % (20-45) 14 % (20-45) Monocytes % (Manual) 3 % (1-10) 2 % (1-10) Eosinophils % (Manual) 0 % (0-3) 1 % (0-3) Basophils % (Manual) 0 % (0-2) 0 % (0-2) Band Neutrophils 0 % (0-8) 0 % (0-8) Platelet Estimate Adequate Adequate Platelet Morphology Normal Normal Anisocytosis 1+ 1+ Reticulocyte Count 0.9 % (0.5-2.0) Troponin I 0.000 ng/mL (0.000-0.056) 0.000 ng/mL (0.000-0.056) Sodium Level 147 MMOL/L (136-145) 145 MMOL/L (136-145) Potassium Level 3.3 MMOL/L (3.5-5.1) 3.8 MMOL/L (3.5-5.1) Chloride Level 112 MMOL/L (98-107) 113 MMOL/L (98-107) Carbon Dioxide Level 23 MMOL/L (21-32) 22 MMOL/L (21-32) Anion Gap 12 mmol/L (5-15) 10 mmol/L (5-15) Blood Urea Nitrogen 23 mg/dL (7-18) 12 mg/dL (7-18) Creatinine 0.9 MG/DL (0.55-1.30) 0.9 MG/DL (0.55-1.30) Estimat Glomerular Filtration Rate > 60 mL/min (>60) > 60 mL/min (>60) Glucose Level 125 MG/DL (74-106) 127 MG/DL (74-106) Hemoglobin A1c 6.3 % (4.3-6.0) Uric Acid 8.3 MG/DL (2.6-7.2) Calcium Level 8.8 MG/DL (8.5-10.1) 9.2 MG/DL (8.5-10.1) Phosphorus Level 2.2 MG/DL (2.5-4.9) 2.2 MG/DL (2.5-4.9) Magnesium Level 1.7 MG/DL (1.8-2.4) 2.0 MG/DL (1.8-2.4) Iron Level 28 ug/dL (50-175) Total Iron Binding Capacity 50 ug/dL (250-450) Percent Iron Saturation 56 % (15-50) Unsaturated Iron Binding 22 ug/dL (112-346) Ferritin 787 NG/ML (8-388) Total Bilirubin 0.6 MG/DL (0.2-1.0) 0.7 MG/DL (0.2-1.0) Gamma Glutamyl Transpeptidase 24 U/L (5-85) Aspartate Amino Transf (AST/SGOT) 19 U/L (15-37) 16 U/L (15-37) Alanine Aminotransferase (ALT/SGPT) 6 U/L (12-78) 14 U/L (12-78) Alkaline Phosphatase 84 U/L (46-116) 87 U/L (46-116) C-Reactive Protein, Quantitative 40.1 mg/dL (0.00-0.90) 17.6 mg/dL (0.00-0.90) Pro-B-Type Natriuretic Peptide 852 pg/mL (0-125) 1921 pg/mL (0-125) Total Protein 6.6 G/DL (6.4-8.2) 6.9 G/DL (6.4-8.2) Albumin 2.1 G/DL (3.4-5.0) 2.4 G/DL (3.4-5.0) Globulin 4.5 g/dL 4.5 g/dL Albumin/Globulin Ratio 0.5 (1.0-2.7) 0.5 (1.0-2.7) Triglycerides Level 69 MG/DL (30-150) Cholesterol Level 87 MG/DL (< 200) LDL Cholesterol 52 mg/dL (<100) HDL Cholesterol 26 MG/DL (40-60) Cholesterol/HDL Ratio 3.3 (3.3-4.4) Vitamin B12 Level > 2000 PG/ML (193-986) Folate 19.8 NG/ML (8.6-58.9) Thyroid Stimulating Hormone (TSH) 1.797 uiU/mL (0.358-3.740) Cortisol AM Sample 17.8 UG/DL Hypochromasia 1+ Michelle Cells Occasional Micro Microbiology Date/Time Source Procedure Growth Status 09/24/19 14:15 Nasopharynx Coronavirus COVID-19 PCR ([facility]) - Final Complete Height (Feet): 5 Height (Inches): 8.00 Weight (Pounds): 220 Objective Vitals: reviewed General: NAD HEENT: nc, at Neck: supple Chest: clear breath sounds bilaterally Cardiovascular: RRR, no s3, s4 Abdomen: soft, nontender, nd ++colostomy Extremities: no cce, normal range of motion Neuro: alert and oriented Wounds: ++ on exam as per Sandor Parrish MD Sep 25, 2019 11:23
[2019-09-25] MEDS: Morphine Sulfate 2mg/ml Inj(IV/IM USE ONLY) IVP PRN (11:32)
--- NOTE | 2019-09-25 12:13 | Nephrology Progress Note ---
Assessment/Plan Problem List: (1) Dehydration (2) Electrolyte imbalance (3) UTI (urinary tract infection) (4) Anemia (5) Colostomy in place (6) Atrial fibrillation with RVR Assessment Dehydration, azotemia Electrolyte imbalance, hypokalemia, Hypotension, tachycardia Mild anemia Colon cancer, was taken off hospice prior to transfer to the hospital Toxic metabolic encephalopathy UTI Failure to thrive Status post colectomy and colostomy Plan September 24: On telemetry unit now. Potassium phosphate IV ordered. Stable renal parameters. Continue per consultants. September 23: Patient remains in ICU on Cardizem drip. Magnesium, phosphorus, potassium chloride, given a supplement. Continue hydration. Continue to monitor renal parameters and electrolytes. Continue per consultants. Keep n.p.o. as patient's ability to swallow is in question. Waiting for speech therapy evaluation. 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 Fluid challenge with albumin 5% 500 cc 1 time Antibiotics for UTI Continue per consultants Discussed with RN Subjective ROS Limited/Unobtainable: No Constitutional: Reports: malaise Objective Objective Last 24 Hour Vital Signs Date Time Temp Pulse Resp B/P (MAP) Pulse Ox O2 Delivery O2 Flow Rate FiO2 09/25/19 10:56 97.9 89 20 103/73 (83) 100 09/25/19 09:30 98 18 108/67 (81) 98 09/25/19 09:00 105 18 109/70 (83) 97 09/25/19 08:30 98 20 106/68 (81) 99 09/25/19 08:00 98.5 99 20 109/68 (82) 98 09/25/19 08:00 106 09/25/19 08:00 Nasal Cannula 1.0 09/25/19 07:45 Nasal Cannula 2.0 28 09/25/19 07:45 100 Nasal Cannula 2.0 28 09/25/19 07:30 99 18 102/65 (77) 99 09/25/19 07:00 104 19 107/66 (80) 100 09/25/19 06:30 104 18 103/68 (80) 100 09/25/19 06:00 98 26 104/67 (79) 98 09/25/19 05:30 98 26 105/69 (81) 98 09/25/19 05:29 99 104/67 09/25/19 05:00 98 26 104/69 (81) 98 09/25/19 04:30 98.6 98 26 109/69 (82) 98 09/25/19 04:00 98 26 104/67 (79) 98 09/25/19 04:00 100 09/25/19 04:00 Nasal Cannula 1.0 09/25/19 03:30 101 26 104/65 (78) 98 09/25/19 03:00 103 28 106/66 (79) 98 09/25/19 02:30 105 26 103/64 (77) 98 09/25/19 02:00 97 26 99/58 (72) 100 09/25/19 01:30 98 26 93/58 (70) 100 09/25/19 01:00 95 27 97/56 (70) 100 09/25/19 00:30 97 25 94/64 (74) 100 09/25/19 00:15 97 27 94/56 (69) 100 09/25/19 00:00 98.4 99 26 95/58 (70) 99 09/25/19 00:00 Nasal Cannula 1.0 09/24/19 23:49 94 100/64 09/24/19 23:30 99 24 98/59 (72) 100 09/24/19 22:00 104 16 104/70 (81) 99 09/24/19 21:30 103 15 106/67 (80) 99 09/24/19 21:00 109 15 107/69 (82) 99 09/24/19 20:35 100 Nasal Cannula 2.0 28 09/24/19 20:30 103 19 105/65 (78) 99 09/24/19 20:00 Nasal Cannula 1.0 09/24/19 20:00 98.6 103 18 106/60 (75) 99 09/24/19 19:30 98 23 105/64 (78) 100 09/24/19 19:00 94 24 102/64 (77) 100 09/24/19 19:00 97 16 98/67 (77) 100 09/24/19 18:30 98.8 99 21 109/58 (75) 99 09/24/19 18:08 94 98/67 09/24/19 18:00 97 16 98/67 (77) 100 09/24/19 17:30 93 20 99/62 (74) 100 09/24/19 17:00 99 16 95/58 (70) 100 09/24/19 16:30 107 19 94/58 (70) 100 09/24/19 16:00 99 17 104/68 (80) 100 09/24/19 16:00 Nasal Cannula 1.0 09/24/19 15:30 96 21 104/64 (77) 100 09/24/19 15:00 96 23 98/64 (75) 100 09/24/19 14:30 98 21 104/61 (75) 100 09/24/19 14:00 105 21 102/69 (80) 99 09/24/19 13:30 102 20 102/62 (75) 100 09/24/19 13:00 95 20 101/60 (74) 100 09/24/19 12:53 102 20 100 Nasal Cannula 2.0 28 96 20 100 09/24/19 12:30 99.0 97 21 96/68 (77) 100 Intake and Output 09/24/19 09/25/19 19:00 07:00 Intake Total 1694.720 ml 1172.5 ml Output Total 445 ml 490 ml Balance 1249.720 ml 682.5 ml Intake Oral 20 ml 210 ml IV Total 1674.720 ml 962.5 ml Output Urine Total 445 ml 490 ml Other 0 ml 0 ml Laboratory Tests 09/25/19 03:55: White Blood Count 18.6H, Red Blood Count 3.57L, Hemoglobin 9.5L, Hematocrit 28.9L, Mean Corpuscular Volume 81, Mean Corpuscular Hemoglobin 26.7L, Mean Corpuscular Hemoglobin Concent 32.9, Red Cell Distribution Width 14.0, Platelet Count 287, Mean Platelet Volume 4.9L, Neutrophils (%) (Auto) , Lymphocytes (%) ( Auto) , Monocytes (%) (Auto) , Eosinophils (%) (Auto) , Basophils (%) (Auto) , Differential Total Cells Counted 100, Neutrophils % (Manual) 83H, Lymphocytes % (Manual) 14L, Monocytes % (Manual) 2, Eosinophils % (Manual) 1, Basophils % ( Manual) 0, Band Neutrophils 0, Platelet Estimate Adequate, Platelet Morphology Normal, Hypochromasia 1+, Anisocytosis 1+, Michelle Cells Occasional, Sodium Level 145, Potassium Level 3.8, Chloride Level 113H, Carbon Dioxide Level 22, Anion Gap 10, Blood Urea Nitrogen 12, Creatinine 0.9, Estimat Glomerular Filtration Rate > 60, Glucose Level 127H, Calcium Level 9.2, Phosphorus Level 2.2L, Magnesium Level 2.0, Total Bilirubin 0.7, Aspartate Amino Transf (AST/SGOT) 16, Alanine Aminotransferase (ALT/SGPT) 14, Alkaline Phosphatase 87, C-Reactive Protein, Quantitative 17.6H, Pro-B-Type Natriuretic Peptide 1921H, Total Protein 6.9, Albumin 2.4L, Globulin 4.5, Albumin/Globulin Ratio 0.5L Height (Feet): 5 Height (Inches): 8.00 Weight (Pounds): 220 General Appearance: no apparent distress, lethargic Cardiovascular: irregularly irregular, other Respiratory/Chest: decreased breath sounds Abdomen: soft Chaparro Pemberton MD Sep 25, 2019 12:13
[2019-09-25] MEDS: dilTIAZem HCl 90mg tab ORAL SCH ×2 (13:34→21:48)
[2019-09-25] MEDS ORDERED: dilTIAZem HCl 90mg tab ORAL SCH (14:00)
[2019-09-25] MEDS ORDERED: Potassium Phosphate 20 MM in NS 275 ML IV SCH ×2 (14:00→18:00)
[2019-09-25] MEDS ORDERED: NS 275ml ONE (14:06)
[2019-09-25] MEDS ORDERED: Tubing IV Secondary IV ONE ×2 (14:06)
[2019-09-25] MEDS ORDERED: D5W 275ml ONE (14:06)
--- NOTE | 2019-09-25 14:37 | Surgery Progress Note ---
Surgery Progress Note Subjective Symptoms: improved, passing flatus Objective Last 24 Hour Vital Signs Date Time Temp Pulse Resp B/P (MAP) Pulse Ox O2 Delivery O2 Flow Rate FiO2 09/25/19 13:34 103 127/55 09/25/19 12:00 97.7 87 20 127/55 (79) 94 09/25/19 12:00 103 09/25/19 10:56 97.9 89 20 103/73 (83) 100 09/25/19 09:30 98 18 108/67 (81) 98 09/25/19 09:00 105 18 109/70 (83) 97 09/25/19 08:30 98 20 106/68 (81) 99 09/25/19 08:00 98.5 99 20 109/68 (82) 98 09/25/19 08:00 106 09/25/19 08:00 Nasal Cannula 1.0 09/25/19 07:45 Nasal Cannula 2.0 28 09/25/19 07:45 100 Nasal Cannula 2.0 28 09/25/19 07:30 99 18 102/65 (77) 99 09/25/19 07:00 104 19 107/66 (80) 100 09/25/19 06:30 104 18 103/68 (80) 100 09/25/19 06:00 98 26 104/67 (79) 98 09/25/19 05:30 98 26 105/69 (81) 98 09/25/19 05:29 99 104/67 09/25/19 05:00 98 26 104/69 (81) 98 09/25/19 04:30 98.6 98 26 109/69 (82) 98 09/25/19 04:00 98 26 104/67 (79) 98 09/25/19 04:00 100 09/25/19 04:00 Nasal Cannula 1.0 09/25/19 03:30 101 26 104/65 (78) 98 09/25/19 03:00 103 28 106/66 (79) 98 09/25/19 02:30 105 26 103/64 (77) 98 09/25/19 02:00 97 26 99/58 (72) 100 09/25/19 01:30 98 26 93/58 (70) 100 09/25/19 01:00 95 27 97/56 (70) 100 09/25/19 00:30 97 25 94/64 (74) 100 09/25/19 00:15 97 27 94/56 (69) 100 09/25/19 00:00 98.4 99 26 95/58 (70) 99 09/25/19 00:00 Nasal Cannula 1.0 09/24/19 23:49 94 100/64 09/24/19 23:30 99 24 98/59 (72) 100 09/24/19 22:00 104 16 104/70 (81) 99 09/24/19 21:30 103 15 106/67 (80) 99 09/24/19 21:00 109 15 107/69 (82) 99 09/24/19 20:35 100 Nasal Cannula 2.0 28 09/24/19 20:30 103 19 105/65 (78) 99 09/24/19 20:00 Nasal Cannula 1.0 09/24/19 20:00 98.6 103 18 106/60 (75) 99 09/24/19 19:30 98 23 105/64 (78) 100 09/24/19 19:00 94 24 102/64 (77) 100 09/24/19 19:00 97 16 98/67 (77) 100 09/24/19 18:30 98.8 99 21 109/58 (75) 99 09/24/19 18:08 94 98/67 09/24/19 18:00 97 16 98/67 (77) 100 09/24/19 17:30 93 20 99/62 (74) 100 09/24/19 17:00 99 16 95/58 (70) 100 09/24/19 16:30 107 19 94/58 (70) 100 09/24/19 16:00 99 17 104/68 (80) 100 09/24/19 16:00 Nasal Cannula 1.0 09/24/19 15:30 96 21 104/64 (77) 100 09/24/19 15:00 96 23 98/64 (75) 100 I&O Intake and Output 09/24/19 09/25/19 18:59 06:59 Intake Total 1694.720 ml 1237.5 ml Output Total 475 ml 440 ml Balance 1219.720 ml 797.5 ml Intake Oral 20 ml 190 ml IV Total 1674.720 ml 1047.5 ml Output Urine Total 475 ml 440 ml Other 0 ml 0 ml Dressing: dry Wound: other Cardiovascular: RSR Respiratory: clear Abdomen: soft, flat, other Extremities: no cyanosis Laboratory Tests Test 09/25/19 03:55 White Blood Count 18.6 K/UL (4.8-10.8) H Red Blood Count 3.57 M/UL (4.20-5.40) L Hemoglobin 9.5 G/DL (12.0-16.0) L Hematocrit 28.9 % (37.0-47.0) L Mean Corpuscular Volume 81 FL (80-99) Mean Corpuscular Hemoglobin 26.7 PG (27.0-31.0) L Mean Corpuscular Hemoglobin Concent 32.9 G/DL (32.0-36.0) Red Cell Distribution Width 14.0 % (11.6-14.8) Platelet Count 287 K/UL (150-450) Mean Platelet Volume 4.9 FL (6.5-10.1) L Neutrophils (%) (Auto) % (45.0-75.0) Lymphocytes (%) (Auto) % (20.0-45.0) Monocytes (%) (Auto) % (1.0-10.0) Eosinophils (%) (Auto) % (0.0-3.0) Basophils (%) (Auto) % (0.0-2.0) Differential Total Cells Counted 100 Neutrophils % (Manual) 83 % (45-75) H Lymphocytes % (Manual) 14 % (20-45) L Monocytes % (Manual) 2 % (1-10) Eosinophils % (Manual) 1 % (0-3) Basophils % (Manual) 0 % (0-2) Band Neutrophils 0 % (0-8) Platelet Estimate Adequate Platelet Morphology Normal Hypochromasia 1+ Anisocytosis 1+ Michelle Cells Occasional Sodium Level 145 MMOL/L (136-145) Potassium Level 3.8 MMOL/L (3.5-5.1) Chloride Level 113 MMOL/L (98-107) H Carbon Dioxide Level 22 MMOL/L (21-32) Anion Gap 10 mmol/L (5-15) Blood Urea Nitrogen 12 mg/dL (7-18) Creatinine 0.9 MG/DL (0.55-1.30) Estimat Glomerular Filtration Rate > 60 mL/min (>60) Glucose Level 127 MG/DL (74-106) H Calcium Level 9.2 MG/DL (8.5-10.1) Phosphorus Level 2.2 MG/DL (2.5-4.9) L Magnesium Level 2.0 MG/DL (1.8-2.4) Total Bilirubin 0.7 MG/DL (0.2-1.0) Aspartate Amino Transf (AST/SGOT) 16 U/L (15-37) Alanine Aminotransferase (ALT/SGPT) 14 U/L (12-78) Alkaline Phosphatase 87 U/L (46-116) C-Reactive Protein, Quantitative 17.6 mg/dL (0.00-0.90) H Pro-B-Type Natriuretic Peptide 1921 pg/mL (0-125) H Total Protein 6.9 G/DL (6.4-8.2) Albumin 2.4 G/DL (3.4-5.0) L Globulin 4.5 g/dL Albumin/Globulin Ratio 0.5 (1.0-2.7) L Plan Problems: (1) Failure to thrive Assessment & Plan: DAILY ESTIMATED NEEDS: Needs based on wound, obese 73.8kg abw 25-30 kcals/kg 5849-3356 total kcals 1.25-1.5 g protein/kg 92-111 g total protein 25-30 mL/kg 0957-9806 total fluid mLs NUTRITION DIAGNOSIS: Increased kcal/pro intake needs R/T wound healing as evidenced by pt admitted sacral unstageable and L foot DTI wounds. 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 NUTRITION RECOMMENDATIONS: CONSULT RD IF NON ORAL FEEDS ARE PART OF POC ----- ADDITIONAL RECOMMENDATIONS: * Maintain calibrated bed scale weights * Wound care: with diet order add Berry 1pkt BID Add Vit C 250mg BID + MVI w/ min qdaily F/up w/ WC eval * Colostomy status, rec IVF for hydration, monitor BG for hypoglycemia (2) UTI (urinary tract infection) (3) Anemia (4) HTN (hypertension) (5) Altered level of consciousness (6) Wound infection Assessment & Plan: Patient presents [facility] for medical care management and on admission identified to have significant leukocytosis, abnormal labs, with wound infection. She is identified to have a large unstageable sacral decubitus ulcer as well as left heel deep tissue injury and blood blister. Complete physical examination performed and likely infectious etiology is her UTI and not the wounds. The sacral decubitus ulcer is unstageable but no purulent drainage no active drainage with periwound stable. The left heel is a deep tissue injury with a blood blister no active drainage. On the left ankle there is a small superficial decubitus skin ulcer identified stage II. Her ostomy is intact and functional. No acute surgical intervention at this time will provide local care for above findings. Wash sacral wound daily with normal saline. Apply Thera honey and foam dressing. Offload pressure from heels with pillow. Foam dressing to heels. Turn every 2 hours Air soft mattress We will follow with recommendations thank you for let me participate in patient' s care (7) Colostomy complication Assessment & Plan: Colostomy evaluated functional history of colon cancer ostomy site with some discomfort currently stable No prolapse no incarcerated hernia identified We will monitor with local examination and serial exams thank you Roberto Carlos Maza Sep 25, 2019 14:37
[2019-09-25] MEDS: HYDROcodone/Acetamin 7.5/325 tab ORAL PRN (18:49)
[2019-09-25] MEDS ORDERED: Zolpidem 5mg tab ORAL PRN (19:15)
[2019-09-26] VITALS: BP 115/79
[2019-09-26] MEDS: D5 1/2NS w/KCl 40meq 1000ml 1,000 ML IV SCH ×2 (00:22→15:48)
[2019-09-26] MEDS: Piperacillin/Tazobactam 3.375 GM in NS 110 ML IVPB SCH ×4 (00:45→21:53)
[2019-09-26 04:00] VITALS: BP 104/64
--- NOTE | 2019-09-26 06:37 | Cardiac Electrophysiology PN ---
Assessment/Plan Assessment/Plan 1. Recurrent SVT/atrial fibrillation with rapid ventricular response. Already ruled out for myocardial infarction. On Cardizem 90 q 8 2. Sepsis. White count of 20,000. on IV antibiotic. 3. Stage IV colon cancer. Further evaluation by Dr. Hobson. Patient is status post colectomy and colostomy, was on hospice care before, and currently hold off any further chemo per Dr. Hobson. 4. Failure to thrive. 5. Hypotension. Resolved 6. Urine tract infection, on ceftriaxone. Subjective Subjective Passed swallow eval on Cardizem po in SR in SDU. Had transient hypotension that spontaneously resolved. Objective Last 24 Hour Vital Signs Date Time Temp Pulse Resp B/P (MAP) Pulse Ox O2 Delivery O2 Flow Rate FiO2 09/26/19 04:27 98 Room Air 21 09/26/19 04:00 91 09/26/19 04:00 98.2 92 18 104/64 (77) 96 09/26/19 00:00 96.6 90 18 115/79 (91) 97 09/26/19 00:00 105 09/25/19 21:48 100 108/66 09/25/19 21:00 97.9 100 18 108/66 (80) 94 09/25/19 21:00 Nasal Cannula 1.0 09/25/19 20:00 105 09/25/19 16:00 102 09/25/19 16:00 97.9 106 22 97/62 (74) 98 09/25/19 13:34 103 127/55 09/25/19 12:00 97.7 87 20 127/55 (79) 94 09/25/19 12:00 103 09/25/19 10:56 97.9 89 20 103/73 (83) 100 09/25/19 09:30 98 18 108/67 (81) 98 09/25/19 09:00 105 18 109/70 (83) 97 09/25/19 08:30 98 20 106/68 (81) 99 09/25/19 08:00 98.5 99 20 109/68 (82) 98 09/25/19 08:00 106 09/25/19 08:00 Nasal Cannula 1.0 09/25/19 07:45 Nasal Cannula 2.0 28 09/25/19 07:45 100 Nasal Cannula 2.0 28 09/25/19 07:30 99 18 102/65 (77) 99 09/25/19 07:00 104 19 107/66 (80) 100 Intake and Output 09/25/19 09/26/19 19:00 07:00 Intake Total 300 ml 431.664 ml Output Total 500 ml 720 ml Balance -200 ml -288.336 ml Intake Oral 300 ml IV Total 431.664 ml Output Urine Total 500 ml 720 ml Microbiology Date/Time Source Procedure Growth Status 09/25/19 10:15 Nasopharynx Coronavirus COVID-19 PCR ([facility]) - Final Complete 09/24/19 14:15 Nasopharynx Coronavirus COVID-19 PCR ([facility]) - Final Complete Objective HEAD AND NECK: Shows no JVD. LUNGS: Coarse rhonchi. CARDIOVASCULAR: Shows regular. Tachycardic. S1 and S2 with no gallop or murmur. ABDOMEN: Soft, obese. Has colostomy. EXTREMITIES: 1+ pitting edema. Homar Capps MD Sep 26, 2019 06:37
[2019-09-26] MEDS: dilTIAZem HCl 90mg tab ORAL SCH ×4 (06:49→22:00)
[2019-09-26] MEDS ORDERED: LORazepam 0.5mg tab ORAL PRN (07:45)
[2019-09-26 08:00] VITALS: BP 106/60
--- NOTE | 2019-09-26 08:30 | Pulmonology Progress Note ---
Subjective ROS Limited/Unobtainable: No Interval Events: Off all drips; doing well Constitutional: Reports: no symptoms HEENT: Repors: no symptoms Respiratory: Reports: no symptoms Cardiovascular: Reports: no symptoms Gastrointestinal/Abdominal: Reports: no symptoms Musculoskeletal: Reports: pain Allergies: Coded Allergies: PROCHLORPERAZINE (Verified Allergy, Unknown, 08/10/17) All Systems: reviewed and negative except above Objective Last 24 Hour Vital Signs Date Time Temp Pulse Resp B/P (MAP) Pulse Ox O2 Delivery O2 Flow Rate FiO2 09/26/19 06:49 91 104/64 09/26/19 04:27 98 Room Air 21 09/26/19 04:00 91 09/26/19 04:00 98.2 92 18 104/64 (77) 96 09/26/19 00:00 96.6 90 18 115/79 (91) 97 09/26/19 00:00 105 09/25/19 21:48 100 108/66 09/25/19 21:00 97.9 100 18 108/66 (80) 94 09/25/19 21:00 Nasal Cannula 1.0 09/25/19 20:00 105 09/25/19 16:00 102 09/25/19 16:00 97.9 106 22 97/62 (74) 98 09/25/19 13:34 103 127/55 09/25/19 12:00 97.7 87 20 127/55 (79) 94 09/25/19 12:00 103 09/25/19 10:56 97.9 89 20 103/73 (83) 100 09/25/19 09:30 98 18 108/67 (81) 98 09/25/19 09:00 105 18 109/70 (83) 97 09/25/19 08:30 98 20 106/68 (81) 99 Intake and Output 09/25/19 09/26/19 19:00 07:00 Intake Total 300 ml 431.664 ml Output Total 500 ml 720 ml Balance -200 ml -288.336 ml Intake Oral 300 ml IV Total 431.664 ml Output Urine Total 500 ml 720 ml General Appearance: no acute distress HEENT: normocephalic Respiratory: chest wall non-tender, lungs clear Cardiovascular: normal peripheral pulses, normal rate Abdomen: normal bowel sounds Microbiology Date/Time Source Procedure Growth Status 09/25/19 10:15 Nasopharynx Coronavirus COVID-19 PCR ([facility]) - Final Complete 09/24/19 14:15 Nasopharynx Coronavirus COVID-19 PCR ([facility]) - Final Complete Current Medications Medications (Trade) Dose Ordered Sig/Radha Route PRN Reason Start Time Stop Time Status Last Admin Dose Admin Acetaminophen/ Hydrocodone Bitart ([place] 7.5/325) 1 tab Q6H PRN ORAL severe pain 09/25/19 13:30 09/29/19 19:14 09/25/19 18:49 Dextrose/ Electrolytes 1,000 ml @ 75 mls/hr [id number] IV 09/25/19 11:15 10/23/19 13:59 09/25/19 11:29 Diltiazem HCl (Cardizem) 90 mg EVERY 8 HOURS ORAL 09/25/19 14:00 10/24/19 17:59 09/25/19 21:48 Enoxaparin Sodium (Lovenox) 40 mg DAILY SUBQ 09/26/19 09:00 12/22/19 08:59 Lorazepam (Ativan) 0.5 mg TIDPRN PRN ORAL For Anxiety 09/26/19 07:45 10/02/19 07:44 Magnesium Hydroxide (Mom) 30 ml DAILY ORAL 09/26/19 09:00 10/23/19 08:59 Morphine Sulfate (Morphine Sulfate) 2 mg Q4H PRN IVP For Pain 09/25/19 11:15 09/29/19 19:14 09/25/19 11:32 Multivitamins (Multivitamins) 1 tab DAILY ORAL 09/26/19 09:00 10/23/19 08:59 Pantoprazole (Protonix) 40 mg EVERY 12 HOURS ORAL 09/25/19 21:00 10/24/19 20:59 09/25/19 21:52 Piperacillin Sod/ Tazobactam Sod 3.375 gm/Sodium Chloride 110 ml @ 27.5 mls/hr EVERY 8 HOURS IVPB 09/25/19 14:00 09/28/19 13:59 09/26/19 06:45 Tramadol HCl (Ultram) 50 mg Q6H PRN ORAL moderate pain 09/25/19 11:15 09/29/19 11:14 Zolpidem Tartrate (Ambien) 5 mg HSPRN PRN ORAL Insomnia 09/25/19 19:15 09/29/19 19:14 Assessment/Plan Assessment/Plan IMPRESSION: 1. UTI 2. Colon CA. 3. Previous DNR status, now Full Code. 4. Previous hospice patient, now off hospice. 5. Altered mental status. 6. Hypokalemia. Corrected 7. Hypernatremia. Corrected 8. Marked leukocytosis. Initially improved but worse again today 9. UTI. 10. cardiac arrhythmias DISCUSSION: Continue needs broad-spectrum antibiotics and fluids. I will follow carefully. Cardiac rate control. Patient is seen and discussed with nursing staff. Saturating well on RA Rg Montero M.D. Rg Montero MD Sep 26, 2019 08:30
[2019-09-26] MEDS: Milk of Magnesia 30ml Ud ORAL SCH (08:40)
[2019-09-26] MEDS: Enoxaparin 40mg Inj SUBQ SCH (08:52)
[2019-09-26 09:08] LABS: BASOPHILS % (AUTO) 0.5 % (0.0-2.0); EOSINOPHILS % (AUTO) 2.4 % (0.0-3.0); HEMOGLOBIN 10.5 G/DL (12.0-16.0); LYMPHOCYTES % (AUTO) 19.6 % (20.0-45.0); MEAN CORPUSCULAR VOLUME 81 FL (80-99); MONOCYTES % (AUTO) 4.2 % (1.0-10.0); NEUTROPHILS % (AUTO) 73.3 % (45.0-75.0); PLATELET COUNT 243 K/UL (150-450); RED BLOOD COUNT 3.94 M/UL (4.20-5.40); RED CELL DISTRIBUTION WIDTH 14.5 % (11.6-14.8); WHITE BLOOD COUNT 13.5 K/UL (4.8-10.8)
[2019-09-26 09:17] LABS: ANION GAP 10 mmol/L (5-15); BLOOD UREA NITROGEN 13 mg/dL (7-18); CALCIUM 9.1 MG/DL (8.5-10.1); CARBON DIOXIDE 24 MMOL/L (21-32); CHLORIDE 113 MMOL/L (98-107); CREATININE 0.7 MG/DL (0.55-1.30); POTASSIUM 4.2 MMOL/L (3.5-5.1); SODIUM 147 MMOL/L (136-145)
--- NOTE | 2019-09-26 10:14 | Infectious Diseases Prog Note ---
Assessment/Plan Assessment/Plan antibiotics : zosyn 6.3.20 - A 1. UTI 2. COVID 19 test negative x 2 3. hypertension 4. asthma P 1. continue zosyn 1 more day 2. will follow up cultures 3. d/c isolation Subjective ROS Limited/Unobtainable: Yes Allergies: Coded Allergies: PROCHLORPERAZINE (Verified Allergy, Unknown, 08/10/17) Objective Vital Signs Last 24 Hour Vital Signs Date Time Temp Pulse Resp B/P (MAP) Pulse Ox O2 Delivery O2 Flow Rate FiO2 09/26/19 09:19 Room Air 09/26/19 08:00 98.1 101 20 106/60 (75) 98 09/26/19 08:00 98 09/26/19 06:49 91 104/64 09/26/19 04:27 98 Room Air 21 09/26/19 04:00 91 09/26/19 04:00 98.2 92 18 104/64 (77) 96 09/26/19 00:00 96.6 90 18 115/79 (91) 97 09/26/19 00:00 105 09/25/19 21:48 100 108/66 09/25/19 21:00 97.9 100 18 108/66 (80) 94 09/25/19 21:00 Nasal Cannula 1.0 09/25/19 20:00 105 09/25/19 16:00 102 09/25/19 16:00 97.9 106 22 97/62 (74) 98 09/25/19 13:34 103 127/55 09/25/19 12:00 97.7 87 20 127/55 (79) 94 09/25/19 12:00 103 09/25/19 10:56 97.9 89 20 103/73 (83) 100 Height (Feet): 5 Height (Inches): 8.00 Weight (Pounds): 223 Respiratory/Chest: lungs clear Cardiovascular: normal rate, regular rhythm, no gallop/murmur Abdomen: soft, non tender Extremities: no edema Microbiology Date/Time Source Procedure Growth Status 09/25/19 10:15 Nasopharynx Coronavirus COVID-19 PCR ([facility]) - Final Complete 09/24/19 14:15 Nasopharynx Coronavirus COVID-19 PCR ([facility]) - Final Complete Laboratory Tests Test 09/26/19 08:30 White Blood Count 13.5 K/UL (4.8-10.8) H Red Blood Count 3.94 M/UL (4.20-5.40) L Hemoglobin 10.5 G/DL (12.0-16.0) L Hematocrit 32.0 % (37.0-47.0) L Mean Corpuscular Volume 81 FL (80-99) Mean Corpuscular Hemoglobin 26.6 PG (27.0-31.0) L Mean Corpuscular Hemoglobin Concent 32.8 G/DL (32.0-36.0) Red Cell Distribution Width 14.5 % (11.6-14.8) Platelet Count 243 K/UL (150-450) Mean Platelet Volume 5.1 FL (6.5-10.1) L Neutrophils (%) (Auto) 73.3 % (45.0-75.0) Lymphocytes (%) (Auto) 19.6 % (20.0-45.0) L Monocytes (%) (Auto) 4.2 % (1.0-10.0) Eosinophils (%) (Auto) 2.4 % (0.0-3.0) Basophils (%) (Auto) 0.5 % (0.0-2.0) Sodium Level 147 MMOL/L (136-145) H Potassium Level 4.2 MMOL/L (3.5-5.1) Chloride Level 113 MMOL/L (98-107) H Carbon Dioxide Level 24 MMOL/L (21-32) Anion Gap 10 mmol/L (5-15) Blood Urea Nitrogen 13 mg/dL (7-18) Creatinine 0.7 MG/DL (0.55-1.30) Estimat Glomerular Filtration Rate > 60 mL/min (>60) Glucose Level 80 MG/DL (74-106) Calcium Level 9.1 MG/DL (8.5-10.1) Current Medications Medications (Trade) Dose Ordered Sig/Radha Route PRN Reason Start Time Stop Time Status Last Admin Dose Admin Acetaminophen/ Hydrocodone Bitart ([place] 7.5/325) 1 tab Q6H PRN ORAL severe pain 09/25/19 13:30 09/29/19 19:14 09/25/19 18:49 Dextrose/ Electrolytes 1,000 ml @ 75 mls/hr [id number] IV 09/25/19 11:15 10/23/19 13:59 09/25/19 11:29 Diltiazem HCl (Cardizem) 90 mg EVERY 8 HOURS ORAL 09/25/19 14:00 10/24/19 17:59 09/25/19 21:48 Enoxaparin Sodium (Lovenox) 40 mg DAILY SUBQ 09/26/19 09:00 12/22/19 08:59 09/26/19 08:52 Lorazepam (Ativan) 0.5 mg TIDPRN PRN ORAL For Anxiety 09/26/19 07:45 10/02/19 07:44 Magnesium Hydroxide (Mom) 30 ml DAILY ORAL 09/26/19 09:00 10/23/19 08:59 Morphine Sulfate (Morphine Sulfate) 2 mg Q4H PRN IVP For Pain 09/25/19 11:15 09/29/19 19:14 09/25/19 11:32 Multivitamins (Multivitamins) 1 tab DAILY ORAL 09/26/19 09:00 10/23/19 08:59 09/26/19 08:51 Pantoprazole (Protonix) 40 mg EVERY 12 HOURS ORAL 09/25/19 21:00 10/24/19 20:59 09/26/19 08:51 Piperacillin Sod/ Tazobactam Sod 3.375 gm/Sodium Chloride 110 ml @ 27.5 mls/hr EVERY 8 HOURS IVPB 09/25/19 14:00 09/28/19 13:59 09/26/19 06:45 Tramadol HCl (Ultram) 50 mg Q6H PRN ORAL moderate pain 09/25/19 11:15 09/29/19 11:14 Zolpidem Tartrate (Ambien) 5 mg HSPRN PRN ORAL Insomnia 09/25/19 19:15 09/29/19 19:14 Concepcion Muro MD Sep 26, 2019 10:14
--- NOTE | 2019-09-26 11:08 | Nephrology Progress Note ---
Assessment/Plan Problem List: (1) Dehydration (2) Electrolyte imbalance (3) UTI (urinary tract infection) (4) Anemia (5) Colostomy in place (6) Atrial fibrillation with RVR Assessment Dehydration, azotemia Electrolyte imbalance, hypokalemia, Hypotension, tachycardia Mild anemia Colon cancer, was taken off hospice prior to transfer to the hospital Toxic metabolic encephalopathy UTI Failure to thrive Status post colectomy and colostomy Plan September 25: Renal parameters stable. Continue per cardiology September 24: On telemetry unit now. Potassium phosphate IV ordered. Stable renal parameters. Continue per consultants. September 23: Patient remains in ICU on Cardizem drip. Magnesium, phosphorus, potassium chloride, given a supplement. Continue hydration. Continue to monitor renal parameters and electrolytes. Continue per consultants. Keep n.p.o. as patient's ability to swallow is in question. Waiting for speech therapy evaluation. 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 Fluid challenge with albumin 5% 500 cc 1 time Antibiotics for UTI Continue per consultants Discussed with RN Subjective ROS Limited/Unobtainable: No Constitutional: Reports: malaise Objective Objective Last 24 Hour Vital Signs Date Time Temp Pulse Resp B/P (MAP) Pulse Ox O2 Delivery O2 Flow Rate FiO2 09/26/19 09:19 Room Air 09/26/19 08:00 98.1 101 20 106/60 (75) 98 09/26/19 08:00 98 09/26/19 06:49 91 104/64 09/26/19 04:27 98 Room Air 21 09/26/19 04:00 91 09/26/19 04:00 98.2 92 18 104/64 (77) 96 09/26/19 00:00 96.6 90 18 115/79 (91) 97 09/26/19 00:00 105 09/25/19 21:48 100 108/66 09/25/19 21:00 97.9 100 18 108/66 (80) 94 09/25/19 21:00 Nasal Cannula 1.0 09/25/19 20:00 105 09/25/19 16:00 102 09/25/19 16:00 97.9 106 22 97/62 (74) 98 09/25/19 13:34 103 127/55 09/25/19 12:00 97.7 87 20 127/55 (79) 94 09/25/19 12:00 103 Intake and Output 09/25/19 09/26/19 19:00 07:00 Intake Total 300 ml 431.664 ml Output Total 500 ml 720 ml Balance -200 ml -288.336 ml Intake Oral 300 ml IV Total 431.664 ml Output Urine Total 500 ml 720 ml Laboratory Tests 09/26/19 08:30: White Blood Count 13.5H, Red Blood Count 3.94L, Hemoglobin 10.5L, Hematocrit 32.0L, Mean Corpuscular Volume 81, Mean Corpuscular Hemoglobin 26.6L, Mean Corpuscular Hemoglobin Concent 32.8, Red Cell Distribution Width 14.5, Platelet Count 243, Mean Platelet Volume 5.1L, Neutrophils (%) (Auto) 73.3, Lymphocytes ( %) (Auto) 19.6L, Monocytes (%) (Auto) 4.2, Eosinophils (%) (Auto) 2.4, Basophils (%) (Auto) 0.5, Sodium Level 147H, Potassium Level 4.2, Chloride Level 113H, Carbon Dioxide Level 24, Anion Gap 10, Blood Urea Nitrogen 13, Creatinine 0.7, Estimat Glomerular Filtration Rate > 60, Glucose Level 80, Calcium Level 9.1 Height (Feet): 5 Height (Inches): 8.00 Weight (Pounds): 223 General Appearance: no apparent distress Cardiovascular: arrhythmia Abdomen: soft Chaparro Pemberton MD Sep 26, 2019 11:08
[2019-09-26 12:00] VITALS: BP 103/64
--- NOTE | 2019-09-26 13:45 | Surgery Progress Note ---
Surgery Progress Note Subjective Additional Comments chris cute events comfortable stable Objective Last 24 Hour Vital Signs Date Time Temp Pulse Resp B/P (MAP) Pulse Ox O2 Delivery O2 Flow Rate FiO2 09/26/19 12:30 102 09/26/19 12:00 97.9 97 20 103/64 (77) 99 09/26/19 09:19 Room Air 09/26/19 08:00 98.1 101 20 106/60 (75) 98 09/26/19 08:00 98 09/26/19 06:49 91 104/64 09/26/19 04:27 98 Room Air 21 09/26/19 04:00 91 09/26/19 04:00 98.2 92 18 104/64 (77) 96 09/26/19 00:00 96.6 90 18 115/79 (91) 97 09/26/19 00:00 105 09/25/19 21:48 100 108/66 09/25/19 21:00 97.9 100 18 108/66 (80) 94 09/25/19 21:00 Nasal Cannula 1.0 09/25/19 20:00 105 09/25/19 16:00 102 09/25/19 16:00 97.9 106 22 97/62 (74) 98 I&O Intake and Output 09/25/19 09/26/19 19:00 07:00 Intake Total 300 ml 431.664 ml Output Total 500 ml 720 ml Balance -200 ml -288.336 ml Intake Oral 300 ml IV Total 431.664 ml Output Urine Total 500 ml 720 ml Dressing: other Wound: other Drains: other Cardiovascular: RSR Respiratory: decreased breath sounds Abdomen: soft, non-tender, present bowel sounds Extremities: no cyanosis Laboratory Tests Test 09/26/19 08:30 White Blood Count 13.5 K/UL (4.8-10.8) H Red Blood Count 3.94 M/UL (4.20-5.40) L Hemoglobin 10.5 G/DL (12.0-16.0) L Hematocrit 32.0 % (37.0-47.0) L Mean Corpuscular Volume 81 FL (80-99) Mean Corpuscular Hemoglobin 26.6 PG (27.0-31.0) L Mean Corpuscular Hemoglobin Concent 32.8 G/DL (32.0-36.0) Red Cell Distribution Width 14.5 % (11.6-14.8) Platelet Count 243 K/UL (150-450) Mean Platelet Volume 5.1 FL (6.5-10.1) L Neutrophils (%) (Auto) 73.3 % (45.0-75.0) Lymphocytes (%) (Auto) 19.6 % (20.0-45.0) L Monocytes (%) (Auto) 4.2 % (1.0-10.0) Eosinophils (%) (Auto) 2.4 % (0.0-3.0) Basophils (%) (Auto) 0.5 % (0.0-2.0) Sodium Level 147 MMOL/L (136-145) H Potassium Level 4.2 MMOL/L (3.5-5.1) Chloride Level 113 MMOL/L (98-107) H Carbon Dioxide Level 24 MMOL/L (21-32) Anion Gap 10 mmol/L (5-15) Blood Urea Nitrogen 13 mg/dL (7-18) Creatinine 0.7 MG/DL (0.55-1.30) Estimat Glomerular Filtration Rate > 60 mL/min (>60) Glucose Level 80 MG/DL (74-106) Calcium Level 9.1 MG/DL (8.5-10.1) Plan Problems: (1) Failure to thrive Assessment & Plan: DAILY ESTIMATED NEEDS: Needs based on wound, obese 73.8kg abw 25-30 kcals/kg 5598-2680 total kcals 1.25-1.5 g protein/kg 92-111 g total protein 25-30 mL/kg 4502-7155 total fluid mLs NUTRITION DIAGNOSIS: Increased kcal/pro intake needs R/T wound healing as evidenced by pt admitted sacral unstageable and L foot DTI wounds. PO DIET RECOMMENDATIONS: SOFT diet/ texture per PHOTOGRAPHS CURATOR ENTERAL NUTRITION RECOMMENDATIONS: CONSULT RD IF NON ORAL FEEDS ARE PART OF POC ----- ADDITIONAL RECOMMENDATIONS: * Maintain calibrated bed scale weights * Wound care: with diet order add Berry 1pkt BID Add Vit C 250mg BID + MVI w/ min qdaily F/up w/ WC eval * Colostomy status, rec IVF for hydration, monitor BG for hypoglycemia Patient has an ongoing history of bolus holding and poor PO intake (h/o FTT), bolus holding behaviors may be partially be due to Patient's ongoing confusion ( bolus holding is often seen with patients who are forgetful/confused) -->Given Patients acute AMS and UTI this may be a contributing factor. -->Patient also presenting with poor respiratory-swallowing coordination. Further, Patient's respiratory rate appears slightly high today per chart (22 breaths/min) exacerbating Patient's poor breathing-swallowing coordination. PHOTOGRAPHS CURATOR spoke with Patients son, who reports previous incidents of Patient bolus holding (keeping food/liquid in oral cavity for extended periods of time without swallowing), specifically with medications for up to 1-2 days at a time. This is a VERY HIGH aspiration risk, and should be avoided while Patient is in house. -If Patient does exhibit incidents of bolus holding, recommend: 1. Providing Patient with re-orientation/situation 2. Reminding Patient that item in mouth is food/liquids. 3. Encourage Patient swallow via verbal, tactile, and visual cues. -If bolus holding persists, materials should be suctioned from Patients oral cavity. -Patient benefits from frequent re-orientation due to overall confusion and to minimize agitation. RECOMMENDATIONS: 1. Continue Moist Puree with [employer] Thick Liquids (no Straws) via 1 to 1 careful hand feeding while implementing posted aspiration precautions. (PER RD Low NA + Nepro TID + BERRY BID) 2. Please assist Patient with oral hygiene BID with suction. (2) UTI (urinary tract infection) (3) Anemia (4) HTN (hypertension) (5) Altered level of consciousness (6) Wound infection Assessment & Plan: Patient presents [facility] for medical care management and on admission identified to have significant leukocytosis, abnormal labs, with wound infection. She is identified to have a large unstageable sacral decubitus ulcer as well as left heel deep tissue injury and blood blister. Complete physical examination performed and likely infectious etiology is her UTI and not the wounds. The sacral decubitus ulcer is unstageable but no purulent drainage no active drainage with periwound stable. The left heel is a deep tissue injury with a blood blister no active drainage. On the left ankle there is a small superficial decubitus skin ulcer identified stage II. Her ostomy is intact and functional. No acute surgical intervention at this time will provide local care for above findings. Wash sacral wound daily with normal saline. Apply Thera honey and foam dressing. Offload pressure from heels with pillow. Foam dressing to heels. Turn every 2 hours Air soft mattress We will follow with recommendations thank you for let me participate in patient' s care (7) Colostomy complication Assessment & Plan: Colostomy evaluated functional history of colon cancer ostomy site with some discomfort currently stable No prolapse no incarcerated hernia identified We will monitor with local examination and serial exams thank you Roberto Carlos Maza Sep 26, 2019 13:45
[2019-09-26 16:00] VITALS: BP 120/57
[2019-09-26] MEDS: Acetaminophen 500mg (ES) tab ORAL PRN (17:47)
--- NOTE | 2019-09-26 19:42 | General Progress Note ---
Assessment/Plan Problem List: (1) HTN (hypertension) ICD Codes: I10 - Essential (primary) hypertension SNOMED: 93736612 (2) Anemia ICD Codes: D64.9 - Anemia, unspecified SNOMED: 849807501 (3) UTI (urinary tract infection) ICD Codes: N39.0 - Urinary tract infection, site not specified SNOMED: 68178633 (4) Failure to thrive SNOMED: 57248138 (5) Altered level of consciousness ICD Codes: R40.4 - Transient alteration of awareness SNOMED: 4785214 (6) Wound infection ICD Codes: T14.8XXA - Other injury of unspecified body region, initial encounter; L08.9 - Local infection of the skin and subcutaneous tissue, unspecified SNOMED: 34568297 (7) Dehydration ICD Codes: E86.0 - Dehydration SNOMED: 68387321 (8) Electrolyte imbalance ICD Codes: E87.8 - Other disorders of electrolyte and fluid balance, not elsewhere classified SNOMED: 049563311 (9) Atrial fibrillation with RVR ICD Codes: I48.91 - Unspecified atrial fibrillation SNOMED: 957368344702042 (10) Anemia ICD Codes: D64.9 - Anemia, unspecified SNOMED: 889839039 (11) Colon cancer ICD Codes: C18.9 - Malignant neoplasm of colon, unspecified SNOMED: 177529156 (12) Decubital ulcer ICD Codes: L89.90 - Pressure ulcer of unspecified site, unspecified stage SNOMED: 343881609 Status: stable, progressing Assessment/Plan: leukocytosis anemia sepsis resp insuff reviewed chart and labs abx per id afebrile Subjective ROS Limited/Unobtainable: Yes Allergies: Coded Allergies: PROCHLORPERAZINE (Verified Allergy, Unknown, 08/10/17) Objective Last 24 Hour Vital Signs Date Time Temp Pulse Resp B/P (MAP) Pulse Ox O2 Delivery O2 Flow Rate FiO2 09/26/19 18:17 99.1 09/26/19 16:23 104 09/26/19 16:00 100.8 101 20 120/57 (78) 98 09/26/19 14:00 102 108/66 09/26/19 12:30 102 09/26/19 12:00 97.9 97 20 103/64 (77) 99 09/26/19 09:19 Room Air 09/26/19 08:00 98.1 101 20 106/60 (75) 98 09/26/19 08:00 98 09/26/19 06:49 91 104/64 09/26/19 04:27 98 Room Air 21 09/26/19 04:00 91 09/26/19 04:00 98.2 92 18 104/64 (77) 96 09/26/19 00:00 96.6 90 18 115/79 (91) 97 09/26/19 00:00 105 09/25/19 21:48 100 108/66 09/25/19 21:00 97.9 100 18 108/66 (80) 94 09/25/19 21:00 Nasal Cannula 1.0 09/25/19 20:00 105 Intake and Output 09/25/19 09/26/19 19:00 07:00 Intake Total 300 ml 431.664 ml Output Total 500 ml 720 ml Balance -200 ml -288.336 ml Intake Oral 300 ml IV Total 431.664 ml Output Urine Total 500 ml 720 ml Laboratory Tests 09/26/19 08:30: White Blood Count 13.5H, Red Blood Count 3.94L, Hemoglobin 10.5L, Hematocrit 32.0L, Mean Corpuscular Volume 81, Mean Corpuscular Hemoglobin 26.6L, Mean Corpuscular Hemoglobin Concent 32.8, Red Cell Distribution Width 14.5, Platelet Count 243, Mean Platelet Volume 5.1L, Neutrophils (%) (Auto) 73.3, Lymphocytes ( %) (Auto) 19.6L, Monocytes (%) (Auto) 4.2, Eosinophils (%) (Auto) 2.4, Basophils (%) (Auto) 0.5, Sodium Level 147H, Potassium Level 4.2, Chloride Level 113H, Carbon Dioxide Level 24, Anion Gap 10, Blood Urea Nitrogen 13, Creatinine 0.7, Estimat Glomerular Filtration Rate > 60, Glucose Level 80, Calcium Level 9.1 Height (Feet): 5 Height (Inches): 8.00 Weight (Pounds): 223 Elizabeth Sidhu MD Sep 26, 2019 19:41
[2019-09-26 20:00] VITALS: BP 98/67
[2019-09-27] VITALS: BP 99/62
[2019-09-27] MEDS: D5 1/2NS w/KCl 40meq 1000ml 1,000 ML IV SCH ×2 (03:29→16:39)
[2019-09-27 04:00] VITALS: BP 109/67
[2019-09-27] MEDS: dilTIAZem HCl 90mg tab ORAL SCH ×3 (05:05→21:12)
[2019-09-27] MEDS: Piperacillin/Tazobactam 3.375 GM in NS 110 ML IVPB SCH (05:05)
--- NOTE | 2019-09-27 06:26 | Hematology/Onc Progress Note ---
Assessment/Plan Assessment/Plan Assessment and Recs # Colon cancer s/p colectomy with colostomy++ --> on hospice before dc --> hold off on further treatment # Anemia of chronic disease due to underlying chronic medical issues, multifactorial v Gi bleed --> Anemia workup has been ordered, rule out gi bleed --> No evidence of hemolysis is noted, peripheral smear has been reviewed. --> Hgb goal >7. Transfuse prn. --> Epogen or iron at this time is not particularly indicated --> Medications have been reviewed --> low threshold for gi evaluation in case has occult + --> hgb trend 9.1-->9.5 # Leukocytosis/elevated white blood cell count, unspecified likely related to underlying stress reaction, smoking v more likely infection --> have reviewed peripheral smear and bandemia/neutrophilia noted --> continue antibiotics if they have been started by ID team --> monitor for resolution --> wbc 18-->20->16-->17 --> abx: zosyn # Altered level of consciousness --> r/o underlying infection, ?metabolic # UTI (urinary tract infection) -> abx # Failure to thrive --> on fluids # Hypotension, tachycardia # Toxic metabolic encephalopathy The timing of this note does not necessarily reflect the time of the patient was seen. Greatly appreciate consultation. Subjective Allergies: Coded Allergies: PROCHLORPERAZINE (Verified Allergy, Unknown, 08/10/17) Subjective 6/ remains confused, hgb 9.1, no hemolysis is seen, no bleeding, meds noted 09/24 labre noted, no bleeding, meds reviewed, no night sweats 09/26 on tele, no acute events, coivd 19 negative, room air Objective Objective Current Medications Medications (Trade) Dose Ordered Sig/Radha Route PRN Reason Start Time Stop Time Status Last Admin Dose Admin Acetaminophen (Tylenol) 500 mg Q6H PRN ORAL Temp >100.5 09/26/19 17:45 10/26/19 17:44 09/26/19 17:47 Acetaminophen/ Hydrocodone Bitart ([place] 7.5/325) 1 tab Q6H PRN ORAL severe pain 09/25/19 13:30 09/29/19 19:14 09/25/19 18:49 Dextrose/ Electrolytes 1,000 ml @ 75 mls/hr [id number] IV 09/25/19 11:15 10/23/19 13:59 09/27/19 03:29 Diltiazem HCl (Cardizem) 90 mg EVERY 8 HOURS ORAL 09/25/19 14:00 10/24/19 17:59 09/25/19 21:48 Enoxaparin Sodium (Lovenox) 40 mg DAILY SUBQ 09/26/19 09:00 12/22/19 08:59 09/26/19 08:52 Lorazepam (Ativan) 0.5 mg TIDPRN PRN ORAL For Anxiety 09/26/19 07:45 10/02/19 07:44 Magnesium Hydroxide (Mom) 30 ml DAILY ORAL 09/26/19 09:00 10/23/19 08:59 Morphine Sulfate (Morphine Sulfate) 2 mg Q4H PRN IVP For Pain 09/25/19 11:15 09/29/19 19:14 09/25/19 11:32 Multivitamins (Multivitamins) 1 tab DAILY ORAL 09/26/19 09:00 10/23/19 08:59 09/26/19 08:51 Pantoprazole (Protonix) 40 mg EVERY 12 HOURS ORAL 09/25/19 21:00 10/24/19 20:59 09/26/19 22:03 Piperacillin Sod/ Tazobactam Sod 3.375 gm/Sodium Chloride 110 ml @ 27.5 mls/hr EVERY 8 HOURS IVPB 09/25/19 14:00 09/28/19 13:59 09/27/19 05:05 Tramadol HCl (Ultram) 50 mg Q6H PRN ORAL moderate pain 09/25/19 11:15 09/29/19 11:14 Zolpidem Tartrate (Ambien) 5 mg HSPRN PRN ORAL Insomnia 09/25/19 19:15 09/29/19 19:14 Last 24 Hour Vital Signs Date Time Temp Pulse Resp B/P (MAP) Pulse Ox O2 Delivery O2 Flow Rate FiO2 09/27/19 05:05 110 109/67 09/27/19 04:00 110 09/27/19 04:00 98.6 89 19 109/67 (81) 94 09/27/19 00:00 98.1 70 18 99/62 (74) 95 09/27/19 00:00 98 09/26/19 22:00 105 98/67 09/26/19 21:00 Room Air 09/26/19 20:00 98.4 105 19 98/67 (77) 99 09/26/19 20:00 106 09/26/19 18:17 99.1 09/26/19 16:23 104 09/26/19 16:00 100.8 101 20 120/57 (78) 98 09/26/19 14:00 102 108/66 09/26/19 12:30 102 09/26/19 12:00 97.9 97 20 103/64 (77) 99 09/26/19 09:19 Room Air 09/26/19 08:00 98.1 101 20 106/60 (75) 98 09/26/19 08:00 98 09/26/19 06:49 91 104/64 09/26/19 04:27 98 Room Air 21 09/26/19 04:00 91 09/26/19 04:00 98.2 92 18 104/64 (77) 96 09/26/19 00:00 96.6 90 18 115/79 (91) 97 09/26/19 00:00 105 09/25/19 21:48 100 108/66 09/25/19 21:00 97.9 100 18 108/66 (80) 94 09/25/19 21:00 Nasal Cannula 1.0 09/25/19 20:00 105 09/25/19 16:00 102 09/25/19 16:00 97.9 106 22 97/62 (74) 98 09/25/19 13:34 103 127/55 09/25/19 12:00 97.7 87 20 127/55 (79) 94 09/25/19 12:00 103 09/25/19 10:56 97.9 89 20 103/73 (83) 100 09/25/19 09:30 98 18 108/67 (81) 98 09/25/19 09:00 105 18 109/70 (83) 97 09/25/19 08:30 98 20 106/68 (81) 99 09/25/19 08:00 98.5 99 20 109/68 (82) 98 09/25/19 08:00 106 09/25/19 08:00 Nasal Cannula 1.0 09/25/19 07:45 Nasal Cannula 2.0 28 09/25/19 07:45 100 Nasal Cannula 2.0 28 09/25/19 07:30 99 18 102/65 (77) 99 09/25/19 07:00 104 19 107/66 (80) 100 09/25/19 06:30 104 18 103/68 (80) 100 Intake and Output 09/26/19 09/27/19 19:00 07:00 Intake Total 55.0 ml Output Total 200 ml 850 ml Balance -145.0 ml -850 ml IV Total 55.0 ml Output Urine Total 700 ml Stool Total 200 ml 150 ml Labs Test 09/25/19 03:55 09/26/19 08:30 White Blood Count 18.6 K/UL (4.8-10.8) 13.5 K/UL (4.8-10.8) Red Blood Count 3.57 M/UL (4.20-5.40) 3.94 M/UL (4.20-5.40) Hemoglobin 9.5 G/DL (12.0-16.0) 10.5 G/DL (12.0-16.0) Hematocrit 28.9 % (37.0-47.0) 32.0 % (37.0-47.0) Mean Corpuscular Volume 81 FL (80-99) 81 FL (80-99) Mean Corpuscular Hemoglobin 26.7 PG (27.0-31.0) 26.6 PG (27.0-31.0) Mean Corpuscular Hemoglobin Concent 32.9 G/DL (32.0-36.0) 32.8 G/DL (32.0-36.0) Red Cell Distribution Width 14.0 % (11.6-14.8) 14.5 % (11.6-14.8) Platelet Count 287 K/UL (150-450) 243 K/UL (150-450) Mean Platelet Volume 4.9 FL (6.5-10.1) 5.1 FL (6.5-10.1) Neutrophils (%) (Auto) % (45.0-75.0) 73.3 % (45.0-75.0) Lymphocytes (%) (Auto) % (20.0-45.0) 19.6 % (20.0-45.0) Monocytes (%) (Auto) % (1.0-10.0) 4.2 % (1.0-10.0) Eosinophils (%) (Auto) % (0.0-3.0) 2.4 % (0.0-3.0) Basophils (%) (Auto) % (0.0-2.0) 0.5 % (0.0-2.0) Differential Total Cells Counted 100 Neutrophils % (Manual) 83 % (45-75) Lymphocytes % (Manual) 14 % (20-45) Monocytes % (Manual) 2 % (1-10) Eosinophils % (Manual) 1 % (0-3) Basophils % (Manual) 0 % (0-2) Band Neutrophils 0 % (0-8) Platelet Estimate Adequate Platelet Morphology Normal Hypochromasia 1+ Anisocytosis 1+ Michelle Cells Occasional Sodium Level 145 MMOL/L (136-145) 147 MMOL/L (136-145) Potassium Level 3.8 MMOL/L (3.5-5.1) 4.2 MMOL/L (3.5-5.1) Chloride Level 113 MMOL/L (98-107) 113 MMOL/L (98-107) Carbon Dioxide Level 22 MMOL/L (21-32) 24 MMOL/L (21-32) Anion Gap 10 mmol/L (5-15) 10 mmol/L (5-15) Blood Urea Nitrogen 12 mg/dL (7-18) 13 mg/dL (7-18) Creatinine 0.9 MG/DL (0.55-1.30) 0.7 MG/DL (0.55-1.30) Estimat Glomerular Filtration Rate > 60 mL/min (>60) > 60 mL/min (>60) Glucose Level 127 MG/DL (74-106) 80 MG/DL (74-106) Calcium Level 9.2 MG/DL (8.5-10.1) 9.1 MG/DL (8.5-10.1) Phosphorus Level 2.2 MG/DL (2.5-4.9) Magnesium Level 2.0 MG/DL (1.8-2.4) Total Bilirubin 0.7 MG/DL (0.2-1.0) Aspartate Amino Transf (AST/SGOT) 16 U/L (15-37) Alanine Aminotransferase (ALT/SGPT) 14 U/L (12-78) Alkaline Phosphatase 87 U/L (46-116) C-Reactive Protein, Quantitative 17.6 mg/dL (0.00-0.90) Pro-B-Type Natriuretic Peptide 1921 pg/mL (0-125) Total Protein 6.9 G/DL (6.4-8.2) Albumin 2.4 G/DL (3.4-5.0) Globulin 4.5 g/dL Albumin/Globulin Ratio 0.5 (1.0-2.7) Height (Feet): 5 Height (Inches): 8.00 Weight (Pounds): 223 Objective Vitals: reviewed General: NAD HEENT: nc, at Neck: supple Chest: clear breath sounds bilaterally Cardiovascular: RRR, no s3, s4 Abdomen: soft, nontender, nd ++colostomy Extremities: no cce, normal range of motion Neuro: alert and oriented Wounds: ++ on exam as per Sandor Parrish MD Sep 27, 2019 06:26
[2019-09-27 08:00] VITALS: BP 112/59
--- NOTE | 2019-09-27 08:48 | Pulmonology Progress Note ---
Subjective ROS Limited/Unobtainable: Yes Interval Events: Off all drips; doing well Constitutional: Reports: no symptoms HEENT: Repors: no symptoms Respiratory: Reports: no symptoms Cardiovascular: Reports: no symptoms Gastrointestinal/Abdominal: Reports: no symptoms Musculoskeletal: Reports: pain Allergies: Coded Allergies: PROCHLORPERAZINE (Verified Allergy, Unknown, 08/10/17) All Systems: reviewed and negative except above Objective Last 24 Hour Vital Signs Date Time Temp Pulse Resp B/P (MAP) Pulse Ox O2 Delivery O2 Flow Rate FiO2 09/27/19 05:05 110 109/67 09/27/19 04:00 110 09/27/19 04:00 98.6 89 19 109/67 (81) 94 09/27/19 00:00 98.1 70 18 99/62 (74) 95 09/27/19 00:00 98 09/26/19 22:00 105 98/67 09/26/19 21:00 Room Air 09/26/19 20:00 98.4 105 19 98/67 (77) 99 09/26/19 20:00 106 09/26/19 18:17 99.1 09/26/19 16:23 104 09/26/19 16:00 100.8 101 20 120/57 (78) 98 09/26/19 14:00 102 108/66 09/26/19 12:30 102 09/26/19 12:00 97.9 97 20 103/64 (77) 99 09/26/19 09:19 Room Air Intake and Output 09/26/19 09/27/19 19:00 07:00 Intake Total 55.0 ml Output Total 200 ml 850 ml Balance -145.0 ml -850 ml IV Total 55.0 ml Output Urine Total 700 ml Stool Total 200 ml 150 ml General Appearance: no acute distress HEENT: normocephalic Respiratory: chest wall non-tender, lungs clear Cardiovascular: normal peripheral pulses, normal rate Abdomen: normal bowel sounds Microbiology Date/Time Source Procedure Growth Status 09/25/19 10:15 Nasopharynx Coronavirus COVID-19 PCR ([facility]) - Final Complete 09/24/19 14:15 Nasopharynx Coronavirus COVID-19 PCR ([facility]) - Final Complete Current Medications Medications (Trade) Dose Ordered Sig/Radha Route PRN Reason Start Time Stop Time Status Last Admin Dose Admin Acetaminophen (Tylenol) 500 mg Q6H PRN ORAL Temp >100.5 09/26/19 17:45 10/26/19 17:44 09/26/19 17:47 Acetaminophen/ Hydrocodone Bitart ([place] 7.5/325) 1 tab Q6H PRN ORAL severe pain 09/25/19 13:30 09/29/19 19:14 09/25/19 18:49 Dextrose/ Electrolytes 1,000 ml @ 75 mls/hr [id number] IV 09/25/19 11:15 10/23/19 13:59 09/27/19 03:29 Diltiazem HCl (Cardizem) 90 mg EVERY 8 HOURS ORAL 09/25/19 14:00 10/24/19 17:59 09/25/19 21:48 Enoxaparin Sodium (Lovenox) 40 mg DAILY SUBQ 09/26/19 09:00 12/22/19 08:59 09/26/19 08:52 Lorazepam (Ativan) 0.5 mg TIDPRN PRN ORAL For Anxiety 09/26/19 07:45 10/02/19 07:44 Magnesium Hydroxide (Mom) 30 ml DAILY ORAL 09/26/19 09:00 10/23/19 08:59 Morphine Sulfate (Morphine Sulfate) 2 mg Q4H PRN IVP For Pain 09/25/19 11:15 09/29/19 19:14 09/25/19 11:32 Multivitamins (Multivitamins) 1 tab DAILY ORAL 09/26/19 09:00 10/23/19 08:59 09/26/19 08:51 Pantoprazole (Protonix) 40 mg EVERY 12 HOURS ORAL 09/25/19 21:00 10/24/19 20:59 09/26/19 22:03 Piperacillin Sod/ Tazobactam Sod 3.375 gm/Sodium Chloride 110 ml @ 27.5 mls/hr EVERY 8 HOURS IVPB 09/25/19 14:00 09/28/19 13:59 09/27/19 05:05 Tramadol HCl (Ultram) 50 mg Q6H PRN ORAL moderate pain 09/25/19 11:15 09/29/19 11:14 Zolpidem Tartrate (Ambien) 5 mg HSPRN PRN ORAL Insomnia 09/25/19 19:15 09/29/19 19:14 Assessment/Plan Assessment/Plan IMPRESSION: 1. UTI 2. Colon CA. 3. Previous DNR status, now Full Code. 4. Previous hospice patient, now off hospice. 5. Altered mental status. 6. Hypokalemia. Corrected 7. Hypernatremia. Corrected 8. Marked leukocytosis. Initially improved but worse again today 9. UTI. 10. cardiac arrhythmias DISCUSSION: Continue needs broad-spectrum antibiotics and fluids. I will follow carefully. Cardiac rate control. Patient is seen and discussed with nursing staff. Saturating well on RA/low flow O2 Sonia Persaud Omar Syed MD Sep 27, 2019 08:48
[2019-09-27] MEDS: Milk of Magnesia 30ml Ud ORAL SCH (09:41)
[2019-09-27] MEDS: Enoxaparin 40mg Inj SUBQ SCH (09:42)
--- NOTE | 2019-09-27 10:30 | Nephrology Progress Note ---
Assessment/Plan Problem List: (1) Dehydration (2) Electrolyte imbalance (3) UTI (urinary tract infection) (4) Anemia (5) Colostomy in place (6) Atrial fibrillation with RVR Assessment Dehydration, azotemia Electrolyte imbalance, hypokalemia, Hypotension, tachycardia Mild anemia Colon cancer, was taken off hospice prior to transfer to the hospital Toxic metabolic encephalopathy UTI Failure to thrive Status post colectomy and colostomy Plan September 26: No labs drawn today. Remains stable from renal standpoint of view. Continue per cardiology management. September 25: Renal parameters stable. Continue per cardiology September 24: On telemetry unit now. Potassium phosphate IV ordered. Stable renal parameters. Continue per consultants. September 23: Patient remains in ICU on Cardizem drip. Magnesium, phosphorus, potassium chloride, given a supplement. Continue hydration. Continue to monitor renal parameters and electrolytes. Continue per consultants. Keep n.p.o. as patient's ability to swallow is in question. Waiting for speech therapy evaluation. IV fluid D5 and half-normal saline with potassium chloride Monitor electrolytes Anemia work-up Patient currently on Cardizem drip for SVT by media marketing director Fluid challenge with albumin 5% 500 cc 1 time Antibiotics for UTI Continue per consultants Discussed with RN Subjective ROS Limited/Unobtainable: No Constitutional: Reports: malaise Objective Objective Last 24 Hour Vital Signs Date Time Temp Pulse Resp B/P (MAP) Pulse Ox O2 Delivery O2 Flow Rate FiO2 09/27/19 08:00 98.2 109 20 112/59 (76) 96 09/27/19 05:05 110 109/67 09/27/19 04:00 110 09/27/19 04:00 98.6 89 19 109/67 (81) 94 09/27/19 00:00 98.1 70 18 99/62 (74) 95 09/27/19 00:00 98 09/26/19 22:00 105 98/67 09/26/19 21:00 Room Air 09/26/19 20:00 98.4 105 19 98/67 (77) 99 09/26/19 20:00 106 09/26/19 18:17 99.1 09/26/19 16:23 104 09/26/19 16:00 100.8 101 20 120/57 (78) 98 09/26/19 14:00 102 108/66 09/26/19 12:30 102 09/26/19 12:00 97.9 97 20 103/64 (77) 99 Intake and Output 09/26/19 09/27/19 19:00 07:00 Intake Total 55.0 ml Output Total 200 ml 850 ml Balance -145.0 ml -850 ml IV Total 55.0 ml Output Urine Total 700 ml Stool Total 200 ml 150 ml No labs drawn today September 26 Height (Feet): 5 Height (Inches): 8.00 Weight (Pounds): 232 General Appearance: no apparent distress Cardiovascular: normal rate, arrhythmia Respiratory/Chest: decreased breath sounds Abdomen: soft Chaparro Pemberton MD Sep 27, 2019 10:30
--- NOTE | 2019-09-27 11:51 | Cardiac Electrophysiology PN ---
Assessment/Plan Assessment/Plan 1. Recurrent SVT/atrial fibrillation with rapid ventricular response. Ruled out for myocardial infarction. On Cardizem 90 q 8 2. Sepsis. White count of 20,000. on IV antibiotic. 3. Stage IV colon cancer. Further evaluation by Dr. Hobson. Patient is status post colectomy and colostomy, was on hospice care before, and currently hold off any further chemo per Dr. Hobson. 4. Failure to thrive. 5. Hypotension. Resolved 6. Urine tract infection, on ceftriaxone. Subjective Subjective On Cardizem po in SR in SDU. Alert in NAD. Covid negative x 2 Objective Last 24 Hour Vital Signs Date Time Temp Pulse Resp B/P (MAP) Pulse Ox O2 Delivery O2 Flow Rate FiO2 09/27/19 08:00 98.2 109 20 112/59 (76) 96 09/27/19 08:00 108 09/27/19 05:05 110 109/67 09/27/19 04:00 110 09/27/19 04:00 98.6 89 19 109/67 (81) 94 09/27/19 00:00 98.1 70 18 99/62 (74) 95 09/27/19 00:00 98 09/26/19 22:00 105 98/67 09/26/19 21:00 Room Air 09/26/19 20:00 98.4 105 19 98/67 (77) 99 09/26/19 20:00 106 09/26/19 18:17 99.1 09/26/19 16:23 104 09/26/19 16:00 100.8 101 20 120/57 (78) 98 09/26/19 14:00 102 108/66 09/26/19 12:30 102 09/26/19 12:00 97.9 97 20 103/64 (77) 99 Intake and Output 09/26/19 09/27/19 19:00 07:00 Intake Total 55.0 ml Output Total 200 ml 850 ml Balance -145.0 ml -850 ml IV Total 55.0 ml Output Urine Total 700 ml Stool Total 200 ml 150 ml Microbiology Date/Time Source Procedure Growth Status 09/25/19 10:15 Nasopharynx Coronavirus COVID-19 PCR ([facility]) - Final Complete 09/24/19 14:15 Nasopharynx Coronavirus COVID-19 PCR ([facility]) - Final Complete Objective HEAD AND NECK: No JVD. LUNGS: Coarse rhonchi. CARDIOVASCULAR: Regular S1 and S2 with no gallop or murmur. ABDOMEN: Soft, obese. Has colostomy. EXTREMITIES: 1+ pitting edema. Homar Capps MD Sep 27, 2019 11:51
[2019-09-27 12:00] VITALS: BP 125/77
--- NOTE | 2019-09-27 13:19 | Infectious Diseases Prog Note ---
Assessment/Plan Assessment/Plan A: 1. Urinary tract infection treated 2. Hypertension. 3. Asthma. 4. Anemia 5. Atrial fibrillation 6. Hypokalemia PLAN: 1. Discontinue Zosyn. 2. COVID19 X 2: negative Subjective ROS Limited/Unobtainable: Yes Constitutional: Reports: no symptoms Respiratory: Reports: no symptoms Cardiovascular: Reports: no symptoms Allergies: Coded Allergies: PROCHLORPERAZINE (Verified Allergy, Unknown, 08/10/17) Objective Vital Signs Last 24 Hour Vital Signs Date Time Temp Pulse Resp B/P (MAP) Pulse Ox O2 Delivery O2 Flow Rate FiO2 09/27/19 12:00 115 09/27/19 08:00 98.2 109 20 112/59 (76) 96 09/27/19 08:00 108 09/27/19 05:05 110 109/67 09/27/19 04:00 110 09/27/19 04:00 98.6 89 19 109/67 (81) 94 09/27/19 00:00 98.1 70 18 99/62 (74) 95 09/27/19 00:00 98 09/26/19 22:00 105 98/67 09/26/19 21:00 Room Air 09/26/19 20:00 98.4 105 19 98/67 (77) 99 09/26/19 20:00 106 09/26/19 18:17 99.1 09/26/19 16:23 104 09/26/19 16:00 100.8 101 20 120/57 (78) 98 09/26/19 14:00 102 108/66 Height (Feet): 5 Height (Inches): 8.00 Weight (Pounds): 232 General Appearance: no acute distress Respiratory/Chest: lungs clear Cardiovascular: tachycardia Abdomen: soft, non tender Skin: other - legs edema Neurologic/Psychiatric: alert, responsive, other - has memory loss Microbiology Date/Time Source Procedure Growth Status 09/25/19 10:15 Nasopharynx Coronavirus COVID-19 PCR ([facility]) - Final Complete 09/24/19 14:15 Nasopharynx Coronavirus COVID-19 PCR ([facility]) - Final Complete Current Medications Medications (Trade) Dose Ordered Sig/Radha Route PRN Reason Start Time Stop Time Status Last Admin Dose Admin Acetaminophen (Tylenol) 500 mg Q6H PRN ORAL Temp >100.5 09/26/19 17:45 10/26/19 17:44 09/26/19 17:47 Acetaminophen/ Hydrocodone Bitart (Seminary 7.5/325) 1 tab Q6H PRN ORAL severe pain 09/25/19 13:30 09/29/19 19:14 09/25/19 18:49 Dextrose/ Electrolytes 1,000 ml @ 75 mls/hr [id number] IV 09/25/19 11:15 10/23/19 13:59 09/27/19 03:29 Diltiazem HCl (Cardizem) 90 mg EVERY 8 HOURS ORAL 09/25/19 14:00 10/24/19 17:59 09/25/19 21:48 Enoxaparin Sodium (Lovenox) 40 mg DAILY SUBQ 09/26/19 09:00 12/22/19 08:59 09/27/19 09:42 Lorazepam (Ativan) 0.5 mg TIDPRN PRN ORAL For Anxiety 09/26/19 07:45 10/02/19 07:44 Magnesium Hydroxide (Mom) 30 ml DAILY ORAL 09/26/19 09:00 10/23/19 08:59 09/27/19 09:41 Morphine Sulfate (Morphine Sulfate) 2 mg Q4H PRN IVP For Pain 09/25/19 11:15 09/29/19 19:14 09/25/19 11:32 Multivitamins (Multivitamins) 1 tab DAILY ORAL 09/26/19 09:00 10/23/19 08:59 09/27/19 09:42 Pantoprazole (Protonix) 40 mg EVERY 12 HOURS ORAL 09/25/19 21:00 10/24/19 20:59 09/27/19 09:42 Piperacillin Sod/ Tazobactam Sod 3.375 gm/Sodium Chloride 110 ml @ 27.5 mls/hr EVERY 8 HOURS IVPB 09/25/19 14:00 09/28/19 13:59 09/27/19 05:05 Tramadol HCl (Ultram) 50 mg Q6H PRN ORAL moderate pain 09/25/19 11:15 09/29/19 11:14 Zolpidem Tartrate (Ambien) 5 mg HSPRN PRN ORAL Insomnia 09/25/19 19:15 09/29/19 19:14 Reji Bonds MD Sep 27, 2019 13:19
[2019-09-27] MEDS: HYDROcodone/Acetamin 7.5/325 tab ORAL PRN ×2 (14:01→21:16)
[2019-09-27 16:00] VITALS: BP 103/72
--- NOTE | 2019-09-27 17:25 | Surgery Progress Note ---
Surgery Progress Note Subjective Additional Comments on tele, no acute events, coivd 19 negative, comfortable Objective Last 24 Hour Vital Signs Date Time Temp Pulse Resp B/P (MAP) Pulse Ox O2 Delivery O2 Flow Rate FiO2 09/27/19 16:00 98.2 107 20 103/72 (82) 98 09/27/19 16:00 109 09/27/19 13:40 115 125/77 09/27/19 12:00 98.8 110 22 125/77 (93) 98 09/27/19 12:00 115 09/27/19 09:00 Room Air 09/27/19 08:00 98.2 109 20 112/59 (76) 96 09/27/19 08:00 108 09/27/19 05:05 110 109/67 09/27/19 04:00 110 09/27/19 04:00 98.6 89 19 109/67 (81) 94 09/27/19 00:00 98.1 70 18 99/62 (74) 95 09/27/19 00:00 98 09/26/19 22:00 105 98/67 09/26/19 21:00 Room Air 09/26/19 20:00 98.4 105 19 98/67 (77) 99 09/26/19 20:00 106 09/26/19 18:17 99.1 I&O Intake and Output 09/26/19 09/27/19 19:00 07:00 Intake Total 55.0 ml Output Total 200 ml 850 ml Balance -145.0 ml -850 ml IV Total 55.0 ml Output Urine Total 700 ml Stool Total 200 ml 150 ml Dressing: other Wound: other Drains: other Cardiovascular: RSR Respiratory: decreased breath sounds Abdomen: soft, present bowel sounds Extremities: no cyanosis, other Plan Problems: (1) Failure to thrive Assessment & Plan: DAILY ESTIMATED NEEDS: Needs based on wound, obese 73.8kg abw 25-30 kcals/kg 0412-8386 total kcals 1.25-1.5 g protein/kg 92-111 g total protein 25-30 mL/kg 0054-8970 total fluid mLs NUTRITION DIAGNOSIS: Increased kcal/pro intake needs R/T wound healing as evidenced by pt admitted sacral unstageable and L foot DTI wounds. PO DIET RECOMMENDATIONS: SOFT diet/ texture per LINE FISHER ENTERAL NUTRITION RECOMMENDATIONS: CONSULT RD IF NON ORAL FEEDS ARE PART OF POC ----- ADDITIONAL RECOMMENDATIONS: * Maintain calibrated bed scale weights * Wound care: with diet order add Berry 1pkt BID Add Vit C 250mg BID + MVI w/ min qdaily F/up w/ WC eval * Colostomy status, rec IVF for hydration, monitor BG for hypoglycemia Patient has an ongoing history of bolus holding and poor PO intake (h/o FTT), bolus holding behaviors may be partially be due to Patient's ongoing confusion ( bolus holding is often seen with patients who are forgetful/confused) -->Given Patients acute AMS and UTI this may be a contributing factor. -->Patient also presenting with poor respiratory-swallowing coordination. Further, Patient's respiratory rate appears slightly high today per chart (22 breaths/min) exacerbating Patient's poor breathing-swallowing coordination. LINE FISHER spoke with Patients son, who reports previous incidents of Patient bolus holding (keeping food/liquid in oral cavity for extended periods of time without swallowing), specifically with medications for up to 1-2 days at a time. This is a VERY HIGH aspiration risk, and should be avoided while Patient is in house. -If Patient does exhibit incidents of bolus holding, recommend: 1. Providing Patient with re-orientation/situation 2. Reminding Patient that item in mouth is food/liquids. 3. Encourage Patient swallow via verbal, tactile, and visual cues. -If bolus holding persists, materials should be suctioned from Patients oral cavity. -Patient benefits from frequent re-orientation due to overall confusion and to minimize agitation. RECOMMENDATIONS: 1. Continue Moist Puree with [place] Thick Liquids (no Straws) via 1 to 1 careful hand feeding while implementing posted aspiration precautions. (PER RD Low NA + Nepro TID + BERRY BID) 2. Please assist Patient with oral hygiene BID with suction. (2) UTI (urinary tract infection) (3) Anemia (4) HTN (hypertension) (5) Altered level of consciousness (6) Wound infection Assessment & Plan: Patient presents [facility] for medical care management and on admission identified to have significant leukocytosis, abnormal labs, with wound infection. She is identified to have a large unstageable sacral decubitus ulcer as well as left heel deep tissue injury and blood blister. Complete physical examination performed and likely infectious etiology is her UTI and not the wounds. The sacral decubitus ulcer is unstageable but no purulent drainage no active drainage with periwound stable. The left heel is a deep tissue injury with a blood blister no active drainage. On the left ankle there is a small superficial decubitus skin ulcer identified stage II. Her ostomy is intact and functional. No acute surgical intervention at this time will provide local care for above findings. Wash sacral wound daily with normal saline. Apply Thera honey and foam dressing. Offload pressure from heels with pillow. Foam dressing to heels. Turn every 2 hours Air soft mattress We will follow with recommendations thank you for let me participate in patient' s care (7) Colostomy complication Assessment & Plan: Colostomy evaluated functional history of colon cancer ostomy site with some discomfort currently stable No prolapse no incarcerated hernia identified We will monitor with local examination and serial exams thank you Roberto Carlos Maza Sep 27, 2019 17:25
[2019-09-27 20:00] VITALS: BP 93/60
--- NOTE | 2019-09-27 21:28 | General Progress Note ---
Assessment/Plan Problem List: (1) HTN (hypertension) ICD Codes: I10 - Essential (primary) hypertension SNOMED: 05207395 (2) Anemia ICD Codes: D64.9 - Anemia, unspecified SNOMED: 821613848 (3) UTI (urinary tract infection) ICD Codes: N39.0 - Urinary tract infection, site not specified SNOMED: 23733258 (4) Failure to thrive SNOMED: 57641105 (5) Altered level of consciousness ICD Codes: R40.4 - Transient alteration of awareness SNOMED: 1766729 (6) Wound infection ICD Codes: T14.8XXA - Other injury of unspecified body region, initial encounter; L08.9 - Local infection of the skin and subcutaneous tissue, unspecified SNOMED: 19176817 (7) Dehydration ICD Codes: E86.0 - Dehydration SNOMED: 65555896 (8) Electrolyte imbalance ICD Codes: E87.8 - Other disorders of electrolyte and fluid balance, not elsewhere classified SNOMED: 276715895 (9) Atrial fibrillation with RVR ICD Codes: I48.91 - Unspecified atrial fibrillation SNOMED: 413997660691037 (10) Anemia ICD Codes: D64.9 - Anemia, unspecified SNOMED: 248186412 (11) Colon cancer ICD Codes: C18.9 - Malignant neoplasm of colon, unspecified SNOMED: 563194661 (12) Decubital ulcer ICD Codes: L89.90 - Pressure ulcer of unspecified site, unspecified stage SNOMED: 123348037 Status: stable, progressing Assessment/Plan: leukocytosis anemia sepsis resp insuff colon cancer no bleeding no fever vitals stable Subjective ROS Limited/Unobtainable: Yes Allergies: Coded Allergies: PROCHLORPERAZINE (Verified Allergy, Unknown, 08/10/17) Objective Last 24 Hour Vital Signs Date Time Temp Pulse Resp B/P (MAP) Pulse Ox O2 Delivery O2 Flow Rate FiO2 09/27/19 20:00 101.3 106 20 93/60 (71) 94 09/27/19 16:00 98.2 107 20 103/72 (82) 98 09/27/19 16:00 109 09/27/19 13:40 115 125/77 09/27/19 12:00 98.8 110 22 125/77 (93) 98 09/27/19 12:00 115 09/27/19 09:00 Room Air 09/27/19 08:00 98.2 109 20 112/59 (76) 96 09/27/19 08:00 108 09/27/19 05:05 110 109/67 09/27/19 04:00 110 09/27/19 04:00 98.6 89 19 109/67 (81) 94 09/27/19 00:00 98.1 70 18 99/62 (74) 95 09/27/19 00:00 98 09/26/19 22:00 105 98/67 Intake and Output 09/26/19 09/27/19 19:00 07:00 Intake Total 55.0 ml Output Total 200 ml 850 ml Balance -145.0 ml -850 ml IV Total 55.0 ml Output Urine Total 700 ml Stool Total 200 ml 150 ml Height (Feet): 5 Height (Inches): 8.00 Weight (Pounds): 232 Elizabeth Sidhu MD Sep 27, 2019 21:28
[2019-09-28] VITALS: BP 94/55
[2019-09-28 04:00] VITALS: BP 93/61
[2019-09-28] MEDS: dilTIAZem HCl 90mg tab ORAL SCH ×3 (05:56→21:37)
[2019-09-28] MEDS: D5 1/2NS w/KCl 40meq 1000ml 1,000 ML IV SCH ×2 (06:04→21:37)
--- NOTE | 2019-09-28 06:18 | General Progress Note ---
Assessment/Plan Problem List: (1) Decubital ulcer ICD Codes: L89.90 - Pressure ulcer of unspecified site, unspecified stage SNOMED: 082271201 (2) Atrial fibrillation with RVR ICD Codes: I48.91 - Unspecified atrial fibrillation SNOMED: 049033162200813 (3) Colostomy in place ICD Codes: Z93.3 - Colostomy status SNOMED: 695313019, 733129054 (4) Electrolyte imbalance ICD Codes: E87.8 - Other disorders of electrolyte and fluid balance, not elsewhere classified SNOMED: 273494028 (5) Dehydration ICD Codes: E86.0 - Dehydration SNOMED: 30131881 (6) HTN (hypertension) ICD Codes: I10 - Essential (primary) hypertension SNOMED: 83634455 (7) Anemia ICD Codes: D64.9 - Anemia, unspecified SNOMED: 956205125 Status: stable, progressing Assessment/Plan: passed swallow eval on diet, but poor po intake fu labs add marinol 2.5 bid ? needs peg will monitor Subjective ROS Limited/Unobtainable: No Allergies: Coded Allergies: PROCHLORPERAZINE (Verified Allergy, Unknown, 08/10/17) Objective Last 24 Hour Vital Signs Date Time Temp Pulse Resp B/P (MAP) Pulse Ox O2 Delivery O2 Flow Rate FiO2 09/28/19 04:00 110 09/28/19 04:00 98.0 111 19 93/61 (72) 100 09/28/19 00:00 98.6 103 19 94/55 (68) 98 09/28/19 00:00 114 09/27/19 21:46 98.8 09/27/19 21:00 Room Air 09/27/19 20:00 101.3 106 20 93/60 (71) 94 09/27/19 20:00 109 09/27/19 16:00 98.2 107 20 103/72 (82) 98 09/27/19 16:00 109 09/27/19 13:40 115 125/77 09/27/19 12:00 98.8 110 22 125/77 (93) 98 09/27/19 12:00 115 09/27/19 09:00 Room Air 09/27/19 08:00 98.2 109 20 112/59 (76) 96 09/27/19 08:00 108 Intake and Output 09/27/19 09/28/19 19:00 07:00 Output Total 1000 ml Balance -1000 ml Output Urine Total 900 ml Stool Total 100 ml Height (Feet): 5 Height (Inches): 8.00 Weight (Pounds): 232 General Appearance: no apparent distress EENT: normal ENT inspection Neck: supple Cardiovascular: normal rate Respiratory/Chest: decreased breath sounds Abdomen: normal bowel sounds, non tender, soft Extremities: non-tender Jose Peter MD Sep 28, 2019 06:18
[2019-09-28 07:16] LABS: BASOPHILS % (AUTO) 0.6 % (0.0-2.0); EOSINOPHILS % (AUTO) 2.3 % (0.0-3.0); HEMATOCRIT 26.4 % (37.0-47.0); HEMOGLOBIN 8.7 G/DL (12.0-16.0); LYMPHOCYTES % (AUTO) 23.8 % (20.0-45.0); MEAN CORPUSCULAR VOLUME 80 FL (80-99); MONOCYTES % (AUTO) 5.8 % (1.0-10.0); NEUTROPHILS % (AUTO) 67.5 % (45.0-75.0); PLATELET COUNT 204 K/UL (150-450); RED BLOOD COUNT 3.28 M/UL (4.20-5.40); RED CELL DISTRIBUTION WIDTH 14.2 % (11.6-14.8)
[2019-09-28 07:21] LABS: ALANINE AMINOTRANSFERASE 9 U/L (12-78); ALBUMIN 1.8 G/DL (3.4-5.0); ALBUMIN/GLOBULIN RATIO 0.4 (1.0-2.7); ALKALINE PHOSPHATASE 87 U/L (46-116); ANION GAP 9 mmol/L (5-15); ASPARTATE AMINO TRANSFERASE 18 U/L (15-37); BILIRUBIN,TOTAL 0.4 MG/DL (0.2-1.0); BLOOD UREA NITROGEN 11 mg/dL (7-18); CALCIUM 8.1 MG/DL (8.5-10.1); CARBON DIOXIDE 24 MMOL/L (21-32); CHLORIDE 112 MMOL/L (98-107); CREATININE 0.7 MG/DL (0.55-1.30); PHOSPHORUS 1.4 MG/DL (2.5-4.9); POTASSIUM 4.7 MMOL/L (3.5-5.1); SODIUM 145 MMOL/L (136-145)
[2019-09-28 09:00] VITALS: BP 103/70
[2019-09-28] MEDS ORDERED: Sodium Phosphate 30 MM in NS 275 ML IVPB ONE (09:00)
--- NOTE | 2019-09-28 09:28 | Nephrology Progress Note ---
Assessment/Plan Problem List: (1) Dehydration (2) Electrolyte imbalance (3) UTI (urinary tract infection) (4) Anemia (5) Colostomy in place (6) Atrial fibrillation with RVR Assessment Dehydration, azotemia Electrolyte imbalance, hypokalemia, Hypotension, tachycardia Mild anemia Colon cancer, was taken off hospice prior to transfer to the hospital Toxic metabolic encephalopathy UTI Failure to thrive Status post colectomy and colostomy Plan September 27: Today's labs reviewed. Magnesium, phosphorus supplements given. Continue per consultants. September 26: No labs drawn today. Remains stable from renal standpoint of view. Continue per cardiology management. September 25: Renal parameters stable. Continue per cardiology September 24: On telemetry unit now. Potassium phosphate IV ordered. Stable renal parameters. Continue per consultants. September 23: Patient remains in ICU on Cardizem drip. Magnesium, phosphorus, potassium chloride, given a supplement. Continue hydration. Continue to monitor renal parameters and electrolytes. Continue per consultants. Keep n.p.o. as patient's ability to swallow is in question. Waiting for speech therapy evaluation. IV fluid D5 and half-normal saline with potassium chloride Monitor electrolytes Anemia work-up Patient currently on Cardizem drip for SVT by photogrammetric compilation specialist Fluid challenge with albumin 5% 500 cc 1 time Antibiotics for UTI Continue per consultants Discussed with RN Subjective ROS Limited/Unobtainable: No Constitutional: Reports: malaise, weakness Objective Objective Last 24 Hour Vital Signs Date Time Temp Pulse Resp B/P (MAP) Pulse Ox O2 Delivery O2 Flow Rate FiO2 09/28/19 09:00 97.7 103 20 103/70 (81) 96 09/28/19 04:00 110 09/28/19 04:00 98.0 111 19 93/61 (72) 100 09/28/19 00:00 98.6 103 19 94/55 (68) 98 09/28/19 00:00 114 09/27/19 21:46 98.8 09/27/19 21:00 Room Air 09/27/19 20:00 101.3 106 20 93/60 (71) 94 09/27/19 20:00 109 09/27/19 16:00 98.2 107 20 103/72 (82) 98 09/27/19 16:00 109 09/27/19 13:40 115 125/77 09/27/19 12:00 98.8 110 22 125/77 (93) 98 09/27/19 12:00 115 Intake and Output 09/27/19 09/28/19 19:00 07:00 Output Total 1000 ml Balance -1000 ml Output Urine Total 900 ml Stool Total 100 ml Laboratory Tests 09/28/19 06:20: White Blood Count 15.0H, Red Blood Count 3.28L, Hemoglobin 8.7L, Hematocrit 26.4L, Mean Corpuscular Volume 80, Mean Corpuscular Hemoglobin 26.6L, Mean Corpuscular Hemoglobin Concent 33.1, Red Cell Distribution Width 14.2, Platelet Count 204, Mean Platelet Volume 5.6L, Neutrophils (%) (Auto) 67.5, Lymphocytes ( %) (Auto) 23.8, Monocytes (%) (Auto) 5.8, Eosinophils (%) (Auto) 2.3, Basophils (%) (Auto) 0.6, Sodium Level 145, Potassium Level 4.7, Chloride Level 112H, Carbon Dioxide Level 24, Anion Gap 9, Blood Urea Nitrogen 11, Creatinine 0.7, Estimat Glomerular Filtration Rate > 60, Glucose Level 98, Calcium Level 8.1L, Phosphorus Level 1.4L, Magnesium Level 1.5L, Total Bilirubin 0.4, Aspartate Amino Transf (AST/SGOT) 18, Alanine Aminotransferase (ALT/SGPT) 9L, Alkaline Phosphatase 87, C-Reactive Protein, Quantitative 11.7H, Pro-B-Type Natriuretic Peptide 600H, Total Protein 5.9L, Albumin 1.8L, Globulin 4.1, Albumin/Globulin Ratio 0.4L Height (Feet): 5 Height (Inches): 8.00 Weight (Pounds): 232 General Appearance: no apparent distress, lethargic Cardiovascular: arrhythmia Respiratory/Chest: decreased breath sounds Abdomen: soft Chaparro Pemberton MD Sep 28, 2019 09:28
[2019-09-28] MEDS: Milk of Magnesia 30ml Ud ORAL SCH (10:00)
[2019-09-28] MEDS: Enoxaparin 40mg Inj SUBQ SCH (10:00)
[2019-09-28] MEDS: Dronabinol 2.5mg Cap ORAL SCH ×2 (10:00→17:48)
--- NOTE | 2019-09-28 10:21 | Cardiac Electrophysiology PN ---
Assessment/Plan Assessment/Plan 1. Recurrent SVT/atrial fibrillation with rapid ventricular response. Ruled out for myocardial infarction. On Cardizem 90 q 8 2. Sepsis. White count of 20,000. on IV antibiotic. 3. Stage IV colon cancer. Further evaluation by Dr. Hobson. Patient is status post colectomy and colostomy, was on hospice care before, and currently hold off any further chemo per Dr. Hobson. 4. Failure to thrive. 5. Hypotension. Resolved 6. Urine tract infection, on ceftriaxone. Subjective Subjective On Cardizem po in SR in tele. Alert in NAD. Covid negative x 2 Objective Last 24 Hour Vital Signs Date Time Temp Pulse Resp B/P (MAP) Pulse Ox O2 Delivery O2 Flow Rate FiO2 09/28/19 09:00 97.7 103 20 103/70 (81) 96 09/28/19 04:00 110 09/28/19 04:00 98.0 111 19 93/61 (72) 100 09/28/19 00:00 98.6 103 19 94/55 (68) 98 09/28/19 00:00 114 09/27/19 21:46 98.8 09/27/19 21:00 Room Air 09/27/19 20:00 101.3 106 20 93/60 (71) 94 09/27/19 20:00 109 09/27/19 16:00 98.2 107 20 103/72 (82) 98 09/27/19 16:00 109 09/27/19 13:40 115 125/77 09/27/19 12:00 98.8 110 22 125/77 (93) 98 09/27/19 12:00 115 Intake and Output 09/27/19 09/28/19 18:59 06:59 Output Total 1000 ml Balance -1000 ml Output Urine Total 900 ml Stool Total 100 ml Laboratory Tests Test 09/28/19 06:20 White Blood Count 15.0 K/UL (4.8-10.8) H Red Blood Count 3.28 M/UL (4.20-5.40) L Hemoglobin 8.7 G/DL (12.0-16.0) L Hematocrit 26.4 % (37.0-47.0) L Mean Corpuscular Volume 80 FL (80-99) Mean Corpuscular Hemoglobin 26.6 PG (27.0-31.0) L Mean Corpuscular Hemoglobin Concent 33.1 G/DL (32.0-36.0) Red Cell Distribution Width 14.2 % (11.6-14.8) Platelet Count 204 K/UL (150-450) Mean Platelet Volume 5.6 FL (6.5-10.1) L Neutrophils (%) (Auto) 67.5 % (45.0-75.0) Lymphocytes (%) (Auto) 23.8 % (20.0-45.0) Monocytes (%) (Auto) 5.8 % (1.0-10.0) Eosinophils (%) (Auto) 2.3 % (0.0-3.0) Basophils (%) (Auto) 0.6 % (0.0-2.0) Sodium Level 145 MMOL/L (136-145) Potassium Level 4.7 MMOL/L (3.5-5.1) Chloride Level 112 MMOL/L (98-107) H Carbon Dioxide Level 24 MMOL/L (21-32) Anion Gap 9 mmol/L (5-15) Blood Urea Nitrogen 11 mg/dL (7-18) Creatinine 0.7 MG/DL (0.55-1.30) Estimat Glomerular Filtration Rate > 60 mL/min (>60) Glucose Level 98 MG/DL (74-106) Calcium Level 8.1 MG/DL (8.5-10.1) L Phosphorus Level 1.4 MG/DL (2.5-4.9) L Magnesium Level 1.5 MG/DL (1.8-2.4) L Total Bilirubin 0.4 MG/DL (0.2-1.0) Aspartate Amino Transf (AST/SGOT) 18 U/L (15-37) Alanine Aminotransferase (ALT/SGPT) 9 U/L (12-78) L Alkaline Phosphatase 87 U/L (46-116) C-Reactive Protein, Quantitative 11.7 mg/dL (0.00-0.90) H Pro-B-Type Natriuretic Peptide 600 pg/mL (0-125) H Total Protein 5.9 G/DL (6.4-8.2) L Albumin 1.8 G/DL (3.4-5.0) L Globulin 4.1 g/dL Albumin/Globulin Ratio 0.4 (1.0-2.7) L Objective HEAD AND NECK: No JVD. LUNGS: Coarse rhonchi. CARDIOVASCULAR: Regular S1 and S2 with no gallop or murmur. ABDOMEN: Soft, obese. Has colostomy. EXTREMITIES: 1+ pitting edema. Homar Capps MD Sep 28, 2019 10:21
[2019-09-28] MEDS: HYDROcodone/Acetamin 7.5/325 tab ORAL PRN (10:30)
--- NOTE | 2019-09-28 10:46 | Pulmonology Progress Note ---
Subjective ROS Limited/Unobtainable: No Interval Events: None new Constitutional: Reports: no symptoms HEENT: Repors: no symptoms Respiratory: Reports: no symptoms Cardiovascular: Reports: no symptoms Gastrointestinal/Abdominal: Reports: no symptoms Musculoskeletal: Reports: pain Allergies: Coded Allergies: PROCHLORPERAZINE (Verified Allergy, Unknown, 08/10/17) All Systems: reviewed and negative except above Objective Last 24 Hour Vital Signs Date Time Temp Pulse Resp B/P (MAP) Pulse Ox O2 Delivery O2 Flow Rate FiO2 09/28/19 09:00 97.7 103 20 103/70 (81) 96 09/28/19 04:00 110 09/28/19 04:00 98.0 111 19 93/61 (72) 100 09/28/19 00:00 98.6 103 19 94/55 (68) 98 09/28/19 00:00 114 09/27/19 21:46 98.8 09/27/19 21:00 Room Air 09/27/19 20:00 101.3 106 20 93/60 (71) 94 09/27/19 20:00 109 09/27/19 16:00 98.2 107 20 103/72 (82) 98 09/27/19 16:00 109 09/27/19 13:40 115 125/77 09/27/19 12:00 98.8 110 22 125/77 (93) 98 09/27/19 12:00 115 Intake and Output 09/27/19 09/28/19 19:00 07:00 Output Total 1000 ml Balance -1000 ml Output Urine Total 900 ml Stool Total 100 ml General Appearance: no acute distress HEENT: normocephalic Respiratory: chest wall non-tender, lungs clear Cardiovascular: normal peripheral pulses, normal rate Abdomen: normal bowel sounds Laboratory Tests 09/28/19 06:20: White Blood Count 15.0H, Red Blood Count 3.28L, Hemoglobin 8.7L, Hematocrit 26.4L, Mean Corpuscular Volume 80, Mean Corpuscular Hemoglobin 26.6L, Mean Corpuscular Hemoglobin Concent 33.1, Red Cell Distribution Width 14.2, Platelet Count 204, Mean Platelet Volume 5.6L, Neutrophils (%) (Auto) 67.5, Lymphocytes ( %) (Auto) 23.8, Monocytes (%) (Auto) 5.8, Eosinophils (%) (Auto) 2.3, Basophils (%) (Auto) 0.6, Sodium Level 145, Potassium Level 4.7, Chloride Level 112H, Carbon Dioxide Level 24, Anion Gap 9, Blood Urea Nitrogen 11, Creatinine 0.7, Estimat Glomerular Filtration Rate > 60, Glucose Level 98, Calcium Level 8.1L, Phosphorus Level 1.4L, Magnesium Level 1.5L, Total Bilirubin 0.4, Aspartate Amino Transf (AST/SGOT) 18, Alanine Aminotransferase (ALT/SGPT) 9L, Alkaline Phosphatase 87, C-Reactive Protein, Quantitative 11.7H, Pro-B-Type Natriuretic Peptide 600H, Total Protein 5.9L, Albumin 1.8L, Globulin 4.1, Albumin/Globulin Ratio 0.4L Current Medications Medications (Trade) Dose Ordered Sig/Radha Route PRN Reason Start Time Stop Time Status Last Admin Dose Admin Acetaminophen (Tylenol) 500 mg Q6H PRN ORAL Temp >100.5 09/26/19 17:45 10/26/19 17:44 09/26/19 17:47 Acetaminophen/ Hydrocodone Bitart ([place] 7.5/325) 1 tab Q6H PRN ORAL severe pain 09/25/19 13:30 09/29/19 19:14 09/28/19 10:30 Dextrose/ Electrolytes 1,000 ml @ 75 mls/hr [id number] IV 09/25/19 11:15 10/23/19 13:59 09/28/19 06:04 Diltiazem HCl (Cardizem) 90 mg EVERY 8 HOURS ORAL 09/25/19 14:00 10/24/19 17:59 09/27/19 13:40 Dronabinol (Marinol) 2.5 mg BID ORAL 09/28/19 09:00 12/27/19 08:59 09/28/19 10:00 Enoxaparin Sodium (Lovenox) 40 mg DAILY SUBQ 09/26/19 09:00 12/22/19 08:59 09/28/19 10:00 Lorazepam (Ativan) 0.5 mg TIDPRN PRN ORAL For Anxiety 09/26/19 07:45 10/02/19 07:44 Magnesium Hydroxide (Mom) 30 ml DAILY ORAL 09/26/19 09:00 10/23/19 08:59 09/28/19 10:00 Magnesium Sulfate 100 ml @ 100 mls/hr Q1H IVPB 09/28/19 08:30 09/28/19 12:29 Morphine Sulfate (Morphine Sulfate) 2 mg Q4H PRN IVP For Pain 09/25/19 11:15 09/29/19 19:14 09/25/19 11:32 Multivitamins (Multivitamins) 1 tab DAILY ORAL 09/26/19 09:00 10/23/19 08:59 09/28/19 10:00 Pantoprazole (Protonix) 40 mg EVERY 12 HOURS ORAL 09/25/19 21:00 10/24/19 20:59 09/28/19 10:00 Sodium Phosphate 30 mm/Sodium Chloride 285 ml @ 47.5 mls/hr ONCE ONCE IVPB 09/28/19 09:00 09/28/19 14:59 09/28/19 10:00 Tramadol HCl (Ultram) 50 mg Q6H PRN ORAL moderate pain 09/25/19 11:15 09/29/19 11:14 Zolpidem Tartrate (Ambien) 5 mg HSPRN PRN ORAL Insomnia 09/25/19 19:15 09/29/19 19:14 Assessment/Plan Assessment/Plan IMPRESSION: 1. UTI 2. Colon CA. 3. Previous DNR status, now Full Code. 4. Previous hospice patient, now off hospice. 5. Altered mental status. 6. Hypokalemia. Corrected 7. Hypernatremia. Corrected 8. Marked leukocytosis. Initially improved but worse again today 9. UTI. 10. cardiac arrhythmias DISCUSSION: Abx per ID I will follow carefully. Cardiac rate control. Patient is seen and discussed with nursing staff. Saturating well on RA/low flow O2 Sonia Persaud Omar Syed MD Sep 28, 2019 10:46
--- NOTE | 2019-09-28 11:26 | Infectious Diseases Prog Note ---
Assessment/Plan Assessment/Plan antibiotics : none A 1. UTI s/p rx 2. COVID 19 test negative x 2 3. hypertension 4. asthma P 1. continue off antibiotics 2. will follow up cultures Subjective ROS Limited/Unobtainable: Yes Allergies: Coded Allergies: PROCHLORPERAZINE (Verified Allergy, Unknown, 08/10/17) Objective Vital Signs Last 24 Hour Vital Signs Date Time Temp Pulse Resp B/P (MAP) Pulse Ox O2 Delivery O2 Flow Rate FiO2 09/28/19 09:00 97.7 103 20 103/70 (81) 96 09/28/19 09:00 Room Air 09/28/19 04:00 110 09/28/19 04:00 98.0 111 19 93/61 (72) 100 09/28/19 00:00 98.6 103 19 94/55 (68) 98 09/28/19 00:00 114 09/27/19 21:46 98.8 09/27/19 21:00 Room Air 09/27/19 20:00 101.3 106 20 93/60 (71) 94 09/27/19 20:00 109 09/27/19 16:00 98.2 107 20 103/72 (82) 98 09/27/19 16:00 109 09/27/19 13:40 115 125/77 09/27/19 12:00 98.8 110 22 125/77 (93) 98 09/27/19 12:00 115 Height (Feet): 5 Height (Inches): 8.00 Weight (Pounds): 232 Respiratory/Chest: lungs clear Cardiovascular: normal rate, regular rhythm, no gallop/murmur Abdomen: soft, non tender Extremities: no edema Laboratory Tests Test 09/28/19 06:20 White Blood Count 15.0 K/UL (4.8-10.8) H Red Blood Count 3.28 M/UL (4.20-5.40) L Hemoglobin 8.7 G/DL (12.0-16.0) L Hematocrit 26.4 % (37.0-47.0) L Mean Corpuscular Volume 80 FL (80-99) Mean Corpuscular Hemoglobin 26.6 PG (27.0-31.0) L Mean Corpuscular Hemoglobin Concent 33.1 G/DL (32.0-36.0) Red Cell Distribution Width 14.2 % (11.6-14.8) Platelet Count 204 K/UL (150-450) Mean Platelet Volume 5.6 FL (6.5-10.1) L Neutrophils (%) (Auto) 67.5 % (45.0-75.0) Lymphocytes (%) (Auto) 23.8 % (20.0-45.0) Monocytes (%) (Auto) 5.8 % (1.0-10.0) Eosinophils (%) (Auto) 2.3 % (0.0-3.0) Basophils (%) (Auto) 0.6 % (0.0-2.0) Sodium Level 145 MMOL/L (136-145) Potassium Level 4.7 MMOL/L (3.5-5.1) Chloride Level 112 MMOL/L (98-107) H Carbon Dioxide Level 24 MMOL/L (21-32) Anion Gap 9 mmol/L (5-15) Blood Urea Nitrogen 11 mg/dL (7-18) Creatinine 0.7 MG/DL (0.55-1.30) Estimat Glomerular Filtration Rate > 60 mL/min (>60) Glucose Level 98 MG/DL (74-106) Calcium Level 8.1 MG/DL (8.5-10.1) L Phosphorus Level 1.4 MG/DL (2.5-4.9) L Magnesium Level 1.5 MG/DL (1.8-2.4) L Total Bilirubin 0.4 MG/DL (0.2-1.0) Aspartate Amino Transf (AST/SGOT) 18 U/L (15-37) Alanine Aminotransferase (ALT/SGPT) 9 U/L (12-78) L Alkaline Phosphatase 87 U/L (46-116) C-Reactive Protein, Quantitative 11.7 mg/dL (0.00-0.90) H Pro-B-Type Natriuretic Peptide 600 pg/mL (0-125) H Total Protein 5.9 G/DL (6.4-8.2) L Albumin 1.8 G/DL (3.4-5.0) L Globulin 4.1 g/dL Albumin/Globulin Ratio 0.4 (1.0-2.7) L Current Medications Medications (Trade) Dose Ordered Sig/Radha Route PRN Reason Start Time Stop Time Status Last Admin Dose Admin Acetaminophen (Tylenol) 500 mg Q6H PRN ORAL Temp >100.5 09/26/19 17:45 10/26/19 17:44 09/26/19 17:47 Acetaminophen/ Hydrocodone Bitart ([place] 7.5/325) 1 tab Q6H PRN ORAL severe pain 09/25/19 13:30 09/29/19 19:14 09/28/19 10:30 Dextrose/ Electrolytes 1,000 ml @ 75 mls/hr [id number] IV 09/25/19 11:15 10/23/19 13:59 09/28/19 06:04 Diltiazem HCl (Cardizem) 90 mg EVERY 8 HOURS ORAL 09/25/19 14:00 10/24/19 17:59 09/27/19 13:40 Dronabinol (Marinol) 2.5 mg BID ORAL 09/28/19 09:00 12/27/19 08:59 09/28/19 10:00 Enoxaparin Sodium (Lovenox) 40 mg DAILY SUBQ 09/26/19 09:00 12/22/19 08:59 09/28/19 10:00 Lorazepam (Ativan) 0.5 mg TIDPRN PRN ORAL For Anxiety 09/26/19 07:45 10/02/19 07:44 Magnesium Hydroxide (Mom) 30 ml DAILY ORAL 09/26/19 09:00 10/23/19 08:59 09/28/19 10:00 Magnesium Sulfate 100 ml @ 100 mls/hr Q1H IVPB 09/28/19 08:30 09/28/19 12:29 Morphine Sulfate (Morphine Sulfate) 2 mg Q4H PRN IVP For Pain 09/25/19 11:15 09/29/19 19:14 09/25/19 11:32 Multivitamins (Multivitamins) 1 tab DAILY ORAL 09/26/19 09:00 10/23/19 08:59 09/28/19 10:00 Pantoprazole (Protonix) 40 mg EVERY 12 HOURS ORAL 09/25/19 21:00 10/24/19 20:59 09/28/19 10:00 Sodium Phosphate 30 mm/Sodium Chloride 285 ml @ 47.5 mls/hr ONCE ONCE IVPB 09/28/19 09:00 09/28/19 14:59 09/28/19 10:00 Tramadol HCl (Ultram) 50 mg Q6H PRN ORAL moderate pain 09/25/19 11:15 09/29/19 11:14 Zolpidem Tartrate (Ambien) 5 mg HSPRN PRN ORAL Insomnia 09/25/19 19:15 09/29/19 19:14 Concepcion Muro MD Sep 28, 2019 11:26
--- NOTE | 2019-09-28 11:36 | Surgery Progress Note ---
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 noted diet going well comfortable Objective Last 24 Hour Vital Signs Date Time Temp Pulse Resp B/P (MAP) Pulse Ox O2 Delivery O2 Flow Rate FiO2 09/28/19 09:00 97.7 103 20 103/70 (81) 96 09/28/19 09:00 Room Air 09/28/19 08:00 101 09/28/19 04:00 110 09/28/19 04:00 98.0 111 19 93/61 (72) 100 09/28/19 00:00 98.6 103 19 94/55 (68) 98 09/28/19 00:00 114 09/27/19 21:46 98.8 09/27/19 21:00 Room Air 09/27/19 20:00 101.3 106 20 93/60 (71) 94 09/27/19 20:00 109 09/27/19 16:00 98.2 107 20 103/72 (82) 98 09/27/19 16:00 109 09/27/19 13:40 115 125/77 09/27/19 12:00 98.8 110 22 125/77 (93) 98 09/27/19 12:00 115 I&O Intake and Output 09/27/19 09/28/19 19:00 07:00 Output Total 1000 ml Balance -1000 ml Output Urine Total 900 ml Stool Total 100 ml Dressing: saturated Wound: clean Cardiovascular: RSR Respiratory: clear, decreased breath sounds Abdomen: soft, non-tender, present bowel sounds, non-distended Extremities: no edema, no tenderness, no cyanosis Laboratory Tests Test 09/28/19 06:20 White Blood Count 15.0 K/UL (4.8-10.8) H Red Blood Count 3.28 M/UL (4.20-5.40) L Hemoglobin 8.7 G/DL (12.0-16.0) L Hematocrit 26.4 % (37.0-47.0) L Mean Corpuscular Volume 80 FL (80-99) Mean Corpuscular Hemoglobin 26.6 PG (27.0-31.0) L Mean Corpuscular Hemoglobin Concent 33.1 G/DL (32.0-36.0) Red Cell Distribution Width 14.2 % (11.6-14.8) Platelet Count 204 K/UL (150-450) Mean Platelet Volume 5.6 FL (6.5-10.1) L Neutrophils (%) (Auto) 67.5 % (45.0-75.0) Lymphocytes (%) (Auto) 23.8 % (20.0-45.0) Monocytes (%) (Auto) 5.8 % (1.0-10.0) Eosinophils (%) (Auto) 2.3 % (0.0-3.0) Basophils (%) (Auto) 0.6 % (0.0-2.0) Sodium Level 145 MMOL/L (136-145) Potassium Level 4.7 MMOL/L (3.5-5.1) Chloride Level 112 MMOL/L (98-107) H Carbon Dioxide Level 24 MMOL/L (21-32) Anion Gap 9 mmol/L (5-15) Blood Urea Nitrogen 11 mg/dL (7-18) Creatinine 0.7 MG/DL (0.55-1.30) Estimat Glomerular Filtration Rate > 60 mL/min (>60) Glucose Level 98 MG/DL (74-106) Calcium Level 8.1 MG/DL (8.5-10.1) L Phosphorus Level 1.4 MG/DL (2.5-4.9) L Magnesium Level 1.5 MG/DL (1.8-2.4) L Total Bilirubin 0.4 MG/DL (0.2-1.0) Aspartate Amino Transf (AST/SGOT) 18 U/L (15-37) Alanine Aminotransferase (ALT/SGPT) 9 U/L (12-78) L Alkaline Phosphatase 87 U/L (46-116) C-Reactive Protein, Quantitative 11.7 mg/dL (0.00-0.90) H Pro-B-Type Natriuretic Peptide 600 pg/mL (0-125) H Total Protein 5.9 G/DL (6.4-8.2) L Albumin 1.8 G/DL (3.4-5.0) L Globulin 4.1 g/dL Albumin/Globulin Ratio 0.4 (1.0-2.7) L Plan Problems: (1) Failure to thrive Assessment & Plan: DAILY ESTIMATED NEEDS: Needs based on wound, obese 73.8kg abw 25-30 kcals/kg 5185-9606 total kcals 1.25-1.5 g protein/kg 92-111 g total protein 25-30 mL/kg [id number] total fluid mLs NUTRITION DIAGNOSIS: Increased kcal/pro intake needs R/T wound healing as evidenced by pt admitted sacral unstageable and L foot DTI wounds. PO DIET RECOMMENDATIONS: SOFT diet/ texture per PASTEURIZING MACHINE OPERATOR ENTERAL NUTRITION RECOMMENDATIONS: CONSULT RD IF NON ORAL FEEDS ARE PART OF POC ----- ADDITIONAL RECOMMENDATIONS: * Maintain calibrated bed scale weights * Wound care: with diet order add Berry 1pkt BID Add Vit C 250mg BID + MVI w/ min qdaily F/up w/ WC eval * Colostomy status, rec IVF for hydration, monitor BG for hypoglycemia Patient has an ongoing history of bolus holding and poor PO intake (h/o FTT), bolus holding behaviors may be partially be due to Patient's ongoing confusion ( bolus holding is often seen with patients who are forgetful/confused) -->Given Patients acute AMS and UTI this may be a contributing factor. -->Patient also presenting with poor respiratory-swallowing coordination. Further, Patient's respiratory rate appears slightly high today per chart (22 breaths/min) exacerbating Patient's poor breathing-swallowing coordination. PASTEURIZING MACHINE OPERATOR spoke with Patients son, who reports previous incidents of Patient bolus holding (keeping food/liquid in oral cavity for extended periods of time without swallowing), specifically with medications for up to 1-2 days at a time. This is a VERY HIGH aspiration risk, and should be avoided while Patient is in house. -If Patient does exhibit incidents of bolus holding, recommend: 1. Providing Patient with re-orientation/situation 2. Reminding Patient that item in mouth is food/liquids. 3. Encourage Patient swallow via verbal, tactile, and visual cues. -If bolus holding persists, materials should be suctioned from Patients oral cavity. -Patient benefits from frequent re-orientation due to overall confusion and to minimize agitation. RECOMMENDATIONS: 1. Continue Moist Puree with Joice Thick Liquids (no Straws) via 1 to 1 careful hand feeding while implementing posted aspiration precautions. (PER RD Low NA + Nepro TID + BERRY BID) 2. Please assist Patient with oral hygiene BID with suction. Patient continues to be confused, with ongoing pain, further, Patient is c/o being unable to move arms, RN made aware and provided medications. PO TRIALS: -Patient completed thin liquid trials via cup sip with no significant overt s/s of aspiration, vocal quality remained clear. -Patient completed PO trials of whole medications (large NORCO pill cut in half ) with thin liquids with no significant overt s/s of aspiration, vocal quality remained clear. PLAN: 1. Upgrade Patient to Thin Liquids, continue Moist Puree, supplements and type per RD. 2. PASTEURIZING MACHINE OPERATOR plans to continue to f/u with Patient for diet tolerance, dysphagia tx and management. (2) UTI (urinary tract infection) (3) Anemia (4) HTN (hypertension) (5) Altered level of consciousness (6) Wound infection Assessment & Plan: Patient presents [facility] for medical care management and on admission identified to have significant leukocytosis, abnormal labs, with wound infection. She is identified to have a large unstageable sacral decubitus ulcer as well as left heel deep tissue injury and blood blister. Complete physical examination performed and likely infectious etiology is her UTI and not the wounds. The sacral decubitus ulcer is unstageable but no purulent drainage no active drainage with periwound stable. The left heel is a deep tissue injury with a blood blister no active drainage. On the left ankle there is a small superficial decubitus skin ulcer identified stage II. Her ostomy is intact and functional. No acute surgical intervention at this time will provide local care for above findings. Wash sacral wound daily with normal saline. Apply Thera honey and foam dressing. Offload pressure from heels with pillow. Foam dressing to heels. Turn every 2 hours Air soft mattress We will follow with recommendations thank you for let me participate in patient' s care (7) Colostomy complication Assessment & Plan: Colostomy evaluated functional history of colon cancer ostomy site with some discomfort currently stable No prolapse no incarcerated hernia identified We will monitor with local examination and serial exams thank you Roberto Carlos Maza Sep 28, 2019 11:36
--- NOTE | 2019-09-28 11:38 | Hematology/Onc Progress Note ---
Assessment/Plan Assessment/Plan Assessment and Recs # Colon cancer s/p colectomy with colostomy++ --> on hospice before dc --> hold off on further treatment # Anemia of chronic disease due to underlying chronic medical issues, multifactorial v Gi bleed --> Anemia workup has been ordered, rule out gi bleed --> No evidence of hemolysis is noted, peripheral smear has been reviewed. --> Hgb goal >7. Transfuse prn. --> Epogen or iron at this time is not particularly indicated --> Medications have been reviewed --> low threshold for gi evaluation in case has occult + --> hgb trend 9.1-->9.5->8.7 # Leukocytosis/elevated white blood cell count, unspecified likely related to underlying stress reaction, smoking v more likely infection --> have reviewed peripheral smear and bandemia/neutrophilia noted --> continue antibiotics if they have been started by ID team --> monitor for resolution --> wbc 18-->20->16-->17->15 --> abx: zosyn ->Off # Altered level of consciousness --> r/o underlying infection, ?metabolic # UTI (urinary tract infection) -> abx # Failure to thrive --> on fluids # Hypotension, tachycardia # Toxic metabolic encephalopathy # Dvt ppx lovenox sq The timing of this note does not necessarily reflect the time of the patient was seen. Greatly appreciate consultation. Subjective HEENT: Denies: no symptoms, eye pain, blurred vision, tearing, double vision, ear pain, ear discharge, nose pain, nose congestion, throat pain, throat swelling, mouth pain, mouth swelling, other Cardiovascular: Denies: no symptoms, chest pain, edema, irregular heart rate, lightheadedness, palpitations, syncope, other Respiratory: Denies: no symptoms, cough, shortness of breath, SOB with excertion, SOB at rest, sputum, wheezing, other Gastrointestinal/Abdominal: Denies: no symptoms, abdomen distended, abdominal pain, black stools, tarry stools, blood in stool, constipated, diarrhea, difficulty swallowing, nausea, poor appetite, poor fluid intake, rectal bleeding , vomiting, other Neurologic/Psychiatric: Denies: no symptoms, anxiety, depressed, emotional problems, headache, numbness, paresthesia, pre-existing deficit, seizure, tingling, tremors, weakness, other Endocrine: Denies: no symptoms, excessive sweating, flushing, intolerance to cold, intolerance to heat, increased hunger, increased thirst, increased urine, unexplained weight gain, unexplained weight loss, other Hematologic/Lymphatic: Denies: no symptoms, anemia, easy bleeding, easy bruising, adenopathy, other Allergies: Coded Allergies: PROCHLORPERAZINE (Verified Allergy, Unknown, 08/10/17) Subjective 09/23 remains confused, hgb 9.1, no hemolysis is seen, no bleeding, meds noted 09/24 labre noted, no bleeding, meds reviewed, no night sweats 09/26 on tele, no acute events, coivd 19 negative, room air 09/27 labs are noted, no bleeding, hgb remains 8.7, monitor for bleed Objective Objective Current Medications Medications (Trade) Dose Ordered Sig/Radha Route PRN Reason Start Time Stop Time Status Last Admin Dose Admin Acetaminophen (Tylenol) 500 mg Q6H PRN ORAL Temp >100.5 09/26/19 17:45 10/26/19 17:44 09/26/19 17:47 Acetaminophen/ Hydrocodone Bitart ([place] 7.5/325) 1 tab Q6H PRN ORAL severe pain 09/25/19 13:30 09/29/19 19:14 09/28/19 10:30 Dextrose/ Electrolytes 1,000 ml @ 75 mls/hr [id number] IV 09/25/19 11:15 10/23/19 13:59 09/28/19 06:04 Diltiazem HCl (Cardizem) 90 mg EVERY 8 HOURS ORAL 09/25/19 14:00 10/24/19 17:59 09/27/19 13:40 Dronabinol (Marinol) 2.5 mg BID ORAL 09/28/19 09:00 12/27/19 08:59 09/28/19 10:00 Enoxaparin Sodium (Lovenox) 40 mg DAILY SUBQ 09/26/19 09:00 12/22/19 08:59 09/28/19 10:00 Lorazepam (Ativan) 0.5 mg TIDPRN PRN ORAL For Anxiety 09/26/19 07:45 10/02/19 07:44 Magnesium Hydroxide (Mom) 30 ml DAILY ORAL 09/26/19 09:00 10/23/19 08:59 09/28/19 10:00 Magnesium Sulfate 100 ml @ 100 mls/hr Q1H IVPB 09/28/19 08:30 09/28/19 12:29 Morphine Sulfate (Morphine Sulfate) 2 mg Q4H PRN IVP For Pain 09/25/19 11:15 09/29/19 19:14 09/25/19 11:32 Multivitamins (Multivitamins) 1 tab DAILY ORAL 09/26/19 09:00 10/23/19 08:59 09/28/19 10:00 Pantoprazole (Protonix) 40 mg EVERY 12 HOURS ORAL 09/25/19 21:00 10/24/19 20:59 09/28/19 10:00 Sodium Phosphate 30 mm/Sodium Chloride 285 ml @ 47.5 mls/hr ONCE ONCE IVPB 09/28/19 09:00 09/28/19 14:59 09/28/19 10:00 Tramadol HCl (Ultram) 50 mg Q6H PRN ORAL moderate pain 09/25/19 11:15 09/29/19 11:14 Zolpidem Tartrate (Ambien) 5 mg HSPRN PRN ORAL Insomnia 09/25/19 19:15 09/29/19 19:14 Last 24 Hour Vital Signs Date Time Temp Pulse Resp B/P (MAP) Pulse Ox O2 Delivery O2 Flow Rate FiO2 09/28/19 09:00 97.7 103 20 103/70 (81) 96 09/28/19 09:00 Room Air 09/28/19 08:00 101 09/28/19 04:00 110 09/28/19 04:00 98.0 111 19 93/61 (72) 100 09/28/19 00:00 98.6 103 19 94/55 (68) 98 09/28/19 00:00 114 09/27/19 21:46 98.8 09/27/19 21:00 Room Air 09/27/19 20:00 101.3 106 20 93/60 (71) 94 09/27/19 20:00 109 09/27/19 16:00 98.2 107 20 103/72 (82) 98 09/27/19 16:00 109 09/27/19 13:40 115 125/77 09/27/19 12:00 98.8 110 22 125/77 (93) 98 09/27/19 12:00 115 09/27/19 09:00 Room Air 09/27/19 08:00 98.2 109 20 112/59 (76) 96 09/27/19 08:00 108 09/27/19 05:05 110 109/67 09/27/19 04:00 110 09/27/19 04:00 98.6 89 19 109/67 (81) 94 09/27/19 00:00 98.1 70 18 99/62 (74) 95 09/27/19 00:00 98 09/26/19 22:00 105 98/67 09/26/19 21:00 Room Air 09/26/19 20:00 98.4 105 19 98/67 (77) 99 09/26/19 20:00 106 09/26/19 18:17 99.1 09/26/19 16:23 104 09/26/19 16:00 100.8 101 20 120/57 (78) 98 09/26/19 14:00 102 108/66 09/26/19 12:30 102 09/26/19 12:00 97.9 97 20 103/64 (77) 99 Intake and Output 09/27/19 09/28/19 19:00 07:00 Output Total 1000 ml Balance -1000 ml Output Urine Total 900 ml Stool Total 100 ml Labs Test 09/26/19 08:30 09/28/19 06:20 White Blood Count 13.5 K/UL (4.8-10.8) 15.0 K/UL (4.8-10.8) Red Blood Count 3.94 M/UL (4.20-5.40) 3.28 M/UL (4.20-5.40) Hemoglobin 10.5 G/DL (12.0-16.0) 8.7 G/DL (12.0-16.0) Hematocrit 32.0 % (37.0-47.0) 26.4 % (37.0-47.0) Mean Corpuscular Volume 81 FL (80-99) 80 FL (80-99) Mean Corpuscular Hemoglobin 26.6 PG (27.0-31.0) 26.6 PG (27.0-31.0) Mean Corpuscular Hemoglobin Concent 32.8 G/DL (32.0-36.0) 33.1 G/DL (32.0-36.0) Red Cell Distribution Width 14.5 % (11.6-14.8) 14.2 % (11.6-14.8) Platelet Count 243 K/UL (150-450) 204 K/UL (150-450) Mean Platelet Volume 5.1 FL (6.5-10.1) 5.6 FL (6.5-10.1) Neutrophils (%) (Auto) 73.3 % (45.0-75.0) 67.5 % (45.0-75.0) Lymphocytes (%) (Auto) 19.6 % (20.0-45.0) 23.8 % (20.0-45.0) Monocytes (%) (Auto) 4.2 % (1.0-10.0) 5.8 % (1.0-10.0) Eosinophils (%) (Auto) 2.4 % (0.0-3.0) 2.3 % (0.0-3.0) Basophils (%) (Auto) 0.5 % (0.0-2.0) 0.6 % (0.0-2.0) Sodium Level 147 MMOL/L (136-145) 145 MMOL/L (136-145) Potassium Level 4.2 MMOL/L (3.5-5.1) 4.7 MMOL/L (3.5-5.1) Chloride Level 113 MMOL/L (98-107) 112 MMOL/L (98-107) Carbon Dioxide Level 24 MMOL/L (21-32) 24 MMOL/L (21-32) Anion Gap 10 mmol/L (5-15) 9 mmol/L (5-15) Blood Urea Nitrogen 13 mg/dL (7-18) 11 mg/dL (7-18) Creatinine 0.7 MG/DL (0.55-1.30) 0.7 MG/DL (0.55-1.30) Estimat Glomerular Filtration Rate > 60 mL/min (>60) > 60 mL/min (>60) Glucose Level 80 MG/DL (74-106) 98 MG/DL (74-106) Calcium Level 9.1 MG/DL (8.5-10.1) 8.1 MG/DL (8.5-10.1) Phosphorus Level 1.4 MG/DL (2.5-4.9) Magnesium Level 1.5 MG/DL (1.8-2.4) Total Bilirubin 0.4 MG/DL (0.2-1.0) Aspartate Amino Transf (AST/SGOT) 18 U/L (15-37) Alanine Aminotransferase (ALT/SGPT) 9 U/L (12-78) Alkaline Phosphatase 87 U/L (46-116) C-Reactive Protein, Quantitative 11.7 mg/dL (0.00-0.90) Pro-B-Type Natriuretic Peptide 600 pg/mL (0-125) Total Protein 5.9 G/DL (6.4-8.2) Albumin 1.8 G/DL (3.4-5.0) Globulin 4.1 g/dL Albumin/Globulin Ratio 0.4 (1.0-2.7) Height (Feet): 5 Height (Inches): 8.00 Weight (Pounds): 232 Objective Vitals: reviewed General: NAD HEENT: nc, at Neck: supple Chest: clear breath sounds bilaterally Cardiovascular: RRR, no s3, s4 Abdomen: soft, nontender, nd ++colostomy Extremities: no cce, normal range of motion Neuro: alert and oriented Wounds: ++ on exam as per Sandor Parrish MD Sep 28, 2019 11:38
[2019-09-28 12:00] VITALS: BP 98/73
[2019-09-28 16:00] VITALS: BP 117/68
[2019-09-28 20:00] VITALS: BP 103/61
--- NOTE | 2019-09-28 22:24 | General Progress Note ---
Assessment/Plan Problem List: (1) HTN (hypertension) ICD Codes: I10 - Essential (primary) hypertension SNOMED: 46873912 (2) Anemia ICD Codes: D64.9 - Anemia, unspecified SNOMED: 471152772 (3) UTI (urinary tract infection) ICD Codes: N39.0 - Urinary tract infection, site not specified SNOMED: 79090583 (4) Failure to thrive SNOMED: 36996270 (5) Altered level of consciousness ICD Codes: R40.4 - Transient alteration of awareness SNOMED: 4664849 (6) Wound infection ICD Codes: T14.8XXA - Other injury of unspecified body region, initial encounter; L08.9 - Local infection of the skin and subcutaneous tissue, unspecified SNOMED: 12645073 (7) Dehydration ICD Codes: E86.0 - Dehydration SNOMED: 33763252 (8) Electrolyte imbalance ICD Codes: E87.8 - Other disorders of electrolyte and fluid balance, not elsewhere classified SNOMED: 444438039 (9) Atrial fibrillation with RVR ICD Codes: I48.91 - Unspecified atrial fibrillation SNOMED: 201831213690813 (10) Anemia ICD Codes: D64.9 - Anemia, unspecified SNOMED: 484485645 (11) Colon cancer ICD Codes: C18.9 - Malignant neoplasm of colon, unspecified SNOMED: 846330351 (12) Decubital ulcer ICD Codes: L89.90 - Pressure ulcer of unspecified site, unspecified stage SNOMED: 872481260 Status: stable, progressing Assessment/Plan: leukocytosis anemia sepsis resp insuff not hypoxic supportive therapy afebrile Subjective ROS Limited/Unobtainable: Yes Allergies: Coded Allergies: PROCHLORPERAZINE (Verified Allergy, Unknown, 08/10/17) Objective Last 24 Hour Vital Signs Date Time Temp Pulse Resp B/P (MAP) Pulse Ox O2 Delivery O2 Flow Rate FiO2 09/28/19 21:37 104 103/61 09/28/19 16:00 97.8 109 20 117/68 (84) 99 09/28/19 16:00 106 09/28/19 14:00 105 98/73 09/28/19 12:00 97.7 103 20 98/73 (81) 97 09/28/19 12:00 105 09/28/19 09:00 97.7 103 20 103/70 (81) 96 09/28/19 09:00 Room Air 09/28/19 08:00 101 09/28/19 04:00 110 09/28/19 04:00 98.0 111 19 93/61 (72) 100 09/28/19 00:00 98.6 103 19 94/55 (68) 98 09/28/19 00:00 114 Intake and Output 09/27/19 09/28/19 19:00 07:00 Output Total 1000 ml Balance -1000 ml Output Urine Total 900 ml Stool Total 100 ml Laboratory Tests 09/28/19 06:20: White Blood Count 15.0H, Red Blood Count 3.28L, Hemoglobin 8.7L, Hematocrit 26.4L, Mean Corpuscular Volume 80, Mean Corpuscular Hemoglobin 26.6L, Mean Corpuscular Hemoglobin Concent 33.1, Red Cell Distribution Width 14.2, Platelet Count 204, Mean Platelet Volume 5.6L, Neutrophils (%) (Auto) 67.5, Lymphocytes ( %) (Auto) 23.8, Monocytes (%) (Auto) 5.8, Eosinophils (%) (Auto) 2.3, Basophils (%) (Auto) 0.6, Sodium Level 145, Potassium Level 4.7, Chloride Level 112H, Carbon Dioxide Level 24, Anion Gap 9, Blood Urea Nitrogen 11, Creatinine 0.7, Estimat Glomerular Filtration Rate > 60, Glucose Level 98, Calcium Level 8.1L, Phosphorus Level 1.4L, Magnesium Level 1.5L, Total Bilirubin 0.4, Aspartate Amino Transf (AST/SGOT) 18, Alanine Aminotransferase (ALT/SGPT) 9L, Alkaline Phosphatase 87, C-Reactive Protein, Quantitative 11.7H, Pro-B-Type Natriuretic Peptide 600H, Total Protein 5.9L, Albumin 1.8L, Globulin 4.1, Albumin/Globulin Ratio 0.4L Height (Feet): 5 Height (Inches): 8.00 Weight (Pounds): 232 Elizabeth Sidhu MD Sep 28, 2019 22:24
[2019-09-29] VITALS: BP 99/64
[2019-09-29 04:00] VITALS: BP 106/55
[2019-09-29] MEDS: dilTIAZem HCl 90mg tab ORAL SCH ×2 (06:10→14:00)
--- NOTE | 2019-09-29 06:44 | Hematology/Onc Progress Note ---
Assessment/Plan Assessment/Plan Assessment and Recs # Colon cancer s/p colectomy with colostomy++ --> on hospice before dc --> hold off on further treatment # Anemia of chronic disease due to underlying chronic medical issues, multifactorial v Gi bleed --> Anemia workup has been ordered, rule out gi bleed --> No evidence of hemolysis is noted, peripheral smear has been reviewed. --> Hgb goal >7. Transfuse prn. --> Epogen or iron at this time is not particularly indicated --> Medications have been reviewed --> low threshold for gi evaluation in case has occult + --> hgb trend 9.1-->9.5->8.7 # Leukocytosis/elevated white blood cell count, unspecified likely related to underlying stress reaction, smoking v more likely infection --> have reviewed peripheral smear and bandemia/neutrophilia noted --> continue antibiotics if they have been started by ID team --> monitor for resolution --> wbc 18-->20->16-->17->15 --> abx: zosyn ->Off # Altered level of consciousness --> r/o underlying infection, ?metabolic # UTI (urinary tract infection) -> abx # Failure to thrive --> on fluids # Hypotension, tachycardia # Toxic metabolic encephalopathy # Dvt ppx lovenox sq The timing of this note does not necessarily reflect the time of the patient was seen. Greatly appreciate consultation. Subjective Allergies: Coded Allergies: PROCHLORPERAZINE (Verified Allergy, Unknown, 08/10/17) Subjective 09/23 remains confused, hgb 9.1, no hemolysis is seen, no bleeding, meds noted 09/24 labre noted, no bleeding, meds reviewed, no night sweats 09/26 on tele, no acute events, covid 19 negative, room air 09/27 labs are noted, no bleeding, hgb remains 8.7, monitor for bleed 09/28 awake and alert, no events, room air, dc planning Objective Objective Current Medications Medications (Trade) Dose Ordered Sig/Radha Route PRN Reason Start Time Stop Time Status Last Admin Dose Admin Acetaminophen (Tylenol) 500 mg Q6H PRN ORAL Temp >100.5 09/26/19 17:45 10/26/19 17:44 09/26/19 17:47 Acetaminophen/ Hydrocodone Bitart ([place] 7.5/325) 1 tab Q6H PRN ORAL severe pain 09/25/19 13:30 09/29/19 19:14 09/28/19 10:30 Dextrose/ Electrolytes 1,000 ml @ 75 mls/hr [id number] IV 09/25/19 11:15 10/23/19 13:59 09/28/19 21:37 Diltiazem HCl (Cardizem) 90 mg EVERY 8 HOURS ORAL 09/28/19 22:00 10/24/19 17:59 09/29/19 06:10 Dronabinol (Marinol) 2.5 mg BID ORAL 09/28/19 09:00 12/27/19 08:59 09/28/19 17:48 Enoxaparin Sodium (Lovenox) 40 mg DAILY SUBQ 09/26/19 09:00 12/22/19 08:59 09/28/19 10:00 Lorazepam (Ativan) 0.5 mg TIDPRN PRN ORAL For Anxiety 09/26/19 07:45 10/02/19 07:44 09/29/19 00:12 Magnesium Hydroxide (Mom) 30 ml DAILY ORAL 09/26/19 09:00 10/23/19 08:59 09/28/19 10:00 Morphine Sulfate (Morphine Sulfate) 2 mg Q4H PRN IVP For Pain 09/25/19 11:15 09/29/19 19:14 09/25/19 11:32 Multivitamins (Multivitamins) 1 tab DAILY ORAL 09/26/19 09:00 10/23/19 08:59 09/28/19 10:00 Pantoprazole (Protonix) 40 mg DAILY ORAL 09/29/19 09:00 10/29/19 08:59 Tramadol HCl (Ultram) 50 mg Q6H PRN ORAL moderate pain 09/25/19 11:15 09/29/19 11:14 09/29/19 00:16 Zolpidem Tartrate (Ambien) 5 mg HSPRN PRN ORAL Insomnia 09/25/19 19:15 09/29/19 19:14 09/28/19 23:50 Last 24 Hour Vital Signs Date Time Temp Pulse Resp B/P (MAP) Pulse Ox O2 Delivery O2 Flow Rate FiO2 09/29/19 06:10 95 106/55 09/29/19 04:26 95 21 96 Room Air 21 09/29/19 04:26 96 Room Air 21 09/29/19 04:00 98.7 100 20 106/55 (72) 97 09/29/19 04:00 106 09/29/19 00:00 99.8 103 18 99/64 (76) 99 09/29/19 00:00 103 09/28/19 21:37 104 103/61 09/28/19 21:00 Room Air 09/28/19 20:00 110 09/28/19 20:00 99.6 104 18 103/61 (75) 99 09/28/19 16:00 97.8 109 20 117/68 (84) 99 09/28/19 16:00 106 09/28/19 14:00 105 98/73 09/28/19 12:00 97.7 103 20 98/73 (81) 97 09/28/19 12:00 105 09/28/19 09:00 97.7 103 20 103/70 (81) 96 09/28/19 09:00 Room Air 09/28/19 08:00 101 09/28/19 04:00 110 09/28/19 04:00 98.0 111 19 93/61 (72) 100 09/28/19 00:00 98.6 103 19 94/55 (68) 98 09/28/19 00:00 114 09/27/19 21:46 98.8 09/27/19 21:00 Room Air 09/27/19 20:00 101.3 106 20 93/60 (71) 94 09/27/19 20:00 109 09/27/19 16:00 98.2 107 20 103/72 (82) 98 09/27/19 16:00 109 09/27/19 13:40 115 125/77 09/27/19 12:00 98.8 110 22 125/77 (93) 98 09/27/19 12:00 115 09/27/19 09:00 Room Air 09/27/19 08:00 98.2 109 20 112/59 (76) 96 09/27/19 08:00 108 Intake and Output 09/28/19 09/29/19 19:00 07:00 Intake Total 195 ml 750 ml Output Total 1200 ml 300 ml Balance -1005 ml 450 ml Intake Oral 120 ml IV Total 75 ml 750 ml Output Urine Total 1200 ml 300 ml # Voids 3 1 Labs Test 09/26/19 08:30 09/28/19 06:20 White Blood Count 13.5 K/UL (4.8-10.8) 15.0 K/UL (4.8-10.8) Red Blood Count 3.94 M/UL (4.20-5.40) 3.28 M/UL (4.20-5.40) Hemoglobin 10.5 G/DL (12.0-16.0) 8.7 G/DL (12.0-16.0) Hematocrit 32.0 % (37.0-47.0) 26.4 % (37.0-47.0) Mean Corpuscular Volume 81 FL (80-99) 80 FL (80-99) Mean Corpuscular Hemoglobin 26.6 PG (27.0-31.0) 26.6 PG (27.0-31.0) Mean Corpuscular Hemoglobin Concent 32.8 G/DL (32.0-36.0) 33.1 G/DL (32.0-36.0) Red Cell Distribution Width 14.5 % (11.6-14.8) 14.2 % (11.6-14.8) Platelet Count 243 K/UL (150-450) 204 K/UL (150-450) Mean Platelet Volume 5.1 FL (6.5-10.1) 5.6 FL (6.5-10.1) Neutrophils (%) (Auto) 73.3 % (45.0-75.0) 67.5 % (45.0-75.0) Lymphocytes (%) (Auto) 19.6 % (20.0-45.0) 23.8 % (20.0-45.0) Monocytes (%) (Auto) 4.2 % (1.0-10.0) 5.8 % (1.0-10.0) Eosinophils (%) (Auto) 2.4 % (0.0-3.0) 2.3 % (0.0-3.0) Basophils (%) (Auto) 0.5 % (0.0-2.0) 0.6 % (0.0-2.0) Sodium Level 147 MMOL/L (136-145) 145 MMOL/L (136-145) Potassium Level 4.2 MMOL/L (3.5-5.1) 4.7 MMOL/L (3.5-5.1) Chloride Level 113 MMOL/L (98-107) 112 MMOL/L (98-107) Carbon Dioxide Level 24 MMOL/L (21-32) 24 MMOL/L (21-32) Anion Gap 10 mmol/L (5-15) 9 mmol/L (5-15) Blood Urea Nitrogen 13 mg/dL (7-18) 11 mg/dL (7-18) Creatinine 0.7 MG/DL (0.55-1.30) 0.7 MG/DL (0.55-1.30) Estimat Glomerular Filtration Rate > 60 mL/min (>60) > 60 mL/min (>60) Glucose Level 80 MG/DL (74-106) 98 MG/DL (74-106) Calcium Level 9.1 MG/DL (8.5-10.1) 8.1 MG/DL (8.5-10.1) Phosphorus Level 1.4 MG/DL (2.5-4.9) Magnesium Level 1.5 MG/DL (1.8-2.4) Total Bilirubin 0.4 MG/DL (0.2-1.0) Aspartate Amino Transf (AST/SGOT) 18 U/L (15-37) Alanine Aminotransferase (ALT/SGPT) 9 U/L (12-78) Alkaline Phosphatase 87 U/L (46-116) C-Reactive Protein, Quantitative 11.7 mg/dL (0.00-0.90) Pro-B-Type Natriuretic Peptide 600 pg/mL (0-125) Total Protein 5.9 G/DL (6.4-8.2) Albumin 1.8 G/DL (3.4-5.0) Globulin 4.1 g/dL Albumin/Globulin Ratio 0.4 (1.0-2.7) Height (Feet): 5 Height (Inches): 8.00 Weight (Pounds): 230 Objective Vitals: reviewed General: NAD HEENT: nc, at Neck: supple Chest: clear breath sounds bilaterally Cardiovascular: RRR, no s3, s4 Abdomen: soft, nontender, nd ++colostomy Extremities: no cce, normal range of motion Neuro: alert and oriented Wounds: ++ on exam as per Rn : michel+ Sandor Hobson MD Sep 29, 2019 06:44
[2019-09-29 07:03] LABS: BASOPHILS % (AUTO) 0.5 % (0.0-2.0); EOSINOPHILS % (AUTO) 1.7 % (0.0-3.0); HEMATOCRIT 27.1 % (37.0-47.0); MEAN CORPUSCULAR VOLUME 80 FL (80-99); MONOCYTES % (AUTO) 5.4 % (1.0-10.0); NEUTROPHILS % (AUTO) 74.4 % (45.0-75.0); PLATELET COUNT 216 K/UL (150-450); RED BLOOD COUNT 3.37 M/UL (4.20-5.40); WHITE BLOOD COUNT 15.7 K/UL (4.8-10.8)
--- NOTE | 2019-09-29 07:21 | General Progress Note ---
Assessment/Plan Problem List: (1) Decubital ulcer ICD Codes: L89.90 - Pressure ulcer of unspecified site, unspecified stage SNOMED: 158898697 (2) Atrial fibrillation with RVR ICD Codes: I48.91 - Unspecified atrial fibrillation SNOMED: 840918385584480 (3) Colostomy in place ICD Codes: Z93.3 - Colostomy status SNOMED: 530161530, 870678598 (4) Electrolyte imbalance ICD Codes: E87.8 - Other disorders of electrolyte and fluid balance, not elsewhere classified SNOMED: 721447705 (5) Dehydration ICD Codes: E86.0 - Dehydration SNOMED: 96509794 (6) HTN (hypertension) ICD Codes: I10 - Essential (primary) hypertension SNOMED: 45479946 (7) Anemia ICD Codes: D64.9 - Anemia, unspecified SNOMED: 211976279 Status: stable, progressing Assessment/Plan: passed swallow eval on diet, but poor po intake fu labs add marinol 2.5 bid ? needs peg will monitor Subjective ROS Limited/Unobtainable: No Allergies: Coded Allergies: PROCHLORPERAZINE (Verified Allergy, Unknown, 08/10/17) Objective Last 24 Hour Vital Signs Date Time Temp Pulse Resp B/P (MAP) Pulse Ox O2 Delivery O2 Flow Rate FiO2 09/29/19 06:10 95 106/55 09/29/19 04:26 95 21 96 Room Air 21 09/29/19 04:26 96 Room Air 21 09/29/19 04:00 98.7 100 20 106/55 (72) 97 09/29/19 04:00 106 09/29/19 00:00 99.8 103 18 99/64 (76) 99 09/29/19 00:00 103 09/28/19 21:37 104 103/61 09/28/19 21:00 Room Air 09/28/19 20:00 110 09/28/19 20:00 99.6 104 18 103/61 (75) 99 09/28/19 16:00 97.8 109 20 117/68 (84) 99 09/28/19 16:00 106 09/28/19 14:00 105 98/73 09/28/19 12:00 97.7 103 20 98/73 (81) 97 09/28/19 12:00 105 09/28/19 09:00 97.7 103 20 103/70 (81) 96 09/28/19 09:00 Room Air 09/28/19 08:00 101 Intake and Output 09/28/19 09/29/19 19:00 07:00 Intake Total 195 ml 750 ml Output Total 1200 ml 300 ml Balance -1005 ml 450 ml Intake Oral 120 ml IV Total 75 ml 750 ml Output Urine Total 1200 ml 300 ml # Voids 3 1 Laboratory Tests 09/29/19 06:01: White Blood Count 15.7H, Red Blood Count 3.37L, Hemoglobin 9.0L, Hematocrit 27.1L, Mean Corpuscular Volume 80, Mean Corpuscular Hemoglobin 26.7L, Mean Corpuscular Hemoglobin Concent 33.2, Red Cell Distribution Width 14.0, Platelet Count 216, Mean Platelet Volume 5.8L, Neutrophils (%) (Auto) 74.4, Lymphocytes ( %) (Auto) 18.0L, Monocytes (%) (Auto) 5.4, Eosinophils (%) (Auto) 1.7, Basophils (%) (Auto) 0.5, Sodium Level [Pending], Potassium Level [Pending], Chloride Level [Pending], Carbon Dioxide Level [Pending], Blood Urea Nitrogen [ Pending], Creatinine [Pending], Estimat Glomerular Filtration Rate [Pending], Glucose Level [Pending], Calcium Level [Pending] Height (Feet): 5 Height (Inches): 8.00 Weight (Pounds): 230 General Appearance: no apparent distress EENT: normal ENT inspection Neck: supple Cardiovascular: normal rate Respiratory/Chest: decreased breath sounds Abdomen: normal bowel sounds, non tender, soft Extremities: non-tender Jose Peter MD Sep 29, 2019 07:21
[2019-09-29 07:44] LABS: ANION GAP 10 mmol/L (5-15); BLOOD UREA NITROGEN 7 mg/dL (7-18); CARBON DIOXIDE 24 MMOL/L (21-32); CHLORIDE 106 MMOL/L (98-107); CREATININE 0.6 MG/DL (0.55-1.30); POTASSIUM 4.5 MMOL/L (3.5-5.1); SODIUM 140 MMOL/L (136-145)
[2019-09-29 08:00] VITALS: BP 101/56
[2019-09-29 08:31] LABS: ALANINE AMINOTRANSFERASE 14 U/L (12-78); ALBUMIN 1.8 G/DL (3.4-5.0); ALKALINE PHOSPHATASE 97 U/L (46-116); ASPARTATE AMINO TRANSFERASE 18 U/L (15-37); BILIRUBIN,DIRECT 0.2 MG/DL (0.0-0.3); BILIRUBIN,TOTAL 0.3 MG/DL (0.2-1.0); PHOSPHORUS 2.5 MG/DL (2.5-4.9)
[2019-09-29] MEDS: Enoxaparin 40mg Inj SUBQ SCH (08:42)
[2019-09-29] MEDS: Morphine Sulfate 2mg/ml Inj(IV/IM USE ONLY) IVP PRN (08:43)
[2019-09-29] MEDS: Dronabinol 2.5mg Cap ORAL SCH ×2 (08:43→18:37)
[2019-09-29] MEDS: Milk of Magnesia 30ml Ud ORAL SCH (08:43)
[2019-09-29] MEDS: D5 1/2NS w/KCl 40meq 1000ml 1,000 ML IV SCH (08:59)
[2019-09-29] MEDS: Acetaminophen 500mg (ES) tab ORAL PRN ×2 (09:34→15:39)
--- NOTE | 2019-09-29 09:38 | Cardiac Electrophysiology PN ---
Assessment/Plan Assessment/Plan 1. Recurrent SVT/atrial fibrillation with rapid ventricular response. Ruled out for myocardial infarction. On Cardizem 90 q 8 2. Sepsis. White count of 20,000. on IV antibiotic is now 15.7. 3. Stage IV colon cancer. Further evaluation by Dr. Hobson. Patient is status post colectomy and colostomy, was on hospice care before, and currently hold off any further chemo per Dr. Hobson. 4. Failure to thrive. 5. Hypotension. Resolved 6. Urine tract infection, on ABX Hospice placement pending. DEMETRIA RN Subjective Subjective On Cardizem po in SR in tele. Alert in NAD. Covid negative x 2. Hospice placement pending Objective Last 24 Hour Vital Signs Date Time Temp Pulse Resp B/P (MAP) Pulse Ox O2 Delivery O2 Flow Rate FiO2 09/29/19 08:00 101.1 110 20 101/56 (71) 97 09/29/19 06:10 95 106/55 09/29/19 04:26 95 21 96 Room Air 21 09/29/19 04:26 96 Room Air 21 09/29/19 04:00 98.7 100 20 106/55 (72) 97 09/29/19 04:00 106 09/29/19 00:00 99.8 103 18 99/64 (76) 99 09/29/19 00:00 103 09/28/19 21:37 104 103/61 09/28/19 21:00 Room Air 09/28/19 20:00 110 09/28/19 20:00 99.6 104 18 103/61 (75) 99 09/28/19 16:00 97.8 109 20 117/68 (84) 99 09/28/19 16:00 106 09/28/19 14:00 105 98/73 09/28/19 12:00 97.7 103 20 98/73 (81) 97 09/28/19 12:00 105 Intake and Output 09/28/19 09/29/19 19:00 07:00 Intake Total 195 ml 750 ml Output Total 1200 ml 300 ml Balance -1005 ml 450 ml Intake Oral 120 ml IV Total 75 ml 750 ml Output Urine Total 1200 ml 300 ml # Voids 3 1 Laboratory Tests Test 09/29/19 06:01 White Blood Count 15.7 K/UL (4.8-10.8) H Red Blood Count 3.37 M/UL (4.20-5.40) L Hemoglobin 9.0 G/DL (12.0-16.0) L Hematocrit 27.1 % (37.0-47.0) L Mean Corpuscular Volume 80 FL (80-99) Mean Corpuscular Hemoglobin 26.7 PG (27.0-31.0) L Mean Corpuscular Hemoglobin Concent 33.2 G/DL (32.0-36.0) Red Cell Distribution Width 14.0 % (11.6-14.8) Platelet Count 216 K/UL (150-450) Mean Platelet Volume 5.8 FL (6.5-10.1) L Neutrophils (%) (Auto) 74.4 % (45.0-75.0) Lymphocytes (%) (Auto) 18.0 % (20.0-45.0) L Monocytes (%) (Auto) 5.4 % (1.0-10.0) Eosinophils (%) (Auto) 1.7 % (0.0-3.0) Basophils (%) (Auto) 0.5 % (0.0-2.0) Sodium Level 140 MMOL/L (136-145) Potassium Level 4.5 MMOL/L (3.5-5.1) Chloride Level 106 MMOL/L (98-107) Carbon Dioxide Level 24 MMOL/L (21-32) Anion Gap 10 mmol/L (5-15) Blood Urea Nitrogen 7 mg/dL (7-18) Creatinine 0.6 MG/DL (0.55-1.30) Estimat Glomerular Filtration Rate > 60 mL/min (>60) Glucose Level 107 MG/DL (74-106) H Calcium Level 8.0 MG/DL (8.5-10.1) L Phosphorus Level 2.5 MG/DL (2.5-4.9) Magnesium Level 2.2 MG/DL (1.8-2.4) Total Bilirubin 0.3 MG/DL (0.2-1.0) Direct Bilirubin 0.2 MG/DL (0.0-0.3) Aspartate Amino Transf (AST/SGOT) 18 U/L (15-37) Alanine Aminotransferase (ALT/SGPT) 14 U/L (12-78) Alkaline Phosphatase 97 U/L (46-116) Total Protein 5.9 G/DL (6.4-8.2) L Albumin 1.8 G/DL (3.4-5.0) L Objective HEAD AND NECK: No JVD. LUNGS: Coarse rhonchi. CARDIOVASCULAR: Regular S1 and S2 with no gallop or murmur. ABDOMEN: Soft, obese. Has colostomy. EXTREMITIES: 1+ pitting edema. Homar Capps MD Sep 29, 2019 09:38
--- NOTE | 2019-09-29 09:51 | Nephrology Progress Note ---
Assessment/Plan Problem List: (1) Dehydration (2) Electrolyte imbalance (3) UTI (urinary tract infection) (4) Anemia (5) Colostomy in place (6) Atrial fibrillation with RVR Assessment Dehydration, azotemia Electrolyte imbalance, hypokalemia, Hypotension, tachycardia Mild anemia Colon cancer, was taken off hospice prior to transfer to the hospital Toxic metabolic encephalopathy UTI Failure to thrive Status post colectomy and colostomy Plan September 28: Leukocytosis persists. Renal parameters and electrolytes within acceptable range. Continue per consultants. Discussed with RN. September 27: Today's labs reviewed. Magnesium, phosphorus supplements given. Continue per consultants. September 26: No labs drawn today. Remains stable from renal standpoint of view. Continue per cardiology management. September 25: Renal parameters stable. Continue per cardiology September 24: On telemetry unit now. Potassium phosphate IV ordered. Stable renal parameters. Continue per consultants. September 23: Patient remains in ICU on Cardizem drip. Magnesium, phosphorus, potassium chloride, given a supplement. Continue hydration. Continue to monitor renal parameters and electrolytes. Continue per consultants. Keep n.p.o. as patient's ability to swallow is in question. Waiting for speech therapy evaluation. 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 Fluid challenge with albumin 5% 500 cc 1 time Antibiotics for UTI Continue per consultants Discussed with RN Subjective ROS Limited/Unobtainable: No Constitutional: Reports: malaise, weakness Objective Objective Last 24 Hour Vital Signs Date Time Temp Pulse Resp B/P (MAP) Pulse Ox O2 Delivery O2 Flow Rate FiO2 09/29/19 08:00 101.1 110 20 101/56 (71) 97 09/29/19 06:10 95 106/55 09/29/19 04:26 95 21 96 Room Air 21 09/29/19 04:26 96 Room Air 21 09/29/19 04:00 98.7 100 20 106/55 (72) 97 09/29/19 04:00 106 09/29/19 00:00 99.8 103 18 99/64 (76) 99 09/29/19 00:00 103 09/28/19 21:37 104 103/61 09/28/19 21:00 Room Air 09/28/19 20:00 110 09/28/19 20:00 99.6 104 18 103/61 (75) 99 09/28/19 16:00 97.8 109 20 117/68 (84) 99 09/28/19 16:00 106 09/28/19 14:00 105 98/73 09/28/19 12:00 97.7 103 20 98/73 (81) 97 09/28/19 12:00 105 Intake and Output 09/28/19 09/29/19 19:00 07:00 Intake Total 195 ml 750 ml Output Total 1200 ml 300 ml Balance -1005 ml 450 ml Intake Oral 120 ml IV Total 75 ml 750 ml Output Urine Total 1200 ml 300 ml # Voids 3 1 Laboratory Tests 09/29/19 06:01: White Blood Count 15.7H, Red Blood Count 3.37L, Hemoglobin 9.0L, Hematocrit 27.1L, Mean Corpuscular Volume 80, Mean Corpuscular Hemoglobin 26.7L, Mean Corpuscular Hemoglobin Concent 33.2, Red Cell Distribution Width 14.0, Platelet Count 216, Mean Platelet Volume 5.8L, Neutrophils (%) (Auto) 74.4, Lymphocytes ( %) (Auto) 18.0L, Monocytes (%) (Auto) 5.4, Eosinophils (%) (Auto) 1.7, Basophils (%) (Auto) 0.5, Sodium Level 140, Potassium Level 4.5, Chloride Level 106, Carbon Dioxide Level 24, Anion Gap 10, Blood Urea Nitrogen 7, Creatinine 0.6, Estimat Glomerular Filtration Rate > 60, Glucose Level 107H, Calcium Level 8.0L, Phosphorus Level 2.5, Magnesium Level 2.2, Total Bilirubin 0.3, Direct Bilirubin 0.2, Aspartate Amino Transf (AST/SGOT) 18, Alanine Aminotransferase ( ALT/SGPT) 14, Alkaline Phosphatase 97, Total Protein 5.9L, Albumin 1.8L Height (Feet): 5 Height (Inches): 8.00 Weight (Pounds): 230 General Appearance: no apparent distress, lethargic Cardiovascular: tachycardia Respiratory/Chest: decreased breath sounds Abdomen: distended Chaparro Pemberton MD Sep 29, 2019 09:51
--- NOTE | 2019-09-29 10:24 | Pulmonology Progress Note ---
Subjective ROS Limited/Unobtainable: No Interval Events: None new Constitutional: Reports: no symptoms HEENT: Repors: no symptoms Respiratory: Reports: no symptoms Cardiovascular: Reports: no symptoms Gastrointestinal/Abdominal: Reports: no symptoms Musculoskeletal: Reports: pain Allergies: Coded Allergies: PROCHLORPERAZINE (Verified Allergy, Unknown, 08/10/17) All Systems: reviewed and negative except above Objective Last 24 Hour Vital Signs Date Time Temp Pulse Resp B/P (MAP) Pulse Ox O2 Delivery O2 Flow Rate FiO2 09/29/19 08:00 101.1 110 20 101/56 (71) 97 09/29/19 06:10 95 106/55 09/29/19 04:26 95 21 96 Room Air 21 09/29/19 04:26 96 Room Air 21 09/29/19 04:00 98.7 100 20 106/55 (72) 97 09/29/19 04:00 106 09/29/19 00:00 99.8 103 18 99/64 (76) 99 09/29/19 00:00 103 09/28/19 21:37 104 103/61 09/28/19 21:00 Room Air 09/28/19 20:00 110 09/28/19 20:00 99.6 104 18 103/61 (75) 99 09/28/19 16:00 97.8 109 20 117/68 (84) 99 09/28/19 16:00 106 09/28/19 14:00 105 98/73 09/28/19 12:00 97.7 103 20 98/73 (81) 97 09/28/19 12:00 105 Intake and Output 09/28/19 09/29/19 19:00 07:00 Intake Total 195 ml 750 ml Output Total 1200 ml 300 ml Balance -1005 ml 450 ml Intake Oral 120 ml IV Total 75 ml 750 ml Output Urine Total 1200 ml 300 ml # Voids 3 1 General Appearance: no acute distress HEENT: normocephalic Respiratory: chest wall non-tender, lungs clear Cardiovascular: normal peripheral pulses, normal rate Abdomen: normal bowel sounds Laboratory Tests 09/29/19 06:01: White Blood Count 15.7H, Red Blood Count 3.37L, Hemoglobin 9.0L, Hematocrit 27.1L, Mean Corpuscular Volume 80, Mean Corpuscular Hemoglobin 26.7L, Mean Corpuscular Hemoglobin Concent 33.2, Red Cell Distribution Width 14.0, Platelet Count 216, Mean Platelet Volume 5.8L, Neutrophils (%) (Auto) 74.4, Lymphocytes ( %) (Auto) 18.0L, Monocytes (%) (Auto) 5.4, Eosinophils (%) (Auto) 1.7, Basophils (%) (Auto) 0.5, Sodium Level 140, Potassium Level 4.5, Chloride Level 106, Carbon Dioxide Level 24, Anion Gap 10, Blood Urea Nitrogen 7, Creatinine 0.6, Estimat Glomerular Filtration Rate > 60, Glucose Level 107H, Calcium Level 8.0L, Phosphorus Level 2.5, Magnesium Level 2.2, Total Bilirubin 0.3, Direct Bilirubin 0.2, Aspartate Amino Transf (AST/SGOT) 18, Alanine Aminotransferase ( ALT/SGPT) 14, Alkaline Phosphatase 97, Total Protein 5.9L, Albumin 1.8L Current Medications Medications (Trade) Dose Ordered Sig/Radha Route PRN Reason Start Time Stop Time Status Last Admin Dose Admin Acetaminophen (Tylenol) 500 mg Q6H PRN ORAL Temp >100.5 09/26/19 17:45 10/26/19 17:44 09/29/19 09:34 Acetaminophen/ Hydrocodone Bitart ([place] 7.5/325) 1 tab Q6H PRN ORAL severe pain 09/25/19 13:30 09/29/19 19:14 09/28/19 10:30 Dextrose/ Electrolytes 1,000 ml @ 75 mls/hr [id number] IV 09/25/19 11:15 10/23/19 13:59 09/29/19 08:59 Diltiazem HCl (Cardizem) 90 mg EVERY 8 HOURS ORAL 09/28/19 22:00 10/24/19 17:59 09/29/19 06:10 Dronabinol (Marinol) 2.5 mg BID ORAL 09/28/19 09:00 12/27/19 08:59 09/29/19 08:43 Enoxaparin Sodium (Lovenox) 40 mg DAILY SUBQ 09/26/19 09:00 12/22/19 08:59 09/29/19 08:42 Lorazepam (Ativan) 0.5 mg TIDPRN PRN ORAL For Anxiety 09/26/19 07:45 10/02/19 07:44 09/29/19 00:12 Magnesium Hydroxide (Mom) 30 ml DAILY ORAL 09/26/19 09:00 10/23/19 08:59 09/29/19 08:43 Morphine Sulfate (Morphine Sulfate) 2 mg Q4H PRN IVP For Pain 09/25/19 11:15 09/29/19 19:14 09/29/19 08:43 Multivitamins (Multivitamins) 1 tab DAILY ORAL 09/26/19 09:00 10/23/19 08:59 09/29/19 08:43 Pantoprazole (Protonix) 40 mg DAILY ORAL 09/29/19 09:00 10/29/19 08:59 09/29/19 08:43 Tramadol HCl (Ultram) 50 mg Q6H PRN ORAL moderate pain 09/25/19 11:15 09/29/19 11:14 09/29/19 00:16 Zolpidem Tartrate (Ambien) 5 mg HSPRN PRN ORAL Insomnia 09/25/19 19:15 09/29/19 19:14 09/28/19 23:50 Assessment/Plan Assessment/Plan IMPRESSION: 1. UTI 2. Colon CA. 3. Previous DNR status, now Full Code. 4. Previous hospice patient, now off hospice. 5. Altered mental status. 6. Hypokalemia. Corrected 7. Hypernatremia. Corrected 8. Marked leukocytosis. Initially improved but worse again today 9. UTI. 10. cardiac arrhythmias DISCUSSION: Abx per ID I will follow carefully. Cardiac rate control. Patient is seen and discussed with nursing staff. Saturating well on RA/low flow O2 Sonia Persaud Omar Syed MD Sep 29, 2019 10:24
--- NOTE | 2019-09-29 10:38 | Infectious Diseases Prog Note ---
Assessment/Plan Assessment/Plan antibiotics : none A 1. UTI s/p rx 2. COVID 19 test negative x 2 3. hypertension 4. asthma P 1. continue off antibiotics 2. will follow up cultures Subjective ROS Limited/Unobtainable: Yes Allergies: Coded Allergies: PROCHLORPERAZINE (Verified Allergy, Unknown, 08/10/17) Objective Vital Signs Last 24 Hour Vital Signs Date Time Temp Pulse Resp B/P (MAP) Pulse Ox O2 Delivery O2 Flow Rate FiO2 09/29/19 08:00 101.1 110 20 101/56 (71) 97 09/29/19 06:10 95 106/55 09/29/19 04:26 95 21 96 Room Air 21 09/29/19 04:26 96 Room Air 21 09/29/19 04:00 98.7 100 20 106/55 (72) 97 09/29/19 04:00 106 09/29/19 00:00 99.8 103 18 99/64 (76) 99 09/29/19 00:00 103 09/28/19 21:37 104 103/61 09/28/19 21:00 Room Air 09/28/19 20:00 110 09/28/19 20:00 99.6 104 18 103/61 (75) 99 09/28/19 16:00 97.8 109 20 117/68 (84) 99 09/28/19 16:00 106 09/28/19 14:00 105 98/73 09/28/19 12:00 97.7 103 20 98/73 (81) 97 09/28/19 12:00 105 Height (Feet): 5 Height (Inches): 8.00 Weight (Pounds): 230 Respiratory/Chest: lungs clear Cardiovascular: normal rate, regular rhythm, no gallop/murmur Abdomen: soft, non tender Extremities: other - + edema Laboratory Tests Test 09/29/19 06:01 White Blood Count 15.7 K/UL (4.8-10.8) H Red Blood Count 3.37 M/UL (4.20-5.40) L Hemoglobin 9.0 G/DL (12.0-16.0) L Hematocrit 27.1 % (37.0-47.0) L Mean Corpuscular Volume 80 FL (80-99) Mean Corpuscular Hemoglobin 26.7 PG (27.0-31.0) L Mean Corpuscular Hemoglobin Concent 33.2 G/DL (32.0-36.0) Red Cell Distribution Width 14.0 % (11.6-14.8) Platelet Count 216 K/UL (150-450) Mean Platelet Volume 5.8 FL (6.5-10.1) L Neutrophils (%) (Auto) 74.4 % (45.0-75.0) Lymphocytes (%) (Auto) 18.0 % (20.0-45.0) L Monocytes (%) (Auto) 5.4 % (1.0-10.0) Eosinophils (%) (Auto) 1.7 % (0.0-3.0) Basophils (%) (Auto) 0.5 % (0.0-2.0) Sodium Level 140 MMOL/L (136-145) Potassium Level 4.5 MMOL/L (3.5-5.1) Chloride Level 106 MMOL/L (98-107) Carbon Dioxide Level 24 MMOL/L (21-32) Anion Gap 10 mmol/L (5-15) Blood Urea Nitrogen 7 mg/dL (7-18) Creatinine 0.6 MG/DL (0.55-1.30) Estimat Glomerular Filtration Rate > 60 mL/min (>60) Glucose Level 107 MG/DL (74-106) H Calcium Level 8.0 MG/DL (8.5-10.1) L Phosphorus Level 2.5 MG/DL (2.5-4.9) Magnesium Level 2.2 MG/DL (1.8-2.4) Total Bilirubin 0.3 MG/DL (0.2-1.0) Direct Bilirubin 0.2 MG/DL (0.0-0.3) Aspartate Amino Transf (AST/SGOT) 18 U/L (15-37) Alanine Aminotransferase (ALT/SGPT) 14 U/L (12-78) Alkaline Phosphatase 97 U/L (46-116) Total Protein 5.9 G/DL (6.4-8.2) L Albumin 1.8 G/DL (3.4-5.0) L Current Medications Medications (Trade) Dose Ordered Sig/Radha Route PRN Reason Start Time Stop Time Status Last Admin Dose Admin Acetaminophen (Tylenol) 500 mg Q6H PRN ORAL Temp >100.5 6/6/20 17:45 10/26/19 17:44 09/29/19 09:34 Acetaminophen/ Hydrocodone Bitart ([place] 7.5/325) 1 tab Q6H PRN ORAL severe pain 09/25/19 13:30 09/29/19 19:14 09/28/19 10:30 Dextrose/ Electrolytes 1,000 ml @ 75 mls/hr [id number] IV 09/25/19 11:15 10/23/19 13:59 09/29/19 08:59 Diltiazem HCl (Cardizem) 90 mg EVERY 8 HOURS ORAL 09/28/19 22:00 10/24/19 17:59 09/29/19 06:10 Dronabinol (Marinol) 2.5 mg BID ORAL 09/28/19 09:00 12/27/19 08:59 09/29/19 08:43 Enoxaparin Sodium (Lovenox) 40 mg DAILY SUBQ 09/26/19 09:00 12/22/19 08:59 09/29/19 08:42 Lorazepam (Ativan) 0.5 mg TIDPRN PRN ORAL For Anxiety 09/26/19 07:45 10/02/19 07:44 09/29/19 00:12 Magnesium Hydroxide (Mom) 30 ml DAILY ORAL 09/26/19 09:00 10/23/19 08:59 09/29/19 08:43 Morphine Sulfate (Morphine Sulfate) 2 mg Q4H PRN IVP For Pain 09/25/19 11:15 09/29/19 19:14 09/29/19 08:43 Multivitamins (Multivitamins) 1 tab DAILY ORAL 09/26/19 09:00 10/23/19 08:59 09/29/19 08:43 Pantoprazole (Protonix) 40 mg DAILY ORAL 09/29/19 09:00 10/29/19 08:59 09/29/19 08:43 Tramadol HCl (Ultram) 50 mg Q6H PRN ORAL moderate pain 09/25/19 11:15 09/29/19 11:14 09/29/19 00:16 Zolpidem Tartrate (Ambien) 5 mg HSPRN PRN ORAL Insomnia 09/25/19 19:15 09/29/19 19:14 09/28/19 23:50 Concepcion Muro MD Sep 29, 2019 10:38
[2019-09-29 12:00] VITALS: BP 96/55
[2019-09-29 16:00] VITALS: BP 93/53
--- NOTE | 2019-09-29 16:39 | Surgery Progress Note ---
Surgery Progress Note Subjective Additional Comments no acute events leukocytosis no n/v/f/c Objective Last 24 Hour Vital Signs Date Time Temp Pulse Resp B/P (MAP) Pulse Ox O2 Delivery O2 Flow Rate FiO2 09/29/19 16:09 100.0 09/29/19 14:00 104 96/55 09/29/19 12:00 99.5 104 20 96/55 (69) 95 09/29/19 12:00 104 09/29/19 09:00 Room Air 09/29/19 08:00 101.1 110 20 101/56 (71) 97 09/29/19 07:24 102 09/29/19 06:10 95 106/55 09/29/19 04:26 95 21 96 Room Air 21 09/29/19 04:26 96 Room Air 21 09/29/19 04:00 98.7 100 20 106/55 (72) 97 09/29/19 04:00 106 09/29/19 00:00 99.8 103 18 99/64 (76) 99 09/29/19 00:00 103 09/28/19 21:37 104 103/61 09/28/19 21:00 Room Air 09/28/19 20:00 110 09/28/19 20:00 99.6 104 18 103/61 (75) 99 I&O Intake and Output 09/28/19 09/29/19 19:00 07:00 Intake Total 195 ml 750 ml Output Total 1200 ml 300 ml Balance -1005 ml 450 ml Intake Oral 120 ml IV Total 75 ml 750 ml Output Urine Total 1200 ml 300 ml # Voids 3 1 Dressing: other Wound: other Drains: other Cardiovascular: RSR Respiratory: decreased breath sounds Abdomen: soft, present bowel sounds Extremities: no cyanosis Laboratory Tests Test 09/29/19 06:01 White Blood Count 15.7 K/UL (4.8-10.8) H Red Blood Count 3.37 M/UL (4.20-5.40) L Hemoglobin 9.0 G/DL (12.0-16.0) L Hematocrit 27.1 % (37.0-47.0) L Mean Corpuscular Volume 80 FL (80-99) Mean Corpuscular Hemoglobin 26.7 PG (27.0-31.0) L Mean Corpuscular Hemoglobin Concent 33.2 G/DL (32.0-36.0) Red Cell Distribution Width 14.0 % (11.6-14.8) Platelet Count 216 K/UL (150-450) Mean Platelet Volume 5.8 FL (6.5-10.1) L Neutrophils (%) (Auto) 74.4 % (45.0-75.0) Lymphocytes (%) (Auto) 18.0 % (20.0-45.0) L Monocytes (%) (Auto) 5.4 % (1.0-10.0) Eosinophils (%) (Auto) 1.7 % (0.0-3.0) Basophils (%) (Auto) 0.5 % (0.0-2.0) Sodium Level 140 MMOL/L (136-145) Potassium Level 4.5 MMOL/L (3.5-5.1) Chloride Level 106 MMOL/L (98-107) Carbon Dioxide Level 24 MMOL/L (21-32) Anion Gap 10 mmol/L (5-15) Blood Urea Nitrogen 7 mg/dL (7-18) Creatinine 0.6 MG/DL (0.55-1.30) Estimat Glomerular Filtration Rate > 60 mL/min (>60) Glucose Level 107 MG/DL (74-106) H Calcium Level 8.0 MG/DL (8.5-10.1) L Phosphorus Level 2.5 MG/DL (2.5-4.9) Magnesium Level 2.2 MG/DL (1.8-2.4) Total Bilirubin 0.3 MG/DL (0.2-1.0) Direct Bilirubin 0.2 MG/DL (0.0-0.3) Aspartate Amino Transf (AST/SGOT) 18 U/L (15-37) Alanine Aminotransferase (ALT/SGPT) 14 U/L (12-78) Alkaline Phosphatase 97 U/L (46-116) Total Protein 5.9 G/DL (6.4-8.2) L Albumin 1.8 G/DL (3.4-5.0) L Plan Problems: (1) Failure to thrive Assessment & Plan: DAILY ESTIMATED NEEDS: Needs based on wound, obese 73.8kg abw 25-30 kcals/kg 2913-6005 total kcals 1.25-1.5 g protein/kg 92-111 g total protein 25-30 mL/kg 5699-8641 total fluid mLs NUTRITION DIAGNOSIS: Increased kcal/pro intake needs R/T wound healing as evidenced by pt admitted sacral unstageable and L foot DTI wounds. PO DIET RECOMMENDATIONS: SOFT diet/ texture per [employer] ENTERAL NUTRITION RECOMMENDATIONS: CONSULT RD IF NON ORAL FEEDS ARE PART OF POC ----- ADDITIONAL RECOMMENDATIONS: * Maintain calibrated bed scale weights * Wound care: with diet order add Berry 1pkt BID Add Vit C 250mg BID + MVI w/ min qdaily F/up w/ WC eval * Colostomy status, rec IVF for hydration, monitor BG for hypoglycemia Patient has an ongoing history of bolus holding and poor PO intake (h/o FTT), bolus holding behaviors may be partially be due to Patient's ongoing confusion ( bolus holding is often seen with patients who are forgetful/confused) -->Given Patients acute AMS and UTI this may be a contributing factor. -->Patient also presenting with poor respiratory-swallowing coordination. Further, Patient's respiratory rate appears slightly high today per chart (22 breaths/min) exacerbating Patient's poor breathing-swallowing coordination. [employer] spoke with Patients son, who reports previous incidents of Patient bolus holding (keeping food/liquid in oral cavity for extended periods of time without swallowing), specifically with medications for up to 1-2 days at a time. This is a VERY HIGH aspiration risk, and should be avoided while Patient is in house. -If Patient does exhibit incidents of bolus holding, recommend: 1. Providing Patient with re-orientation/situation 2. Reminding Patient that item in mouth is food/liquids. 3. Encourage Patient swallow via verbal, tactile, and visual cues. -If bolus holding persists, materials should be suctioned from Patients oral cavity. -Patient benefits from frequent re-orientation due to overall confusion and to minimize agitation. RECOMMENDATIONS: 1. Continue Moist Puree with [place] Thick Liquids (no Straws) via 1 to 1 careful hand feeding while implementing posted aspiration precautions. (PER RD Low NA + Nepro TID + BERRY BID) 2. Please assist Patient with oral hygiene BID with suction. Patient continues to be confused, with ongoing pain, further, Patient is c/o being unable to move arms, RN made aware and provided medications. PO TRIALS: -Patient completed thin liquid trials via cup sip with no significant overt s/s of aspiration, vocal quality remained clear. -Patient completed PO trials of whole medications (large NORCO pill cut in half ) with thin liquids with no significant overt s/s of aspiration, vocal quality remained clear. PLAN: 1. Upgrade Patient to Thin Liquids, continue Moist Puree, supplements and type per RD. 2. [employer] plans to continue to f/u with Patient for diet tolerance, dysphagia tx and management. (2) UTI (urinary tract infection) (3) Anemia (4) HTN (hypertension) (5) Altered level of consciousness (6) Wound infection Assessment & Plan: Patient presents [facility] for medical care management and on admission identified to have significant leukocytosis, abnormal labs, with wound infection. She is identified to have a large unstageable sacral decubitus ulcer as well as left heel deep tissue injury and blood blister. Complete physical examination performed and likely infectious etiology is her UTI and not the wounds. The sacral decubitus ulcer is unstageable but no purulent drainage no active drainage with periwound stable. The left heel is a deep tissue injury with a blood blister no active drainage. On the left ankle there is a small superficial decubitus skin ulcer identified stage II. Her ostomy is intact and functional. No acute surgical intervention at this time will provide local care for above findings. Wash sacral wound daily with normal saline. Apply Thera honey and foam dressing. Offload pressure from heels with pillow. Foam dressing to heels. Turn every 2 hours Air soft mattress We will follow with recommendations thank you for let me participate in patient' s care (7) Colostomy complication Assessment & Plan: Colostomy evaluated functional history of colon cancer ostomy site with some discomfort currently stable No prolapse no incarcerated hernia identified We will monitor with local examination and serial exams thank you Roberto Carlos Maza Sep 29, 2019 16:39
[2019-09-29 20:00] VITALS: BP 98/61
--- NOTE | 2019-09-29 21:13 | General Progress Note ---
Assessment/Plan Problem List: (1) HTN (hypertension) ICD Codes: I10 - Essential (primary) hypertension SNOMED: 27869879 (2) Anemia ICD Codes: D64.9 - Anemia, unspecified SNOMED: 171982687 (3) UTI (urinary tract infection) ICD Codes: N39.0 - Urinary tract infection, site not specified SNOMED: 13537402 (4) Failure to thrive SNOMED: 00709848 (5) Altered level of consciousness ICD Codes: R40.4 - Transient alteration of awareness SNOMED: 3911480 (6) Wound infection ICD Codes: T14.8XXA - Other injury of unspecified body region, initial encounter; L08.9 - Local infection of the skin and subcutaneous tissue, unspecified SNOMED: 38950329 (7) Dehydration ICD Codes: E86.0 - Dehydration SNOMED: 33551421 (8) Electrolyte imbalance ICD Codes: E87.8 - Other disorders of electrolyte and fluid balance, not elsewhere classified SNOMED: 970970021 (9) Atrial fibrillation with RVR ICD Codes: I48.91 - Unspecified atrial fibrillation SNOMED: 595273589627101 (10) Anemia ICD Codes: D64.9 - Anemia, unspecified SNOMED: 533256651 (11) Colon cancer ICD Codes: C18.9 - Malignant neoplasm of colon, unspecified SNOMED: 013641332 (12) Decubital ulcer ICD Codes: L89.90 - Pressure ulcer of unspecified site, unspecified stage SNOMED: 364188032 Status: stable, progressing Assessment/Plan: check h/h check lyts colon cancer no acute events anemia sepsis resp insuf Subjective ROS Limited/Unobtainable: Yes Allergies: Coded Allergies: PROCHLORPERAZINE (Verified Allergy, Unknown, 08/10/17) Objective Last 24 Hour Vital Signs Date Time Temp Pulse Resp B/P (MAP) Pulse Ox O2 Delivery O2 Flow Rate FiO2 09/29/19 16:09 100.0 09/29/19 16:00 100.0 114 20 93/53 (66) 97 09/29/19 15:58 122 09/29/19 14:00 104 96/55 09/29/19 12:00 99.5 104 20 96/55 (69) 95 09/29/19 12:00 104 6/9/20 09:00 Room Air 09/29/19 08:00 101.1 110 20 101/56 (71) 97 09/29/19 07:24 102 09/29/19 06:10 95 106/55 09/29/19 04:26 95 21 96 Room Air 21 09/29/19 04:26 96 Room Air 21 09/29/19 04:00 98.7 100 20 106/55 (72) 97 09/29/19 04:00 106 09/29/19 00:00 99.8 103 18 99/64 (76) 99 09/29/19 00:00 103 09/28/19 21:37 104 103/61 Intake and Output 09/28/19 09/29/19 19:00 07:00 Intake Total 195 ml 750 ml Output Total 1200 ml 300 ml Balance -1005 ml 450 ml Intake Oral 120 ml IV Total 75 ml 750 ml Output Urine Total 1200 ml 300 ml # Voids 3 1 Laboratory Tests 09/29/19 06:01: White Blood Count 15.7H, Red Blood Count 3.37L, Hemoglobin 9.0L, Hematocrit 27.1L, Mean Corpuscular Volume 80, Mean Corpuscular Hemoglobin 26.7L, Mean Corpuscular Hemoglobin Concent 33.2, Red Cell Distribution Width 14.0, Platelet Count 216, Mean Platelet Volume 5.8L, Neutrophils (%) (Auto) 74.4, Lymphocytes ( %) (Auto) 18.0L, Monocytes (%) (Auto) 5.4, Eosinophils (%) (Auto) 1.7, Basophils (%) (Auto) 0.5, Sodium Level 140, Potassium Level 4.5, Chloride Level 106, Carbon Dioxide Level 24, Anion Gap 10, Blood Urea Nitrogen 7, Creatinine 0.6, Estimat Glomerular Filtration Rate > 60, Glucose Level 107H, Calcium Level 8.0L, Phosphorus Level 2.5, Magnesium Level 2.2, Total Bilirubin 0.3, Direct Bilirubin 0.2, Aspartate Amino Transf (AST/SGOT) 18, Alanine Aminotransferase ( ALT/SGPT) 14, Alkaline Phosphatase 97, Total Protein 5.9L, Albumin 1.8L Height (Feet): 5 Height (Inches): 8.00 Weight (Pounds): 230 Elizabeth Sidhu MD Sep 29, 2019 21:13
--- NOTE | 2019-09-30 16:19 | Discharge Summary ---
Discharge Summary Discharge Summary _ DATE OF ADMISSION: 09/22/2019 DATE OF DISCHARGE: 09/29/2019 DISCHARGED BY: Dr. Posada REASON FOR ADMISSION: 74 years old female, with past medical history of hypertension, colorectal cancer stage III, status post colectomy, colostomy status, who lived at home with hospice services , presented to emergency room for evaluation. Patient recently was diagnosed with urinary tract infection and started on oral antibiotic , but was unable to swallow. Later hospice changed her to morphine only for comfort care . However family and her primary physician felt that patient could recover from UTI, so primary care physician took patient off hospice and advised the family to transfer her to emergency room. Upon evaluation patient was afebrile , but tachycardic . Laboratory work-up revealed leukocytosis WBC 18.8 ,hemoglobin 11.6, hematocrit 36.6 ,platelet count 286. Stable electrolytes. BUN 39, creatinine 1.6. Glucose 104. Lactic acid 1.6. Stable LFT. Troponin negative . Urinalysis revealed +2 protein, +2 bilirubin,+3 leukocyte esterase, pyuria and moderate bacteria. EKG revealed sinus tachycardia , no acute ischemic changes. Chest x-ray demonstrated no acute cardiopulmonary pathology. In the emergency department patient pancultured, received empiric antibiotic, started on the IV fluids and admitted for further management. CONSULTANTS: engineering inspection assistant Dr. Saldivar pulmonary Dr. Montero ID specialist Dr. Muro GI specialist Dr. Peter seating and mobility technologist Dr. Pemberton revenue investigator/oncologist Dr. Hobson surgery Dr. Maza psychiatrist HOSPITAL COURSE: Patient admitted to telemetry floor. Dressmaking Teacher followed. Echocardiogram demonstrated ejection fraction of 55% with mild ventricular hypertrophy. No evidence of pericardial effusion. Mild aortic regurgitation and trace mitral regurgitation. Right ventricular systolic pressure of 20. Telemetry showed recurrent SVT/atrial fibrillation with rapid ventricular response. Patient started on Cardizem ; rate was controlled. Serial troponin negative. Patient was ruled out for acute myocardial infarction. Patient was on IV hydration. Renal parameters and electrolytes were closely monitored. Electrolytes corrected as needed , and nephrotoxic's were avoided. Creatinine from initial 1.6 down to 0.6. BUN remained stable. All electrolytes stable Oncologist seen and evaluated patient . Patient was on hospice services before. Oncologist recommended hold off on further treatment. Hemoglobin and hematocrit were closely monitored with goal to keep hemoglobin above 7. No evidence of hemolysis. Prior to discharge hemoglobin 9 , hematocrit 27.1. Patient passed swallow evaluation. Patient started on diet with diet texture as per speech therapist recommendation. Strict aspiration precautions were maintained. Patient exhibited poor oral intake. Marinol was added for appetite. per GI may need PEG, if family decides. P protein supplements provided. Colostomy care provided. Patient had large un-stageable sacral decubitus ulcer as well as the left heel deep tissue injury, present on admission. Wound care care provided as per surgeon recommendation . Bontinue wound care at the facility. Transfer was arranged to long-term acute care facility. Patient was stable for transfer. FINAL DIAGNOSES: Sepsis UTI Suspected COVID-19 infection - ruled out History of hypertension Recurrent SVT/atrial fibrillation with rapid ventricular response Dehydration Electrolyte imbalance Toxic metabolic encephalopathy Colon cancer, status post colectomy with colostomy status Anemia Decubitus ulcer , presebt on admission DISCHARGE MEDICATIONS: See Medication Reconciliation list. DISCHARGE INSTRUCTIONS: Patient was discharged to [facility] for further management. Follow up with medical doctor at the accepting facility. I have been assigned to dictate discharge summary for this account. I was not involved in the patient's management. Eryn Wagner NP Sep 30, 2019 16:19
== END 2019-09-29 22:50 | DRG 871 ==
LOC: EDBD 11:17 → EMR 12:48 → 2E 12:54 → EDBEDREQ 14:06 → 2E 16:49 → ICU 20:10 → 2W 09-25 02:06 → 2E 09-25 11:06
DX: A41.9 Sepsis, unspecified organism (principal); G92 Toxic encephalopathy; N39.0 Urinary tract infection, site not specified; C18.9 Malignant neoplasm of colon, unspecified; E87.0 Hyperosmolality and hypernatremia; I47.1 Supraventricular tachycardia; E86.0 Dehydration; I95.9 Hypotension, unspecified; R62.7 Adult failure to thrive; I10 Essential (primary) hypertension; I48.91 Unspecified atrial fibrillation; E87.8 Other disorders of electrolyte and fluid balance, not elsewhere classified; Z93.3 Colostomy status; L89.150 Pressure ulcer of sacral region, unstageable; D64.9 Anemia, unspecified; Z88.8 Allergy status to other drugs, medicaments and biological substances; R13.10 Dysphagia, unspecified; J45.909 Unspecified asthma, uncomplicated; L08.89 Other specified local infections of the skin and subcutaneous tissue
CPT/HCPCS: 36415; 71045; 80048; 80053; 80061; 80076; 81003; 82533; 82550; 82553; 82607; 82728; 82746; 82977; 83036; 83540; 83550; 83605; 83735; 83880; 84100; 84443; 84484; 84550; 85007; 85025; 85044; 85610; 85730; 86140; 87040; 87081; 87086; 93005; 93306; 94640; 94664; 96361; 96365; 99285; J7030